=== PATIENT | female | born 1965 | race Caucasian/White ===

== ENCOUNTER → 2016-08-01 | Outpatient (REF) | payer OTHER ==
[~2016-08-01] MED LIST: ACIPHEX; BENT20TA; FLAG500T; FLEXERIL; IBUP800T
[2016-08-01 16:06] LABS: BASO % 0.6 % (0.0-1.0); EOS # 0.1 K/mm3 (0.0-0.50); EOS % 1.3 % (0.0-3.0); LARGE UNSTAINED CELL # 0.1 K/mm3 (0.0-0.4); LARGE UNSTAINED CELL % 1.6 % (0.0-4.0); LYMPH # 1.8 K/mm3 (1.5-4.5); LYMPH % 34.9 % (24.0-44.0); MEAN CORPUSCULAR HEMOGLOBIN 32.5 pg (27.0-33.0); MEAN CORPUSCULAR HGB CONC 35.1 g/dl (32.0-36.5); MEAN CORPUSCULAR VOLUME 92.6 fl (80.0-96.0); MONO # 0.3 K/mm3 (0.0-0.8); MONO % 5.4 % (0.0-5.0); NEUTROPHILS # 2.7 K/mm3 (1.8-7.7); NEUTROPHILS % 56.2 % (36.0-66.0); PLATELET COUNT, AUTOMATED 246 k/mm3 (150-450); RED CELL DISTRIBUTION WIDTH 12.6 % (11.5-14.5); WHITE BLOOD COUNT 4.8 K/mm3 (4.0-10.0)
[2016-08-01 16:24] LABS: LUTEINIZING HORMONE 22.6 mIU/mL
== END ==
LOC: M LAB REF 12:08
PROVIDERS: ATTEND Nurse Practitioner Women's Health
DX: R39.89 Other symptoms and signs involving the genitourinary system (principal); Z11.3 Encounter for screening for infections with a predominantly sexual mode of transmission

== ENCOUNTER → 2016-08-04 | Outpatient (CLI) | payer OTHER ==
--- NOTE | 2016-08-04 10:42 | REP ---
Clinical: Left lower quadrant pain . Technique: Transabdominal pelvic ultrasound followed by transvaginal examination for better evaluation of the endometrium and adnexa with color Doppler evaluation of the ovaries. Findings: Bladder is unremarkable and measures 12.1 x 8.2 x 10.9 cm . Anteverted uterus measures 8.4 x 4.4 x 6.0 cm . The endometrial complex measures 4.0 mm thickness. Partially calcified degenerating fibroid measures 3.2 x 3.5 x 2.9 cm. Bilateral ovaries are normal in appearance and vascularity without evidence for torsion. Right ovary measures 2.6 x 1.9 x 2.7 cm ; R I = venous flow detected . Left ovary measures 2.9 x 1.6 x 4.0 cm ; R I = 0.63 . No pelvic fluid or adnexal mass lesion . Impression: 1. partially calcified degenerating 3.5 cm intramural fibroid. 2. Normal bilateral ovaries without torsion. 3. No pelvic free fluid. Signed by Joe Casas MD 08/04/2016 10:34 A
== END ==
LOC: M RAD 09:47
PROVIDERS: ATTEND Nurse Practitioner Women's Health
DX: R10.9 Unspecified abdominal pain (principal)

== ENCOUNTER → 2016-09-26 | Outpatient (REF) | payer OTHER ==
[~2016-09-26] MED LIST changes: +AUGM12TA11 PO; +LISI10TA4 PO; +MAGN500C PO; +NORCOTAB PO; +OMEP10CASR PO
== END ==
LOC: M LAB REF 12:45
PROVIDERS: ATTEND Surgery
DX: L72.3 Sebaceous cyst (principal)

== ENCOUNTER → 2016-10-10 | Outpatient (REF) | payer OTHER ==
[2016-10-11 12:55] LABS: ALBUMIN 4.1 GM/DL (3.2-5.2); ALBUMIN/GLOBULIN RATIO 1.37 (1.00-1.93); ALKALINE PHOSPHATASE 80 U/L (45-117); ALT/SGPT 29 U/L (12-78); ANION GAP 7 MEQ/L (8-16); AST/SGOT 23 U/L (15-37); BILIRUBIN,TOTAL 0.3 MG/DL (0.2-1.0); BLOOD UREA NITROGEN 11 MG/DL (7-18); CALCIUM LEVEL 9.7 MG/DL (8.5-10.1); CARBON DIOXIDE LEVEL 27 MEQ/L (21-32); CHLORIDE LEVEL 107 MEQ/L (98-107); CHOLESTEROL LEVEL 206 MG/DL (<200); CREATININE FOR GFR 0.74 MG/DL (0.55-1.02); GLOMERULAR FILTRATION RATE > 60.0 (>51); GLUCOSE, FASTING 94 MG/DL (70-105); MAGNESIUM LEVEL 2.3 MG/DL (1.8-2.4); POTASSIUM SERUM 4.2 MEQ/L (3.5-5.1); SODIUM LEVEL 141 MEQ/L (136-145); TOTAL PROTEIN 7.1 GM/DL (6.4-8.2); TRIGLYCERIDES LEVEL 112 MG/DL (<150)
[2016-10-11 13:08] LABS: BASO # 0.2 K/mm3 (0.0-0.2); BASO % 4.3 % (0.0-1.0); EOS # 0.2 K/mm3 (0.0-0.50); EOS % 3.6 % (0.0-3.0); LARGE UNSTAINED CELL # 0.1 K/mm3 (0.0-0.4); LARGE UNSTAINED CELL % 2.1 % (0.0-4.0); LYMPH # 2.2 K/mm3 (1.5-4.5); LYMPH % 35.3 % (24.0-44.0); MEAN CORPUSCULAR HEMOGLOBIN 32.9 pg (27.0-33.0); MEAN CORPUSCULAR HGB CONC 34.2 g/dl (32.0-36.5); MEAN CORPUSCULAR VOLUME 96.1 fl (80.0-96.0); MONO # 0.4 K/mm3 (0.0-0.8); MONO % 6.2 % (0.0-5.0); NEUTROPHILS # 2.8 K/mm3 (1.8-7.7); NEUTROPHILS % 48.4 % (36.0-66.0); PLATELET COUNT, AUTOMATED 264 k/mm3 (150-450); RED CELL DISTRIBUTION WIDTH 12.8 % (11.5-14.5); WHITE BLOOD COUNT 5.8 K/mm3 (4.0-10.0)
== END ==
LOC: M SFHCCLAY 15:50
PROVIDERS: ATTEND Family Medicine
DX: I10 Essential (primary) hypertension (principal); F41.9 Anxiety disorder, unspecified; E78.2 Mixed hyperlipidemia

== ENCOUNTER → 2017-01-03 | Outpatient (REF) | payer OTHER ==
[2017-01-03 19:54] LABS: ALBUMIN/GLOBULIN RATIO 1.38 (1.00-1.93); ALKALINE PHOSPHATASE 66 U/L (45-117); ALT/SGPT 30 U/L (12-78); ANION GAP 6 MEQ/L (8-16); AST/SGOT 17 U/L (15-37); BILIRUBIN,TOTAL 0.4 MG/DL (0.2-1.0); BLOOD UREA NITROGEN 13 MG/DL (7-18); CALCIUM LEVEL 9.6 MG/DL (8.5-10.1); CARBON DIOXIDE LEVEL 29 MEQ/L (21-32); CHLORIDE LEVEL 105 MEQ/L (98-107); CREATININE FOR GFR 0.77 MG/DL (0.55-1.02); GLOMERULAR FILTRATION RATE > 60.0 (>51); GLUCOSE, FASTING 92 MG/DL (70-105); POTASSIUM SERUM 4.4 MEQ/L (3.5-5.1); SODIUM LEVEL 140 MEQ/L (136-145); TOTAL PROTEIN 6.9 GM/DL (6.4-8.2)
== END ==
LOC: M SFHCCLAY 09:55
PROVIDERS: ATTEND Family Medicine
DX: I10 Essential (primary) hypertension (principal)

== ENCOUNTER → 2017-02-22 | Outpatient (CLI) | payer OTHER ==
--- NOTE | 2017-02-22 13:50 | REP ---
PA and lateral chest: Comparison is 05/18/2012. The lung medel are clear. The cardiac size is normal The chasity, mediastinum, and bony thorax are unremarkable. Impression: Negative PA and lateral chest. There is no interval change. Signed by Ezequiel Ho MD 02/22/2017 01:42 P
== END ==
LOC: M CLY 11:29
PROVIDERS: ATTEND Family Medicine
DX: R05 Cough (principal)

== ENCOUNTER → 2017-03-01 | Outpatient (CLI) | payer OTHER ==
--- NOTE | 2017-03-01 21:10 | REP ---
Maxillofacial CT study without contrast: History: Acute recurrent maxillary sinusitis. Comparison head CT study images are from March 21, 2011. CT findings: The frontal, ethmoidal, sphenoidal, and mastoid sinuses are clear bilaterally. There is moderate mucosal thickening affecting the left maxillary sinus. The right maxillary sinus is clear. The ostiomeatal complex is narrowed by mucosal thickening on the left at the level of the ostium and infundibulum. On the right, the OMC is patent. Nasal turbinate soft tissues are symmetric. There is a small leftward septal deviation. No bony destructive lesion is seen. No intraorbital or intracranial abnormality is appreciated. Impression: Left maxillary sinus mucosal thickening, moderate in degree. Signed by Prince Harper MD 03/02/2017 08:08 A
== END ==
LOC: M RAD 13:52
PROVIDERS: ATTEND Family Medicine
DX: J01.01 Acute recurrent maxillary sinusitis (principal)

== ENCOUNTER → 2017-04-27 | Outpatient (REF) | payer OTHER ==
[2017-04-27 16:39] LABS: BASO % 0.5 % (0.0-1.0); EOS # 0.2 10^3/uL (0.0-0.50); EOS % 3.2 % (0.0-3.0); HEMATOCRIT 39.5 % (36.0-47.0); HEMOGLOBIN 13.7 g/dl (12.0-16.0); IMMATURE GRANULOCYTE % 0.2 % (0-3.0); LYMPH # 2.1 10^3/uL (1.5-4.5); LYMPH % 32.4 % (24.0-44.0); MEAN CORPUSCULAR HEMOGLOBIN 32.1 pg (27.0-33.0); MEAN CORPUSCULAR HGB CONC 34.7 g/dl (32.0-36.5); MEAN CORPUSCULAR VOLUME 92.5 fl (80.0-96.0); MONO # 0.5 10^3/uL (0.0-0.8); MONO % 7.4 % (0.0-5.0); NEUTROPHILS # 3.6 10^3/uL (1.8-7.7); NEUTROPHILS % 56.3 % (36.0-66.0); PLATELET COUNT, AUTOMATED 290 10^3/uL (150-450); RED BLOOD COUNT 4.27 10^6/uL (4.00-5.40); RED CELL DISTRIBUTION WIDTH 12.2 % (11.5-14.5); WHITE BLOOD COUNT 6.3 10^3/uL (4.0-10.0)
[2017-04-27 16:58] LABS: TOTAL T3 97.1 NG/DL (60.0-181.0)
[2017-04-27 17:03] LABS: ALBUMIN 4.1 GM/DL (3.2-5.2); ALBUMIN/GLOBULIN RATIO 1.58 (1.00-1.93); ALKALINE PHOSPHATASE 64 U/L (45-117); ALT/SGPT 29 U/L (12-78); ANION GAP 7 MEQ/L (8-16); AST/SGOT 17 U/L (7-37); BILIRUBIN,TOTAL 0.2 MG/DL (0.2-1.0); BLOOD UREA NITROGEN 12 MG/DL (7-18); CARBON DIOXIDE LEVEL 29 MEQ/L (21-32); CHLORIDE LEVEL 107 MEQ/L (98-107); CREATININE FOR GFR 0.64 MG/DL (0.55-1.30); GLOMERULAR FILTRATION RATE > 60.0 (>51); GLUCOSE, FASTING 109 MG/DL (70-100); SODIUM LEVEL 143 MEQ/L (136-145); THYROXINE (T4) 10.1 UG/DL (4.5-12.0); TOTAL PROTEIN 6.7 GM/DL (6.4-8.2)
== END ==
LOC: M SFHCCLAY 13:39
DX: I10 Essential (primary) hypertension (principal); R53.83 Other fatigue

== ENCOUNTER → 2017-05-03 | Outpatient (CLI) | payer OTHER | LOC: M RAD 09:57 | DX: Z12.31 Encounter for screening mammogram for malignant neoplasm of breast (principal) | CPT/HCPCS: 77067 ==

== ENCOUNTER → 2017-09-22 | Outpatient (CLI) | payer OTHER | LOC: M PAIN 09:15 | DX: M79.1 Myalgia (principal); M54.2 Cervicalgia; G89.29 Other chronic pain; I10 Essential (primary) hypertension; M25.511 Pain in right shoulder; F17.210 Nicotine dependence, cigarettes, uncomplicated; K21.9 Gastro-esophageal reflux disease without esophagitis; K58.9 Irritable bowel syndrome, unspecified; Z79.891 Long term (current) use of opiate analgesic; Z79.899 Other long term (current) drug therapy; Z88.8 Allergy status to other drugs, medicaments and biological substances | CPT/HCPCS: G0463 ==

== ENCOUNTER → 2017-10-31 | Outpatient (CLI) | payer OTHER ==
[~2017-10-31] MED LIST changes: -ACIPHEX; -AUGM12TA11 PO; -BENT20TA; +BUPIVACAINE HCL 0.25% 10 ML VIAL As Ordered; +BUPIVACAINE HCL 0.25% 30 ML VIAL As Ordered; -FLAG500T; -FLEXERIL; -IBUP800T; -LISI10TA4 PO; -MAGN500C PO; -NORCOTAB PO; -OMEP10CASR PO; +TRIAMCINOLONE ACETONIDE SUSP 40 MG/ML VIAL (J3301) As Ordered; +diazePAM 5 MG TAB As Ordered; +oxyCODONE 5MG TAB As Ordered
== END ==
LOC: M PAIN 14:30
DX: M79.1 Myalgia (principal); I10 Essential (primary) hypertension; K58.9 Irritable bowel syndrome, unspecified; F41.9 Anxiety disorder, unspecified; K21.9 Gastro-esophageal reflux disease without esophagitis; M48.02 Spinal stenosis, cervical region; F17.210 Nicotine dependence, cigarettes, uncomplicated; M19.90 Unspecified osteoarthritis, unspecified site; Z79.891 Long term (current) use of opiate analgesic; Z79.899 Other long term (current) drug therapy; Z88.2 Allergy status to sulfonamides; Z88.1 Allergy status to other antibiotic agents; Z88.8 Allergy status to other drugs, medicaments and biological substances
CPT/HCPCS: 20552

== ENCOUNTER → 2017-11-21 | Outpatient (REF) | payer OTHER ==
[2017-11-21 11:53] LABS: BASO % 0.4 % (0.0-1.0); EOS # 0.1 10^3/uL (0.0-0.50); EOS % 2.3 % (0.0-3.0); HEMATOCRIT 41.3 % (36.0-47.0); HEMOGLOBIN 14.5 g/dl (12.0-15.5); IMMATURE GRANULOCYTE % 0.4 % (0-3.0); LYMPH % 34.7 % (24.0-44.0); MEAN CORPUSCULAR HEMOGLOBIN 32.4 pg (27.0-33.0); MEAN CORPUSCULAR HGB CONC 35.1 g/dl (32.0-36.5); MEAN CORPUSCULAR VOLUME 92.4 fl (80.0-96.0); MONO # 0.7 10^3/uL (0.0-0.8); MONO % 11.8 % (0.0-5.0); NEUTROPHILS # 2.9 10^3/uL (1.8-7.7); NEUTROPHILS % 50.4 % (36.0-66.0); PLATELET COUNT, AUTOMATED 306 10^3/uL (150-450); RED BLOOD COUNT 4.47 10^6/uL (4.00-5.40); RED CELL DISTRIBUTION WIDTH 12.9 % (11.5-14.5); WHITE BLOOD COUNT 5.7 10^3/uL (4.0-10.0)
[2017-11-21 13:00] LABS: ALBUMIN 3.9 GM/DL (3.2-5.2); ALKALINE PHOSPHATASE 64 U/L (45-117); ALT/SGPT 35 U/L (12-78); ANION GAP 5 MEQ/L (8-16); AST/SGOT 20 U/L (7-37); BILIRUBIN,TOTAL 0.4 MG/DL (0.2-1.0); BLOOD UREA NITROGEN 12 MG/DL (7-18); C REACTIVE PROTEIN QUANTITATIV 0.34 MG/DL (0.00-0.30); CALCIUM LEVEL 9.4 MG/DL (8.5-10.1); CARBON DIOXIDE LEVEL 28 MEQ/L (21-32); CHLORIDE LEVEL 109 MEQ/L (98-107); CHOLESTEROL LEVEL 222 MG/DL (<200); CHOLESTEROL RISK RATIO 4.723 (<5); CREATININE FOR GFR 0.72 MG/DL (0.55-1.30); GLOMERULAR FILTRATION RATE > 60.0 (>51); GLUCOSE, FASTING 74 MG/DL (70-100); HDL CHOLESTEROL 47 MG/DL (>40); LDL CHOLESTEROL 138 MG/DL (<100); NON-HDL-C 175 MG/DL; POTASSIUM SERUM 4.6 MEQ/L (3.5-5.1); SODIUM LEVEL 142 MEQ/L (136-145); TOTAL PROTEIN 6.6 GM/DL (6.4-8.2); TRIGLYCERIDES LEVEL 183 MG/DL (<150)
[2017-11-21 13:16] LABS: ERYTHROCYTE SEDIMENTATION RATE 8 mm/hr (0-30)
[2017-11-21 15:57] LABS: ALBUMIN/GLOBULIN RATIO 1.44 (1.00-1.93)
== END ==
LOC: M SFHCCLAY 09:08
DX: R23.2 Flushing (principal); M54.2 Cervicalgia; I10 Essential (primary) hypertension
CPT/HCPCS: 80053

== ENCOUNTER → 2017-11-28 | Outpatient (CLI) | payer OTHER | LOC: M PAIN 11:45 | DX: M79.1 Myalgia (principal); M50.20 Other cervical disc displacement, unspecified cervical region; I10 Essential (primary) hypertension; F41.9 Anxiety disorder, unspecified; K21.9 Gastro-esophageal reflux disease without esophagitis; M19.90 Unspecified osteoarthritis, unspecified site; F17.210 Nicotine dependence, cigarettes, uncomplicated; Z79.899 Other long term (current) drug therapy; Z88.1 Allergy status to other antibiotic agents; Z88.8 Allergy status to other drugs, medicaments and biological substances | CPT/HCPCS: G0463 ==

== ENCOUNTER → 2017-12-28 | Outpatient (CLI) | payer OTHER | LOC: M CLY 15:37 | DX: J40 Bronchitis, not specified as acute or chronic (principal) | CPT/HCPCS: 71046 ==

== ENCOUNTER → 2018-01-01 | Outpatient (CLI) | payer OTHER | LOC: M PAIN 11:00 | DX: M79.18 Myalgia, other site (principal); M50.20 Other cervical disc displacement, unspecified cervical region; I10 Essential (primary) hypertension; F41.9 Anxiety disorder, unspecified; K21.9 Gastro-esophageal reflux disease without esophagitis; M19.90 Unspecified osteoarthritis, unspecified site; F17.210 Nicotine dependence, cigarettes, uncomplicated; Z79.899 Other long term (current) drug therapy; Z88.1 Allergy status to other antibiotic agents; Z88.8 Allergy status to other drugs, medicaments and biological substances; Z86.79 Personal history of other diseases of the circulatory system | CPT/HCPCS: G0463 ==

== ENCOUNTER → 2018-01-23 | Outpatient (CLI) | payer OTHER | LOC: M CLY 11:24 | DX: R05 Cough (principal) | CPT/HCPCS: 71046 ==

== ENCOUNTER → 2018-01-23 | Outpatient (REF) | payer OTHER ==
[2018-01-23 17:20] LABS: APPEARANCE, URINE CLEAR (CLEAR); BACTERIA, URINE AUTO NEGATIVE (NEGATIVE); BILIRUBIN, URINE AUTO NEGATIVE (NEGATIVE); BLOOD, URINE BLOOD NEGATIVE (NEGATIVE); COLOR, URINE STRAW (YELLOW); GLUCOSE, URINE (UA) AUTO NEGATIVE (NEGATIVE); KETONE, URINE AUTO NEGATIVE (NEGATIVE); LEUKOCYTE ESTERASE, URINE AUTO NEGATIVE (NEGATIVE); NITRITE, URINE AUTO NEGATIVE (NEGATIVE); PROTEIN, URINE AUTO NEGATIVE (NEGATIVE); RBC, URINE AUTO 0 /HPF (0-3); SPECIFIC GRAVITY URINE AUTO 1.002 (1.002-1.035); SQUAMOUS EPITHELIAL CELL UR AU 0 /HPF (0-6); UROBILINOGEN, URINE AUTO 0.2 mg/dL (0.0-2.0); WBC, URINE AUTO 0 /HPF (0-3)
[2018-01-23 17:27] LABS: ALBUMIN 3.9 GM/DL (3.2-5.2); ALBUMIN/GLOBULIN RATIO 1.26 (1.00-1.93); ALKALINE PHOSPHATASE 69 U/L (45-117); ALT/SGPT 44 U/L (12-78); ANION GAP 6 MEQ/L (8-16); AST/SGOT 25 U/L (7-37); BILIRUBIN,TOTAL 0.3 MG/DL (0.2-1.0); BLOOD UREA NITROGEN 10 MG/DL (7-18); CALCIUM LEVEL 9.8 MG/DL (8.5-10.1); CARBON DIOXIDE LEVEL 28 MEQ/L (21-32); CHLORIDE LEVEL 107 MEQ/L (98-107); CREATININE FOR GFR 0.79 MG/DL (0.55-1.30); GLOMERULAR FILTRATION RATE > 60.0 (>51); GLUCOSE, FASTING 100 MG/DL (70-100); POTASSIUM SERUM 4.2 MEQ/L (3.5-5.1); SODIUM LEVEL 141 MEQ/L (136-145); THYROXINE (T4) 7.7 UG/DL (4.5-12.0); TOTAL T3 111.4 NG/DL (60.0-181.0)
[2018-01-23 17:39] LABS: BASO % 0.6 % (0.0-1.0); EOS # 0.1 10^3/uL (0.0-0.50); EOS % 1.3 % (0.0-3.0); HEMATOCRIT 41.3 % (36.0-47.0); HEMOGLOBIN 14.4 g/dl (12.0-15.5); IMMATURE GRANULOCYTE % 0.3 % (0-3.0); LYMPH # 2.1 10^3/uL (1.5-4.5); LYMPH % 34.4 % (24.0-44.0); MEAN CORPUSCULAR HEMOGLOBIN 32.7 pg (27.0-33.0); MEAN CORPUSCULAR HGB CONC 34.9 g/dl (32.0-36.5); MEAN CORPUSCULAR VOLUME 93.9 fl (80.0-96.0); MONO # 0.4 10^3/uL (0.0-0.8); NEUTROPHILS # 3.5 10^3/uL (1.8-7.7); NEUTROPHILS % 56.4 % (36.0-66.0); PLATELET COUNT, AUTOMATED 337 10^3/uL (150-450); RED CELL DISTRIBUTION WIDTH 12.5 % (11.5-14.5); WHITE BLOOD COUNT 6.2 10^3/uL (4.0-10.0)
== END ==
LOC: M SFHCCLAY 11:15
DX: R63.5 Abnormal weight gain (principal); I10 Essential (primary) hypertension

== ENCOUNTER → 2018-02-14 | Outpatient (REF) | payer OTHER ==
[2018-02-17 14:13] LABS: HPV HYBRID CAPTURE II Negative (Negative)
== END ==
LOC: M LAB REF 19:11
DX: Z12.4 Encounter for screening for malignant neoplasm of cervix (principal); R87.610 Atypical squamous cells of undetermined significance on cytologic smear of cervix (ASC-US)
CPT/HCPCS: 88142

== ENCOUNTER → 2018-02-23 | Outpatient (CLI) | payer OTHER ==
[~2018-02-23] MED LIST changes: +ACIPHEX; +ATEN50TA2 PO; +ATIV1TAB7 PO; +AUGM12TA11 PO; +BENT20TA; -BUPIVACAINE HCL 0.25% 10 ML VIAL As Ordered; -BUPIVACAINE HCL 0.25% 30 ML VIAL As Ordered; +BUSP15TA47 PO; +FLAG500T; +FLEXERIL; +GABA-843 PO; +HYDR25OI TOP; +IBUP800T; +LISI10TA4 PO; +MAGN500C PO; +NORCOTAB PO; +OMEP10CASR PO; +SUCR1SS PO; -TRIAMCINOLONE ACETONIDE SUSP 40 MG/ML VIAL (J3301) As Ordered; -diazePAM 5 MG TAB As Ordered; -oxyCODONE 5MG TAB As Ordered
--- NOTE | 2018-03-19 00:22 | ECWPNPC ---
PATIENT NAME: ZANE BARROSO : 1965 GENDER: FEMALE VISIT DATE: 02/23/2018 DISCHARGE DATE: 02/23/18 1207 VISIT LOCKED DATE TIME: PHYSICIAN: IRAIDA VALENTINO RESOURCE: IRAIDA VALENTINO REASON FOR APPOINTMENT 1. W/C MED MGMNT HISTORY OF PRESENT ILLNESS DEPRESSION SCREENING: PHQ-2 IN LAST TWO WEEKS HAVE YOU BEEN BOTHERED BY LITTLE INTEREST OR PLEASURE IN DOING THINGSNO FEELING DOWN, DEPRESSED, OR HOPELESSNO HISTORY OF PRESENT ILLNESS: PAIN THE PATIENT DESCRIBES THE PAIN... 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 [employer] WHEN PER PATIENT AFTER LIFTING TABLE IN [place] SHE EXPERIENCED PAIN IN NECK,MID BACK AND RIGHT ARM.THIS IMPROVED OVER TIME WITH THERAPY.EVENTUALLY HAD SURGERY AT [facility].PAIN BECAME WORSE AFTER SURGERY.PAIN IS AGGREVATED BY BENDING,DRIVING,SITTING OR LIFTING.PAIN RELIEVED SOMEWHAT WITH HEAT AND MEDICATION BUT RELIEF IS SHORT LIVED.DENIES RECENT FEVER,ILLNESS OR WEIGHT LOSS.DENIES SADDLE PARATHESIAS OR BOWEL OR BLADDER INCONTINENCE.HAS TRIALED MULTIPLE MEDICATIONS TO INCLUDE NSAIDS,NON-NARCOTIC AND NARCOTIC MEDICATIONS WITH EITHER SIDE EFFECTS OR INEFFECTIVE PAIN CONTROL.REPORTS ADVERSE REACTION TO CYMBALTA AND CELEBREX.REPORTING SIDE EFFECTS WITH AMITRIPTYLINE,GABAPENTIN AND LYRICA. WHEN DID YOUR PAIN FIRST START? . BRIEFLY DESCRIBE HOW YOUR PAIN STARTED? . HOW DOES YOUR PAIN CHANGE WITH TIME? . DOES YOUR PAIN AWAKEN YOU FROM SLEEP? . HOW MANY HOURS OF SLEEP DO YOU NORMALLY GET? . ANY DIAGNOSTIC TESTING? . FACILITY WHERE TESTS WERE DONE? ____. PAIN TREATMENT TREATMENT YES CANCER HAVE YOU EVER HAD ANY TYPE OF CANCER?NO NO. CURRENT MEDICATIONS TAKING ATENOLOL 50 MG TABLET 1 TABLET ORALLY ONCE A DAY TAKING PANTOPRAZOLE SODIUM 40 MG TABLET DELAYED RELEASE 1 TABLET ORALLY ONCE A DAY TAKING DICYCLOMINE HCL 20 MG TABLET 1 TABLET ORALLY QID PRN TAKING SENOKOT 8.6 MG TABLET 2 TABLETS AT BEDTIME NEEDED ORALLY ONCE A DAY TAKING VITAMIN D 1000 UNIT TABLET 1 TABLET ORALLY ONCE A DAY TAKING IBUPROFEN 800 MG TABLET 1 TABLET WITH FOOD OR MILK NEEDED ORALLY THREE TIMES A DAY NEEDED TAKING NORCO 10-325 MG TABLET 1 TABLET NEEDED ORALLY Q8H MDD3 TAKING CYCLOBENZAPRINE HCL 10 MG TABLET 1 TABLET NEEDED ORALLY THREE TIMES A DAY NEEDED TAKING ALBUTEROL SULFATE HFA 108 (90 BASE) MCG/ACT AEROSOL SOLUTION 2 PUFFS NEEDED INHALATION EVERY 4 HRS NOT-TAKING DOXYCYCLINE MONOHYDRATE 100 MG TABLET 1 TABLET ORALLY EVERY 12 HRS NOT-TAKING BUSPAR 5MG 1 TAB ORALLY BID MEDICATION LIST REVIEWED AND RECONCILED WITH THE PATIENT PAST MEDICAL HISTORY HTN IBS PALPITATIONS ANXIETY RIGHT SHOULDER, NECK, AND UPPER BACK PAIN REFLUX OSTEOARTHRITIS CERVICAL SPINAL STENOSIS ALLERGIES CYMBALTA: PALPITATIONS: SIDE EFFECTS METRONIDAZOLE: PALPITATIONS: SIDE EFFECTS PAXIL: PALPITATIONS: SIDE EFFECTS LEXAPRO: NAUSEA/VOMITING: SIDE EFFECTS BACTRIM: DIARRHEA: SIDE EFFECTS NASONEX: PALPITATIONS: SIDE EFFECTS AMITRIPTYLINE HCL: INCREASED ANXIETY: SIDE EFFECTS METOPROLOL TARTRATE: TINGLING IN MOUTH: SIDE EFFECTS LOSARTAN POTASSIUM: MYALGIA: SIDE EFFECTS PREDNISONE: PALPITATIONS: SIDE EFFECTS CHANTIX: DREAMS: SIDE EFFECTS WELLBUTRIN: FELT TERRIBLE: SIDE EFFECTS LEVAQUIN: UNKNOWN: SIDE EFFECTS NORVASC: HOT FLASHES: SIDE EFFECTS BIAXIN: STOMACH UPSET: SIDE EFFECTS NEXIUM: INEFFECTIVE/NAUSEA: SIDE EFFECTS GABAPENTIN: INCREASED PAIN: SIDE EFFECTS LYRICA: EXTREME FATIGUE: SIDE EFFECTS CEFTIN: INCREASED WHEEZING/COUGHING: ALLERGY CIPROFLAXIN: AGITATION/NERVOUSNESS: SIDE EFFECTS CELEBREX: SLEEPLESSNESS/INTENSE ANXIETY: SIDE EFFECTS SURGICAL HISTORY COLONOSCOPY 2009,2015 UTERINE ABLATION, D&C 2009 ACDF- DR. YEUNG C4-7 WITH TITANIUM CAGES 06/2017 FAMILY HISTORY FATHER: 55 YRS, [place]OKE, [place], DIAGNOSED WITH HYPERTENSION, STROKE MOTHER: 49 YRS, BRAIN CANCER, LUNG CANCER SIBLINGS: ALIVE, BROTHER 48 YR OLD LUNG CANCER; BROTHER 54 LUNG AND SPINE CANCER SON(S): ALIVE, DIAGNOSED WITH HYPERTENSION DAUGHTER(S): ALIVE 6 BROTHER(S) , 3 SISTER(S) - HEALTHY. 2 SON(S) , 1 DAUGHTER(S) - HEALTHY. [id number]- DIABETIC COMPLICATIONS BROTHER LUNG AND SPINE CANCER, BROTHER LUNG CANCER. SOCIAL HISTORY GENERAL: TOBACCO USE ARE YOU A:CURRENT SMOKER ARE YOU INTERESTED IN QUITTING?NOT READY TO QUIT COUNSELED THE PATIENT ON SMOKING EFFECTS, EDUCATION YHTHDEEN08/14/2018 HOW MANY CIGARETTES A DAY DO YOU SMOKE?11-20 HOW SOON AFTER YOU WAKE UP DO YOU SMOKE YOUR FIRST CIGARETTE?6-30 MIN HOW OFTEN DO YOU SMOKE CIGARETTES?EVERY DAY PATIENT COUNSELED ON THE DANGERS OF TOBACCO USE AND URGED TO QUIT:02/23/2018 ADDITIONAL FINDINGS: TOBACCO USERHEAVY CIGARETTE SMOKER (20-39 CIGS/DAY) SMOKING CESSATION INFORMATION GIVEN01/23/2018 VAPORNO E-CIGARETTENO BMI CARE GOAL FOLLOW-UP ABOVE NORMAL BMI FOLLOW-UPDIETARY MANAGEMENT EDUCATION, GUIDANCE, AND COUNSELING ALCOHOL SCREENING DID YOU HAVE A DRINK CONTAINING ALCOHOL IN THE PAST YEAR?YES HOW OFTEN DID YOU HAVE SIX OR MORE DRINKS ON ONE OCCASION IN THE PAST YEAR?NEVER (0 POINTS) HOW MANY DRINKS DID YOU HAVE ON A TYPICAL DAY WHEN YOU WERE DRINKING IN THE PAST YEAR?1 OR 2 (0 POINTS) HOW OFTEN DID YOU HAVE A DRINK CONTAINING ALCOHOL IN THE PAST YEAR?MONTHLY OR LESS (1 POINT) POINTS1 INTERPRETATIONNEGATIVE RECREATIONAL DRUG USE DRUG USE?NO CAFFEINE >5/DAY. SEXUAL HX HAD SEX IN THE LAST 12 MONTHS (VAGINAL, ORAL, OR ANAL)?YES WITHMEN ONLY PREVENTION STRATEGIES DISCUSSED:OTHER USE PROTECTION?NO HAVE YOU EVER HAD AN STD?NO HIV / HEP-C SCREENING HIV TEST OFFERED TO PATIENT:YES DATE OFFERED:12/20/2017 TEST ACCEPTED:NO REASON:PATIENT DECLINED BROCHURE PROVIDED TO PATIENTNO HEP-C TEST OFFERED TO PATIENT:NO MORMONISM [id number] TAOISM LANGUAGE BELARUSIAN. EDUCATION LEVEL OF EDUCATION:NOT FINISHED HIGH SCHOOL LEARNING BARRIERS / SPECIAL NEEDS CHANGE FROM LAST VISIT?NO BARRIERS TO LEARNING?NO HEARING IMPAIRED?NO VISION IMPAIRED?YES :CORRECTIVE LENSES COGNITIVELY IMPAIRED?NO READINESS TO LEARN?YES LEARNING PREFERENCES?NO LEARNING CAPABILITIES PRESENT?YES EMOTIONAL BARRIERS?NO SPECIAL DEVICES?NO TURNER MACHINE NEEDED?NO DOMESTIC VIOLENCE NONE. OCCUPATION: [employer]. DIET: REGULAR. EXERCISE: NO REGULAR EXERCISE, ACTIVE. MARITAL STATUS: . OTHERS AT HOME: SPOUSE. PAIN CLINIC PFS, CLERGY, PUBLIC HEALTH REFERRALS PFS REFERRAL NEEDED?NO CLERGY REFERRAL NEEDED?NO PUBLIC HEALTH REFERRAL NEEDED?NO WAS THE PROVIDER NOTIFIED OF ANY PERTINENT INFO?NO HAS THE PATIENT BEEN EDUCATED REGARDING HIS/HER PLAN OF CARE?YES HAS THE PATIENT BEEN EDUCATED REGARDING PAIN, THE RISK FOR PAIN, THE IMPORTANCE OF EFFECTIVE PAIN MANAGEMENT, AND THE PAIN ASSESSMENT PROCESS?YES ADVANCE DIRECTIVE ADVANCE DIRECTIVE DISCUSSED WITH PATIENT:YES PT. HAS HCP EARLENE BARROSO [phone] REVIEWED WITH PATIENT 02/23/18 1124 JS. HOSPITALIZATION/MAJOR DIAGNOSTIC PROCEDURE [facility]-SEVERE BACK PAIN - ED 01/13/17 SURGERY 06/2017 REVIEW OF SYSTEMS REVIEWED BY: PROVIDER: IRAIDA LOZADA . CONSTITUTIONAL: ANY CHANGE IN YOUR MEDICAL CONDITION? NO . CHILLS NO . FEVER NO . INFECTION: DO YOU HAVE NEW INFECTIONS? NO . DO YOU HAVE HISTORY OF MRSA? NO . MUSCULOSKELETAL: ANY NEW PATTERNS OF PAIN OR NUMBNESS? YES, STATES NUMBNESS TO RIGHT ARM AND FINGERS . GASTROENTEROLOGY: ANY NEW CHANGE IN BOWEL CONTROL? NO . GENITOURINARY: ANY NEW CHANGE IN BLADDER CONTROL? NO . IS THERE A CHANCE YOU COULD BE ? NO . HEMATOLOGY/LYMPH: DO YOU TAKE ANY BLOOD THINNERS? (FOR EXAMPLE- COUMADIN, PLAVIX, AGGRENOX, PLATEL, PRADAXA, OR XARELTO) NO . WHEN WAS YOUR LAST DOSE? DATE: TIME: . NEUROLOGY: HAVE YOU FALLEN IN THE PAST 6 MONTHS? YES, STATES DISCUSSED AT PREVIOUS VISIT . ANY NEW EXTREMITY NUMBNESS OR WEAKNESS? NO . CARDIOLOGY: DO YOU HAVE A PACEMAKER OR DEFIBRILLATOR? NO . RESPIRATORY: HAVE YOU BEEN SICK IN THE PAST WEEK? NO . FEVER NO . FLU LIKE SYMPTOMS? NO . COUGH NO . INTEGUMENTARY: DO YOU HAVE ANY RASHES OR OPEN SORES? NO . ALLERGIC/IMMUNO: ARE YOU ALLERGIC TO SHELLFISH OR IV DYE? NO . ANY NEW ALLERGIES? NO . PSYCHIATRIC: DO YOU HAVE THOUGHTS OF HURTING YOURSELF OR SOMEONE ELSE? NO . ARE YOU ABUSED, NEGLECTED, OR IN AN UNSAFE ENVIRONMENT? NO . ENDOCRINOLOGY: ARE YOU DIABETIC? NO . OTHER: DO YOU NEED ANY PRESCRIPTIONS? NO . IF YES, PLEASE LIST: ____ . ANY NEW PROBLEMS WITH YOUR MEDICATIONS? NO . WHEN DID YOU LAST EAT? ____ . WHEN DID YOU LAST DRINK? ____ . WHAT DID YOU LAST DRINK? ____ . NAME OF PERSON DRIVING YOU HOME? ____ . DO YOU HAVE ANY OTHER QUESTIONS OR CONCERNS NO . VITAL SIGNS WT 218.8 LBS, HT 5'4.5", BMI 36.97 INDEX, BP 150/82 MM HG, HR 59 /MIN, RR 18 /MIN, TEMP 98.4 F, OXYGEN SAT % 100%, SAFE IN ENV? (Y/N) YES, NA INITIALS AL 11:22, REVIEWED BY: BHAVIN. EXAMINATION GENERAL EXAMINATION: GENERAL APPEARANCE:ALERT,NO ACUTE DISTRESS. PSYCHAFFECT NORMAL. LUNGS:LUNG TALAVERA ARE CLEAR TO AUSCULTATION BILATERALLY. GOOD MOVEMENT OF AIR. HEART:S1, S2 IN A REGULAR RATE AND RHYTHM. NO SIGNIFICANT MURMURS, RUBS OR GALLOPS NOTED. MUSCULOSKELETAL:MST-WEAKNESS NOTED OVER RIGHT ARM COMPARED WITH LEFT ROJM LIMITED TO 45DEGREES ABDUCTION RIGHT WITH INCREASE IN NECK AND SHOULDER PAIN NOTED.. CERVICALTRIGGER POINTS WITH RESTRICTION OF ROJM NOTED OVER TRAPEZIUS BILAT. R>L TRIGGER POINTS NOTED OVER RIGHT RHOMBOID AND SHOULDER REGION.. NEUROLOGIC EXAM:NORMAL SENSATION TO LIGHT TOUCH BILAT. UPPER EXTREMITIES. DIAGNOSTIC TESTS REVIEWEDMRI [id number] MRI RIGHT [id number] NCS-UPPER [id number]. ASSESSMENTS MYALGIA - M79.1 (PRIMARY) CERVICAL DISC DISPLACEMENT - M50.20 TREATMENT MYALGIA REFILL IBUPROFEN TABLET, 800 MG, 1 TABLET WITH FOOD OR MILK NEEDED, ORALLY, THREE TIMES A DAY NEEDED, 30 DAY(S), 90, REFILLS 2 REFILL NORCO TABLET, 10-325 MG, 1 TABLET NEEDED, ORALLY, Q8H MDD3, 30 DAY(S), 90, REFILLS 0 REFILL CYCLOBENZAPRINE HCL TABLET, 10 MG, 1 TABLET NEEDED, ORALLY, THREE TIMES A DAY NEEDED, 30 DAY(S), 45, REFILLS 1 NOTES: ISTOP REGISTRY REVIEWED AND DEMONSTRATES COMPLLIANCE. (REF # [id number] ) BRINGS IN MEDICATIONS WHICH IS APPROPRIATE FOR WHAT WAS DISPENSED. RECENT URINE TOXICOLOGY REVIEWED. NO UNAUTHORIZED MEDICATIONS. NO ILLICIT SUBSTANCES AND PRESCRIBED MEDICATIONS WERE PRESENT. , RISKS AND BENEFITS OF NARCOTIC/OPIOD MEDICATIONS WERE REVIEWED WITH PATIENT - THIS INCLUDES BUT IS NOT LIMITED TO RISK OF DEPENDANCE/DEVELOPMENT OF ADDICTION, MOOD DISTURBANCE AND DEPRESSION, OSTEOPOROSIS, HORMONAL AND LABIDAL CHANGES, RESPIRATORY DEPRESSION AND . PATIENT IS ADVISED NOT TO DRIVE OR DRINK ALCOHOL WHILE ON THESE MEDICATIONS. PROCEDURES PN WORKMANS' COMP OPINION IN YOUR OPINION, WAS THE INCIDENT THAT THE PATIENT DESCRIBED THE COMPETENT MEDICAL CAUSE OF THIS INJURY/ILLNESS? YES ARE THE PATIENT'S COMPLAINTS CONSISTENT WITH HIS/HER HISTORY OF THE INJURY/ILLNESS? YES IS THE PATIENT'S HISTORY OF THE INJURY/ILLNESS CONSISTENT WITH YOUR OBJECTIVE FINDING? YES WHAT IS THE PERCENTAGE OF TEMPORARY IMPAIRMENT? MODERATE TO MARKED = 66.7% IS THE PATIENT WORKING? NO DOCTOR ON SITE: DELORES MOORE MD PROCEDURE CODES FA211 ESTABILISHED PATIENT [facility] CHARGE DISPOSITION & COMMUNICATION FOLLOW UP 2 MONTHS ELECTRONICALLY SIGNED BY NEVILLE TOM ON 03/18/2018 AT 05:10 PM EST DISCLAIMER : THIS IS A VISIT SUMMARY EXTRACTED FROM THE [employer] CHART. IT IS NOT A COPY OF THE [employer] PROGRESS NOTE. ANGELICA
== END ==
LOC: M PAIN 11:15
PROVIDERS: ATTEND Nurse Practitioner Family
DX: M79.18 Myalgia, other site (principal); M50.20 Other cervical disc displacement, unspecified cervical region; I10 Essential (primary) hypertension; F41.9 Anxiety disorder, unspecified; K21.9 Gastro-esophageal reflux disease without esophagitis; M19.90 Unspecified osteoarthritis, unspecified site; F17.210 Nicotine dependence, cigarettes, uncomplicated; E66.01 Morbid (severe) obesity due to excess calories; Z68.36 Body mass index [BMI] 36.0-36.9, adult; Z79.899 Other long term (current) drug therapy; Z88.1 Allergy status to other antibiotic agents; Z88.8 Allergy status to other drugs, medicaments and biological substances

== ENCOUNTER → 2018-03-09 | Outpatient (CLI) | payer OTHER ==
--- NOTE | 2018-03-09 10:01 | REP ---
Clinical: Leiomyoma . Comparison: 08/04/2016 Technique: Transabdominal pelvic ultrasound followed by transvaginal examination for better evaluation of the endometrium and adnexa. Findings: Bladder is unremarkable and measures 10.4 x 12.5 x 6.2 cm . Anteverted uterus measures 7.6 x 4.6 x 5.4 cm and includes partially calcified 2.1 x 1.9 x 2.6 cm anterior fibroid with possible submucosal component (previously measuring 3.2 x 3.5 x 2.9 cm). The endometrial complex measures 2.5 mm thickness. Bilateral ovaries are normal in appearance. Right ovary measures 2.0 x 1.8 x 2.8 cm ; Left ovary measures 2.5 x 1.8 x 3.1 cm. No pelvic fluid or adnexal mass lesion . Impression: 1. Heterogeneous partially calcified anterior fibroid measures 2.6 cm maximal diameter and appears to be slightly decreased in size when compared to prior examination dated 2016. Electronically Signed by Joe Casas MD 03/09/2018 09:52 A
== END ==
LOC: M RAD 09:18
PROVIDERS: ATTEND Advanced Practice Midwife
DX: D25.9 Leiomyoma of uterus, unspecified (principal)

== ENCOUNTER → 2018-05-03 | Outpatient (CLI) | payer OTHER ==
--- NOTE | 2018-05-07 16:22 | SLEEPHOME ---
DATE OF PROCEDURE: 05/03/2018 ORDERED BY: Dr. Valdez Diagnostic home sleep testing was performed due to concern for the obstructive sleep apnea syndrome in this patient with a history of excessive somnolence, snoring and morning headaches. For testing, a nocturnal T3 respiratory monitoring device was used. Continuous record was created of pulse, oxygen saturation, airflow, chest, abdominal strain and body position. 10 hours and 59 minutes of data were reviewed. There were 8 hours and 22 minutes identified as time in bed. During the interval marked time in bed, there were 69 respiratory events identified of 10 seconds in duration or greater for a respiratory event index of 8.2. The events were primarily obstructive. Baseline pulse rate 58, pulse rate ranged 48 to 96. Baseline saturation 94% that fell as low as 63%. Testing was performed in both the supine and nonsupine positions. IMPRESSION: Abnormal home sleep testing with repetitive respiratory events and oxygen desaturations to 63% with a respiratory event index of 8.2 is consistent with the obstructive sleep apnea syndrome. RECOMMENDATIONS: The patient should be encouraged to undergo a formal sleep evaluation and in laboratory pressure titration.
== END ==
LOC: M SLEEP HO 09:34
PROVIDERS: ATTEND Internal Medicine Pulmonary Disease
DX: G47.30 Sleep apnea, unspecified (principal)

== ENCOUNTER → 2018-05-21 | Outpatient (CLI) | payer OTHER ==
--- NOTE | 2018-06-06 01:20 | ECWPNPC ---
PATIENT NAME: ZANE BARROSO : 1965 GENDER: FEMALE VISIT DATE: 05/21/2018 DISCHARGE DATE: 05/21/18 1051 VISIT LOCKED DATE TIME: PHYSICIAN: IRAIDA VALENTINO RESOURCE: IRAIDA VALENTINO REASON FOR APPOINTMENT 1. W/C MED MNGMT HISTORY OF PRESENT ILLNESS HISTORY OF PRESENT ILLNESS: HERE FOR F/U OF CHRONIC NECK AND RIGHT SHOULDER PAIN.SHE HAD CERVICAL SURGERY IN 2018 AND THIS MADE PAIN WORSE.RIGHT SHOULDER WILL BE EVALUATED BY DR SAEED IN [place] THIS WEEK.THIS IS A WORK RELATED INJURY WITH DOI-05/09/13.REPORTING INTERMITTENT LEFT ARM NUMBNESS AND PAIN AND CONSTANT RIGHT ARM AND FINGER PAIN AND PARATHESIAS.RATING PAIN VAS 7/10. PAIN THE PATIENT DESCRIBES THE PAIN... FALL RISK SCREENING: SCREENING : NO FALLS IN THE PAST YEAR. CURRENT MEDICATIONS TAKING ATENOLOL 50 MG TABLET 1 TABLET ORALLY ONCE A DAY TAKING SENOKOT 8.6 MG TABLET 2 TABLETS AT BEDTIME NEEDED ORALLY ONCE A DAY TAKING VITAMIN D 1000 UNIT TABLET 1 TABLET ORALLY ONCE A DAY TAKING ALBUTEROL SULFATE HFA 108 (90 BASE) MCG/ACT AEROSOL SOLUTION 2 PUFFS NEEDED INHALATION EVERY 4 HRS TAKING CYCLOBENZAPRINE HCL 10 MG TABLET 1 TABLET NEEDED ORALLY THREE TIMES A DAY NEEDED TAKING DICYCLOMINE HCL 20 MG TABLET 1 TABLET ORALLY QID PRN, NOTES: WHEN NEEDED TAKING IBUPROFEN 800 MG TABLET 1 TABLET WITH FOOD OR MILK NEEDED ORALLY THREE TIMES A DAY NEEDED TAKING NORCO 10-325 MG TABLET 1 TABLET NEEDED ORALLY Q8H MDD3 TAKING OMEPRAZOLE 20 MG CAPSULE DELAYED RELEASE 1 CAPSULE ORALLY ONCE A DAY NOT-TAKING PANTOPRAZOLE SODIUM 40 MG TABLET DELAYED RELEASE 1 TABLET ORALLY ONCE A DAY MEDICATION LIST REVIEWED AND RECONCILED WITH THE PATIENT PAST MEDICAL HISTORY IBS PALPITATIONS ANXIETY HTN RIGHT SHOULDER, NECK, AND UPPER BACK PAIN REFLUX OSTEOARTHRITIS CERVICAL SPINAL STENOSIS ALLERGIES CYMBALTA: PALPITATIONS - SIDE EFFECTS METRONIDAZOLE: PALPITATIONS - SIDE EFFECTS PAXIL: PALPITATIONS - SIDE EFFECTS LEXAPRO: NAUSEA/VOMITING - SIDE EFFECTS BACTRIM: DIARRHEA - SIDE EFFECTS NASONEX: PALPITATIONS - SIDE EFFECTS AMITRIPTYLINE HCL: INCREASED ANXIETY - SIDE EFFECTS METOPROLOL TARTRATE: TINGLING IN MOUTH - SIDE EFFECTS LOSARTAN POTASSIUM: MYALGIA - SIDE EFFECTS PREDNISONE: PALPITATIONS - SIDE EFFECTS CHANTIX: DREAMS - SIDE EFFECTS WELLBUTRIN: FELT TERRIBLE - SIDE EFFECTS LEVAQUIN: UNKNOWN - SIDE EFFECTS NORVASC: HOT FLASHES - SIDE EFFECTS BIAXIN: STOMACH UPSET - SIDE EFFECTS NEXIUM: INEFFECTIVE/NAUSEA - SIDE EFFECTS GABAPENTIN: INCREASED PAIN - SIDE EFFECTS LYRICA: EXTREME FATIGUE - SIDE EFFECTS CEFTIN: INCREASED WHEEZING/COUGHING - ALLERGY CIPROFLAXIN: AGITATION/NERVOUSNESS - SIDE EFFECTS CELEBREX: SLEEPLESSNESS/INTENSE ANXIETY - SIDE EFFECTS SURGICAL HISTORY COLONOSCOPY 2009,2015 UTERINE ABLATION, D&C 2009 ACDF- DR. YEUNG C4-7 WITH TITANIUM CAGES 06/2017 FAMILY HISTORY FATHER: 55 YRS, STROKE, [place], DIAGNOSED WITH STROKE, HYPERTENSION MOTHER: 49 YRS, BRAIN CANCER, LUNG CANCER SIBLINGS: ALIVE, BROTHER 48 YR OLD LUNG CANCER; BROTHER 54 LUNG AND SPINE CANCER SON(S): ALIVE, HYPERTENSION DAUGHTER(S): ALIVE 6 BROTHER(S) , 3 SISTER(S) - HEALTHY. 2 SON(S) , 1 DAUGHTER(S) - HEALTHY. [id number]- DIABETIC COMPLICATIONS BROTHER LUNG AND SPINE CANCER, BROTHER LUNG CANCER. SOCIAL HISTORY GENERAL: TOBACCO USE ARE YOU A:CURRENT SMOKER ARE YOU INTERESTED IN QUITTING?NOT READY TO QUIT COUNSELED THE PATIENT ON SMOKING EFFECTS, EDUCATION [id number]/27/2018 HOW MANY CIGARETTES A DAY DO YOU SMOKE?11-20 HOW SOON AFTER YOU WAKE UP DO YOU SMOKE YOUR FIRST CIGARETTE?6-30 MIN HOW OFTEN DO YOU SMOKE CIGARETTES?EVERY DAY PATIENT COUNSELED ON THE DANGERS OF TOBACCO USE AND URGED TO QUIT:05/21/2018 ADDITIONAL FINDINGS: TOBACCO USERHEAVY CIGARETTE SMOKER (20-39 CIGS/DAY) SMOKING CESSATION INFORMATION GIVEN03/08/2018 VAPORNO E-CIGARETTENO BMI CARE GOAL FOLLOW-UP ABOVE NORMAL BMI FOLLOW-UPDIETARY MANAGEMENT EDUCATION, GUIDANCE, AND COUNSELING ALCOHOL SCREENING DID YOU HAVE A DRINK CONTAINING ALCOHOL IN THE PAST YEAR?YES HOW OFTEN DID YOU HAVE SIX OR MORE DRINKS ON ONE OCCASION IN THE PAST YEAR?NEVER (0 POINTS) HOW MANY DRINKS DID YOU HAVE ON A TYPICAL DAY WHEN YOU WERE DRINKING IN THE PAST YEAR?1 OR 2 (0 POINTS) HOW OFTEN DID YOU HAVE A DRINK CONTAINING ALCOHOL IN THE PAST YEAR?MONTHLY OR LESS (1 POINT) POINTS1 INTERPRETATIONNEGATIVE RECREATIONAL DRUG USE DRUG USE?NO CAFFEINE >5/DAY. SEXUAL HX HAD SEX IN THE LAST 12 MONTHS (VAGINAL, ORAL, OR ANAL)?YES WITHMEN ONLY PREVENTION STRATEGIES DISCUSSED:OTHER USE PROTECTION?NO HAVE YOU EVER HAD AN STD?NO HIV / HEP-C SCREENING HIV TEST OFFERED TO PATIENT:YES DATE OFFERED:03/08/2018 TEST ACCEPTED:NO REASON:PATIENT DECLINED BROCHURE PROVIDED TO PATIENTNO HEP-C TEST OFFERED TO PATIENT:NO MORMON [id number] RELIGIOUS LANGUAGE ERITREAN. EDUCATION LEVEL OF EDUCATION:NOT FINISHED HIGH SCHOOL LEARNING BARRIERS / SPECIAL NEEDS CHANGE FROM LAST VISIT?NO BARRIERS TO LEARNING?NO HEARING IMPAIRED?NO VISION IMPAIRED?YES :CORRECTIVE LENSES COGNITIVELY IMPAIRED?NO READINESS TO LEARN?YES LEARNING PREFERENCES?NO LEARNING CAPABILITIES PRESENT?YES EMOTIONAL BARRIERS?NO SPECIAL DEVICES?NO BOAT PATCHER PLASTIC NEEDED?NO DOMESTIC VIOLENCE NONE. 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 DIET: REGULAR. EXERCISE: NO REGULAR EXERCISE, ACTIVE. MARITAL STATUS: . OTHERS AT HOME: SPOUSE. PAIN CLINIC PFS, CLERGY, PUBLIC HEALTH REFERRALS PFS REFERRAL NEEDED?NO CLERGY REFERRAL NEEDED?NO PUBLIC HEALTH REFERRAL NEEDED?NO WAS THE PROVIDER NOTIFIED OF ANY PERTINENT INFO?NO HAS THE PATIENT BEEN EDUCATED REGARDING HIS/HER PLAN OF CARE?YES HAS THE PATIENT BEEN EDUCATED REGARDING PAIN, THE RISK FOR PAIN, THE IMPORTANCE OF EFFECTIVE PAIN MANAGEMENT, AND THE PAIN ASSESSMENT PROCESS?YES ADVANCE DIRECTIVE ADVANCE DIRECTIVE DISCUSSED WITH PATIENT:YES PT. HAS HCP EARLENE BARROSO [phone] REVIEWED WITH PATIENT 02/23/18 1124 JS. HOSPITALIZATION/MAJOR DIAGNOSTIC PROCEDURE [facility]-SEVERE BACK PAIN - ED 01/13/17 SURGERY 06/2017 REVIEW OF SYSTEMS REVIEWED BY: PROVIDER: IRAIDA LOZADA . CONSTITUTIONAL: ANY CHANGE IN YOUR MEDICAL CONDITION? NO . CHILLS NO . FEVER NO . INFECTION: DO YOU HAVE NEW INFECTIONS? NO . DO YOU HAVE HISTORY OF MRSA? NO . MUSCULOSKELETAL: ANY NEW PATTERNS OF PAIN OR NUMBNESS? NO . GASTROENTEROLOGY: ANY NEW CHANGE IN BOWEL CONTROL? NO . GENITOURINARY: ANY NEW CHANGE IN BLADDER CONTROL? NO . IS THERE A CHANCE YOU COULD BE ? NO . HEMATOLOGY/LYMPH: DO YOU TAKE ANY BLOOD THINNERS? (FOR EXAMPLE- COUMADIN, PLAVIX, AGGRENOX, PLATEL, PRADAXA, OR XARELTO) NO . WHEN WAS YOUR LAST DOSE? DATE: TIME: . NEUROLOGY: HAVE YOU FALLEN IN THE PAST 12 MONTHS? NO . ANY NEW EXTREMITY NUMBNESS OR WEAKNESS? NO . CARDIOLOGY: DO YOU HAVE A PACEMAKER OR DEFIBRILLATOR? NO . RESPIRATORY: HAVE YOU BEEN SICK IN THE PAST WEEK? NO . FEVER NO . FLU LIKE SYMPTOMS? NO . COUGH NO . INTEGUMENTARY: DO YOU HAVE ANY RASHES OR OPEN SORES? RIGHT ARM SOME REDNESS . ALLERGIC/IMMUNO: ARE YOU ALLERGIC TO IV DYE? NO . ANY NEW ALLERGIES? NO . PSYCHIATRIC: DO YOU HAVE THOUGHTS OF HURTING YOURSELF OR SOMEONE ELSE? NO . ARE YOU ABUSED, NEGLECTED, OR IN AN UNSAFE ENVIRONMENT? NO . ENDOCRINOLOGY: ARE YOU DIABETIC? NO . OTHER: DO YOU NEED ANY PRESCRIPTIONS? NO . IF YES, PLEASE LIST: ____ . ANY NEW PROBLEMS WITH YOUR MEDICATIONS? NO . WHEN DID YOU LAST EAT? ____ . WHEN DID YOU LAST DRINK? ____ . WHAT DID YOU LAST DRINK? ____ . NAME OF PERSON DRIVING YOU HOME? ____ . DO YOU HAVE ANY OTHER QUESTIONS OR CONCERNS SEEING [facility] ON MONDAY RIGHT SHOULDER ..PERHAPS SURGERY . VITAL SIGNS WT 216.2 LBS, HT 5'4.5", BMI 36.53 INDEX, BP 142/87 MM HG, HR 55 /MIN, RR 18 /MIN, TEMP 97.6 F, OXYGEN SAT % 99%, NA INITIALS SC 10:03, REVIEWED BY: KG. EXAMINATION GENERAL EXAMINATION: GENERAL APPEARANCE:ALERT,NO ACUTE DISTRESS. PSYCHAFFECT NORMAL. LUNGS:LUNG TALAVERA ARE CLEAR TO AUSCULTATION BILATERALLY. GOOD MOVEMENT OF AIR. HEART:S1, S2 IN A REGULAR RATE AND RHYTHM. NO SIGNIFICANT MURMURS, RUBS OR GALLOPS NOTED. MUSCULOSKELETAL:MST-WEAKNESS NOTED OVER RIGHT ARM COMPARED WITH LEFT ROJM LIMITED TO 45DEGREES ABDUCTION RIGHT WITH INCREASE IN NECK AND SHOULDER PAIN NOTED.. CERVICALTRIGGER POINTS WITH RESTRICTION OF ROJM NOTED OVER TRAPEZIUS BILAT. R>L TRIGGER POINTS NOTED OVER RIGHT RHOMBOID AND SHOULDER REGION.. NEUROLOGIC EXAM:NORMAL SENSATION TO LIGHT TOUCH BILAT. UPPER EXTREMITIES. DIAGNOSTIC TESTS REVIEWEDMRI [id number] MRI RIGHT [id number] NCS-UPPER [id number]. ASSESSMENTS CERVICALGIA - M54.2 (PRIMARY) OTHER CHRONIC PAIN - G89.29 PAIN IN RIGHT SHOULDER - M25.511 TREATMENT CERVICALGIA CONTINUE CYCLOBENZAPRINE HCL TABLET, 10 MG, 1 TABLET NEEDED, ORALLY, THREE TIMES A DAY NEEDED REFILL IBUPROFEN TABLET, 800 MG, 1 TABLET WITH FOOD OR MILK NEEDED, ORALLY, THREE TIMES A DAY NEEDED, 30 DAY(S), 90, REFILLS 2 REFILL NORCO TABLET, 10-325 MG, 1 TABLET NEEDED, ORALLY, Q8H MDD3, 30 DAY(S), 90, REFILLS 0 NOTES: ISTOP REGISTRY REVIEWED AND DEMONSTRATES COMPLLIANCE. BRINGS IN MEDICATIONS WHICH IS APPROPRIATE FOR WHAT WAS DISPENSED. RECENT URINE TOXICOLOGY REVIEWED. NO UNAUTHORIZED MEDICATIONS. NO ILLICIT SUBSTANCES AND PRESCRIBED MEDICATIONS WERE PRESENT. URINE TOX TODAY, [facility] NARCOTIC AGREEMENT WAS UPDATED/ REVIEWED AND SIGNED TODAY BY THE PATIENT. SEE ATTACHED DOCUMENT FOR FULL DETAILS; SPECIFIC ISSUES WERE REVIEWED: 1) KEEP PAIN MEDS IN THEIR ORIGINAL BOTTLES AND ANY WEEKLY PLANNERS ARE TO BE BROUGHT TO THE PAIN CENTER AT EVERY VISIT. 2) THE PATIENT IS NOT TO INCREASE DOSING OR TIMING OF THEIR PAIN MEDICATION WITHOUT SPECIFIC DIRECTION OF THEIR PAIN CENTERPROVIDER (NOT ER OR OTHER PROVIDERS). 3) ALL PAIN MEDS ARE TO BE KEPT SECURED, IN A LOCKED BOX. 4) NO PAIN MEDS ARE TO BE SHARED WITH ANY OTHER PERSON FOR ANY REASON. 5) NO PAIN MEDS MAY BE TAKEN FROM ANY FRIENDS OR RELATIVES FOR ANY REASON 6) NO MEDS OR SUBSTANCES WHICH ARE NOT LEGAL ARE TO BE USED- NO MARIJUANA, NO COCAINE, AMPHETAMINES, HEROIN, OR OTHERS ARE EVER TO BE USED. 7)URINE TESTING IS DONE TO ACCOUNT FOR MEDS AND SUBSTANCES BEING TAKEN AND WILL BE DONE RANDOMLY.. PROCEDURES PN WORKMANS' COMP OPINION IN YOUR OPINION, WAS THE INCIDENT THAT THE PATIENT DESCRIBED THE COMPETENT MEDICAL CAUSE OF THIS INJURY/ILLNESS? YES ARE THE PATIENT'S COMPLAINTS CONSISTENT WITH HIS/HER HISTORY OF THE INJURY/ILLNESS? YES IS THE PATIENT'S HISTORY OF THE INJURY/ILLNESS CONSISTENT WITH YOUR OBJECTIVE FINDING? YES WHAT IS THE PERCENTAGE OF TEMPORARY IMPAIRMENT? MODERATE TO MARKED = 66.7% IS THE PATIENT WORKING? NO DOCTOR ON SITE: DEOLRES MOORE MD PROCEDURE CODES FA211 ESTABILISHED PATIENT [facility] CHARGE DISPOSITION & COMMUNICATION FOLLOW UP 2 MONTHS ELECTRONICALLY SIGNED BY NEVILLE TOM ON 06/04/2018 AT 04:23 PM EDT DISCLAIMER : THIS IS A VISIT SUMMARY EXTRACTED FROM THE [facility] CHART. IT IS NOT A COPY OF THE [employer] PROGRESS NOTE. ANGELICA
== END ==
LOC: M PAIN 09:45
PROVIDERS: ATTEND Nurse Practitioner Family
DX: M54.2 Cervicalgia (principal); M25.511 Pain in right shoulder; G89.29 Other chronic pain; I10 Essential (primary) hypertension; K21.9 Gastro-esophageal reflux disease without esophagitis; F41.9 Anxiety disorder, unspecified; F17.210 Nicotine dependence, cigarettes, uncomplicated; Z79.899 Other long term (current) drug therapy; Z88.1 Allergy status to other antibiotic agents; Z88.8 Allergy status to other drugs, medicaments and biological substances

== ENCOUNTER → 2018-07-19 | Outpatient (CLI) | payer OTHER ==
[~2018-07-19] MED LIST changes: +HYDR-3715 PO; -NORCOTAB PO
--- NOTE | 2018-07-20 04:53 | REP ---
Clinical: Cough. Technique: Axial noncontrast images from the thoracic inlet to the upper abdomen with coronal and sagittal re-formations. Comparison: 01/12/2017. Findings: Bilateral lung medel are well-aerated and essentially clear. No consolidation, significant nodule, or mass lesion. No pleural effusion. No pneumothorax. Tracheobronchial tree is patent. No obvious axillary, hilar, or mediastinal adenopathy. Mediastinum demonstrates relatively normal thoracic aorta, pulmonary vasculature, and heart/pericardium. Surrounding musculoskeletal structures are intact. Upper abdomen demonstrates stable 2 cm left adrenal adenoma. Impression: No acute mediastinal or pleuroparenchymal process appreciated. Electronically Signed by Joe Casas MD 07/20/2018 04:44 A
== END ==
LOC: M RAD 09:33
PROVIDERS: ATTEND Internal Medicine Pulmonary Disease
DX: R05 Cough (principal)

== ENCOUNTER → 2018-08-01 | Outpatient (CLI) | payer OTHER ==
--- NOTE | 2018-08-01 13:48 | REP ---
Clinical: Right lower extremity pain and swelling . Technique: Perrin scale and color Doppler evaluation using linear high frequency transducer. Findings: Ultrasound examination of the right lower extremity deep venous structures from the common femoral vein to the popliteal vein demonstrates normal compressibility flow and wave patterns in response to respiration and augmentation. There is no evidence for deep venous thrombosis. Impression: No evidence for deep venous thrombosis. Electronically Signed by Joe Casas MD 08/01/2018 01:40 P
== END ==
LOC: M RAD 12:47
PROVIDERS: ATTEND Podiatrist Foot & Ankle Surgery
DX: R22.41 Localized swelling, mass and lump, right lower limb (principal)

== ENCOUNTER → 2018-08-16 | Outpatient (CLI) | payer OTHER ==
--- NOTE | 2018-08-21 00:13 | ECWPNPC ---
PATIENT NAME: ZANE BARROSO : 1965 GENDER: FEMALE VISIT DATE: 08/16/2018 DISCHARGE DATE: 08/16/18 1154 VISIT LOCKED DATE TIME: PHYSICIAN: IRAIDA VALENTINO RESOURCE: IRAIDA VALENTINO REASON FOR APPOINTMENT 1. W/C MED MNGMT HISTORY OF PRESENT ILLNESS HISTORY OF PRESENT ILLNESS: HERE FOR F/U OF CHRONIC NECK AND RIGHT SHOULDER PAIN.SHE HAD CERVICAL SURGERY IN 2018 AND THIS MADE PAIN WORSE.RIGHT SHOULDER WILL BE EVALUATED BY DR SAEED IN [place] THIS WEEK.THIS IS A WORK RELATED INJURY WITH DOI-05/09/13.REPORTING INTERMITTENT LEFT ARM NUMBNESS AND PAIN AND CONSTANT RIGHT ARM AND FINGER PAIN AND PARATHESIAS.RATING PAIN VAS 8/10. PAIN THE PATIENT DESCRIBES THE PAIN... THE PATIENT DESCRIBES THE PAIN... FALL RISK SCREENING: SCREENING :NO FALLS REPORTED IN THE LAST YEAR CURRENT MEDICATIONS TAKING SENOKOT 8.6 MG TABLET 2 TABLETS AT BEDTIME NEEDED ORALLY ONCE A DAY TAKING VITAMIN D 1000 UNIT TABLET 1 TABLET ORALLY ONCE A DAY TAKING ALBUTEROL SULFATE HFA 108 (90 BASE) MCG/ACT AEROSOL SOLUTION 2 PUFFS NEEDED INHALATION EVERY 4 HRS TAKING CYCLOBENZAPRINE HCL 10 MG TABLET 1 TABLET NEEDED ORALLY THREE TIMES A DAY NEEDED TAKING DICYCLOMINE HCL 20 MG TABLET 1 TABLET ORALLY QID PRN, NOTES: WHEN NEEDED TAKING OMEPRAZOLE 20 MG CAPSULE DELAYED RELEASE 1 CAPSULE ORALLY ONCE A DAY TAKING ATENOLOL 25 MG TABLET 1 TABLET ORALLY ONCE A DAY TAKING IBUPROFEN 800 MG TABLET 1 TABLET WITH FOOD OR MILK NEEDED ORALLY THREE TIMES A DAY NEEDED TAKING AZITHROMYCIN 250 MG TABLET 2 TABLETS ON THE FIRST DAY, THEN 1 TABLET DAILY FOR 4 DAYS ORALLY ONCE A DAY TAKING NORCO 10-325 MG TABLET 1 TABLET NEEDED ORALLY Q8H MDD3 MEDICATION LIST REVIEWED AND RECONCILED WITH THE PATIENT PAST MEDICAL HISTORY IBS PALPITATIONS ANXIETY HTN RIGHT SHOULDER, NECK, AND UPPER BACK PAIN REFLUX OSTEOARTHRITIS CERVICAL SPINAL STENOSIS ALLERGIES CYMBALTA: PALPITATIONS - SIDE EFFECTS METRONIDAZOLE: PALPITATIONS - SIDE EFFECTS PAXIL: PALPITATIONS - SIDE EFFECTS LEXAPRO: NAUSEA/VOMITING - SIDE EFFECTS BACTRIM: DIARRHEA - SIDE EFFECTS NASONEX: PALPITATIONS - SIDE EFFECTS AMITRIPTYLINE HCL: INCREASED ANXIETY - SIDE EFFECTS METOPROLOL TARTRATE: TINGLING IN MOUTH - SIDE EFFECTS LOSARTAN POTASSIUM: MYALGIA - SIDE EFFECTS PREDNISONE: PALPITATIONS - SIDE EFFECTS CHANTIX: DREAMS - SIDE EFFECTS WELLBUTRIN: FELT TERRIBLE - SIDE EFFECTS LEVAQUIN: UNKNOWN - SIDE EFFECTS NORVASC: HOT FLASHES - SIDE EFFECTS BIAXIN: STOMACH UPSET - SIDE EFFECTS NEXIUM: INEFFECTIVE/NAUSEA - SIDE EFFECTS GABAPENTIN: INCREASED PAIN - SIDE EFFECTS LYRICA: EXTREME FATIGUE - SIDE EFFECTS CEFTIN: INCREASED WHEEZING/COUGHING - ALLERGY CIPROFLAXIN: AGITATION/NERVOUSNESS - SIDE EFFECTS CELEBREX: SLEEPLESSNESS/INTENSE ANXIETY - SIDE EFFECTS SURGICAL HISTORY COLONOSCOPY 2009,2015 UTERINE ABLATION, D&C 2009 ACDF- DR. YEUNG C4-7 WITH TITANIUM CAGES 06/2017 FAMILY HISTORY FATHER: 55 YRS, STROKE, [place], DIAGNOSED WITH HYPERTENSION, STROKE MOTHER: 49 YRS, BRAIN CANCER, LUNG CANCER SIBLINGS: ALIVE, BROTHER 48 YR OLD LUNG CANCER; BROTHER 54 LUNG AND SPINE CANCER SON(S): ALIVE, HYPERTENSION DAUGHTER(S): ALIVE 6 BROTHER(S) , 3 SISTER(S) - HEALTHY. 2 SON(S) , 1 DAUGHTER(S) - HEALTHY. [id number]- DIABETIC COMPLICATIONS BROTHER LUNG AND SPINE CANCER, BROTHER LUNG CANCER\\\\N. SOCIAL HISTORY GENERAL: TOBACCO USE ARE YOU A:CURRENT SMOKER ARE YOU INTERESTED IN QUITTING?NOT READY TO QUIT COUNSELED THE PATIENT ON SMOKING EFFECTS, EDUCATION [id number]/06/2019 HOW MANY CIGARETTES A DAY DO YOU SMOKE?11-20 HOW SOON AFTER YOU WAKE UP DO YOU SMOKE YOUR FIRST CIGARETTE?6-30 MIN HOW OFTEN DO YOU SMOKE CIGARETTES?EVERY DAY PATIENT COUNSELED ON THE DANGERS OF TOBACCO USE AND URGED TO QUIT:07/03/2018 ADDITIONAL FINDINGS: TOBACCO USERHEAVY CIGARETTE SMOKER (20-39 CIGS/DAY) SMOKING CESSATION INFORMATION GIVEN07/03/2018 VAPORNO E-CIGARETTENO HIV / HEP-C SCREENING HIV TEST OFFERED TO PATIENT:YES DATE OFFERED:06/08/2018 TEST ACCEPTED:NO HEP-C TEST OFFERED TO PATIENT:NO REASON:PATIENT DECLINED BROCHURE PROVIDED TO PATIENTNO OTHERS AT HOME: SPOUSE. EDUCATION LEVEL OF EDUCATION:NOT FINISHED HIGH SCHOOL DIET: REGULAR. LANGUAGE CANADIAN. DOMESTIC VIOLENCE NONE. BMI CARE GOAL FOLLOW-UP ABOVE NORMAL BMI FOLLOW-UPDIETARY MANAGEMENT EDUCATION, GUIDANCE, AND COUNSELING RECREATIONAL DRUG USE DRUG USE?NO EXERCISE: NO REGULAR EXERCISE, ACTIVE. LEARNING BARRIERS / SPECIAL NEEDS CHANGE FROM LAST VISIT?NO 07/24/2018 BARRIERS TO LEARNING?NO HEARING IMPAIRED?NO VISION IMPAIRED?YES COGNITIVELY IMPAIRED?NO :CORRECTIVE LENSES READINESS TO LEARN?YES LEARNING PREFERENCES?NO LEARNING CAPABILITIES PRESENT?YES EMOTIONAL BARRIERS?NO SPECIAL DEVICES?NO MONUMENT SETTER NEEDED?NO PAIN CLINIC PFS, CLERGY, PUBLIC HEALTH REFERRALS PFS REFERRAL NEEDED?NO CLERGY REFERRAL NEEDED?NO PUBLIC HEALTH REFERRAL NEEDED?NO WAS THE PROVIDER NOTIFIED OF ANY PERTINENT INFO?NO HAS THE PATIENT BEEN EDUCATED REGARDING HIS/HER PLAN OF CARE?YES HAS THE PATIENT BEEN EDUCATED REGARDING PAIN, THE RISK FOR PAIN, THE IMPORTANCE OF EFFECTIVE PAIN MANAGEMENT, AND THE PAIN ASSESSMENT PROCESS?YES LATEX QUESTIONNAIRE LATEX ALLERGY : HAVE YOU EVER DEVELOPED ANY TYPE OF REACTION AFTER HANDLING LATEX PRODUCTS SUCH RUBBER GLOVES, CONDOMS, DIAPHRAGMS, BALLOONS, SOCKS, OR UNDERWEAR?NO LATEX ALLERGY : HAVE YOU EVER DEVELOPED ANY TYPE OF REACTION DURING OR AFTER DENTAL APPOINTMENT, VAGINAL/RECTAL EXAMINATION, SURGICAL PROCEDURE, OR ANY OTHER EXPOSURE?NO DATE ASKED : 07/03/2018 LATEX RISK : HAVE YOU EVER HAD ANY DIFFICULTY BREATHING OR HIVES AFTER EATING OR HANDLING ANY FRUITS, OR VEGETABLES; SUCH KIWI, BANANAS, STONE FRUITS, OR CHESTNUTSNO LATEX RISK : DO YOU HAVE A PREVIOUS PERSONAL HISTORY OF MORE THAN NINE SURGERIES, SPINA BIFIDA, OR REPEATED CATHERTIZATIONS? NO LATEX RISK : ARE YOU FREQUENTLY EXPOSED TO LATEX PRODUCTS IN YOUR OCCUPATION?NO CAFFEINE >5/DAY. ADVANCE DIRECTIVE ADVANCE DIRECTIVE DISCUSSED WITH PATIENT:YES PT. HAS HCP EARLENE BARROSO [phone] RESTORATIONIST [id number] CONFUCIANISM MARITAL STATUS: . 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 SEXUAL HX HAD SEX IN THE LAST 12 MONTHS (VAGINAL, ORAL, OR ANAL)?YES WITHMEN ONLY PREVENTION STRATEGIES DISCUSSED:OTHER USE PROTECTION?NO HAVE YOU EVER HAD AN STD?NO REVIEWED WITH PATIENT 02/23/18 1124 JS. HOSPITALIZATION/MAJOR DIAGNOSTIC PROCEDURE [facility]-SEVERE BACK PAIN - ED 01/13/17 SURGERY 06/2017 REVIEW OF SYSTEMS REVIEWED BY: PROVIDER: IRAIDA LOZADA . CONSTITUTIONAL: ANY CHANGE IN YOUR MEDICAL CONDITION? YES, RIGHT SHOULDER PAIN AND NECK PAIN . CHILLS NO . FEVER NO . INFECTION: DO YOU HAVE NEW INFECTIONS? YES, SINUSITIS TX'D W ABX, NOT RESOLVED GOING TO PCP AGAIN . DO YOU HAVE HISTORY OF MRSA? NO . MUSCULOSKELETAL: ANY NEW PATTERNS OF PAIN OR NUMBNESS? NO . GASTROENTEROLOGY: ANY NEW CHANGE IN BOWEL CONTROL? NO . GENITOURINARY: ANY NEW CHANGE IN BLADDER CONTROL? NO . IS THERE A CHANCE YOU COULD BE ? NO . HEMATOLOGY/LYMPH: DO YOU TAKE ANY BLOOD THINNERS? (FOR EXAMPLE- COUMADIN, PLAVIX, AGGRENOX, PLATEL, PRADAXA, OR XARELTO) NO . WHEN WAS YOUR LAST DOSE? DATE: TIME: . NEUROLOGY: HAVE YOU FALLEN IN THE PAST 12 MONTHS? NO . ANY NEW EXTREMITY NUMBNESS OR WEAKNESS? NO . CARDIOLOGY: DO YOU HAVE A PACEMAKER OR DEFIBRILLATOR? NO . RESPIRATORY: HAVE YOU BEEN SICK IN THE PAST WEEK? YES, SINUSITIS . FEVER NO . FLU LIKE SYMPTOMS? NO . COUGH NO . INTEGUMENTARY: DO YOU HAVE ANY RASHES OR OPEN SORES? NO . ALLERGIC/IMMUNO: ARE YOU ALLERGIC TO IV DYE? NO . ANY NEW ALLERGIES? NO . PSYCHIATRIC: DO YOU HAVE THOUGHTS OF HURTING YOURSELF OR SOMEONE ELSE? NO . ARE YOU ABUSED, NEGLECTED, OR IN AN UNSAFE ENVIRONMENT? NO . ENDOCRINOLOGY: ARE YOU DIABETIC? NO . OTHER: DO YOU NEED ANY PRESCRIPTIONS? YES, IBUPROFEN . IF YES, PLEASE LIST: ____ . ANY NEW PROBLEMS WITH YOUR MEDICATIONS? NO . WHEN DID YOU LAST EAT? ____ . WHEN DID YOU LAST DRINK? ____ . WHAT DID YOU LAST DRINK? ____ . NAME OF PERSON DRIVING YOU HOME? ____ . DO YOU HAVE ANY OTHER QUESTIONS OR CONCERNS NO . VITAL SIGNS WT 217 LBS, HT 5'4.5", BMI 36.67 INDEX, BP 152/88 MM HG, HR 55 /MIN, RR 16 /MIN, TEMP 98.4 F, OXYGEN SAT % 97, REVIEWED BY: EM. EXAMINATION GENERAL EXAMINATION: LUNGS: LUNG SOUNDS ARE CLEAR . HEART: HEART RATE REGULAR . MUSCULOSKELETAL:*, MUSCLE STRENGTH TESTING 5/5 BILATERAL UPPER EXTREMITIES. EQUAL BURGLARY INVESTIGATOR STRENGTH BILAT. HANDS. CERVICAL+ FOR PAIN WITH PALPATION OF CERVICAL SPINE. + FOR PAIN WITH PALPATION OF CERVICAL PARASPINALS. . DIAGNOSTIC TESTS REVIEWED CERVICAL MRI-11/30/17. ASSESSMENTS CERVICALGIA - M54.2 (PRIMARY) TREATMENT CERVICALGIA CONTINUE CYCLOBENZAPRINE HCL TABLET, 10 MG, 1 TABLET NEEDED, ORALLY, THREE TIMES A DAY NEEDED CONTINUE IBUPROFEN TABLET, 800 MG, 1 TABLET WITH FOOD OR MILK NEEDED, ORALLY, THREE TIMES A DAY NEEDED CONTINUE NORCO TABLET, 10-325 MG, 1 TABLET NEEDED, ORALLY, Q8H MDD3 NOTES: W/C RADHA C6/7 W IV SED. PROCEDURES PN WORKMANS' COMP OPINION IN YOUR OPINION, WAS THE INCIDENT THAT THE PATIENT DESCRIBED THE COMPETENT MEDICAL CAUSE OF THIS INJURY/ILLNESS? YES ARE THE PATIENT'S COMPLAINTS CONSISTENT WITH HIS/HER HISTORY OF THE INJURY/ILLNESS? YES IS THE PATIENT'S HISTORY OF THE INJURY/ILLNESS CONSISTENT WITH YOUR OBJECTIVE FINDING? YES WHAT IS THE PERCENTAGE OF TEMPORARY IMPAIRMENT? MODERATE TO MARKED = 66.7% IS THE PATIENT WORKING? NO DOCTOR ON SITE: DELORES MOORE MD PROCEDURE CODES FA211 ESTABILISHED PATIENT [facility] CHARGE DISPOSITION & COMMUNICATION FOLLOW UP PRE SED APT DR Hawthorne (REASON: W/C RADHA W IV SED) ELECTRONICALLY SIGNED BY NEVILLE TOM ON 08/20/2018 AT 10:03 AM EDT DISCLAIMER : THIS IS A VISIT SUMMARY EXTRACTED FROM THE [employer] CHART. IT IS NOT A COPY OF THE [employer] PROGRESS NOTE. ANGELICA
== END ==
LOC: M PAIN 10:15
PROVIDERS: ATTEND Nurse Practitioner Family
DX: M54.2 Cervicalgia (principal); G89.29 Other chronic pain; Z86.59 Personal history of other mental and behavioral disorders; I10 Essential (primary) hypertension; K21.9 Gastro-esophageal reflux disease without esophagitis; M19.90 Unspecified osteoarthritis, unspecified site; F17.210 Nicotine dependence, cigarettes, uncomplicated; Z88.1 Allergy status to other antibiotic agents; Z88.8 Allergy status to other drugs, medicaments and biological substances; Z79.899 Other long term (current) drug therapy

== ENCOUNTER → 2018-08-23 | Outpatient (CLI) | payer OTHER ==
--- NOTE | 2018-08-23 12:47 | REP ---
RIGHT ANKLE, FOUR VIEWS: HISTORY: Ankle pain. There is no acute fracture or dislocation. The joint space is normal in appearance. Osteophytes are present on the anterior tibia and inferior and posterior calcaneus. IMPRESSION: There is no acute fracture or dislocation.
== END ==
LOC: M CLY 11:47
PROVIDERS: ATTEND Family Medicine
DX: M25.571 Pain in right ankle and joints of right foot (principal)

== ENCOUNTER → 2018-09-26 | Outpatient (CLI) | payer OTHER ==
--- NOTE | 2018-09-29 00:36 | ECWPNPC ---
PATIENT NAME: ZANE BARROSO : 1965 GENDER: FEMALE VISIT DATE: 09/26/2018 DISCHARGE DATE: 09/26/18 1708 VISIT LOCKED DATE TIME: PHYSICIAN: DELORES LACKEY MD RESOURCE: DELORES LACKEY MD REASON FOR APPOINTMENT 1. PRE SEDATE-W/C RADHA W IV SED HISTORY OF PRESENT ILLNESS HISTORY OF PRESENT ILLNESS: PAIN THE PATIENT DESCRIBES THE PAIN... 52 YEAR OLD FEMALE PATIENT WITH A HISTORY OF CHRONIC NECK AND THORACIC PAIN. THE PATIENT DESCRIBES THE PAIN ACHING, BURNING, SHARP, AND CONTINUOUS WITH A PAIN SCORE OF 8-10/10 DEPENDING ON PHYSICAL ACTIVITY. 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 THE PATIENT SAYS HER PAIN STARTS IN HER NECK AREA AND RADIATES TO HER RIGHT SHOULDER, RIGHT ARM, AND UPPER BACK AREAS. THE PATIENT SAYS THAT SHE SOMETIMES HAS PAIN DOWN THE BACK OF HER RIGHT ARM WITH SOME NUMBNESS IN HER FINGERS. THE PATIENT HAD A NECK SURGERY IN JUNE 2017 AND REPORTS THAT IT MADE HER CONDITION WORSE. THE PATIENT SAYS SHE HAS DIFFICULTY DOING DAILY ACTIVITY SUCH COOKING, CLEANING, AND GROCERY SHOPPING DUE TO THE PAIN. THE PATIENT SAYS SHE CAN ONLY SIT FOR 5 MINUTES BEFORE SHE HAS TO GET UP AND MOVE AROUND. THE PATIENT SAYS THAT SHE CAN ONLY WALK FOR 5 MINUTES BEFORE SHE HAS TO TAKE A BREAK. THE PATIENT HAS TRIED PHYSICAL THERAPY IN THE PAST AND SAYS THAT IT MADE HER PAIN WORSE, BUT SHE IS TRYING IT AGAIN TO SEE IF IT HELPS. PATIENT DENIES UNEXPLAINABLE WEIGHT LOSS, FEVER, CHILLS, NEW CHANGES ON HER URINARY OR BOWEL CONTROL. FALL RISK SCREENING: SCREENING :NO FALLS REPORTED IN THE LAST YEAR CURRENT MEDICATIONS TAKING SENOKOT 8.6 MG TABLET 2 TABLETS AT BEDTIME NEEDED ORALLY ONCE A DAY TAKING VITAMIN D 1000 UNIT TABLET 1 TABLET ORALLY ONCE A DAY TAKING ALBUTEROL SULFATE HFA 108 (90 BASE) MCG/ACT AEROSOL SOLUTION 2 PUFFS NEEDED INHALATION EVERY 4 HRS TAKING DICYCLOMINE HCL 20 MG TABLET 1 TABLET ORALLY QID PRN, NOTES: WHEN NEEDED TAKING OMEPRAZOLE 20 MG CAPSULE DELAYED RELEASE 1 CAPSULE ORALLY ONCE A DAY TAKING CYCLOBENZAPRINE HCL 10 MG TABLET 1 TABLET NEEDED ORALLY THREE TIMES A DAY NEEDED TAKING NORCO 10-325 MG TABLET 1 TABLET NEEDED ORALLY Q8H MDD3 TAKING IBUPROFEN 800 MG TABLET 1 TABLET WITH FOOD OR MILK NEEDED ORALLY THREE TIMES A DAY NEEDED TAKING NASACORT ALLERGY 24HR 55 MCG/ACT AEROSOL 1 SPRAY IN EACH NOSTRIL NASALLY ONCE A DAY TAKING DOXYCYCLINE HYCLATE 100 MG TABLET 1 TABLET ORALLY TWICE A DAY TAKING LISINOPRIL 10 MG TABLET 1 TABLET ORALLY ONCE A DAY MEDICATION LIST REVIEWED AND RECONCILED WITH THE PATIENT PAST MEDICAL HISTORY IBS PALPITATIONS ANXIETY HTN RIGHT SHOULDER, NECK, AND UPPER BACK PAIN REFLUX OSTEOARTHRITIS CERVICAL SPINAL STENOSIS ALLERGIES CYMBALTA: PALPITATIONS - SIDE EFFECTS METRONIDAZOLE: PALPITATIONS - SIDE EFFECTS PAXIL: PALPITATIONS - SIDE EFFECTS LEXAPRO: NAUSEA/VOMITING - SIDE EFFECTS BACTRIM: DIARRHEA - SIDE EFFECTS NASONEX: PALPITATIONS - SIDE EFFECTS AMITRIPTYLINE HCL: INCREASED ANXIETY - SIDE EFFECTS METOPROLOL TARTRATE: TINGLING IN MOUTH - SIDE EFFECTS LOSARTAN POTASSIUM: MYALGIA - SIDE EFFECTS PREDNISONE: PALPITATIONS - SIDE EFFECTS CHANTIX: DREAMS - SIDE EFFECTS WELLBUTRIN: FELT TERRIBLE - SIDE EFFECTS LEVAQUIN: UNKNOWN - SIDE EFFECTS NORVASC: HOT FLASHES - SIDE EFFECTS BIAXIN: STOMACH UPSET - SIDE EFFECTS NEXIUM: INEFFECTIVE/NAUSEA - SIDE EFFECTS GABAPENTIN: INCREASED PAIN - SIDE EFFECTS LYRICA: EXTREME FATIGUE - SIDE EFFECTS CEFTIN: INCREASED WHEEZING/COUGHING - ALLERGY CIPROFLAXIN: AGITATION/NERVOUSNESS - SIDE EFFECTS CELEBREX: SLEEPLESSNESS/INTENSE ANXIETY - SIDE EFFECTS ATENOLOL: HOT FLASHES - SIDE EFFECTS FLONASE: PALPITATIONS - SIDE EFFECTS SURGICAL HISTORY COLONOSCOPY 2009,2015 UTERINE ABLATION, D&C 2009 ACDF- DR. YEUNG C4-7 WITH TITANIUM CAGES 06/2017 FAMILY HISTORY FATHER: 55 YRS, [place]OKE, [place], DIAGNOSED WITH HYPERTENSION, STROKE MOTHER: 49 YRS, BRAIN CANCER, LUNG CANCER SIBLINGS: ALIVE, BROTHER 48 YR OLD LUNG CANCER; BROTHER 54 LUNG AND SPINE CANCER SON(S): ALIVE, HYPERTENSION DAUGHTER(S): ALIVE 6 BROTHER(S) , 3 SISTER(S) - HEALTHY. 2 SON(S) , 1 DAUGHTER(S) - HEALTHY. [id number]- DIABETIC COMPLICATIONS BROTHER LUNG AND SPINE CANCER, BROTHER LUNG CANCER\\\\N. SOCIAL HISTORY GENERAL: TOBACCO USE ARE YOU A:CURRENT SMOKER ARE YOU INTERESTED IN QUITTING?NOT READY TO QUIT COUNSELED THE PATIENT ON SMOKING EFFECTS, EDUCATION [id number]/13/2019 HOW MANY CIGARETTES A DAY DO YOU SMOKE?11-20 HOW SOON AFTER YOU WAKE UP DO YOU SMOKE YOUR FIRST CIGARETTE?6-30 MIN HOW OFTEN DO YOU SMOKE CIGARETTES?EVERY DAY PATIENT COUNSELED ON THE DANGERS OF TOBACCO USE AND URGED TO QUIT:09/26/2018 ADDITIONAL FINDINGS: TOBACCO USERHEAVY CIGARETTE SMOKER (20-39 CIGS/DAY) SMOKING CESSATION INFORMATION GIVEN08/23/2018 VAPORNO E-CIGARETTENO HIV / HEP-C SCREENING HIV TEST OFFERED TO PATIENT:YES DATE OFFERED:08/23/2018 TEST ACCEPTED:NO HEP-C TEST OFFERED TO PATIENT:NO REASON:PATIENT DECLINED BROCHURE PROVIDED TO PATIENTNO OTHERS AT HOME: SPOUSE. EDUCATION LEVEL OF EDUCATION:NOT FINISHED HIGH SCHOOL DIET: REGULAR. LANGUAGE CITIZEN OF [place]. DOMESTIC VIOLENCE NONE. BMI CARE GOAL FOLLOW-UP ABOVE NORMAL BMI FOLLOW-UPDIETARY MANAGEMENT EDUCATION, GUIDANCE, AND COUNSELING RECREATIONAL DRUG USE DRUG USE?NO EXERCISE: NO REGULAR EXERCISE, ACTIVE. LEARNING BARRIERS / SPECIAL NEEDS CHANGE FROM LAST VISIT?NO BARRIERS TO LEARNING?NO HEARING IMPAIRED?NO VISION IMPAIRED?YES COGNITIVELY IMPAIRED?NO :CORRECTIVE LENSES READINESS TO LEARN?YES LEARNING PREFERENCES?NO LEARNING CAPABILITIES PRESENT?YES EMOTIONAL BARRIERS?NO SPECIAL DEVICES?NO WILDLIFE CONSERVATIONIST NEEDED?NO PAIN CLINIC PFS, CLERGY, PUBLIC HEALTH REFERRALS PFS REFERRAL NEEDED?NO CLERGY REFERRAL NEEDED?NO PUBLIC HEALTH REFERRAL NEEDED?NO WAS THE PROVIDER NOTIFIED OF ANY PERTINENT INFO?YES HAS THE PATIENT BEEN EDUCATED REGARDING HIS/HER PLAN OF CARE?YES HAS THE PATIENT BEEN EDUCATED REGARDING PAIN, THE RISK FOR PAIN, THE IMPORTANCE OF EFFECTIVE PAIN MANAGEMENT, AND THE PAIN ASSESSMENT PROCESS?YES LATEX QUESTIONNAIRE LATEX ALLERGY : HAVE YOU EVER DEVELOPED ANY TYPE OF REACTION AFTER HANDLING LATEX PRODUCTS SUCH RUBBER GLOVES, CONDOMS, DIAPHRAGMS, BALLOONS, SOCKS, OR UNDERWEAR?NO LATEX ALLERGY : HAVE YOU EVER DEVELOPED ANY TYPE OF REACTION DURING OR AFTER DENTAL APPOINTMENT, VAGINAL/RECTAL EXAMINATION, SURGICAL PROCEDURE, OR ANY OTHER EXPOSURE?NO LATEX RISK : HAVE YOU EVER HAD ANY DIFFICULTY BREATHING OR HIVES AFTER EATING OR HANDLING ANY FRUITS, OR VEGETABLES; SUCH KIWI, BANANAS, STONE FRUITS, OR CHESTNUTSNO LATEX RISK : DO YOU HAVE A PREVIOUS PERSONAL HISTORY OF MORE THAN NINE SURGERIES, SPINA BIFIDA, OR REPEATED CATHERIZATIONS? NO LATEX RISK : ARE YOU FREQUENTLY EXPOSED TO LATEX PRODUCTS IN YOUR OCCUPATION?NO DATE ASKED : 09/26/2018 CAFFEINE >5/DAY. ADVANCE DIRECTIVE ADVANCE DIRECTIVE DISCUSSED WITH PATIENT:YES PT. HAS HCP EARLENE BARROSO [phone] NONDENOMINATIONAL [id number] MOSQUE MARITAL STATUS: . 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 SEXUAL HX HAD SEX IN THE LAST 12 MONTHS (VAGINAL, ORAL, OR ANAL)?YES WITHMEN ONLY PREVENTION STRATEGIES DISCUSSED:OTHER USE PROTECTION?NO HAVE YOU EVER HAD AN STD?NO REVIEWED WITH PATIENT 02/23/18 1124 JS. HOSPITALIZATION/MAJOR DIAGNOSTIC PROCEDURE [facility]-SEVERE BACK PAIN - ED 01/13/17 SURGERY 06/2017 REVIEW OF SYSTEMS REVIEWED BY: PROVIDER: DELORES LACKEY MD . CONSTITUTIONAL: ANY CHANGE IN YOUR MEDICAL CONDITION? YES, NEW INFORMATION ON SHOULDER, SOS DOCTOR STATES THAT HE DISCOURAGES HER FROM ANY EPIDURALS . CHILLS NO . FEVER NO . INFECTION: DO YOU HAVE NEW INFECTIONS? NO . DO YOU HAVE HISTORY OF MRSA? NO . MUSCULOSKELETAL: ANY NEW PATTERNS OF PAIN OR NUMBNESS? YES, WIERD SENSATIONS DOWN LEFT SIDE OF BACK AND NUMBNESS DOWN LEG . GASTROENTEROLOGY: ANY NEW CHANGE IN BOWEL CONTROL? NO . GENITOURINARY: ANY NEW CHANGE IN BLADDER CONTROL? NO . IS THERE A CHANCE YOU COULD BE ? NO . HEMATOLOGY/LYMPH: DO YOU TAKE ANY BLOOD THINNERS? (FOR EXAMPLE- COUMADIN, PLAVIX, AGGRENOX, PLATEL, PRADAXA, OR XARELTO) NO . WHEN WAS YOUR LAST DOSE? DATE: TIME: . NEUROLOGY: HAVE YOU FALLEN IN THE PAST 12 MONTHS? NO . ANY NEW EXTREMITY NUMBNESS OR WEAKNESS? NO . CARDIOLOGY: DO YOU HAVE A PACEMAKER OR DEFIBRILLATOR? NO . RESPIRATORY: HAVE YOU BEEN SICK IN THE PAST WEEK? NO . FEVER NO . FLU LIKE SYMPTOMS? NO . COUGH NO . INTEGUMENTARY: DO YOU HAVE ANY RASHES OR OPEN SORES? NO . ALLERGIC/IMMUNO: ARE YOU ALLERGIC TO IV DYE? NO . ANY NEW ALLERGIES? NO . PSYCHIATRIC: DO YOU HAVE THOUGHTS OF HURTING YOURSELF OR SOMEONE ELSE? NO . ARE YOU ABUSED, NEGLECTED, OR IN AN UNSAFE ENVIRONMENT? NO . ENDOCRINOLOGY: ARE YOU DIABETIC? NO . OTHER: DO YOU NEED ANY PRESCRIPTIONS? NO . IF YES, PLEASE LIST: ____ . ANY NEW PROBLEMS WITH YOUR MEDICATIONS? NO . WHEN DID YOU LAST EAT? ____ . WHEN DID YOU LAST DRINK? ____ . WHAT DID YOU LAST DRINK? ____ . NAME OF PERSON DRIVING YOU HOME? ____ . DO YOU HAVE ANY OTHER QUESTIONS OR CONCERNS NO . VITAL SIGNS WT 215 LBS, HT 5'4.5", BMI 36.33 INDEX, BP 184/79 MM HG, REPEAT BP 182/100 MM HG, HR 61 /MIN, RR 18 /MIN, TEMP 97.3 F, OXYGEN SAT % 96%, SAFE IN ENV? (Y/N) Y, NA INITIALS SC 15:27, REVIEWED BY: ARIC. EXAMINATION GENERAL EXAMINATION: PATIENT IS ALERT O X 3 AND COOPERATIVE. PRESENCE OF TRIGGER POINTS AND BANDS OF TISSUE WITH RESTRICTION OF MOVEMENT OF THE NECK AND UPPER BACK. CT OF THE CERVICAL SPINE DONE ON 08/08/2018 IS SHOWING FACET ARTHROPATHY CHANGES. ASSESSMENTS MYALGIA, OTHER SITE - M79.18 (PRIMARY) THORACIC SPINE PAIN - M54.6 NECK PAIN - M54.2 CERVICAL POST-LAMINECTOMY SYNDROME - M96.1 CERVICAL RADICULOPATHY - M54.12 TREATMENT MYALGIA, OTHER SITE CLINICAL NOTES: WE DISCUSSED SEVERAL ISSUES WITH MRS. BARROSO'S PAIN MANAGEMENT CASE. I HAVE TODAY A LONG CONVERSATION WITH MS. BARROSO. WE DISCUSSED SEVERAL OPTIONS ON HER CASE. I WAS OVER 30 MINUTES WITH THE PATIENT MORE THAN HALF OF THE TIME WAS REVIEWING ALTERNATIVES, CLARIFYING EXPECTATIONS, ESTABLISHING GOALS OF TREATMENT. DUE TO THE TRIGGER POINTS, BANDS OF TISSUE, AND RESTRICTION OF MOVEMENT, I WOULD LIKE TO MOVE FORWARD WITH A TRIGGER POINT INJECTION AT THIS TIME. WE DISCUSSED THE BENEFITS, RISKS, AND ALTERNATIVES OF THE INJECTION AND THE PATIENT WOULD LIKE TO PROCEED. I AM LOOKING TO INCREASE THE PATIENT'S MOBILITY AND FUNCTIONALITY AFTER THIS INJECTION. THE PATIENT WILL FOLLOW UP A FEW WEEKS AFTER THE INJECTION. INSTRUCTIONS WERE GIVEN, QUESTIONS WERE ANSWERED, PATIENT REPORTS UNDERSTANDING AND AGREES WITH THE PLAN. I, AJIT ASKEW, DOCUMENTED THE ABOVE INFORMATION ACTING A SCRIBE FOR DR. LACKEY. I HAVE REVIEWED THE ABOVE DOCUMENT, WRITTEN BY AJIT DÍAZ AND I VERIFY THAT IT IS ACCURATE. . PROCEDURES PN WORKMANS' COMP OPINION IN YOUR OPINION, WAS THE INCIDENT THAT THE PATIENT DESCRIBED THE COMPETENT MEDICAL CAUSE OF THIS INJURY/ILLNESS? YES ARE THE PATIENT'S COMPLAINTS CONSISTENT WITH HIS/HER HISTORY OF THE INJURY/ILLNESS? YES IS THE PATIENT'S HISTORY OF THE INJURY/ILLNESS CONSISTENT WITH YOUR OBJECTIVE FINDING? YES WHAT IS THE PERCENTAGE OF TEMPORARY IMPAIRMENT? MODERATE TO MARKED = 66.7% IS THE PATIENT WORKING? NO DOCTOR ON SITE: DELORES MOORE MD PROCEDURE CODES FA211 ESTABILISHED PATIENT [facility] CHARGE [id number] CURRENT MEDS W/DOSAGES DOCUMENTED G8730 PAIN ASSESS POS TOOL F/U PLAN DOC DISPOSITION & COMMUNICATION FOLLOW UP 3 WEEKS ELECTRONICALLY SIGNED BY DELORES LACKEY MD, MD ON 09/28/2018 AT 11:39 AM EDT DISCLAIMER : THIS IS A VISIT SUMMARY EXTRACTED FROM THE [employer] CHART. IT IS NOT A COPY OF THE [email or web address] PROGRESS NOTE. ANGELICA
== END ==
LOC: M PAIN 15:15
PROVIDERS: ATTEND Anesthesiology
DX: M79.18 Myalgia, other site (principal); M54.6 Pain in thoracic spine; M96.1 Postlaminectomy syndrome, not elsewhere classified; M54.12 Radiculopathy, cervical region; K58.9 Irritable bowel syndrome, unspecified; R00.2 Palpitations; F41.9 Anxiety disorder, unspecified; I10 Essential (primary) hypertension; K21.9 Gastro-esophageal reflux disease without esophagitis; M48.02 Spinal stenosis, cervical region; M19.90 Unspecified osteoarthritis, unspecified site; F17.210 Nicotine dependence, cigarettes, uncomplicated; Z79.891 Long term (current) use of opiate analgesic; Z79.899 Other long term (current) drug therapy; Z88.1 Allergy status to other antibiotic agents; Z88.2 Allergy status to sulfonamides; Z88.8 Allergy status to other drugs, medicaments and biological substances

== ENCOUNTER → 2018-11-23 | Outpatient (CLI) | payer OTHER ==
[~2018-11-23] MED LIST changes: +BUPIVACAINE HCL 0.25% 10 ML VIAL As Ordered ONE; +BUPIVACAINE HCL 0.25% 30 ML VIAL As Ordered ONE; +TRIAMCINOLONE ACETONIDE SUSP 40 MG/ML VIAL (J3301) As Ordered ONE; +diazePAM 5 MG TAB As Ordered ONE; +oxyCODONE 5MG TAB As Ordered ONE
--- NOTE | 2018-12-07 00:22 | ECWPNPC ---
PATIENT NAME: ZANE BARROSO : 1965 GENDER: FEMALE VISIT DATE: 11/23/2018 DISCHARGE DATE: 11/23/18 1132 VISIT LOCKED DATE TIME: PHYSICIAN: DELORES LAKCEY MD RESOURCE: DELORES LACKEY MD REASON FOR APPOINTMENT 1. W/C, TPI BILAT THORACIC HISTORY OF PRESENT ILLNESS HISTORY OF PRESENT ILLNESS: PAIN THE PATIENT DESCRIBES THE PAIN... FALL RISK SCREENING: SCREENING :NO FALLS REPORTED IN THE LAST YEAR CURRENT MEDICATIONS TAKING SENOKOT 8.6 MG TABLET 2 TABLETS AT BEDTIME NEEDED ORALLY ONCE A DAY TAKING VITAMIN D 1000 UNIT TABLET 1 TABLET ORALLY ONCE A DAY TAKING ALBUTEROL SULFATE HFA 108 (90 BASE) MCG/ACT AEROSOL SOLUTION 2 PUFFS NEEDED INHALATION EVERY 4 HRS TAKING DICYCLOMINE HCL 20 MG TABLET 1 TABLET ORALLY QID PRN, NOTES: WHEN NEEDED TAKING OMEPRAZOLE 20 MG CAPSULE DELAYED RELEASE 1 CAPSULE ORALLY ONCE A DAY TAKING CYCLOBENZAPRINE HCL 10 MG TABLET 1 TABLET NEEDED ORALLY THREE TIMES A DAY NEEDED TAKING IBUPROFEN 800 MG TABLET 1 TABLET WITH FOOD OR MILK NEEDED ORALLY THREE TIMES A DAY NEEDED TAKING LISINOPRIL 10 MG TABLET 1 TABLET ORALLY ONCE A DAY TAKING NORCO 10-325 MG TABLET 1 TABLET NEEDED ORALLY Q8H MDD3 NOT-TAKING NASACORT ALLERGY 24HR 55 MCG/ACT AEROSOL 1 SPRAY IN EACH NOSTRIL NASALLY ONCE A DAY NOT-TAKING DOXYCYCLINE HYCLATE 100 MG TABLET 1 TABLET ORALLY TWICE A DAY MEDICATION LIST REVIEWED AND RECONCILED WITH THE PATIENT PAST MEDICAL HISTORY IBS PALPITATIONS ANXIETY HTN RIGHT SHOULDER, NECK, AND UPPER BACK PAIN REFLUX OSTEOARTHRITIS CERVICAL SPINAL STENOSIS ALLERGIES CYMBALTA: PALPITATIONS - SIDE EFFECTS METRONIDAZOLE: PALPITATIONS - SIDE EFFECTS PAXIL: PALPITATIONS - SIDE EFFECTS LEXAPRO: NAUSEA/VOMITING - SIDE EFFECTS BACTRIM: DIARRHEA - SIDE EFFECTS NASONEX: PALPITATIONS - SIDE EFFECTS AMITRIPTYLINE HCL: INCREASED ANXIETY - SIDE EFFECTS METOPROLOL TARTRATE: TINGLING IN MOUTH - SIDE EFFECTS LOSARTAN POTASSIUM: MYALGIA - SIDE EFFECTS PREDNISONE: PALPITATIONS - SIDE EFFECTS CHANTIX: DREAMS - SIDE EFFECTS WELLBUTRIN: FELT TERRIBLE - SIDE EFFECTS LEVAQUIN: UNKNOWN - SIDE EFFECTS NORVASC: HOT FLASHES - SIDE EFFECTS BIAXIN: STOMACH UPSET - SIDE EFFECTS NEXIUM: INEFFECTIVE/NAUSEA - SIDE EFFECTS GABAPENTIN: INCREASED PAIN - SIDE EFFECTS LYRICA: EXTREME FATIGUE - SIDE EFFECTS CEFTIN: INCREASED WHEEZING/COUGHING - ALLERGY CIPROFLAXIN: AGITATION/NERVOUSNESS - SIDE EFFECTS CELEBREX: SLEEPLESSNESS/INTENSE ANXIETY - SIDE EFFECTS ATENOLOL: HOT FLASHES - SIDE EFFECTS FLONASE: PALPITATIONS - SIDE EFFECTS SURGICAL HISTORY COLONOSCOPY 2009,2015 UTERINE ABLATION, D&C 2009 ACDF- DR. YEUNG C4-7 WITH TITANIUM CAGES 06/2017 FAMILY HISTORY FATHER: 55 YRS, [place]OKE, [place], DIAGNOSED WITH HYPERTENSION, UNSPECIFIED CEREBRAL ARTERY OCCLUSION WITH CEREBRAL INFARCTION MOTHER: 49 YRS, BRAIN CANCER, LUNG CANCER SIBLINGS: ALIVE, BROTHER 48 YR OLD LUNG CANCER; BROTHER 54 LUNG AND SPINE CANCER SON(S): ALIVE, HYPERTENSION DAUGHTER(S): ALIVE 6 BROTHER(S) , 3 SISTER(S) - HEALTHY. 2 SON(S) , 1 DAUGHTER(S) - HEALTHY. [id number]- DIABETIC COMPLICATIONS BROTHER LUNG AND SPINE CANCER, BROTHER LUNG CANCER\\\\N. SOCIAL HISTORY GENERAL: TOBACCO USE ARE YOU A:CURRENT SMOKER ARE YOU INTERESTED IN QUITTING?NOT READY TO QUIT COUNSELED THE PATIENT ON SMOKING EFFECTS, EDUCATION [id number]/13/2019 HOW MANY CIGARETTES A DAY DO YOU SMOKE?11-20 HOW SOON AFTER YOU WAKE UP DO YOU SMOKE YOUR FIRST CIGARETTE?6-30 MIN HOW OFTEN DO YOU SMOKE CIGARETTES?EVERY DAY PATIENT COUNSELED ON THE DANGERS OF TOBACCO USE AND URGED TO QUIT:09/26/2018 ADDITIONAL FINDINGS: TOBACCO USERHEAVY CIGARETTE SMOKER (20-39 CIGS/DAY) SMOKING CESSATION INFORMATION GIVEN11/23/2018 VAPORNO E-CIGARETTENO HIV / HEP-C SCREENING HIV TEST OFFERED TO PATIENT:YES DATE OFFERED:08/23/2018 TEST ACCEPTED:NO HEP-C TEST OFFERED TO PATIENT:NO REASON:PATIENT DECLINED BROCHURE PROVIDED TO PATIENTNO OTHERS AT HOME: SPOUSE. EDUCATION LEVEL OF EDUCATION:NOT FINISHED HIGH SCHOOL DIET: REGULAR. LANGUAGE [place]. DOMESTIC VIOLENCE NONE. BMI CARE GOAL FOLLOW-UP ABOVE NORMAL BMI FOLLOW-UPDIETARY MANAGEMENT EDUCATION, GUIDANCE, AND COUNSELING RECREATIONAL DRUG USE DRUG USE?NO EXERCISE: NO REGULAR EXERCISE, ACTIVE. LEARNING BARRIERS / SPECIAL NEEDS CHANGE FROM LAST VISIT?NO BARRIERS TO LEARNING?NO HEARING IMPAIRED?NO VISION IMPAIRED?YES COGNITIVELY IMPAIRED?NO :CORRECTIVE LENSES READINESS TO LEARN?YES LEARNING PREFERENCES?NO LEARNING CAPABILITIES PRESENT?YES EMOTIONAL BARRIERS?NO SPECIAL DEVICES?NO CHEMICAL TANK WORKER NEEDED?NO PAIN CLINIC PFS, CLERGY, PUBLIC HEALTH REFERRALS PFS REFERRAL NEEDED?NO CLERGY REFERRAL NEEDED?NO PUBLIC HEALTH REFERRAL NEEDED?NO WAS THE PROVIDER NOTIFIED OF ANY PERTINENT INFO?YES HAS THE PATIENT BEEN EDUCATED REGARDING HIS/HER PLAN OF CARE?YES HAS THE PATIENT BEEN EDUCATED REGARDING PAIN, THE RISK FOR PAIN, THE IMPORTANCE OF EFFECTIVE PAIN MANAGEMENT, AND THE PAIN ASSESSMENT PROCESS?YES LATEX QUESTIONNAIRE LATEX ALLERGY : HAVE YOU EVER DEVELOPED ANY TYPE OF REACTION AFTER HANDLING LATEX PRODUCTS SUCH RUBBER GLOVES, CONDOMS, DIAPHRAGMS, BALLOONS, SOCKS, OR UNDERWEAR?NO LATEX ALLERGY : HAVE YOU EVER DEVELOPED ANY TYPE OF REACTION DURING OR AFTER DENTAL APPOINTMENT, VAGINAL/RECTAL EXAMINATION, SURGICAL PROCEDURE, OR ANY OTHER EXPOSURE?NO LATEX RISK : HAVE YOU EVER HAD ANY DIFFICULTY BREATHING OR HIVES AFTER EATING OR HANDLING ANY FRUITS, OR VEGETABLES; SUCH KIWI, BANANAS, STONE FRUITS, OR CHESTNUTSNO LATEX RISK : DO YOU HAVE A PREVIOUS PERSONAL HISTORY OF MORE THAN NINE SURGERIES, SPINA BIFIDA, OR REPEATED CATHERIZATIONS? NO LATEX RISK : ARE YOU FREQUENTLY EXPOSED TO LATEX PRODUCTS IN YOUR OCCUPATION?NO DATE ASKED : 09/26/2018 CAFFEINE >5/DAY. ADVANCE DIRECTIVE ADVANCE DIRECTIVE DISCUSSED WITH PATIENT:YES PT. HAS HCP EARLENE BARROSO [phone] PENTECOSTAL [id number] RESTORATIONISM MARITAL STATUS: . 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 SEXUAL HX HAD SEX IN THE LAST 12 MONTHS (VAGINAL, ORAL, OR ANAL)?YES WITHMEN ONLY PREVENTION STRATEGIES DISCUSSED:OTHER USE PROTECTION?NO HAVE YOU EVER HAD AN STD?NO REVIEWED WITH PATIENT 02/23/18 1124 JS. HOSPITALIZATION/MAJOR DIAGNOSTIC PROCEDURE [facility]-SEVERE BACK PAIN - ED 01/13/17 SURGERY 06/2017 REVIEW OF SYSTEMS REVIEWED BY: PROVIDER: . CONSTITUTIONAL: ANY CHANGE IN YOUR MEDICAL CONDITION? NO . CHILLS NO . FEVER NO . INFECTION: DO YOU HAVE NEW INFECTIONS? NO . DO YOU HAVE HISTORY OF MRSA? NO . MUSCULOSKELETAL: ANY NEW PATTERNS OF PAIN OR NUMBNESS? YES INCREASED IN MID BACK . GASTROENTEROLOGY: ANY NEW CHANGE IN BOWEL CONTROL? NO . GENITOURINARY: ANY NEW CHANGE IN BLADDER CONTROL? NO . IS THERE A CHANCE YOU COULD BE ? NO . HEMATOLOGY/LYMPH: DO YOU TAKE ANY BLOOD THINNERS? (FOR EXAMPLE- COUMADIN, PLAVIX, AGGRENOX, PLATEL, PRADAXA, OR XARELTO) NO . WHEN WAS YOUR LAST DOSE? DATE: TIME: . NEUROLOGY: HAVE YOU FALLEN IN THE PAST 12 MONTHS? NO . ANY NEW EXTREMITY NUMBNESS OR WEAKNESS? NO . CARDIOLOGY: DO YOU HAVE A PACEMAKER OR DEFIBRILLATOR? NO . RESPIRATORY: HAVE YOU BEEN SICK IN THE PAST WEEK? NO . FEVER NO . FLU LIKE SYMPTOMS? NO . COUGH NO . INTEGUMENTARY: DO YOU HAVE ANY RASHES OR OPEN SORES? NO . ALLERGIC/IMMUNO: ARE YOU ALLERGIC TO IV DYE? NO . ANY NEW ALLERGIES? NO . PSYCHIATRIC: DO YOU HAVE THOUGHTS OF HURTING YOURSELF OR SOMEONE ELSE? NO . ARE YOU ABUSED, NEGLECTED, OR IN AN UNSAFE ENVIRONMENT? NO . ENDOCRINOLOGY: ARE YOU DIABETIC? NO . OTHER: DO YOU NEED ANY PRESCRIPTIONS? NO . IF YES, PLEASE LIST: ____ . ANY NEW PROBLEMS WITH YOUR MEDICATIONS? NO . WHEN DID YOU LAST EAT? ____LATE LAST NIGHT . WHEN DID YOU LAST DRINK? ____11-23-18 0745 . WHAT DID YOU LAST DRINK? ____WATER . NAME OF PERSON DRIVING YOU HOME? ____MANFRED BARROSO . DO YOU HAVE ANY OTHER QUESTIONS OR CONCERNS NO . VITAL SIGNS WT 213.4 LBS, HT 5'4.5", BMI 36.06 INDEX, BP 175/83 MM HG, HR 79 /MIN, RR 18 /MIN, TEMP 97.6 F, OXYGEN SAT % 99%, NA INITIALS SC 10:05. ASSESSMENTS MYALGIA, OTHER SITE - M79.18 (PRIMARY) PROCEDURES PN WORKMANS' COMP OPINION IN YOUR OPINION, WAS THE INCIDENT THAT THE PATIENT DESCRIBED THE COMPETENT MEDICAL CAUSE OF THIS INJURY/ILLNESS? YES ARE THE PATIENT'S COMPLAINTS CONSISTENT WITH HIS/HER HISTORY OF THE INJURY/ILLNESS? YES IS THE PATIENT'S HISTORY OF THE INJURY/ILLNESS CONSISTENT WITH YOUR OBJECTIVE FINDING? YES WHAT IS THE PERCENTAGE OF TEMPORARY IMPAIRMENT? MODERATE TO MARKED = 66.7% IS THE PATIENT WORKING? NO ANY CHANGES FROM PREVIOUS VISIT NO DOCTOR ON SITE: DELORES MOORE MD PN TRIGGER POINT INJECTION WITH STEROIDS PRE PROCEDURE DIAGNOSIS 1. MYALGIA 2. PAIN AT BILATERAL THORACIC AREA POST PROCEDURE DIAGNOSIS 1. MYALGIA 2. PAIN AT BILATERAL THORACIC AREA PROCEDURE TRIGGER POINT INJECTION AT RIGHT AND LEFT THORACIC AREA SURGEON DR. DELORES LACKEY APPLIANCE SERVICER NONE ANESTHESIA LOCAL PRE PROCEDURE NOTE THE PATIENT HAS A HISTORY OF CHRONIC PAIN AT THE RIGHT AND LEFT THORACIC AREA. I EVALUATED THE PATIENT AND REVIEWED THE CHART. THERE IS EVIDENCE OF BANDS OF TISSUE WITH RESTRICTION OF MOVEMENT AND PRESENCE OF TRIGGER POINT AT THE AFFECTED AREA. I WENT OVER THE RISKS, ALTERNATIVES, AND BENEFITS ASSOCIATED WITH THIS PROCEDURE. THE PATIENT WOULD LIKE TO PROCEED AND GIVES CONSENT TO PERFORM THE PROCEDURE. THE PATIENT DENIES UNEXPLAINABLE WEIGHT LOSS, FEVER, CHILLS, OR NEW CHANGES IN URINARY OR BOWEL CONTROL DESCRIPTION OF PROCEDURE THE PATIENT WAS BROUGHT TO THE PROCEDURE ROOM AND PLACED IN THE SITTING POSITION. THE AREA WAS CLEANED WITH ALCOHOL. THE PROCEDURE WAS DONE USING ASEPTIC STERILE TECHNIQUE. I CHECKED LATERALITY AND THE LEVEL WHERE THE PROCEDURE WAS GOING TO BE PERFORMED WITH THE PATIENT AND THE SUPPORTING STAFF AT THE MOMENT OF THE TIME OUT IN THE PROCEDURE ROOM. USING A 25-GAUGE NEEDLE, TRIGGER POINTS WERE INJECTED AT THE RIGHT AND LEFT THORACIC AREA WITH A TOTAL OF 40 ML OF BUPIVACAINE 0.25% AND KENALOG 40 MG. THERE WAS NO EVIDENCE OF BLOOD, PARESTHESIA OR CEREBROSPINAL FLUID DURING THE PROCEDURE. THE PATIENT WAS SENT TO THE RECOVERY ROOM. THE PATIENT WAS MOVING THE EXTREMITIES AND DOING WELL. THERE WAS NO COMPLICATION DURING THE PROCEDURE POST PROCEDURE NOTE THE PATIENT WILL BE SEEN IN A FOLLOW UP IN THE NEXT FEW WEEKS. INSTRUCTIONS WERE GIVEN, QUESTIONS WERE ANSWERED, AND THE PATIENT EXPRESSED UNDERSTANDING AND AGREES WITH THE PLAN. I, RUDOLPH LAURA, DOCUMENTED THE ABOVE INFORMATION ACTING A SCRIBE FOR DR. LACKEY. I HAVE REVIEWED THE ABOVE DOCUMENT, WRITTEN BY RUDOLPH DÍAZ AND I VERIFY THAT IT IS ACCURATE. PROCEDURE CODES 29724 INJ TRIGGER POINT 03/14 [facility] [place] DISPOSITION & COMMUNICATION FOLLOW UP 3 WEEKS ELECTRONICALLY SIGNED BY DELORES LACKEY MD, MD ON 12/06/2018 AT 05:46 PM EDT DISCLAIMER : THIS IS A VISIT SUMMARY EXTRACTED FROM THE [employer] CHART. IT IS NOT A COPY OF THE [facility] PROGRESS [facility]. MTDD
== END ==
LOC: M PAIN 09:45
PROVIDERS: ATTEND Anesthesiology
DX: M79.18 Myalgia, other site (principal); K58.2 Mixed irritable bowel syndrome; F41.9 Anxiety disorder, unspecified; I10 Essential (primary) hypertension; M48.02 Spinal stenosis, cervical region; K21.9 Gastro-esophageal reflux disease without esophagitis; M19.90 Unspecified osteoarthritis, unspecified site; F17.210 Nicotine dependence, cigarettes, uncomplicated; Z79.891 Long term (current) use of opiate analgesic; Z79.899 Other long term (current) drug therapy; Z88.1 Allergy status to other antibiotic agents; Z88.8 Allergy status to other drugs, medicaments and biological substances
CPT/HCPCS: 20552; J3301

== ENCOUNTER → 2018-12-06 | Outpatient (CLI) | payer OTHER ==
[~2018-12-06] MED LIST changes: -BUPIVACAINE HCL 0.25% 10 ML VIAL As Ordered ONE; -BUPIVACAINE HCL 0.25% 30 ML VIAL As Ordered ONE; -TRIAMCINOLONE ACETONIDE SUSP 40 MG/ML VIAL (J3301) As Ordered ONE; -diazePAM 5 MG TAB As Ordered ONE; -oxyCODONE 5MG TAB As Ordered ONE
--- NOTE | 2018-12-06 09:59 | REP ---
Right elbow for views : There is no fracture or dislocation. Mineralization and joint spaces are normal. There are no calcifications or foreign bodies. Impression: Negative right elbow . Electronically Signed by Ezequiel Ho MD 12/06/2018 09:49 A
== END ==
LOC: M CLY 08:31
PROVIDERS: ATTEND Family Medicine
DX: M25.521 Pain in right elbow (principal); M24 Other specific joint derangements

== ENCOUNTER → 2018-12-12 | Outpatient (CLI) | payer OTHER | LOC: M PAIN 10:30 | PROVIDERS: ATTEND Nurse Practitioner Family | DX: M54.2 Cervicalgia (principal); K58.9 Irritable bowel syndrome, unspecified; R00.2 Palpitations; F41.9 Anxiety disorder, unspecified; I10 Essential (primary) hypertension; M25.511 Pain in right shoulder; K21.9 Gastro-esophageal reflux disease without esophagitis; M19.90 Unspecified osteoarthritis, unspecified site; M48.02 Spinal stenosis, cervical region; J30.9 Allergic rhinitis, unspecified; M79.18 Myalgia, other site; J32.0 Chronic maxillary sinusitis; G89.29 Other chronic pain; F17.210 Nicotine dependence, cigarettes, uncomplicated; Z79.891 Long term (current) use of opiate analgesic; Z79.899 Other long term (current) drug therapy; Z88.2 Allergy status to sulfonamides; Z88.1 Allergy status to other antibiotic agents; Z88.8 Allergy status to other drugs, medicaments and biological substances ==

== ENCOUNTER → 2018-12-19 | Outpatient (CLI) | payer OTHER ==
--- NOTE | 2018-12-19 11:29 | REP ---
MRI RIGHT ELBOW: TECHNIQUE: Multiple sequences in the axial, coronal and sagittal planes. Visualized osseous structures demonstrate normal bone marrow signal. There is no bone marrow edema or occult fracture. The medial and lateral collateral ligaments are intact. There is no abnormal signal in the common flexor or extensor tendons. There is no evidence of humeral epicondylitis. The biceps, triceps, brachialis and brachioradialis demonstrate no abnormal signal. There is a normal amount of joint fluid. No ganglion cyst is seen. There is no definite abnormality of the ulnar nerve. No osteochondral defect is seen. No definite joint bodies are seen. IMPRESSION: No significant abnormality detected. Electronically Signed by Ezequiel Perrin MD 12/19/2018 06:23 P
== END ==
LOC: M RAD 08:57
PROVIDERS: ATTEND Family Medicine
DX: M25.521 Pain in right elbow (principal)

== ENCOUNTER → 2019-02-19 | Outpatient (REF) | payer OTHER | LOC: M WHC 14:07 | PROVIDERS: ATTEND Advanced Practice Midwife | DX: Z01.419 Encounter for gynecological examination (general) (routine) without abnormal findings (principal) ==

== ENCOUNTER → 2019-02-20 | Outpatient (CLI) | payer OTHER ==
--- NOTE | 2019-03-08 04:33 | ECWPNPC ---
PATIENT NAME: ZANE BARROSO : 1965 GENDER: FEMALE VISIT DATE: 02/20/2019 DISCHARGE DATE: 02/20/19 1142 VISIT LOCKED DATE TIME: PHYSICIAN: IRAIDA VALENTINO RESOURCE: IRAIDA VALENTINO REASON FOR APPOINTMENT 1. W/C NECK /SHOULDER HISTORY OF PRESENT ILLNESS HISTORY OF PRESENT ILLNESS: HERE FOR F/U OF CHRONIC NECK AND RIGHT SHOULDER PAIN. HAD TPI BILAT THORACIC BACK WITH IMPROVEMENT IN PAIN IN THIS REGION THAT CONTINUED FOR SEVERAL WEEKS.SHE HAD CERVICAL SURGERY IN 2018 AND THIS MADE PAIN WORSE.RIGHT SHOULDER BEING FOLLOWED BY DR SAEED IN [place] .THIS IS A WORK RELATED INJURY WITH DOI-05/09/13.REPORTING INTERMITTENT LEFT ARM NUMBNESS AND PAIN AND CONSTANT RIGHT ARM AND FINGER PAIN AND PARATHESIAS.RATING PAIN VAS 5-6/10.FINDS CURRENT CHRONIC PAIN MEDICATION EFFECTIVE WITHOUT SIDE EFFECTS. PAIN THE PATIENT DESCRIBES THE PAIN... FALL RISK SCREENING: SCREENING :NO FALLS REPORTED IN THE LAST YEAR CURRENT MEDICATIONS TAKING SENOKOT 8.6 MG TABLET 2 TABLETS AT BEDTIME NEEDED ORALLY ONCE A DAY TAKING ALBUTEROL SULFATE HFA 108 (90 BASE) MCG/ACT AEROSOL SOLUTION 2 PUFFS NEEDED INHALATION EVERY 4 HRS TAKING CYCLOBENZAPRINE HCL 10 MG TABLET 1 TABLET NEEDED ORALLY THREE TIMES A DAY NEEDED TAKING DICYCLOMINE HCL 20 MG TABLET 1 TABLET ORALLY QID PRN TAKING OMEPRAZOLE 20 MG CAPSULE DELAYED RELEASE 1 CAPSULE ORALLY ONCE A DAY TAKING BREO ELLIPTA 100-25 MCG/INH AEROSOL POWDER BREATH ACTIVATED 1 PUFF INHALATION ONCE A DAY TAKING MAGNESIUM 500 MG TABLET 1 TABLET WITH A MEAL ORALLY ONCE A DAY TAKING IBUPROFEN 800 MG TABLET 1 TABLET WITH FOOD OR MILK NEEDED ORALLY THREE TIMES A DAY NEEDED TAKING GLUCOMETER DIRECTED DAILY TAKING BLOOD GLUCOSE TEST - STRIP DIRECTED IN VITRO DAILY NEEDED TAKING LANCETS MISC. - MISCELLANEOUS DIRECTED DAILY NEEDED TAKING NORCO 10-325 MG TABLET 1 TABLET NEEDED ORALLY Q8H MDD3 TAKING CALTRATE 600 1500 (600 CA) MG TABLET DIRECTED ORALLY TAKING PROBIOTIC - CAPSULE DIRECTED ORALLY TWICE A DAY TAKING LISINOPRIL 10 MG TABLET 1 TABLET ORALLY ONCE A DAY NOT-TAKING AMOXICILLIN-POT CLAVULANATE 875-125 MG TABLET 1 TABLET ORALLY EVERY 12 HRS MEDICATION LIST REVIEWED AND RECONCILED WITH THE PATIENT PAST MEDICAL HISTORY IBS PALPITATIONS ANXIETY HTN RIGHT SHOULDER, NECK, AND UPPER BACK PAIN REFLUX OSTEOARTHRITIS CERVICAL SPINAL STENOSIS ALLERGIC SINUSITIS MYALGIA CHRONIC MAXILLARY SINUSITIS OTHER CHRONIC PAIN ALLERGIES CYMBALTA: PALPITATIONS - SIDE EFFECTS METRONIDAZOLE: PALPITATIONS - SIDE EFFECTS PAXIL: PALPITATIONS - SIDE EFFECTS LEXAPRO: NAUSEA/VOMITING - SIDE EFFECTS BACTRIM: DIARRHEA - SIDE EFFECTS NASONEX: PALPITATIONS - SIDE EFFECTS AMITRIPTYLINE HCL: INCREASED ANXIETY - SIDE EFFECTS METOPROLOL TARTRATE: TINGLING IN MOUTH - SIDE EFFECTS LOSARTAN POTASSIUM: MYALGIA - SIDE EFFECTS PREDNISONE: PALPITATIONS - SIDE EFFECTS CHANTIX: DREAMS - SIDE EFFECTS WELLBUTRIN: FELT TERRIBLE - SIDE EFFECTS LEVAQUIN: UNKNOWN - SIDE EFFECTS NORVASC: HOT FLASHES - SIDE EFFECTS BIAXIN: STOMACH UPSET - SIDE EFFECTS NEXIUM: INEFFECTIVE/NAUSEA - SIDE EFFECTS GABAPENTIN: INCREASED PAIN - SIDE EFFECTS LYRICA: EXTREME FATIGUE - SIDE EFFECTS CEFTIN: INCREASED WHEEZING/COUGHING - ALLERGY CIPROFLAXIN: AGITATION/NERVOUSNESS - SIDE EFFECTS CELEBREX: SLEEPLESSNESS/INTENSE ANXIETY - SIDE EFFECTS ATENOLOL: HOT FLASHES - SIDE EFFECTS FLONASE: PALPITATIONS - SIDE EFFECTS SURGICAL HISTORY COLONOSCOPY 2009,2015 UTERINE ABLATION, D&C 2009 ACDF- DR. YEUNG C4-7 WITH TITANIUM CAGES 06/2017 FAMILY HISTORY FATHER: 55 YRS, STROKE, CT, DIAGNOSED WITH HYPERTENSION, UNSPECIFIED CEREBRAL ARTERY OCCLUSION WITH CEREBRAL INFARCTION MOTHER: 49 YRS, BRAIN CANCER, LUNG CANCER SIBLINGS: ALIVE, BROTHER 48 YR OLD LUNG CANCER; BROTHER 54 LUNG AND SPINE CANCER SON(S): ALIVE, HYPERTENSION DAUGHTER(S): ALIVE 6 BROTHER(S) , 3 SISTER(S) - HEALTHY. 2 SON(S) , 1 DAUGHTER(S) - HEALTHY. [id number]- DIABETIC COMPLICATIONS BROTHER LUNG AND SPINE CANCER, BROTHER LUNG CANCER\\\\N. SOCIAL HISTORY GENERAL: TOBACCO USE ARE YOU A:CURRENT SMOKER ARE YOU INTERESTED IN QUITTING?NOT READY TO QUIT COUNSELED THE PATIENT ON SMOKING EFFECTS, EDUCATION [id number]/02/2019 HAS PATCHES FOR WHEN SHE IS READY TO QUIT. HOW MANY CIGARETTES A DAY DO YOU SMOKE?11-20 HOW SOON AFTER YOU WAKE UP DO YOU SMOKE YOUR FIRST CIGARETTE?6-30 MIN HOW OFTEN DO YOU SMOKE CIGARETTES?EVERY DAY PATIENT COUNSELED ON THE DANGERS OF TOBACCO USE AND URGED TO QUIT:02/20/2019 ADDITIONAL FINDINGS: TOBACCO USERHEAVY CIGARETTE SMOKER (20-39 CIGS/DAY) SMOKING CESSATION INFORMATION GIVEN12/06/2018 VAPORNO E-CIGARETTENO HIV / HEP-C SCREENING HIV TEST OFFERED TO PATIENT:YES DATE OFFERED:02/19/2019 TEST ACCEPTED:NO HEP-C TEST OFFERED TO PATIENT:YES DATE OFFERED:02/19/2019 REASON:PATIENT DECLINED TEST ACCEPTED:NO REASON:PATIENT DECLINED BROCHURE PROVIDED TO PATIENTNO OTHERS AT HOME: SPOUSE. EDUCATION LEVEL OF EDUCATION:NOT FINISHED HIGH SCHOOL DIET: REGULAR. LANGUAGE [place]ENLANDIC. DOMESTIC VIOLENCE DO YOU FEEL SAFE IN YOUR ENVIRONMENT?YES BMI CARE GOAL FOLLOW-UP ABOVE NORMAL BMI FOLLOW-UPDIETARY MANAGEMENT EDUCATION, GUIDANCE, AND COUNSELING RECREATIONAL DRUG USE DRUG USE?NO EXERCISE: NO REGULAR EXERCISE, ACTIVE. LEARNING BARRIERS / SPECIAL NEEDS CHANGE FROM LAST VISIT?NO 01/10/2019 BARRIERS TO LEARNING?NO HEARING IMPAIRED?NO VISION IMPAIRED?YES COGNITIVELY IMPAIRED?NO :CORRECTIVE LENSES READINESS TO LEARN?YES LEARNING PREFERENCES?NO LEARNING CAPABILITIES PRESENT?YES EMOTIONAL BARRIERS?NO SPECIAL DEVICES?NO GENERAL MAINTENANCE ENGINEER NEEDED?NO PAIN CLINIC PFS, CLERGY, PUBLIC HEALTH REFERRALS PFS REFERRAL NEEDED?NO CLERGY REFERRAL NEEDED?NO PUBLIC HEALTH REFERRAL NEEDED?NO WAS THE PROVIDER NOTIFIED OF ANY PERTINENT INFO?YES N/A HAS THE PATIENT BEEN EDUCATED REGARDING HIS/HER PLAN OF CARE?YES HAS THE PATIENT BEEN EDUCATED REGARDING PAIN, THE RISK FOR PAIN, THE IMPORTANCE OF EFFECTIVE PAIN MANAGEMENT, AND THE PAIN ASSESSMENT PROCESS?YES LATEX QUESTIONNAIRE LATEX ALLERGY : HAVE YOU EVER DEVELOPED ANY TYPE OF REACTION AFTER HANDLING LATEX PRODUCTS SUCH RUBBER GLOVES, CONDOMS, DIAPHRAGMS, BALLOONS, SOCKS, OR UNDERWEAR?NO LATEX ALLERGY : HAVE YOU EVER DEVELOPED ANY TYPE OF REACTION DURING OR AFTER DENTAL APPOINTMENT, VAGINAL/RECTAL EXAMINATION, SURGICAL PROCEDURE, OR ANY OTHER EXPOSURE?NO LATEX RISK : HAVE YOU EVER HAD ANY DIFFICULTY BREATHING OR HIVES AFTER EATING OR HANDLING ANY FRUITS, OR VEGETABLES; SUCH KIWI, BANANAS, STONE FRUITS, OR CHESTNUTSNO LATEX RISK : DO YOU HAVE A PREVIOUS PERSONAL HISTORY OF MORE THAN NINE SURGERIES, SPINA BIFIDA, OR REPEATED CATHERIZATIONS? NO LATEX RISK : ARE YOU FREQUENTLY EXPOSED TO LATEX PRODUCTS IN YOUR OCCUPATION?NO DATE ASKED : 02/20/2019 CAFFEINE >5/DAY. ADVANCE DIRECTIVE ADVANCE DIRECTIVE DISCUSSED WITH PATIENT:YES PT. HAS HCP EARLENE BARROSO [phone] EVANGELICAL [id number] EVANGELICAL MARITAL STATUS: . 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 SEXUAL HX HAD SEX IN THE LAST 12 MONTHS (VAGINAL, ORAL, OR ANAL)?YES WITHMEN ONLY PREVENTION STRATEGIES DISCUSSED:OTHER USE PROTECTION?NO HAVE YOU EVER HAD AN STD?NO REVIEWED WITH PATIENT 02/23/18 JS12/12/18 1051 REVIEWED WITH PT. MARLIN WITH PATIENT 02-20-19 DS. HOSPITALIZATION/MAJOR DIAGNOSTIC PROCEDURE [facility]-SEVERE BACK PAIN - ED 01/13/17 SURGERY 06/2017 REVIEW OF SYSTEMS REVIEWED BY: PROVIDER: IRAIDA LOZADA . CONSTITUTIONAL: ANY CHANGE IN YOUR MEDICAL CONDITION? NO . CHILLS NO . FEVER NO . INFECTION: DO YOU HAVE NEW INFECTIONS? NO . DO YOU HAVE HISTORY OF MRSA? NO . MUSCULOSKELETAL: ANY NEW PATTERNS OF PAIN OR NUMBNESS? NO . GASTROENTEROLOGY: ANY NEW CHANGE IN BOWEL CONTROL? NO . GENITOURINARY: ANY NEW CHANGE IN BLADDER CONTROL? NO . IS THERE A CHANCE YOU COULD BE ? NO . HEMATOLOGY/LYMPH: DO YOU TAKE ANY BLOOD THINNERS? (FOR EXAMPLE- COUMADIN, PLAVIX, AGGRENOX, PLATEL, PRADAXA, OR XARELTO) NO . WHEN WAS YOUR LAST DOSE? DATE: TIME: . NEUROLOGY: HAVE YOU FALLEN IN THE PAST 12 MONTHS? NO . ANY NEW EXTREMITY NUMBNESS OR WEAKNESS? NO . CARDIOLOGY: DO YOU HAVE A PACEMAKER OR DEFIBRILLATOR? NO . RESPIRATORY: HAVE YOU BEEN SICK IN THE PAST WEEK? YES, COUGH FOR 1 WEEK . FEVER NO . FLU LIKE SYMPTOMS? NO . COUGH NO . INTEGUMENTARY: DO YOU HAVE ANY RASHES OR OPEN SORES? NO . ALLERGIC/IMMUNO: ARE YOU ALLERGIC TO IV DYE? NO . ANY NEW ALLERGIES? NO . PSYCHIATRIC: DO YOU HAVE THOUGHTS OF HURTING YOURSELF OR SOMEONE ELSE? NO . ARE YOU ABUSED, NEGLECTED, OR IN AN UNSAFE ENVIRONMENT? NO . ENDOCRINOLOGY: ARE YOU DIABETIC? NO . OTHER: DO YOU NEED ANY PRESCRIPTIONS? YES IBUPROFEN, HYDROCODONE . IF YES, PLEASE LIST: ____ . ANY NEW PROBLEMS WITH YOUR MEDICATIONS? NO . WHEN DID YOU LAST EAT? ____ . WHEN DID YOU LAST DRINK? ____ . WHAT DID YOU LAST DRINK? ____ . NAME OF PERSON DRIVING YOU HOME? ____ . DO YOU HAVE ANY OTHER QUESTIONS OR CONCERNS NO . VITAL SIGNS WT 217.2 LBS, HT 5'4.5", BMI 36.70 INDEX, BP 179/82 MM HG, HR 74 /MIN, RR 18 /MIN, TEMP 96.9 F, OXYGEN SAT % 99%, SAFE IN ENV? (Y/N) Y, NA INITIALS AW 1057, REVIEWED BY: ARIC. EXAMINATION GENERAL EXAMINATION: GENERALAWAKE,ALERT ,PLEASANT . PSYCHAFFECT NORMAL . LUNGS:LUNG TALAVERA ARE CLEAR TO AUSCULTATION BILATERALLY. GOOD MOVEMENT OF AIR . HEART:S1, S2 IN A REGULAR RATE AND RHYTHM. NO SIGNIFICANT MURMURS, RUBS OR GALLOPS NOTED . ASSESSMENTS CERVICALGIA - M54.2 (PRIMARY) TREATMENT CERVICALGIA CONTINUE IBUPROFEN TABLET, 800 MG, 1 TABLET WITH FOOD OR MILK NEEDED, ORALLY, THREE TIMES A DAY NEEDED REFILL NORCO TABLET, 10-325 MG, 1 TABLET NEEDED, ORALLY, Q8H MDD3, 30 DAYS, 90, REFILLS 0 NOTES: ISTOP REGISTRY REVIEWED AND DEMONSTRATES COMPLLIANCE. BRINGS IN MEDICATIONS WHICH IS APPROPRIATE FOR WHAT WAS DISPENSED. RECENT URINE TOXICOLOGY REVIEWED. NO UNAUTHORIZED MEDICATIONS. NO ILLICIT SUBSTANCES AND PRESCRIBED MEDICATIONS WERE PRESENT. , RISKS OF NARCOTIC/OPIOD MEDICATIONS INCLUDES BUT IS NOT LIMITED TO RISK OF DEPENDANCE/DEVELOPMENT OF ADDICTION, MOOD DISTURBANCE AND DEPRESSION, OSTEOPOROSIS, HORMONAL AND LABIDAL CHANGES, RESPIRATORY DEPRESSION AND . PATIENT IS ADVISED NOT TO DRIVE OR DRINK ALCOHOL WHILE ON THESE MEDICATIONS. PROCEDURES PN WORKMANS' COMP OPINION IN YOUR OPINION, WAS THE INCIDENT THAT THE PATIENT DESCRIBED THE COMPETENT MEDICAL CAUSE OF THIS INJURY/ILLNESS? YES ARE THE PATIENT'S COMPLAINTS CONSISTENT WITH HIS/HER HISTORY OF THE INJURY/ILLNESS? YES IS THE PATIENT'S HISTORY OF THE INJURY/ILLNESS CONSISTENT WITH YOUR OBJECTIVE FINDING? YES WHAT IS THE PERCENTAGE OF TEMPORARY IMPAIRMENT? MODERATE TO MARKED = 66.7% IS THE PATIENT WORKING? YES DOCTOR ON SITE: DELORES MOORE MD PROCEDURE CODES FA211 ESTABILISHED PATIENT [facility] CHARGE DISPOSITION & COMMUNICATION FOLLOW UP 2 MONTHS (REASON: W/C NECK PAIN) ELECTRONICALLY SIGNED BY NEVILLE TOM ON 03/07/2019 AT 09:37 AM EST DISCLAIMER : THIS IS A VISIT SUMMARY EXTRACTED FROM THE [employer] CHART. IT IS NOT A COPY OF THE [employer] PROGRESS NOTE. ANGELICA
== END ==
LOC: M PAIN 10:45
PROVIDERS: ATTEND Nurse Practitioner Family
DX: M54.2 Cervicalgia (principal); G89.29 Other chronic pain; Z86.59 Personal history of other mental and behavioral disorders; I10 Essential (primary) hypertension; K21.9 Gastro-esophageal reflux disease without esophagitis; M79.10 Myalgia, unspecified site; F17.210 Nicotine dependence, cigarettes, uncomplicated; Z88.1 Allergy status to other antibiotic agents; Z88.8 Allergy status to other drugs, medicaments and biological substances; Z79.51 Long term (current) use of inhaled steroids; Z79.899 Other long term (current) drug therapy

== ENCOUNTER → 2019-03-20 | Outpatient (CLI) | payer OTHER ==
--- NOTE | 2019-03-20 12:06 | REPMRS ---
Patient History The patient states she had a clinical breast exam in February 2019. Family history of breast cancer at age 49 in mother. Family history of lung cancer in brother age 50, lung cancer in brother age 52 and lung cancer in brother age 53. Digital Mammo Screening Bilat: March 20, 2019 - Exam #: [id number] Bilateral CC and MLO view(s) were taken. Technologist: Clara Casper, Technologist Prior study comparison: May 03, 2017, bilateral digital mammo screening bilat performed at [facility]. January 01, 2016, bilateral digital mammo screening bilat performed at [facility]. June 27, 2014, bilateral digital mammo screening bilat performed at [facility]. FINDINGS: There are scattered fibroglandular densities. There has been no change in the appearance of the mammogram from the prior studies. There is a mild amount of scattered fibroglandular density which is fairly symmetric. There is no interval development of dominant mass, architectural distortion, or grouped microcalcification suggestive of malignancy. 3-D tomosynthesis shows no additional findings. Assessment: BI-RADS/ACR category 1 mammogram. Negative Mammogram. Recommendation Routine screening mammogram of both breasts in 1 year (for women over age 40). This patient's Lifetime Breast Cancer Risk is estimated at 16.5 %. This mammogram was interpreted with the aid of an FDA-approved computer-aided dectection system. Electronically Signed By: Kevin Harper MD 03/20/19 0832
--- NOTE | 2019-03-21 11:25 | REP ---
Clinical: Pelvic pain. Fibroid uterus. Technique: Transabdominal pelvic ultrasound followed by transvaginal examination for better evaluation of the endometrium and adnexa. Findings: The examination was incomplete due to the patient's low tolerance. The uterus measures 8.1 cm in length and 4.3 cm in AP dimension. Transverse images were not obtainable. The endometrial complex measures 5.6 mm thickness. There is a 2.5 x 2.2 x 2.1 cm left uterine lesion likely representing degenerating fibroid. Bilateral ovaries are normal in appearance. Right ovary measures 2.1 x 1.7 x 2.0 cm. Left ovary measures 2.7 x 1.5 x 2.4 cm. Bladder appears normal and measures 7.1 x 3.8 x 4.4 cm. Impression: Limited examination with findings to suggest 2.5 cm left uterine fibroid. Electronically Signed by Joe Casas MD 03/21/2019 06:40 A
== END ==
LOC: M RAD 08:51
PROVIDERS: ATTEND Advanced Practice Midwife
DX: Z01.419 Encounter for gynecological examination (general) (routine) without abnormal findings (principal)

== ENCOUNTER → 2019-03-26 | Outpatient (REF) | payer OTHER ==
[2019-03-27 12:22] LABS: BASO % 0.6 % (0.0-1.0); EOS # 0.1 10^3/uL (0.0-0.5); HEMATOCRIT 41.9 % (36.0-47.0); HEMOGLOBIN 14.1 g/dl (12.0-15.5); LYMPH # 2.5 10^3/uL (1.5-5.0); LYMPH % 38.9 % (24.0-44.0); MEAN CORPUSCULAR HEMOGLOBIN 31.4 pg (27.0-33.0); MEAN CORPUSCULAR HGB CONC 33.7 g/dl (32.0-36.5); MEAN CORPUSCULAR VOLUME 93.3 fl (80.0-96.0); MONO # 0.6 10^3/uL (0.0-0.8); MONO % 9.7 % (0.0-5.0); NEUTROPHILS # 3.1 10^3/uL (1.5-8.5); NEUTROPHILS % 49.5 % (36.0-66.0); PLATELET COUNT, AUTOMATED 314 10^3/uL (150-450); RED BLOOD COUNT 4.49 10^6/uL (4.00-5.40); WHITE BLOOD COUNT 6.3 10^3/uL (4.0-10.0)
[2019-03-27 12:49] LABS: ALT/SGPT 34 U/L (12-78); BILIRUBIN,TOTAL 0.3 MG/DL (0.2-1.0); BLOOD UREA NITROGEN 12 MG/DL (7-18); CALCIUM LEVEL 9.8 MG/DL (8.5-10.1); CARBON DIOXIDE LEVEL 27 MEQ/L (21-32); CHLORIDE LEVEL 105 MEQ/L (98-107); CHOLESTEROL LEVEL 210 MG/DL (<200); CREATININE FOR GFR 0.96 MG/DL (0.55-1.30); GLOMERULAR FILTRATION RATE > 60.0 (>51); GLUCOSE, FASTING 91 MG/DL (70-100); HDL CHOLESTEROL 40 MG/DL (>40); LDL CHOLESTEROL 138 MG/DL (<100); NON-HDL-C 170 MG/DL; POTASSIUM SERUM 4.1 MEQ/L (3.5-5.1); SODIUM LEVEL 139 MEQ/L (136-145); TOTAL PROTEIN 6.9 GM/DL (6.4-8.2); TRIGLYCERIDES LEVEL 162 MG/DL (<150)
[2019-03-27 14:47] LABS: HEMOGLOBIN A1c 5.9 %
== END ==
LOC: M SFHCCLAY 15:02
PROVIDERS: ATTEND Family Medicine
DX: I10 Essential (primary) hypertension (principal); E78.2 Mixed hyperlipidemia; R73.01 Impaired fasting glucose

== ENCOUNTER → 2019-04-08 | Outpatient (REF) | payer OTHER | LOC: M SFHCWAGY 10:50 | PROVIDERS: ATTEND Obstetrics & Gynecology | DX: N84.1 Polyp of cervix uteri (principal) ==

== ENCOUNTER → 2019-04-18 | Outpatient (CLI) | payer OTHER ==
--- NOTE | 2019-04-18 13:45 | REP ---
THREE-PHASE BONE SCAN OF THE NECK AREA: HISTORY: Neck pain. The patient reports anterior cervical discectomy and fusion in June 2007 with persistent neck pain radiating to the right shoulder. TECHNIQUE: 22.0 mCi technetium 99m MDP is injected and standard three-phase imaging is acquired of the upper torso head and neck region. SCINTIGRAPHIC FINDINGS: Flow study images are unremarkable. Blood pool images show normal blood pool in the head and neck vessels. Delayed scan images demonstrate no focus of intensely increased uptake in the cervical spine to suggest infection or fracture. There is minimal facet uptake in the upper cervical spine on posterior images bilaterally. Mild degenerative pattern uptake is seen in the mid cervical spine on the lateral views. Study is otherwise unremarkable. Imp: No acute scintigraphic abnormality. Mild degenerative uptake pattern in the cervical spine on delayed scan images. Normal flow and blood pool images. Electronically Signed by Prince Harper MD 04/18/2019 02:40 P
== END ==
LOC: M RAD 09:17
PROVIDERS: ATTEND Orthopaedic Surgery
DX: M54.2 Cervicalgia (principal)

== ENCOUNTER → 2019-04-23 | Outpatient (CLI) | payer OTHER ==
--- NOTE | 2019-04-24 04:08 | ECWPNPC ---
PATIENT NAME: ZANE BARROSO : 1965 GENDER: FEMALE VISIT DATE: 04/23/2019 DISCHARGE DATE: 04/23/19 1106 VISIT LOCKED DATE TIME: PHYSICIAN: IRAIDA VALENTINO RESOURCE: IRAIDA VALENTINO REASON FOR APPOINTMENT 1. W/C NECK/SHOULDER HISTORY OF PRESENT ILLNESS HISTORY OF PRESENT ILLNESS: HERE FOR F/U OF CHRONIC NECK AND RIGHT SHOULDER PAIN. HAD TPI BILAT THORACIC BACK WITH IMPROVEMENT IN PAIN IN THIS REGION THAT CONTINUED FOR SEVERAL WEEKS.SHE HAD CERVICAL SURGERY IN 2018 AND THIS MADE PAIN WORSE.RIGHT SHOULDER BEING FOLLOWED BY DR SAEED IN [place] .THIS IS A WORK RELATED INJURY WITH DOI-05/09/13.REPORTING INTERMITTENT LEFT ARM NUMBNESS AND PAIN AND CONSTANT RIGHT ARM AND FINGER PAIN AND PARATHESIAS.RATING PAIN VAS 5-6/10.FINDS CURRENT CHRONIC PAIN MEDICATION EFFECTIVE WITHOUT SIDE EFFECTS.STATES SHE IS UNABLE TO SLEEP AND PAIN VAS ESCALATES TO 10/10 VAS WITHOUT MEDICATION. PAIN THE PATIENT DESCRIBES THE PAIN... FALL RISK SCREENING: SCREENING :NO FALLS REPORTED IN THE LAST YEAR CURRENT MEDICATIONS TAKING SENOKOT 8.6 MG TABLET 2 TABLETS AT BEDTIME NEEDED ORALLY ONCE A DAY TAKING ALBUTEROL SULFATE HFA 108 (90 BASE) MCG/ACT AEROSOL SOLUTION 2 PUFFS NEEDED INHALATION EVERY 4 HRS TAKING CYCLOBENZAPRINE HCL 10 MG TABLET 1 TABLET NEEDED ORALLY THREE TIMES A DAY NEEDED TAKING BREO ELLIPTA 100-25 MCG/INH AEROSOL POWDER BREATH ACTIVATED 1 PUFF INHALATION ONCE A DAY TAKING MAGNESIUM 500 MG TABLET 1 TABLET WITH A MEAL ORALLY ONCE A DAY TAKING GLUCOMETER DIRECTED DAILY TAKING BLOOD GLUCOSE TEST - STRIP DIRECTED IN VITRO DAILY NEEDED TAKING LANCETS MISC. - MISCELLANEOUS DIRECTED DAILY NEEDED TAKING CALTRATE 600 1500 (600 CA) MG TABLET DIRECTED ORALLY TAKING IBUPROFEN 800 MG TABLET 1 TABLET WITH FOOD OR MILK NEEDED ORALLY THREE TIMES A DAY NEEDED TAKING NORCO 10-325 MG TABLET 1 TABLET NEEDED ORALLY Q8H MDD3 TAKING DICYCLOMINE HCL 20 MG TABLET 1 TABLET ORALLY QID PRN TAKING BUSPIRONE HCL 15 MG TABLET 1 TABLET ORALLY TWICE A DAY TAKING CARVEDILOL 6.25 MG TABLET 1 TABLET ORALLY TWICE A DAY TAKING FAMOTIDINE 40 MG TABLET 1 TABLET AT BEDTIME ORALLY ONCE A DAY NOT-TAKING PROBIOTIC - CAPSULE DIRECTED ORALLY TWICE A DAY, NOTES: STOPPED NOT-TAKING FLUCONAZOLE 150 MG TABLET 1 TABLET ORALLY DAILY- REPEAT IN 7 DAYS IF NEEDED, NOTES: DIDNT TAKE MEDICATION LIST REVIEWED AND RECONCILED WITH THE PATIENT PAST MEDICAL HISTORY IBS PALPITATIONS ANXIETY HTN RIGHT SHOULDER, NECK, AND UPPER BACK PAIN REFLUX OSTEOARTHRITIS CERVICAL SPINAL STENOSIS ALLERGIC SINUSITIS MYALGIA CHRONIC MAXILLARY SINUSITIS OTHER CHRONIC PAIN ALLERGIES CYMBALTA: PALPITATIONS - SIDE EFFECTS METRONIDAZOLE: PALPITATIONS - SIDE EFFECTS PAXIL: PALPITATIONS - SIDE EFFECTS LEXAPRO: NAUSEA/VOMITING - SIDE EFFECTS BACTRIM: DIARRHEA - SIDE EFFECTS NASONEX: PALPITATIONS - SIDE EFFECTS AMITRIPTYLINE HCL: INCREASED ANXIETY - SIDE EFFECTS METOPROLOL TARTRATE: TINGLING IN MOUTH - SIDE EFFECTS LOSARTAN POTASSIUM: MYALGIA - SIDE EFFECTS PREDNISONE: PALPITATIONS - SIDE EFFECTS CHANTIX: DREAMS - SIDE EFFECTS WELLBUTRIN: FELT TERRIBLE - SIDE EFFECTS LEVAQUIN: UNKNOWN - SIDE EFFECTS NORVASC: HOT FLASHES - SIDE EFFECTS BIAXIN: STOMACH UPSET - SIDE EFFECTS NEXIUM: INEFFECTIVE/NAUSEA - SIDE EFFECTS GABAPENTIN: INCREASED PAIN - SIDE EFFECTS LYRICA: EXTREME FATIGUE - SIDE EFFECTS CEFTIN: INCREASED WHEEZING/COUGHING - ALLERGY CIPROFLAXIN: AGITATION/NERVOUSNESS - SIDE EFFECTS CELEBREX: SLEEPLESSNESS/INTENSE ANXIETY - SIDE EFFECTS ATENOLOL: HOT FLASHES - SIDE EFFECTS FLONASE: PALPITATIONS - SIDE EFFECTS ZITHROMAX: PALPITATIONS, EYES TWITCHING - SIDE EFFECTS SURGICAL HISTORY COLONOSCOPY 2009,2015 UTERINE ABLATION, D&C 2009 ACDF- DR. YEUNG C4-7 WITH TITANIUM CAGES 06/2017 FAMILY HISTORY FATHER: 55 YRS, STROKE, [place], DIAGNOSED WITH HYPERTENSION, UNSPECIFIED CEREBRAL ARTERY OCCLUSION WITH CEREBRAL INFARCTION MOTHER: 49 YRS, BRAIN CANCER, LUNG CANCER SIBLINGS: ALIVE, BROTHER 48 YR OLD LUNG CANCER; BROTHER 54 LUNG AND SPINE CANCER SON(S): ALIVE, HYPERTENSION DAUGHTER(S): ALIVE 6 BROTHER(S) , 3 SISTER(S) - HEALTHY. 2 SON(S) , 1 DAUGHTER(S) - HEALTHY. [id number]- DIABETIC COMPLICATIONS BROTHER LUNG AND SPINE CANCER, BROTHER LUNG CANCER\\\\N. SOCIAL HISTORY GENERAL: TOBACCO USE ARE YOU A:CURRENT SMOKER ARE YOU INTERESTED IN QUITTING?NOT READY TO QUIT COUNSELED THE PATIENT ON SMOKING EFFECTS, EDUCATION [id number]/11/2020 HAS PATCHES FOR WHEN SHE IS READY TO QUIT. HOW MANY CIGARETTES A DAY DO YOU SMOKE?21-30 HOW SOON AFTER YOU WAKE UP DO YOU SMOKE YOUR FIRST CIGARETTE?6-30 MIN HOW OFTEN DO YOU SMOKE CIGARETTES?EVERY DAY PATIENT COUNSELED ON THE DANGERS OF TOBACCO USE AND URGED TO QUIT:03/26/2019 ADDITIONAL FINDINGS: TOBACCO USERHEAVY CIGARETTE SMOKER (20-39 CIGS/DAY) SMOKING CESSATION INFORMATION GIVEN03/26/2019 VAPORNO E-CIGARETTENO HIV / HEP-C SCREENING HIV TEST OFFERED TO PATIENT:YES DATE OFFERED:02/19/2019 TEST ACCEPTED:NO HEP-C TEST OFFERED TO PATIENT:YES DATE OFFERED:02/19/2019 REASON:PATIENT DECLINED TEST ACCEPTED:NO REASON:PATIENT DECLINED BROCHURE PROVIDED TO PATIENTNO OTHERS AT HOME: SPOUSE. EDUCATION LEVEL OF EDUCATION:NOT FINISHED HIGH SCHOOL DIET: REGULAR. LANGUAGE PERSIAN. DOMESTIC VIOLENCE DO YOU FEEL SAFE IN YOUR ENVIRONMENT?YES BMI CARE GOAL FOLLOW-UP ABOVE NORMAL BMI FOLLOW-UPDIETARY MANAGEMENT EDUCATION, GUIDANCE, AND COUNSELING RECREATIONAL DRUG USE DRUG USE?NO EXERCISE: NO REGULAR EXERCISE, ACTIVE. LEARNING BARRIERS / SPECIAL NEEDS CHANGE FROM LAST VISIT?NO BARRIERS TO LEARNING?NO HEARING IMPAIRED?NO VISION IMPAIRED?YES COGNITIVELY IMPAIRED?NO :CORRECTIVE LENSES READINESS TO LEARN?YES LEARNING PREFERENCES?NO LEARNING CAPABILITIES PRESENT?YES EMOTIONAL BARRIERS?NO SPECIAL DEVICES?NO CHECKER PRODUCT DESIGN NEEDED?NO PAIN CLINIC PFS, CLERGY, PUBLIC HEALTH REFERRALS PFS REFERRAL NEEDED?NO CLERGY REFERRAL NEEDED?NO PUBLIC HEALTH REFERRAL NEEDED?NO WAS THE PROVIDER NOTIFIED OF ANY PERTINENT INFO?YES N/A HAS THE PATIENT BEEN EDUCATED REGARDING HIS/HER PLAN OF CARE?YES HAS THE PATIENT BEEN EDUCATED REGARDING PAIN, THE RISK FOR PAIN, THE IMPORTANCE OF EFFECTIVE PAIN MANAGEMENT, AND THE PAIN ASSESSMENT PROCESS?YES LATEX QUESTIONNAIRE LATEX ALLERGY : HAVE YOU EVER DEVELOPED ANY TYPE OF REACTION AFTER HANDLING LATEX PRODUCTS SUCH RUBBER GLOVES, CONDOMS, DIAPHRAGMS, BALLOONS, SOCKS, OR UNDERWEAR?NO LATEX ALLERGY : HAVE YOU EVER DEVELOPED ANY TYPE OF REACTION DURING OR AFTER DENTAL APPOINTMENT, VAGINAL/RECTAL EXAMINATION, SURGICAL PROCEDURE, OR ANY OTHER EXPOSURE?NO DATE ASKED : 02/20/2019 LATEX RISK : HAVE YOU EVER HAD ANY DIFFICULTY BREATHING OR HIVES AFTER EATING OR HANDLING ANY FRUITS, OR VEGETABLES; SUCH KIWI, BANANAS, STONE FRUITS, OR CHESTNUTSNO LATEX RISK : DO YOU HAVE A PREVIOUS PERSONAL HISTORY OF MORE THAN NINE SURGERIES, SPINA BIFIDA, OR REPEATED CATHERIZATIONS? NO LATEX RISK : ARE YOU FREQUENTLY EXPOSED TO LATEX PRODUCTS IN YOUR OCCUPATION?NO CAFFEINE >5/DAY. ADVANCE DIRECTIVE ADVANCE DIRECTIVE DISCUSSED WITH PATIENT:YES PT. HAS HCP EARLENE BARROSO [phone] PRESYBETERIAN [id number] LATTER-DAY MARITAL STATUS: . 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 SEXUAL HX HAD SEX IN THE LAST 12 MONTHS (VAGINAL, ORAL, OR ANAL)?YES WITHMEN ONLY PREVENTION STRATEGIES DISCUSSED:OTHER USE PROTECTION?NO HAVE YOU EVER HAD AN STD?NO HOSPITALIZATION/MAJOR DIAGNOSTIC PROCEDURE [facility]-SEVERE BACK PAIN - ED 01/13/17 CERVICAL FUSION 06/2017 REVIEW OF SYSTEMS REVIEWED BY: PROVIDER: IRAIDA LOZADA . CONSTITUTIONAL: ANY CHANGE IN YOUR MEDICAL CONDITION? NO . CHILLS NO . FEVER NO . INFECTION: DO YOU HAVE NEW INFECTIONS? NO . DO YOU HAVE HISTORY OF MRSA? NO . MUSCULOSKELETAL: ANY NEW PATTERNS OF PAIN OR NUMBNESS? YES, MORE HEADACHES . GASTROENTEROLOGY: ANY NEW CHANGE IN BOWEL CONTROL? NO . GENITOURINARY: ANY NEW CHANGE IN BLADDER CONTROL? NO . IS THERE A CHANCE YOU COULD BE ? NO . HEMATOLOGY/LYMPH: DO YOU TAKE ANY BLOOD THINNERS? (FOR EXAMPLE- COUMADIN, PLAVIX, AGGRENOX, PLATEL, PRADAXA, OR XARELTO) NO . WHEN WAS YOUR LAST DOSE? DATE: TIME: . NEUROLOGY: HAVE YOU FALLEN IN THE PAST 12 MONTHS? NO . ANY NEW EXTREMITY NUMBNESS OR WEAKNESS? NO . CARDIOLOGY: DO YOU HAVE A PACEMAKER OR DEFIBRILLATOR? NO . RESPIRATORY: HAVE YOU BEEN SICK IN THE PAST WEEK? NO . FEVER NO . FLU LIKE SYMPTOMS? NO . COUGH NO . INTEGUMENTARY: DO YOU HAVE ANY RASHES OR OPEN SORES? NO . ALLERGIC/IMMUNO: ARE YOU ALLERGIC TO IV DYE? NO . ANY NEW ALLERGIES? NO . PSYCHIATRIC: DO YOU HAVE THOUGHTS OF HURTING YOURSELF OR SOMEONE ELSE? NO . ARE YOU ABUSED, NEGLECTED, OR IN AN UNSAFE ENVIRONMENT? NO . ENDOCRINOLOGY: ARE YOU DIABETIC? NO . OTHER: DO YOU NEED ANY PRESCRIPTIONS? NO . IF YES, PLEASE LIST: ____ . ANY NEW PROBLEMS WITH YOUR MEDICATIONS? NO . WHEN DID YOU LAST EAT? ____ . WHEN DID YOU LAST DRINK? ____ . WHAT DID YOU LAST DRINK? ____ . NAME OF PERSON DRIVING YOU HOME? ____ . DO YOU HAVE ANY OTHER QUESTIONS OR CONCERNS NO . VITAL SIGNS WT 216.8 LBS, HT 5'4.5", BMI 36.63 INDEX, BP 185/90 MM HG, HR 77 /MIN, RR 18 /MIN, TEMP 98.0 F, OXYGEN SAT % 97%, NA INITIALS AW 1030, REVIEWED BY: EM. EXAMINATION GENERAL EXAMINATION: GENERALAWAKE,ALERT ,PLEASANT . PSYCHAFFECT NORMAL . LUNGS:LUNG TALAVERA ARE CLEAR TO AUSCULTATION BILATERALLY. GOOD MOVEMENT OF AIR . HEART:S1, S2 IN A REGULAR RATE AND RHYTHM. NO SIGNIFICANT MURMURS, RUBS OR GALLOPS NOTED . ASSESSMENTS CERVICALGIA - M54.2 (PRIMARY) TREATMENT CERVICALGIA CONTINUE IBUPROFEN TABLET, 800 MG, 1 TABLET WITH FOOD OR MILK NEEDED, ORALLY, THREE TIMES A DAY NEEDED REFILL NORCO TABLET, 10-325 MG, 1 TABLET NEEDED, ORALLY, Q8H MDD3, 30 DAYS, 90, REFILLS 0 NOTES: ISTOP REGISTRY REVIEWED AND DEMONSTRATES COMPLLIANCE. BRINGS IN MEDICATIONS WHICH IS APPROPRIATE FOR WHAT WAS DISPENSED. RECENT URINE TOXICOLOGY REVIEWED. NO UNAUTHORIZED MEDICATIONS. NO ILLICIT SUBSTANCES AND PRESCRIBED MEDICATIONS WERE PRESENT. , RISKS OF NARCOTIC/OPIOD MEDICATIONS INCLUDES BUT IS NOT LIMITED TO RISK OF DEPENDANCE/DEVELOPMENT OF ADDICTION, MOOD DISTURBANCE AND DEPRESSION, OSTEOPOROSIS, HORMONAL AND LABIDAL CHANGES, RESPIRATORY DEPRESSION AND . PATIENT IS ADVISED NOT TO DRIVE OR DRINK ALCOHOL WHILE ON THESE MEDICATIONS. PROCEDURES PN WORKMANS' COMP OPINION IN YOUR OPINION, WAS THE INCIDENT THAT THE PATIENT DESCRIBED THE COMPETENT MEDICAL CAUSE OF THIS INJURY/ILLNESS? YES ARE THE PATIENT'S COMPLAINTS CONSISTENT WITH HIS/HER HISTORY OF THE INJURY/ILLNESS? YES IS THE PATIENT'S HISTORY OF THE INJURY/ILLNESS CONSISTENT WITH YOUR OBJECTIVE FINDING? YES WHAT IS THE PERCENTAGE OF TEMPORARY IMPAIRMENT? MODERATE TO MARKED = 66.7% IS THE PATIENT WORKING? NO DOCTOR ON SITE: DELORES MOORE MD PROCEDURE CODES FA211 ESTABILISHED PATIENT [facility] CHARGE DISPOSITION & COMMUNICATION FOLLOW UP 2 MONTHS (REASON: W/C MED MGMNT) ELECTRONICALLY SIGNED BY NEVILLE TOM ON 04/23/2019 AT 11:11 AM EST DISCLAIMER : THIS IS A VISIT SUMMARY EXTRACTED FROM THE [employer] CHART. IT IS NOT A COPY OF THE [employer] PROGRESS NOTE. ANGELICA
== END ==
LOC: M PAIN 10:00
PROVIDERS: ATTEND Nurse Practitioner Family
DX: M54.2 Cervicalgia (principal); G89.29 Other chronic pain; Z86.59 Personal history of other mental and behavioral disorders; I10 Essential (primary) hypertension; M79.10 Myalgia, unspecified site; F17.210 Nicotine dependence, cigarettes, uncomplicated; Z88.1 Allergy status to other antibiotic agents; Z88.8 Allergy status to other drugs, medicaments and biological substances; Z79.51 Long term (current) use of inhaled steroids; Z79.899 Other long term (current) drug therapy

== ENCOUNTER → 2019-06-21 | Outpatient (CLI) | payer OTHER ==
--- NOTE | 2019-06-24 10:31 | ECWPNPC ---
PATIENT NAME: ZANE BARROSO : 1965 GENDER: FEMALE VISIT DATE: 06/21/2019 DISCHARGE DATE: 06/21/19 1239 VISIT LOCKED DATE TIME: PHYSICIAN: IRAIDA VALENTINO RESOURCE: IRAIDA VALENTINO REASON FOR APPOINTMENT 1. W/C NECK/SHOULDER-PT DOES NOT HAVE CAMERA ACCESS, BUT CAN DO TELEPHONE CALL HISTORY OF PRESENT ILLNESS HISTORY OF PRESENT ILLNESS: PHONE CALL TO PATIENT WHO IS AGREEABLE TO PHONE VISIT TODAY FOR CHRONIC NECK AND RIGHT SHOULDER PAIN. SHE HAD CERVICAL SURGERY IN 2018 AND THIS MADE PAIN WORSE.RIGHT SHOULDER BEING FOLLOWED BY ORTHOPEDICS IN [place] .THIS IS A WORK RELATED INJURY WITH DOI-05/09/13.REPORTING INTERMITTENT LEFT ARM NUMBNESS AND PAIN AND CONSTANT RIGHT ARM AND FINGER PAIN AND PARATHESIAS.RATING PAIN VAS 3-8/10. REVIEWED MEDICATION MANDATES FROM JF IN MARCH 2019. TODAY WE WILL BEGIN WEANING DOWN AND OFF OF HYDROCODONE 10/325 AND SHE WILL USE IBUPROFEN [id number]. SHE IS INTERESTED IN INJECTION THERAPY FOR HER NECK, WHICH WE WILL INVESTIGATE AT FOLLOW-UP EXAM. PAIN THE PATIENT DESCRIBES THE PAIN... FALL RISK SCREENING: SCREENING :NO FALLS REPORTED IN THE LAST YEAR CURRENT MEDICATIONS TAKING SENOKOT 8.6 MG TABLET 2 TABLETS AT BEDTIME NEEDED ORALLY ONCE A DAY TAKING ALBUTEROL SULFATE HFA 108 (90 BASE) MCG/ACT AEROSOL SOLUTION 2 PUFFS NEEDED INHALATION EVERY 4 HRS TAKING CYCLOBENZAPRINE HCL 10 MG TABLET 1 TABLET NEEDED ORALLY THREE TIMES A DAY NEEDED TAKING MAGNESIUM 500 MG TABLET 1 TABLET WITH A MEAL ORALLY ONCE A DAY TAKING GLUCOMETER DIRECTED DAILY TAKING BLOOD GLUCOSE TEST - STRIP DIRECTED IN VITRO DAILY NEEDED TAKING LANCETS MISC. - MISCELLANEOUS DIRECTED DAILY NEEDED TAKING CALTRATE 600 1500 (600 CA) MG TABLET DIRECTED ORALLY TAKING BUSPIRONE HCL 15 MG TABLET 1 TABLET ORALLY TWICE A DAY TAKING NORCO 10-325 MG TABLET 1 TABLET NEEDED ORALLY Q8H MDD3 TAKING PRILOSEC OTC 20 MG TABLET DELAYED RELEASE 1 TABLET 30 MINUTES BEFORE MORNING MEAL ORALLY ONCE A DAY TAKING DICYCLOMINE HCL 20 MG TABLET 1 TABLET ORALLY QID PRN TAKING LISINOPRIL 10 MG TABLET 1 TABLET ORALLY ONCE A DAY NOT-TAKING AMOXICILLIN-POT CLAVULANATE 875-125 MG TABLET 1 TABLET ORALLY EVERY 12 HRS NOT-TAKING IBUPROFEN 800 MG TABLET 1 TABLET WITH FOOD OR MILK NEEDED ORALLY THREE TIMES A DAY NEEDED MEDICATION LIST REVIEWED AND RECONCILED WITH THE PATIENT PAST MEDICAL HISTORY IBS PALPITATIONS ANXIETY HTN RIGHT SHOULDER, NECK, AND UPPER BACK PAIN REFLUX OSTEOARTHRITIS CERVICAL SPINAL STENOSIS ALLERGIC SINUSITIS MYALGIA CHRONIC MAXILLARY SINUSITIS OTHER CHRONIC PAIN ALLERGIES CYMBALTA: PALPITATIONS - SIDE EFFECTS METRONIDAZOLE: PALPITATIONS - SIDE EFFECTS PAXIL: PALPITATIONS - SIDE EFFECTS LEXAPRO: NAUSEA/VOMITING - SIDE EFFECTS BACTRIM: DIARRHEA - SIDE EFFECTS NASONEX: PALPITATIONS - SIDE EFFECTS AMITRIPTYLINE HCL: INCREASED ANXIETY - SIDE EFFECTS METOPROLOL TARTRATE: TINGLING IN MOUTH - SIDE EFFECTS LOSARTAN POTASSIUM: MYALGIA - SIDE EFFECTS PREDNISONE: PALPITATIONS - SIDE EFFECTS CHANTIX: DREAMS - SIDE EFFECTS WELLBUTRIN: FELT TERRIBLE - SIDE EFFECTS LEVAQUIN: UNKNOWN - SIDE EFFECTS NORVASC: HOT FLASHES - SIDE EFFECTS BIAXIN: STOMACH UPSET - SIDE EFFECTS NEXIUM: INEFFECTIVE/NAUSEA - SIDE EFFECTS GABAPENTIN: INCREASED PAIN - SIDE EFFECTS LYRICA: EXTREME FATIGUE - SIDE EFFECTS CEFTIN: INCREASED WHEEZING/COUGHING - ALLERGY CIPROFLAXIN: AGITATION/NERVOUSNESS - SIDE EFFECTS CELEBREX: SLEEPLESSNESS/INTENSE ANXIETY - SIDE EFFECTS ATENOLOL: HOT FLASHES - SIDE EFFECTS FLONASE: PALPITATIONS - SIDE EFFECTS ZITHROMAX: PALPITATIONS, EYES TWITCHING - SIDE EFFECTS SURGICAL HISTORY COLONOSCOPY 2009,2015 UTERINE ABLATION, D&C 2009 ACDF- DR. YEUNG C4-7 WITH TITANIUM CAGES 06/2017 FAMILY HISTORY FATHER: 55 YRS, STROKE, [place], DIAGNOSED WITH HYPERTENSION, UNSPECIFIED CEREBRAL ARTERY OCCLUSION WITH CEREBRAL INFARCTION MOTHER: 49 YRS, BRAIN CANCER, LUNG CANCER SIBLINGS: ALIVE, BROTHER 48 YR OLD LUNG CANCER; BROTHER 54 LUNG AND SPINE CANCER SON(S): ALIVE, HYPERTENSION DAUGHTER(S): ALIVE 6 BROTHER(S) , 3 SISTER(S) - HEALTHY. 2 SON(S) , 1 DAUGHTER(S) - HEALTHY. [id number]- DIABETIC COMPLICATIONS BROTHER LUNG AND SPINE CANCER, BROTHER LUNG CANCER\\N. SOCIAL HISTORY GENERAL: TOBACCO USE ARE YOU A:CURRENT SMOKER ARE YOU INTERESTED IN QUITTING?NOT READY TO QUIT COUNSELED THE PATIENT ON SMOKING EFFECTS, EDUCATION [id number]/30/2020 HAS PATCHES FOR WHEN SHE IS READY TO QUIT. HOW MANY CIGARETTES A DAY DO YOU SMOKE?21-30 HOW SOON AFTER YOU WAKE UP DO YOU SMOKE YOUR FIRST CIGARETTE?6-30 MIN HOW OFTEN DO YOU SMOKE CIGARETTES?EVERY DAY PATIENT COUNSELED ON THE DANGERS OF TOBACCO USE AND URGED TO QUIT:06/10/2019 ADDITIONAL FINDINGS: TOBACCO USERHEAVY CIGARETTE SMOKER (20-39 CIGS/DAY) SMOKING CESSATION INFORMATION GIVEN06/10/2019 VAPORNO E-CIGARETTENO HIV / HEP-C SCREENING HIV TEST OFFERED TO PATIENT:YES DATE OFFERED:06/10/2019 TEST ACCEPTED:NO HEP-C TEST OFFERED TO PATIENT:NO REASON:PATIENT DECLINED BROCHURE PROVIDED TO PATIENTNO OTHERS AT HOME: SPOUSE. EDUCATION LEVEL OF EDUCATION:NOT FINISHED HIGH SCHOOL DIET: REGULAR. LANGUAGE SETSWANA. DOMESTIC VIOLENCE DO YOU FEEL SAFE IN YOUR ENVIRONMENT?YES NEW PATIENT PAIN DIARY TODAY'S VISITNOTES 06/21/2019 PATIENT DESCRIBES PAIN :ACHING, HAVE IT ALL THE TIME, SHOOTING FROM 0-10, WHAT LEVEL IS YOUR PAIN TODAY?3 STATES PAIN CURRENTLY A 3/10 BECAUSE SHE TOOK HER PAIN MEDICATION A LITTLE BIT AGO. BMI CARE GOAL FOLLOW-UP ABOVE NORMAL BMI FOLLOW-UPDIETARY MANAGEMENT EDUCATION, GUIDANCE, AND COUNSELING RECREATIONAL DRUG USE DRUG USE?NO EXERCISE: NO REGULAR EXERCISE, ACTIVE. 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 NEEDED?NO PAIN CLINIC PFS, CLERGY, PUBLIC HEALTH REFERRALS PFS REFERRAL NEEDED?NO CLERGY REFERRAL NEEDED?NO PUBLIC HEALTH REFERRAL NEEDED?NO WAS THE PROVIDER NOTIFIED OF ANY PERTINENT INFO?YES N/A HAS THE PATIENT BEEN EDUCATED REGARDING HIS/HER PLAN OF CARE?YES HAS THE PATIENT BEEN EDUCATED REGARDING PAIN, THE RISK FOR PAIN, THE IMPORTANCE OF EFFECTIVE PAIN MANAGEMENT, AND THE PAIN ASSESSMENT PROCESS?YES LATEX QUESTIONNAIRE LATEX ALLERGY : HAVE YOU EVER DEVELOPED ANY TYPE OF REACTION AFTER HANDLING LATEX PRODUCTS SUCH RUBBER GLOVES, CONDOMS, DIAPHRAGMS, BALLOONS, SOCKS, OR UNDERWEAR?NO LATEX ALLERGY : HAVE YOU EVER DEVELOPED ANY TYPE OF REACTION DURING OR AFTER DENTAL APPOINTMENT, VAGINAL/RECTAL EXAMINATION, SURGICAL PROCEDURE, OR ANY OTHER EXPOSURE?NO LATEX RISK : HAVE YOU EVER HAD ANY DIFFICULTY BREATHING OR HIVES AFTER EATING OR HANDLING ANY FRUITS, OR VEGETABLES; SUCH KIWI, BANANAS, STONE FRUITS, OR CHESTNUTSNO LATEX RISK : DO YOU HAVE A PREVIOUS PERSONAL HISTORY OF MORE THAN NINE SURGERIES, SPINA BIFIDA, OR REPEATED CATHERIZATIONS? NO LATEX RISK : ARE YOU FREQUENTLY EXPOSED TO LATEX PRODUCTS IN YOUR OCCUPATION?NO DATE ASKED : 06/21/2019 CAFFEINE >5/DAY. ADVANCE DIRECTIVE ADVANCE DIRECTIVE DISCUSSED WITH PATIENT:YES PT. HAS HCP EARLENE BARROSO [phone] ORIENTAL [employer]OX [id number] ZOROASTRIANISM MARITAL STATUS: . 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 SEXUAL HX HAD SEX IN THE LAST 12 MONTHS (VAGINAL, ORAL, OR ANAL)?YES WITHMEN ONLY PREVENTION STRATEGIES DISCUSSED:OTHER USE PROTECTION?NO HAVE YOU EVER HAD AN STD?NO HOSPITALIZATION/MAJOR DIAGNOSTIC PROCEDURE [facility]-SEVERE BACK PAIN - ED 01/13/17 CERVICAL FUSION 06/2017 REVIEW OF SYSTEMS REVIEWED BY: PROVIDER: IRAIDA LOZADA . CONSTITUTIONAL: ANY CHANGE IN YOUR MEDICAL CONDITION? NO . CHILLS NO . FEVER NO . INFECTION: DO YOU HAVE NEW INFECTIONS? NO . DO YOU HAVE HISTORY OF MRSA? NO . MUSCULOSKELETAL: ANY NEW PATTERNS OF PAIN OR NUMBNESS? NO . GASTROENTEROLOGY: ANY NEW CHANGE IN BOWEL CONTROL? NO . GENITOURINARY: ANY NEW CHANGE IN BLADDER CONTROL? NO . IS THERE A CHANCE YOU COULD BE ? NO . HEMATOLOGY/LYMPH: DO YOU TAKE ANY BLOOD THINNERS? (FOR EXAMPLE- COUMADIN, PLAVIX, AGGRENOX, PLATEL, PRADAXA, OR XARELTO) NO . WHEN WAS YOUR LAST DOSE? DATE: TIME: . NEUROLOGY: HAVE YOU FALLEN IN THE PAST 12 MONTHS? NO . ANY NEW EXTREMITY NUMBNESS OR WEAKNESS? NO . CARDIOLOGY: DO YOU HAVE A PACEMAKER OR DEFIBRILLATOR? NO . RESPIRATORY: HAVE YOU BEEN SICK IN THE PAST WEEK? YES, SINUS INFECTION - FINISHED ANTIBIOTICS . FEVER NO . FLU LIKE SYMPTOMS? NO . COUGH NO . INTEGUMENTARY: DO YOU HAVE ANY RASHES OR OPEN SORES? NO . ALLERGIC/IMMUNO: ARE YOU ALLERGIC TO IV DYE? NO . ANY NEW ALLERGIES? NO . PSYCHIATRIC: DO YOU HAVE THOUGHTS OF HURTING YOURSELF OR SOMEONE ELSE? NO . ARE YOU ABUSED, NEGLECTED, OR IN AN UNSAFE ENVIRONMENT? NO . ENDOCRINOLOGY: ARE YOU DIABETIC? NO . OTHER: DO YOU NEED ANY PRESCRIPTIONS? NO . IF YES, PLEASE LIST: ____ . ANY NEW PROBLEMS WITH YOUR MEDICATIONS? NO . WHEN DID YOU LAST EAT? ____ . WHEN DID YOU LAST DRINK? ____ . WHAT DID YOU LAST DRINK? ____ . NAME OF PERSON DRIVING YOU HOME? ____ . DO YOU HAVE ANY OTHER QUESTIONS OR CONCERNS YES, W/C NOT WANTING TO PAY FOR MEDICATIONS ANYMORE - NOT SURE HOW SHE WILL MANAGE WITHOUT THE HYDROCODONE. WOULD ALSO LIKE TO DISCUSS POSSIBLE INJECTION IN NEAR FUTURE . ASSESSMENTS CERVICALGIA - M54.2 (PRIMARY) TREATMENT CERVICALGIA NOTES: PATIENT WAS ADVISED TO TAKE HALF TABLET OF HYDROCODONE 10/325 3 TIMES A DAY 30 DAYS, THEN 2 TIMES A DAY X30 DAYS, THEN 1 TIME A DAY X30 DAYS THEN DISCONTINUE.. SHE IS ADVISED TO TAKE IBUPROFEN OR ACETAMINOPHEN [id number] NEEDED FOR SEVERE PAIN EPISODES AND MAXIMUM DAILY DOSE OF EACH MEDICATION WAS REVIEWED WITH PATIENT. APPROXIMATELY 11 MINUTES WAS SPENT DURING TELEMED VISIT TODAY. OTHERS NOTES: VITALS NOT OBTAINED DUE TO VIRTUAL VISIT. DISPOSITION & COMMUNICATION FOLLOW UP 2 MONTHS (REASON: W/C NECK) ELECTRONICALLY SIGNED BY NEVILLE TOM ON 06/21/2019 AT 03:28 PM EDT DISCLAIMER : THIS IS A VISIT SUMMARY EXTRACTED FROM THE [employer] CHART. IT IS NOT A COPY OF THE [employer] PROGRESS NOTE. DEAD
== END ==
LOC: M PAIN 10:00
PROVIDERS: ATTEND Nurse Practitioner Family
DX: M54.2 Cervicalgia (principal)

== ENCOUNTER → 2019-08-21 | Outpatient (CLI) | payer MEDICARE, MEDICAID ==
--- NOTE | 2019-08-23 04:13 | ECWPNPC ---
PATIENT NAME: ZANE BARROSO : 1965 GENDER: FEMALE VISIT DATE: 08/21/2019 DISCHARGE DATE: 08/21/19 1401 VISIT LOCKED DATE TIME: PHYSICIAN: IRAIDA VALENTINO RESOURCE: IRAIDA VALENTINO REASON FOR APPOINTMENT 1. W/C NECK; [phone] PAT DONE HISTORY OF PRESENT ILLNESS GENERAL: PATIENT IS AGREEABLE TO TELEPHONE VISIT TODAY. THIS IS A WORKMEN'S COMP FOLLOW-UP. CHIEF AREA OF PAIN IS NECK, SHOULDER AND BACK. FEELS SHE'S HAVING AN INCREASE IN NECK PAIN THAT RADIATES INTO HER RIGHT ARM. HAS HAD RECENT IMAGING AT [facility] OF HER NECK. THEY SUGGESTED INJECTION THERAPY FOR NERVE IMPINGEMENT. PATIENT WOULD LIKE TO HAVE INJECTIONS HERE. SHE HAS WEANED OFF OF HYDROCODONE. USING TYLENOL AND IBUPROFEN 3 TIMES A DAY. PAIN IS RANGING FROM 3-8/10 VAS.-. FALL RISK SCREENING: SCREENING :NO FALLS REPORTED IN THE LAST YEAR PAIN SCREENING: PATIENT HAS A COMPLAINT OF ACUTE OR CHRONIC PAIN :YES 08/20/19 INTENSITY OF PAIN (SCALE OF 1 TO 10):8 WHAT DOES YOUR PAIN FEEL LIKE:ACHING PAIN IS INCREASED BY: SITTING PAIN IS DECREASED BY: HEAT, LAYING DOWN NURSING NOTE: -. PAIN CENTER INTAKE QUESTIONS: DO YOU HAVE A HISTORY OF MRSA? :NO DO YOU TAKE A BLOOD THINNERS? :NO DO YOU HAVE ANY BLEEDING DISORDERS? :NO ANY NEW NUMBNESS OR WEAKNESS IN YOUR LEGS OR ARMS? :YES BILAT ARMS ANY PACEMAKER,DEFIBRILLATOR, OR DORSAL COLUMN STIMULATOR? :NO DO YOU HAVE ANY RASHES OR OPEN SORES? :NO ARE YOU ALLERGIC TO IV DYE? :NO ARE YOU DIABETIC? :NO ANY NEW PROBLEMS WITH YOUR MEDICATIONS? :NO HAVE YOU RECEIVED A VACCINE IN THE PAST 30 DAYS? :NO DO YOU PLAN TO RECEIVE A VACCINE IN THE NEXT 21 DAYS? :NO DO YOU NEED ANY PRESCRIPTION? :NO DO YOU TAKE ANY IMMUNOSUPPRESSIVE MEDICATIONS? :NO IS THERE A CHANCE YOU COULD BE ? :NO ARE YOU BREAST FEEDING? :NO CURRENT MEDICATIONS TAKING SENOKOT 8.6 MG TABLET 2 TABLETS AT BEDTIME NEEDED ORALLY ONCE A DAY TAKING ALBUTEROL SULFATE HFA 108 (90 BASE) MCG/ACT AEROSOL SOLUTION 2 PUFFS NEEDED INHALATION EVERY 4 HRS TAKING CYCLOBENZAPRINE HCL 10 MG TABLET 1 TABLET NEEDED ORALLY THREE TIMES A DAY NEEDED TAKING MAGNESIUM 500 MG TABLET 1 TABLET WITH A MEAL ORALLY ONCE A DAY TAKING GLUCOMETER DIRECTED DAILY TAKING BLOOD GLUCOSE TEST - STRIP DIRECTED IN VITRO DAILY NEEDED TAKING LANCETS MISC. - MISCELLANEOUS DIRECTED DAILY NEEDED TAKING CALTRATE 600 1500 (600 CA) MG TABLET DIRECTED ORALLY TAKING IBUPROFEN 800 MG TABLET 1 TABLET WITH FOOD OR MILK NEEDED ORALLY THREE TIMES A DAY NEEDED TAKING DICYCLOMINE HCL 20 MG TABLET 1 TABLET ORALLY QID PRN TAKING BUSPIRONE HCL 15 MG TABLET 1 TABLET ORALLY TWICE A DAY TAKING PRILOSEC OTC 20 MG TABLET DELAYED RELEASE 1 TABLET 30 MINUTES BEFORE MORNING MEAL ORALLY ONCE A DAY TAKING LISINOPRIL 10 MG TABLET 1 TABLET ORALLY ONCE A DAY TAKING TYLENOL 325 MG TABLET 1 TABLET NEEDED ORALLY EVERY 4 HRS NOT-TAKING NORCO 10-325 MG TABLET 1 TABLET NEEDED ORALLY Q8H MDD3 MEDICATION LIST REVIEWED AND RECONCILED WITH THE PATIENT PAST MEDICAL HISTORY IBS PALPITATIONS ANXIETY HTN RIGHT SHOULDER, NECK, AND UPPER BACK PAIN REFLUX OSTEOARTHRITIS CERVICAL SPINAL STENOSIS ALLERGIC SINUSITIS MYALGIA CHRONIC MAXILLARY SINUSITIS OTHER CHRONIC PAIN ALLERGIES CYMBALTA: PALPITATIONS - SIDE EFFECTS METRONIDAZOLE: PALPITATIONS - SIDE EFFECTS PAXIL: PALPITATIONS - SIDE EFFECTS LEXAPRO: NAUSEA/VOMITING - SIDE EFFECTS BACTRIM: DIARRHEA - SIDE EFFECTS NASONEX: PALPITATIONS - SIDE EFFECTS AMITRIPTYLINE HCL: INCREASED ANXIETY - SIDE EFFECTS METOPROLOL TARTRATE: TINGLING IN MOUTH - SIDE EFFECTS LOSARTAN POTASSIUM: MYALGIA - SIDE EFFECTS PREDNISONE: PALPITATIONS - SIDE EFFECTS CHANTIX: DREAMS - SIDE EFFECTS WELLBUTRIN: FELT TERRIBLE - SIDE EFFECTS LEVAQUIN: UNKNOWN - SIDE EFFECTS NORVASC: HOT FLASHES - SIDE EFFECTS BIAXIN: STOMACH UPSET - SIDE EFFECTS NEXIUM: INEFFECTIVE/NAUSEA - SIDE EFFECTS GABAPENTIN: INCREASED PAIN - SIDE EFFECTS LYRICA: EXTREME FATIGUE - SIDE EFFECTS CEFTIN: INCREASED WHEEZING/COUGHING - ALLERGY CIPROFLAXIN: AGITATION/NERVOUSNESS - SIDE EFFECTS CELEBREX: SLEEPLESSNESS/INTENSE ANXIETY - SIDE EFFECTS ATENOLOL: HOT FLASHES - SIDE EFFECTS FLONASE: PALPITATIONS - SIDE EFFECTS ZITHROMAX: PALPITATIONS, EYES TWITCHING - SIDE EFFECTS SURGICAL HISTORY COLONOSCOPY 2009,2015 UTERINE ABLATION, D&C 2009 ACDF- DR. YEUNG C4-7 WITH TITANIUM CAGES 06/2017 FAMILY HISTORY FATHER: 55 YRS, STROKE, NE, DIAGNOSED WITH HYPERTENSION, UNSPECIFIED CEREBRAL ARTERY OCCLUSION WITH CEREBRAL INFARCTION MOTHER: 49 YRS, BRAIN CANCER, LUNG CANCER SIBLINGS: ALIVE, BROTHERS- 50YEARS OLD 53YEARS OLD- LUNG CANCER SON(S): ALIVE, HYPERTENSION DAUGHTER(S): ALIVE 6 BROTHER(S) , 3 SISTER(S) - HEALTHY. 2 SON(S) , 1 DAUGHTER(S) - HEALTHY. [id number]- DIABETIC COMPLICATIONS. BROTHER- 53- LUNG CANCER, BROTHER- 50- LUNG CANCER. SOCIAL HISTORY GENERAL: TOBACCO USE ARE YOU A:CURRENT SMOKER ARE YOU INTERESTED IN QUITTING?NOT READY TO QUIT COUNSELED THE PATIENT ON SMOKING EFFECTS, EDUCATION [id number]/09/2020 HAS PATCHES FOR WHEN SHE IS READY TO QUIT. HOW MANY CIGARETTES A DAY DO YOU SMOKE?21-30 HOW SOON AFTER YOU WAKE UP DO YOU SMOKE YOUR FIRST CIGARETTE?6-30 MIN HOW OFTEN DO YOU SMOKE CIGARETTES?EVERY DAY PATIENT COUNSELED ON THE DANGERS OF TOBACCO USE AND URGED TO QUIT:07/26/2019 ADDITIONAL FINDINGS: TOBACCO USERHEAVY CIGARETTE SMOKER (20-39 CIGS/DAY) SMOKING CESSATION INFORMATION GIVEN07/26/2019 VAPORNO E-CIGARETTENO LATEX QUESTIONNAIRE LATEX ALLERGY : HAVE YOU EVER DEVELOPED ANY TYPE OF REACTION AFTER HANDLING LATEX PRODUCTS SUCH RUBBER GLOVES, CONDOMS, DIAPHRAGMS, BALLOONS, SOCKS, OR UNDERWEAR?NO LATEX ALLERGY : HAVE YOU EVER DEVELOPED ANY TYPE OF REACTION DURING OR AFTER DENTAL APPOINTMENT, VAGINAL/RECTAL EXAMINATION, SURGICAL PROCEDURE, OR ANY OTHER EXPOSURE?NO DATE ASKED : 06/21/2019 LATEX RISK : HAVE YOU EVER HAD ANY DIFFICULTY BREATHING OR HIVES AFTER EATING OR HANDLING ANY FRUITS, OR VEGETABLES; SUCH KIWI, BANANAS, STONE FRUITS, OR CHESTNUTSNO LATEX RISK : DO YOU HAVE A PREVIOUS PERSONAL HISTORY OF MORE THAN NINE SURGERIES, SPINA BIFIDA, OR REPEATED CATHERIZATIONS? NO LATEX RISK : ARE YOU FREQUENTLY EXPOSED TO LATEX PRODUCTS IN YOUR OCCUPATION?NO BMI CARE GOAL FOLLOW-UP ABOVE NORMAL BMI FOLLOW-UPDIETARY MANAGEMENT EDUCATION, GUIDANCE, AND COUNSELING ALCOHOL SCREENING DID YOU HAVE A DRINK CONTAINING ALCOHOL IN THE PAST YEAR?YES HOW OFTEN DID YOU HAVE SIX OR MORE DRINKS ON ONE OCCASION IN THE PAST YEAR?NEVER (0 POINTS) HOW MANY DRINKS DID YOU HAVE ON A TYPICAL DAY WHEN YOU WERE DRINKING IN THE PAST YEAR?1 OR 2 (0 POINTS) HOW OFTEN DID YOU HAVE A DRINK CONTAINING ALCOHOL IN THE PAST YEAR?MONTHLY OR LESS (1 POINT) POINTS1 INTERPRETATIONNEGATIVE RECREATIONAL DRUG USE DRUG USE?NO CAFFEINE >5/DAY. SEXUAL HX HAD SEX IN THE LAST 12 MONTHS (VAGINAL, ORAL, OR ANAL)?YES WITHMEN ONLY PREVENTION STRATEGIES DISCUSSED:OTHER USE PROTECTION?NO HAVE YOU EVER HAD AN STD?NO HIV / HEP-C SCREENING HIV TEST OFFERED TO PATIENT:YES DATE OFFERED:06/10/2019 TEST ACCEPTED:NO HEP-C TEST OFFERED TO PATIENT:NO REASON:PATIENT DECLINED BROCHURE PROVIDED TO PATIENTNO TEMPLE [id number] JAINISM LANGUAGE CHINESE. 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 DIET: REGULAR. EXERCISE: NO REGULAR EXERCISE, ACTIVE. MARITAL STATUS: . OTHERS AT HOME: SPOUSE. NEW PATIENT PAIN DIARY TODAY'S VISITNOTES 06/21/2019 PATIENT DESCRIBES PAIN :ACHING, HAVE IT ALL THE TIME, SHOOTING FROM 0-10, WHAT LEVEL IS YOUR PAIN TODAY?3 STATES PAIN CURRENTLY A 3/10 BECAUSE SHE TOOK HER PAIN MEDICATION A LITTLE BIT AGO. PAIN CLINIC PFS, CLERGY, PUBLIC HEALTH REFERRALS PFS REFERRAL NEEDED?NO CLERGY REFERRAL NEEDED?NO PUBLIC HEALTH REFERRAL NEEDED?NO WAS THE PROVIDER NOTIFIED OF ANY PERTINENT INFO?YES N/A HAS THE PATIENT BEEN EDUCATED REGARDING HIS/HER PLAN OF CARE?YES HAS THE PATIENT BEEN EDUCATED REGARDING PAIN, THE RISK FOR PAIN, THE IMPORTANCE OF EFFECTIVE PAIN MANAGEMENT, AND THE PAIN ASSESSMENT PROCESS?YES ADVANCE DIRECTIVE ADVANCE DIRECTIVE DISCUSSED WITH PATIENT:YES PT. HAS HCP EARLENE BARROSO [phone] HOSPITALIZATION/MAJOR DIAGNOSTIC PROCEDURE [facility]-SEVERE BACK PAIN - ED 01/13/17 CERVICAL FUSION 06/2017 REVIEW OF SYSTEMS CONSTITUTIONAL: ANY RECENT FEVER OR ILLNESS NO . CHILLS NO . GASTROENTEROLOGY: BOWEL INCONTINENCE NO . ANY NEW CHANGE IN BOWEL CONTROL? NO . ABDOMINAL PAIN NO . CONSTIPATION NO . GENITOURINARY: ANY NEW CHANGE IN BLADDER CONTROL? NO . IS THERE A CHANCE YOU COULD BE ? NO . URINARY INCONTINENCE NO . CARDIOLOGY: CHEST PRESSURE NO . CHEST PAIN NO . RESPIRATORY: COUGH NO . SHORTNESS OF BREATH NO . ASSESSMENTS CERVICALGIA - M54.2 (PRIMARY) TREATMENT CERVICALGIA NOTES: CONTINUE TYLENOL AND IBUPROFEN DIRECTED FOR CHRONIC PAIN CONTROL. FOLLOW-UP IN CLINIC IN 6-8 WEEKS TO REVIEW RECENT IMAGING STUDIES OF HER NECK DONE AT [facility] AND SUGGEST INTERVENTIONAL THERAPY. REQUESTED RECENT CERVICAL AND SHOULDER IMAGING STUDIES FROM [facility] AND ALSO OFFICE NOTES FROM THE PAST YEAR. TOTAL TIME SPENT DURING TELEPHONE VISIT WAS APPROXIMATELY 12 MINUTES. OTHERS CLINICAL NOTES: PRE SCREENING CALL DONE 08/20/19 EM. PROCEDURES PN WORKMANS' COMP OPINION IN YOUR OPINION, WAS THE INCIDENT THAT THE PATIENT DESCRIBED THE COMPETENT MEDICAL CAUSE OF THIS INJURY/ILLNESS? YES ARE THE PATIENT'S COMPLAINTS CONSISTENT WITH HIS/HER HISTORY OF THE INJURY/ILLNESS? YES IS THE PATIENT'S HISTORY OF THE INJURY/ILLNESS CONSISTENT WITH YOUR OBJECTIVE FINDING? YES WHAT IS THE PERCENTAGE OF TEMPORARY IMPAIRMENT? MODERATE TO MARKED = 66.7% IS THE PATIENT WORKING? NO DOCTOR ON SITE: DELORES MOORE MD DISPOSITION & COMMUNICATION FOLLOW UP 2 MONTH FOLLOW-UP IN CLINIC REVIEW MRI (REASON: WORKMEN'S COMPNECK) ELECTRONICALLY SIGNED BY NEVILLE TOM ON 08/22/2019 AT 12:34 PM EDT DISCLAIMER : THIS IS A VISIT SUMMARY EXTRACTED FROM THE Stat CHART. IT IS NOT A COPY OF THE Stat PROGRESS NOTE. ANGELICA
== END ==
LOC: M PAIN 10:15
PROVIDERS: ATTEND Nurse Practitioner Family
DX: M54.2 Cervicalgia (principal)

== ENCOUNTER → 2019-10-21 | Outpatient (POV) | payer MEDICARE, OTHER | LOC: M PAIN 09:00 | PROVIDERS: ATTEND Nurse Practitioner Family | DX: M79.18 Myalgia, other site (principal) ==

== ENCOUNTER → 2019-11-25 | Outpatient (CLI) | payer OTHER, MEDICARE, MEDICAID | LOC: M PAIN 11:08 | PROVIDERS: ATTEND Nurse Practitioner Family | DX: M79.18 Myalgia, other site (principal) ==

== ENCOUNTER → 2019-12-24 | Outpatient (CLI) | payer OTHER ==
--- NOTE | 2019-12-30 15:14 | ECWPNPC ---
PATIENT NAME: ZANE BARRSOO : 1965 GENDER: FEMALE VISIT DATE: 12/24/2019 DISCHARGE DATE: 12/24/19 1230 VISIT LOCKED DATE TIME: PHYSICIAN: IRAIDA VALENTINO PHYSICIAN PAGER NO: ACTIVE RESOURCE: IRAIDA VALENTINO REASON FOR APPOINTMENT 1. DISCUSS JF HISTORY OF PRESENT ILLNESS GENERAL: PATIENT IS BEING SEEN FOR FOLLOW-UP OF PERSISTENT NECK AND RIGHT SHOULDER PAIN. THIS IS A WORK RELATED INJURY. PAIN HAS INCREASED IN THE RIGHT NECK AREA. PAIN IS AGGRAVATED IN THIS AREA WITH RANGE OF JOINT MOTION OF THE NECK.- HAS RESPONDED WELL TO TRIGGER POINT INJECTIONS TO THIS REGION IN THE PAST. COMPLAINING OF SEVERE MUSCLE SPASM TYPE PAIN. DISCUSSED MEDICATION AND TREATMENT PLAN. FALL RISK SCREENING: SCREENING :NO FALLS REPORTED IN THE LAST YEAR PAIN SCREENING: PATIENT HAS A COMPLAINT OF ACUTE OR CHRONIC PAIN :YES LOCATION OF PAIN:NECK, LEFT SHOULDER, RIGHT SHOULDER INTENSITY OF PAIN (SCALE OF 1 TO 10):9 WHAT DOES YOUR PAIN FEEL LIKE:ACHING DURATION:CONTINOUS PAIN IS INCREASED BY:OTHERS SITTING, ON FEET-STANDING PAIN IS DECREASED BY:USE OF PAIN MEDICATIONS, OTHERS LAYING DOWN LEVEL OF RELIEF FROM PAIN TREATMENTS IN THE PAST:25% PAIN HAS INTERFERED WITH THE FOLLOWING:HOUSEWORK, SLEEP, ENJOYMENT OF LIFE NURSING NOTE: -. PAIN CENTER INTAKE QUESTIONS: DO YOU HAVE A HISTORY OF MRSA? :NO DO YOU TAKE A BLOOD THINNERS? :NO DO YOU HAVE ANY BLEEDING DISORDERS? :NO ANY NEW NUMBNESS OR WEAKNESS IN YOUR LEGS OR ARMS? :NO ANY PACEMAKER,DEFIBRILLATOR, OR DORSAL COLUMN STIMULATOR? :NO DO YOU HAVE ANY RASHES OR OPEN SORES? :NO ARE YOU ALLERGIC TO IV DYE? :NO ARE YOU DIABETIC? :NO ANY NEW PROBLEMS WITH YOUR MEDICATIONS? :YES MOTRIN HELPS FOR 3 HOURS THEN PAIN INCREASES HAVE YOU RECEIVED A VACCINE IN THE PAST 30 DAYS? :NO DO YOU PLAN TO RECEIVE A VACCINE IN THE NEXT 21 DAYS? :NO DO YOU NEED ANY PRESCRIPTION? :YES MAYBE MOTRIN DO YOU TAKE ANY IMMUNOSUPPRESSIVE MEDICATIONS? :NO IS THERE A CHANCE YOU COULD BE ? :NO ARE YOU BREAST FEEDING? :NO CURRENT MEDICATIONS TAKING SENOKOT 8.6 MG TABLET 2 TABLETS AT BEDTIME NEEDED ORALLY ONCE A DAY TAKING ALBUTEROL SULFATE HFA 108 (90 BASE) MCG/ACT AEROSOL SOLUTION 2 PUFFS NEEDED INHALATION EVERY 4 HRS TAKING MAGNESIUM 500 MG TABLET 1 TABLET WITH A MEAL ORALLY ONCE A DAY TAKING IBUPROFEN 800 MG TABLET 1 TABLET WITH FOOD OR MILK NEEDED ORALLY THREE TIMES A DAY NEEDED TAKING DICYCLOMINE HCL 20 MG TABLET 1 TABLET ORALLY QID PRN TAKING BUSPIRONE HCL 15 MG TABLET 1 TABLET ORALLY TWICE A DAY TAKING PRILOSEC OTC 20 MG TABLET DELAYED RELEASE 1 TABLET 30 MINUTES BEFORE MORNING MEAL ORALLY ONCE A DAY TAKING LISINOPRIL 10 MG TABLET 1 TABLET ORALLY ONCE A DAY TAKING TYLENOL 325 MG TABLET 1 TABLET NEEDED ORALLY EVERY 4 HRS TAKING FREESTYLE TEST - STRIP DIRECTED IN VITRO DAILY TAKING GLUCOMETER FREESTYLE DAILY TAKING LANCETS - MISCELLANEOUS FREESTYLE DAILY NOT-TAKING CYCLOBENZAPRINE HCL 10 MG TABLET 1 TABLET NEEDED ORALLY THREE TIMES A DAY NEEDED NOT-TAKING CALTRATE 600 1500 (600 CA) MG TABLET DIRECTED ORALLY NOT-TAKING NORCO 10-325 MG TABLET 1 TABLET NEEDED ORALLY Q8H MDD3 MEDICATION LIST REVIEWED AND RECONCILED WITH THE PATIENT PAST MEDICAL HISTORY IBS PALPITATIONS ANXIETY HTN RIGHT SHOULDER, NECK, AND UPPER BACK PAIN REFLUX OSTEOARTHRITIS CERVICAL SPINAL STENOSIS ALLERGIC SINUSITIS MYALGIA CHRONIC MAXILLARY SINUSITIS OTHER CHRONIC PAIN ALLERGIES CYMBALTA: PALPITATIONS - SIDE EFFECTS METRONIDAZOLE: PALPITATIONS - SIDE EFFECTS PAXIL: PALPITATIONS - SIDE EFFECTS LEXAPRO: NAUSEA/VOMITING - SIDE EFFECTS BACTRIM: DIARRHEA - SIDE EFFECTS NASONEX: PALPITATIONS - SIDE EFFECTS AMITRIPTYLINE HCL: INCREASED ANXIETY - SIDE EFFECTS METOPROLOL TARTRATE: TINGLING IN MOUTH - SIDE EFFECTS LOSARTAN POTASSIUM: MYALGIA - SIDE EFFECTS PREDNISONE: PALPITATIONS - SIDE EFFECTS CHANTIX: DREAMS - SIDE EFFECTS WELLBUTRIN: FELT TERRIBLE - SIDE EFFECTS LEVAQUIN: UNKNOWN - SIDE EFFECTS NORVASC: HOT FLASHES - SIDE EFFECTS BIAXIN: STOMACH UPSET - SIDE EFFECTS NEXIUM: INEFFECTIVE/NAUSEA - SIDE EFFECTS GABAPENTIN: INCREASED PAIN - SIDE EFFECTS LYRICA: EXTREME FATIGUE - SIDE EFFECTS CEFTIN: INCREASED WHEEZING/COUGHING - ALLERGY CIPROFLAXIN: AGITATION/NERVOUSNESS - SIDE EFFECTS CELEBREX: SLEEPLESSNESS/INTENSE ANXIETY - SIDE EFFECTS ATENOLOL: HOT FLASHES - SIDE EFFECTS FLONASE: PALPITATIONS - SIDE EFFECTS ZITHROMAX: PALPITATIONS, EYES TWITCHING - SIDE EFFECTS SURGICAL HISTORY COLONOSCOPY 2009,2016 UTERINE ABLATION, D&C 2009 ACDF- DR. YEUNG C4-7 WITH TITANIUM CAGES 06/2017 FAMILY HISTORY FATHER: 55 YRS, STROKE, PR, DIAGNOSED WITH HYPERTENSION, UNSPECIFIED CEREBRAL ARTERY OCCLUSION WITH CEREBRAL INFARCTION MOTHER: 49 YRS, BRAIN CANCER, LUNG CANCER SIBLINGS: ALIVE, BROTHERS- 50YEARS OLD 53YEARS OLD- LUNG CANCER SON(S): ALIVE, HYPERTENSION DAUGHTER(S): ALIVE 6 BROTHER(S) , 3 SISTER(S) - HEALTHY. 2 SON(S) , 1 DAUGHTER(S) - HEALTHY. [id number]- DIABETIC COMPLICATIONS. BROTHER- 53- LUNG CANCER, BROTHER- 50- LUNG CANCER. SOCIAL HISTORY GENERAL: TOBACCO USE ARE YOU A:CURRENT SMOKER ARE YOU INTERESTED IN QUITTING?NOT READY TO QUIT COUNSELED THE PATIENT ON SMOKING EFFECTS, EDUCATION [id number]/13/2020 HAS PATCHES FOR WHEN SHE IS READY TO QUIT. HOW MANY CIGARETTES A DAY DO YOU SMOKE?21-30 HOW SOON AFTER YOU WAKE UP DO YOU SMOKE YOUR FIRST CIGARETTE?6-30 MIN HOW OFTEN DO YOU SMOKE CIGARETTES?EVERY DAY PATIENT COUNSELED ON THE DANGERS OF TOBACCO USE AND URGED TO QUIT:07/26/2019 ADDITIONAL FINDINGS: TOBACCO USERHEAVY CIGARETTE SMOKER (20-39 CIGS/DAY) SMOKING CESSATION INFORMATION GIVEN07/26/2019 VAPORNO E-CIGARETTENO LATEX QUESTIONNAIRE LATEX ALLERGY : HAVE YOU EVER DEVELOPED ANY TYPE OF REACTION AFTER HANDLING LATEX PRODUCTS SUCH RUBBER GLOVES, CONDOMS, DIAPHRAGMS, BALLOONS, SOCKS, OR UNDERWEAR?NO LATEX ALLERGY : HAVE YOU EVER DEVELOPED ANY TYPE OF REACTION DURING OR AFTER DENTAL APPOINTMENT, VAGINAL/RECTAL EXAMINATION, SURGICAL PROCEDURE, OR ANY OTHER EXPOSURE?NO DATE ASKED : 06/21/2019 LATEX RISK : HAVE YOU EVER HAD ANY DIFFICULTY BREATHING OR HIVES AFTER EATING OR HANDLING ANY FRUITS, OR VEGETABLES; SUCH KIWI, BANANAS, STONE FRUITS, OR CHESTNUTSNO LATEX RISK : DO YOU HAVE A PREVIOUS PERSONAL HISTORY OF MORE THAN NINE SURGERIES, SPINA BIFIDA, OR REPEATED CATHERIZATIONS? NO LATEX RISK : ARE YOU FREQUENTLY EXPOSED TO LATEX PRODUCTS IN YOUR OCCUPATION?NO BMI CARE GOAL FOLLOW-UP ABOVE NORMAL BMI FOLLOW-UPDIETARY MANAGEMENT EDUCATION, GUIDANCE, AND COUNSELING ALCOHOL SCREENING DID YOU HAVE A DRINK CONTAINING ALCOHOL IN THE PAST YEAR?YES HOW OFTEN DID YOU HAVE SIX OR MORE DRINKS ON ONE OCCASION IN THE PAST YEAR?NEVER (0 POINTS) HOW MANY DRINKS DID YOU HAVE ON A TYPICAL DAY WHEN YOU WERE DRINKING IN THE PAST YEAR?1 OR 2 (0 POINTS) HOW OFTEN DID YOU HAVE A DRINK CONTAINING ALCOHOL IN THE PAST YEAR?MONTHLY OR LESS (1 POINT) POINTS1 INTERPRETATIONNEGATIVE RECREATIONAL DRUG USE DRUG USE?NO CAFFEINE >5/DAY. SEXUAL HX HAD SEX IN THE LAST 12 MONTHS (VAGINAL, ORAL, OR ANAL)?YES WITHMEN ONLY PREVENTION STRATEGIES DISCUSSED:OTHER USE PROTECTION?NO HAVE YOU EVER HAD AN STD?NO HIV / HEP-C SCREENING HIV TEST OFFERED TO PATIENT:YES DATE OFFERED:06/10/2019 TEST ACCEPTED:NO HEP-C TEST OFFERED TO PATIENT:NO REASON:PATIENT DECLINED BROCHURE PROVIDED TO PATIENTNO UATSDIN [id number] [employer] LANGUAGE MALAY. 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 DIET: REGULAR. EXERCISE: NO REGULAR EXERCISE, ACTIVE. MARITAL STATUS: . OTHERS AT HOME: SPOUSE. NEW PATIENT PAIN DIARY TODAY'S VISITNOTES 06/21/2019 PATIENT DESCRIBES PAIN :ACHING, HAVE IT ALL THE TIME, SHOOTING FROM 0-10, WHAT LEVEL IS YOUR PAIN TODAY?3 STATES PAIN CURRENTLY A 3/10 BECAUSE SHE TOOK HER PAIN MEDICATION A LITTLE BIT AGO. PAIN CLINIC PFS, CLERGY, PUBLIC HEALTH REFERRALS PFS REFERRAL NEEDED?NO CLERGY REFERRAL NEEDED?NO PUBLIC HEALTH REFERRAL NEEDED?NO WAS THE PROVIDER NOTIFIED OF ANY PERTINENT INFO?YES N/A HAS THE PATIENT BEEN EDUCATED REGARDING HIS/HER PLAN OF CARE?YES HAS THE PATIENT BEEN EDUCATED REGARDING PAIN, THE RISK FOR PAIN, THE IMPORTANCE OF EFFECTIVE PAIN MANAGEMENT, AND THE PAIN ASSESSMENT PROCESS?YES ADVANCE DIRECTIVE ADVANCE DIRECTIVE DISCUSSED WITH PATIENT:YES PT. HAS HCP EARLENE BARROSO [phone] HOSPITALIZATION/MAJOR DIAGNOSTIC PROCEDURE [facility]-SEVERE BACK PAIN - ED 01/13/17 CERVICAL FUSION 06/2017 REVIEW OF SYSTEMS CONSTITUTIONAL: ANY RECENT FEVER NO . CHILLS NO . WEIGHT CHANGE OF UNKNOWN REASONS NO . GASTROENTEROLOGY: NEW UNEXPLAINABLE CHANGES IN BOWEL CONTROL NO . CONSTIPATION NO . GENITOURINARY: ANY NEW CHANGE IN BLADDER CONTROL? NO . NEUROLOGY: NEW ONSET DIZZINESS OR NEUROLOGICAL CHANGES NOT MENTIONED NO . NEW NUMBNESS OR PAIN PATTERNS NOT MENTIONED AND PERTINENT TO TODAY'S VISIT NO . CARDIOLOGY: NEW CHEST PRESSURE NO . NEW CHEST PAIN NO . RESPIRATORY: UNEXPLAINABLE COUGH NO . NEW SHORTNESS OF BREATH NO . VITAL SIGNS WT 213.2 LBS, HT 5'4.5", BMI 36.03 INDEX, BP 179/88 MM HG, HR 83 /MIN, RR 18 /MIN, TEMP 97.4 F, OXYGEN SAT % 98%, NA INITIALS AW 1136, REVIEWED BY: EM. EXAMINATION GENERAL EXAMINATION: GENERAL AWAKE,ALERT ,PLEAASANT . PSYCH AFFECT NORMAL . LUNGS: LUNG TALAVERA ARE CLEAR TO AUSCULTATION BILATERALLY. GOOD MOVEMENT OF AIR . HEART: S1, S2 IN A REGULAR RATE AND RHYTHM. NO SIGNIFICANT MURMURS, RUBS OR GALLOPS NOTED . CERVICAL:TRIGGER POINTS: CERVICAL AND TRAPEZIUS -RIGHT..PAIN IS AGGREVATED WITH ROJM NECK. SPECIFIC BANDS OF TISSUE INDICATIVE OF TRIGGER POINTS WITH RESTRICTION OF RANGE OF JOINT MOTION NOTED OVER RIGHT NECK AND UPPER BACK.. ASSESSMENTS MYALGIA OF MUSCLE OF NECK - M79.18 (PRIMARY) TREATMENT MYALGIA OF MUSCLE OF NECK START CYCLOBENZAPRINE HCL TABLET, 10 MG, 1 TABLET NEEDED, ORALLY, THREE TIMES A DAY NEEDED, 30 DAYS, 90, REFILLS 2 NOTES: TRIGGER POINT INJECTIONS RIGHT NECK-W/C-THIS IS MEDICALLY NECESSARY AND IN TREATMENT GUIDELINES FOR PERSISTENT TRIGGER POINTS REFRACTORY TO CURRENT REGIMEN. TRIGGER POINT INJECTION SHOULD ACCOMPANY PHYSICAL THERAPY PER TREATMENT GUIDELINES. WORKMEN'S COMP REQUEST PHYSICAL THERAPY IN CONJUNCTION WITH TRIGGER POINT INJECTIONS FOR MYALGIA OF THE NECK. CYCLOBENZAPRINE WILL BE USED TO TREAT ACUTE FLAREUP OF PERSISTENT RIGHT NECK MUSCLE SPASM PER CLINICAL GUIDELINES. OTHERS NOTES: CYCLOBENZAPRINE MATERIAL WAS PRINTED,TRIGGER POINT INJECTION MATERIAL WAS PRINTED. PROCEDURES PN WORKMANS' COMP OPINION IN YOUR OPINION, WAS THE INCIDENT THAT THE PATIENT DESCRIBED THE COMPETENT MEDICAL CAUSE OF THIS INJURY/ILLNESS? YES ARE THE PATIENT'S COMPLAINTS CONSISTENT WITH HIS/HER HISTORY OF THE INJURY/ILLNESS? YES IS THE PATIENT'S HISTORY OF THE INJURY/ILLNESS CONSISTENT WITH YOUR OBJECTIVE FINDING? YES WHAT IS THE PERCENTAGE OF TEMPORARY IMPAIRMENT? MODERATE TO MARKED = 66.7% IS THE PATIENT WORKING? NO DOCTOR ON SITE: DELORES MOORE MD PROCEDURE CODES FA211 ESTABILISHED PATIENT [facility] CHARGE DISPOSITION & COMMUNICATION FOLLOW UP POST PROCEDURE (REASON: TRIGGER POINT INJECTIONS RIGHT NECK-W/C) ELECTRONICALLY SIGNED BY NEVILLE TOM ON 12/30/2019 AT 03:13 PM EDT DISCLAIMER : THIS IS A VISIT SUMMARY EXTRACTED FROM THE [employer] CHART. IT IS NOT A COPY OF THE [employer] PROGRESS NOTE. ANGELICA
--- NOTE | 2019-12-30 15:16 | ECWPNPC ---
PATIENT NAME: ZANE BARROSO : 1965 GENDER: FEMALE VISIT DATE: 12/24/2019 DISCHARGE DATE: 12/24/19 1230 VISIT LOCKED DATE TIME: PHYSICIAN: IRAIDA VALENTINO PHYSICIAN PAGER NO: ACTIVE RESOURCE: IRAIDA VALENTINO REASON FOR APPOINTMENT 1. DISCUSS JF HISTORY OF PRESENT ILLNESS GENERAL: PATIENT IS BEING SEEN FOR FOLLOW-UP OF PERSISTENT NECK AND RIGHT SHOULDER PAIN. THIS IS A WORK RELATED INJURY. PAIN HAS INCREASED IN THE RIGHT NECK AREA. PAIN IS AGGRAVATED IN THIS AREA WITH RANGE OF JOINT MOTION OF THE NECK.- HAS RESPONDED WELL TO TRIGGER POINT INJECTIONS TO THIS REGION IN THE PAST. COMPLAINING OF SEVERE MUSCLE SPASM TYPE PAIN. DISCUSSED MEDICATION AND TREATMENT PLAN. FALL RISK SCREENING: SCREENING :NO FALLS REPORTED IN THE LAST YEAR PAIN SCREENING: PATIENT HAS A COMPLAINT OF ACUTE OR CHRONIC PAIN :YES LOCATION OF PAIN:NECK, LEFT SHOULDER, RIGHT SHOULDER INTENSITY OF PAIN (SCALE OF 1 TO 10):9 WHAT DOES YOUR PAIN FEEL LIKE:ACHING DURATION:CONTINOUS PAIN IS INCREASED BY:OTHERS SITTING, ON FEET-STANDING PAIN IS DECREASED BY:USE OF PAIN MEDICATIONS, OTHERS LAYING DOWN LEVEL OF RELIEF FROM PAIN TREATMENTS IN THE PAST:25% PAIN HAS INTERFERED WITH THE FOLLOWING:HOUSEWORK, SLEEP, ENJOYMENT OF LIFE NURSING NOTE: -. PAIN CENTER INTAKE QUESTIONS: DO YOU HAVE A HISTORY OF MRSA? :NO DO YOU TAKE A BLOOD THINNERS? :NO DO YOU HAVE ANY BLEEDING DISORDERS? :NO ANY NEW NUMBNESS OR WEAKNESS IN YOUR LEGS OR ARMS? :NO ANY PACEMAKER,DEFIBRILLATOR, OR DORSAL COLUMN STIMULATOR? :NO DO YOU HAVE ANY RASHES OR OPEN SORES? :NO ARE YOU ALLERGIC TO IV DYE? :NO ARE YOU DIABETIC? :NO ANY NEW PROBLEMS WITH YOUR MEDICATIONS? :YES MOTRIN HELPS FOR 3 HOURS THEN PAIN INCREASES HAVE YOU RECEIVED A VACCINE IN THE PAST 30 DAYS? :NO DO YOU PLAN TO RECEIVE A VACCINE IN THE NEXT 21 DAYS? :NO DO YOU NEED ANY PRESCRIPTION? :YES MAYBE MOTRIN DO YOU TAKE ANY IMMUNOSUPPRESSIVE MEDICATIONS? :NO IS THERE A CHANCE YOU COULD BE ? :NO ARE YOU BREAST FEEDING? :NO CURRENT MEDICATIONS TAKING SENOKOT 8.6 MG TABLET 2 TABLETS AT BEDTIME NEEDED ORALLY ONCE A DAY TAKING ALBUTEROL SULFATE HFA 108 (90 BASE) MCG/ACT AEROSOL SOLUTION 2 PUFFS NEEDED INHALATION EVERY 4 HRS TAKING MAGNESIUM 500 MG TABLET 1 TABLET WITH A MEAL ORALLY ONCE A DAY TAKING IBUPROFEN 800 MG TABLET 1 TABLET WITH FOOD OR MILK NEEDED ORALLY THREE TIMES A DAY NEEDED TAKING DICYCLOMINE HCL 20 MG TABLET 1 TABLET ORALLY QID PRN TAKING BUSPIRONE HCL 15 MG TABLET 1 TABLET ORALLY TWICE A DAY TAKING PRILOSEC OTC 20 MG TABLET DELAYED RELEASE 1 TABLET 30 MINUTES BEFORE MORNING MEAL ORALLY ONCE A DAY TAKING LISINOPRIL 10 MG TABLET 1 TABLET ORALLY ONCE A DAY TAKING TYLENOL 325 MG TABLET 1 TABLET NEEDED ORALLY EVERY 4 HRS TAKING FREESTYLE TEST - STRIP DIRECTED IN VITRO DAILY TAKING GLUCOMETER FREESTYLE DAILY TAKING LANCETS - MISCELLANEOUS FREESTYLE DAILY NOT-TAKING CYCLOBENZAPRINE HCL 10 MG TABLET 1 TABLET NEEDED ORALLY THREE TIMES A DAY NEEDED NOT-TAKING CALTRATE 600 1500 (600 CA) MG TABLET DIRECTED ORALLY NOT-TAKING NORCO 10-325 MG TABLET 1 TABLET NEEDED ORALLY Q8H MDD3 MEDICATION LIST REVIEWED AND RECONCILED WITH THE PATIENT PAST MEDICAL HISTORY IBS PALPITATIONS ANXIETY HTN RIGHT SHOULDER, NECK, AND UPPER BACK PAIN REFLUX OSTEOARTHRITIS CERVICAL SPINAL STENOSIS ALLERGIC SINUSITIS MYALGIA CHRONIC MAXILLARY SINUSITIS OTHER CHRONIC PAIN ALLERGIES CYMBALTA: PALPITATIONS - SIDE EFFECTS METRONIDAZOLE: PALPITATIONS - SIDE EFFECTS PAXIL: PALPITATIONS - SIDE EFFECTS LEXAPRO: NAUSEA/VOMITING - SIDE EFFECTS BACTRIM: DIARRHEA - SIDE EFFECTS NASONEX: PALPITATIONS - SIDE EFFECTS AMITRIPTYLINE HCL: INCREASED ANXIETY - SIDE EFFECTS METOPROLOL TARTRATE: TINGLING IN MOUTH - SIDE EFFECTS LOSARTAN POTASSIUM: MYALGIA - SIDE EFFECTS PREDNISONE: PALPITATIONS - SIDE EFFECTS CHANTIX: DREAMS - SIDE EFFECTS WELLBUTRIN: FELT TERRIBLE - SIDE EFFECTS LEVAQUIN: UNKNOWN - SIDE EFFECTS NORVASC: HOT FLASHES - SIDE EFFECTS BIAXIN: STOMACH UPSET - SIDE EFFECTS NEXIUM: INEFFECTIVE/NAUSEA - SIDE EFFECTS GABAPENTIN: INCREASED PAIN - SIDE EFFECTS LYRICA: EXTREME FATIGUE - SIDE EFFECTS CEFTIN: INCREASED WHEEZING/COUGHING - ALLERGY CIPROFLAXIN: AGITATION/NERVOUSNESS - SIDE EFFECTS CELEBREX: SLEEPLESSNESS/INTENSE ANXIETY - SIDE EFFECTS ATENOLOL: HOT FLASHES - SIDE EFFECTS FLONASE: PALPITATIONS - SIDE EFFECTS ZITHROMAX: PALPITATIONS, EYES TWITCHING - SIDE EFFECTS SURGICAL HISTORY COLONOSCOPY 2009,2016 UTERINE ABLATION, D&C 2009 ACDF- DR. YEUNG C4-7 WITH TITANIUM CAGES 06/2017 FAMILY HISTORY FATHER: 55 YRS, STROKE, [place], DIAGNOSED WITH HYPERTENSION, UNSPECIFIED CEREBRAL ARTERY OCCLUSION WITH CEREBRAL INFARCTION MOTHER: 49 YRS, BRAIN CANCER, LUNG CANCER SIBLINGS: ALIVE, BROTHERS- 50YEARS OLD 53YEARS OLD- LUNG CANCER SON(S): ALIVE, HYPERTENSION DAUGHTER(S): ALIVE 6 BROTHER(S) , 3 SISTER(S) - HEALTHY. 2 SON(S) , 1 DAUGHTER(S) - HEALTHY. [id number]- DIABETIC COMPLICATIONS. BROTHER- 53- LUNG CANCER, BROTHER- 50- LUNG CANCER. SOCIAL HISTORY GENERAL: TOBACCO USE ARE YOU A:CURRENT SMOKER ARE YOU INTERESTED IN QUITTING?NOT READY TO QUIT COUNSELED THE PATIENT ON SMOKING EFFECTS, EDUCATION [id number]/2020 HAS PATCHES FOR WHEN SHE IS READY TO QUIT. HOW MANY CIGARETTES A DAY DO YOU SMOKE?21-30 HOW SOON AFTER YOU WAKE UP DO YOU SMOKE YOUR FIRST CIGARETTE?6-30 MIN HOW OFTEN DO YOU SMOKE CIGARETTES?EVERY DAY PATIENT COUNSELED ON THE DANGERS OF TOBACCO USE AND URGED TO QUIT:07/26/2019 ADDITIONAL FINDINGS: TOBACCO USERHEAVY CIGARETTE SMOKER (20-39 CIGS/DAY) SMOKING CESSATION INFORMATION GIVEN07/26/2019 VAPORNO E-CIGARETTENO LATEX QUESTIONNAIRE LATEX ALLERGY : HAVE YOU EVER DEVELOPED ANY TYPE OF REACTION AFTER HANDLING LATEX PRODUCTS SUCH RUBBER GLOVES, CONDOMS, DIAPHRAGMS, BALLOONS, SOCKS, OR UNDERWEAR?NO LATEX ALLERGY : HAVE YOU EVER DEVELOPED ANY TYPE OF REACTION DURING OR AFTER DENTAL APPOINTMENT, VAGINAL/RECTAL EXAMINATION, SURGICAL PROCEDURE, OR ANY OTHER EXPOSURE?NO DATE ASKED : 06/21/2019 LATEX RISK : HAVE YOU EVER HAD ANY DIFFICULTY BREATHING OR HIVES AFTER EATING OR HANDLING ANY FRUITS, OR VEGETABLES; SUCH KIWI, BANANAS, STONE FRUITS, OR CHESTNUTSNO LATEX RISK : DO YOU HAVE A PREVIOUS PERSONAL HISTORY OF MORE THAN NINE SURGERIES, SPINA BIFIDA, OR REPEATED CATHERIZATIONS? NO LATEX RISK : ARE YOU FREQUENTLY EXPOSED TO LATEX PRODUCTS IN YOUR OCCUPATION?NO BMI CARE GOAL FOLLOW-UP ABOVE NORMAL BMI FOLLOW-UPDIETARY MANAGEMENT EDUCATION, GUIDANCE, AND COUNSELING ALCOHOL SCREENING DID YOU HAVE A DRINK CONTAINING ALCOHOL IN THE PAST YEAR?YES HOW OFTEN DID YOU HAVE SIX OR MORE DRINKS ON ONE OCCASION IN THE PAST YEAR?NEVER (0 POINTS) HOW MANY DRINKS DID YOU HAVE ON A TYPICAL DAY WHEN YOU WERE DRINKING IN THE PAST YEAR?1 OR 2 (0 POINTS) HOW OFTEN DID YOU HAVE A DRINK CONTAINING ALCOHOL IN THE PAST YEAR?MONTHLY OR LESS (1 POINT) POINTS1 INTERPRETATIONNEGATIVE RECREATIONAL DRUG USE DRUG USE?NO CAFFEINE >5/DAY. SEXUAL HX HAD SEX IN THE LAST 12 MONTHS (VAGINAL, ORAL, OR ANAL)?YES WITHMEN ONLY PREVENTION STRATEGIES DISCUSSED:OTHER USE PROTECTION?NO HAVE YOU EVER HAD AN STD?NO HIV / HEP-C SCREENING HIV TEST OFFERED TO PATIENT:YES DATE OFFERED:06/10/2019 TEST ACCEPTED:NO HEP-C TEST OFFERED TO PATIENT:NO REASON:PATIENT DECLINED BROCHURE PROVIDED TO PATIENTNO [id number] [id number]. 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 DIET: REGULAR. EXERCISE: NO REGULAR EXERCISE, ACTIVE. MARITAL STATUS: . OTHERS AT HOME: SPOUSE. NEW PATIENT PAIN DIARY TODAY'S VISITNOTES 06/21/2019 PATIENT DESCRIBES PAIN :ACHING, HAVE IT ALL THE TIME, SHOOTING FROM 0-10, WHAT LEVEL IS YOUR PAIN TODAY?3 STATES PAIN CURRENTLY A 3/10 BECAUSE SHE TOOK HER PAIN MEDICATION A LITTLE BIT AGO. PAIN CLINIC PFS, CLERGY, PUBLIC HEALTH REFERRALS PFS REFERRAL NEEDED?NO CLERGY REFERRAL NEEDED?NO PUBLIC HEALTH REFERRAL NEEDED?NO WAS THE PROVIDER NOTIFIED OF ANY PERTINENT INFO?YES N/A HAS THE PATIENT BEEN EDUCATED REGARDING HIS/HER PLAN OF CARE?YES HAS THE PATIENT BEEN EDUCATED REGARDING PAIN, THE RISK FOR PAIN, THE IMPORTANCE OF EFFECTIVE PAIN MANAGEMENT, AND THE PAIN ASSESSMENT PROCESS?YES ADVANCE DIRECTIVE ADVANCE DIRECTIVE DISCUSSED WITH PATIENT:YES PT. HAS HCP EARLENE BARROSO [phone] HOSPITALIZATION/MAJOR DIAGNOSTIC PROCEDURE [facility]-SEVERE BACK PAIN - ED 01/13/17 CERVICAL FUSION 06/2017 REVIEW OF SYSTEMS CONSTITUTIONAL: ANY RECENT FEVER NO . CHILLS NO . WEIGHT CHANGE OF UNKNOWN REASONS NO . GASTROENTEROLOGY: NEW UNEXPLAINABLE CHANGES IN BOWEL CONTROL NO . CONSTIPATION NO . GENITOURINARY: ANY NEW CHANGE IN BLADDER CONTROL? NO . NEUROLOGY: NEW ONSET DIZZINESS OR NEUROLOGICAL CHANGES NOT MENTIONED NO . NEW NUMBNESS OR PAIN PATTERNS NOT MENTIONED AND PERTINENT TO TODAY'S VISIT NO . CARDIOLOGY: NEW CHEST PRESSURE NO . NEW CHEST PAIN NO . RESPIRATORY: UNEXPLAINABLE COUGH NO . NEW SHORTNESS OF BREATH NO . VITAL SIGNS WT 213.2 LBS, HT 5'4.5", BMI 36.03 INDEX, BP 179/88 MM HG, HR 83 /MIN, RR 18 /MIN, TEMP 97.4 F, OXYGEN SAT % 98%, NA INITIALS AW 1136, REVIEWED BY: EM. EXAMINATION GENERAL EXAMINATION: GENERAL AWAKE,ALERT ,PLEAASANT . PSYCH AFFECT NORMAL . LUNGS: LUNG TALAVERA ARE CLEAR TO AUSCULTATION BILATERALLY. GOOD MOVEMENT OF AIR . HEART: S1, S2 IN A REGULAR RATE AND RHYTHM. NO SIGNIFICANT MURMURS, RUBS OR GALLOPS NOTED . CERVICAL:TRIGGER POINTS: CERVICAL AND TRAPEZIUS -RIGHT..PAIN IS AGGREVATED WITH ROJM NECK. SPECIFIC BANDS OF TISSUE INDICATIVE OF TRIGGER POINTS WITH RESTRICTION OF RANGE OF JOINT MOTION NOTED OVER RIGHT NECK AND UPPER BACK.. ASSESSMENTS MYALGIA OF MUSCLE OF NECK - M79.18 (PRIMARY) TREATMENT MYALGIA OF MUSCLE OF NECK START CYCLOBENZAPRINE HCL TABLET, 10 MG, 1 TABLET NEEDED, ORALLY, THREE TIMES A DAY NEEDED, 30 DAYS, 90, REFILLS 2 NOTES: TRIGGER POINT INJECTIONS RIGHT NECK-W/C-THIS IS MEDICALLY NECESSARY AND IN TREATMENT GUIDELINES FOR PERSISTENT TRIGGER POINTS REFRACTORY TO CURRENT REGIMEN. TRIGGER POINT INJECTION SHOULD ACCOMPANY PHYSICAL THERAPY PER TREATMENT GUIDELINES. WORKMEN'S COMP REQUEST PHYSICAL THERAPY IN CONJUNCTION WITH TRIGGER POINT INJECTIONS FOR MYALGIA OF THE NECK. CYCLOBENZAPRINE WILL BE USED TO TREAT ACUTE FLAREUP OF PERSISTENT RIGHT NECK MUSCLE SPASM PER CLINICAL GUIDELINES. OTHERS NOTES: CYCLOBENZAPRINE MATERIAL WAS PRINTED,TRIGGER POINT INJECTION MATERIAL WAS PRINTED. PROCEDURES PN WORKMANS' COMP OPINION IN YOUR OPINION, WAS THE INCIDENT THAT THE PATIENT DESCRIBED THE COMPETENT MEDICAL CAUSE OF THIS INJURY/ILLNESS? YES ARE THE PATIENT'S COMPLAINTS CONSISTENT WITH HIS/HER HISTORY OF THE INJURY/ILLNESS? YES IS THE PATIENT'S HISTORY OF THE INJURY/ILLNESS CONSISTENT WITH YOUR OBJECTIVE FINDING? YES WHAT IS THE PERCENTAGE OF TEMPORARY IMPAIRMENT? MODERATE TO MARKED = 66.7% IS THE PATIENT WORKING? NO DOCTOR ON SITE: DELORES MOORE MD PROCEDURE CODES [id number] ESTABILISHED PATIENT [facility] CHARGE DISPOSITION & COMMUNICATION FOLLOW UP POST PROCEDURE (REASON: TRIGGER POINT INJECTIONS RIGHT NECK-W/C) ELECTRONICALLY SIGNED BY NEVILLE TOM ON 12/30/2019 AT 03:13 PM EDT DISCLAIMER : THIS IS A VISIT SUMMARY EXTRACTED FROM THE [employer] CHART. IT IS NOT A COPY OF THE [employer] PROGRESS NOTE. ANGELICA
== END ==
LOC: M PAIN 11:00
PROVIDERS: ATTEND Nurse Practitioner Family
DX: M79.18 Myalgia, other site (principal); I10 Essential (primary) hypertension; K21.9 Gastro-esophageal reflux disease without esophagitis; F17.210 Nicotine dependence, cigarettes, uncomplicated; Z86.59 Personal history of other mental and behavioral disorders; Z88.1 Allergy status to other antibiotic agents; Z88.8 Allergy status to other drugs, medicaments and biological substances; Z79.899 Other long term (current) drug therapy

== ENCOUNTER → 2020-02-24 | Outpatient (CLI) | payer MEDICARE, OTHER ==
--- NOTE | 2020-02-24 14:57 | REP ---
INDICATION: COPD. COMPARISON: January 23, 2018. TECHNIQUE: Two views.. FINDINGS: The lungs are well inflated and free of infiltrate. The pleural angles are sharp. The heart size is normal. Pulmonary vasculature is not increased. No significant bony abnormality is seen. The patient is status post ventral discectomy and fusion plating in the lower cervical spine. There are mild degenerative changes in the thoracic spine. IMPRESSION: Postsurgical cervical spine fusion changes and thoracic spine degenerative disc disease changes. Otherwise negative chest x-ray. No active disease.. <Electronically signed by Kevin Harper > 02/24/20 [id number]
== END ==
LOC: M RAD 10:58
PROVIDERS: ATTEND Internal Medicine Pulmonary Disease
DX: J44.9 Chronic obstructive pulmonary disease, unspecified (principal); M43.22 Fusion of spine, cervical region

== ENCOUNTER → 2020-03-16 | Outpatient (CLI) | payer OTHER ==
--- NOTE | 2020-03-17 06:46 | ECWPNPC ---
PATIENT NAME: ZANE BARROSO : 1965 GENDER: FEMALE VISIT DATE: 03/16/2020 DISCHARGE DATE: 03/16/20 1110 VISIT LOCKED DATE TIME: PHYSICIAN: IRAIDA VALENTINO PHYSICIAN PAGER NO: ACTIVE RESOURCE: IRAIDA VALENTINO REASON FOR APPOINTMENT 1. W/C NECK HISTORY OF PRESENT ILLNESS DEPRESSION SCREENING: PHQ-9 LITTLE INTEREST OR PLEASURE IN DOING THINGSMORE THAN HALF THE DAYS FEELING DOWN, DEPRESSED, OR HOPELESSSEVERAL DAYS TROUBLE FALLING OR STAYING ASLEEP, OR SLEEPING TOO MUCHNOT AT ALL FEELING TIRED OR HAVING LITTLE ENERGYSEVERAL DAYS POOR APPETITE OR OVEREATING MORE THAN HALF THE DAYS FEELING BAD ABOUT YOURSELF-OR THAT YOU ARE A FAILURE OR HAVE LET YOURSELF OR YOUR FAMILY DOWN NOT AT ALL TROUBLE CONCENTRATING ON THINGS, SUCH READING THE NEWSPAPER OR WATCHING TELEVISION NOT AT ALL MOVING OR SPEAKING SO SLOWLY THAT OTHER PEOPLE COULD HAVE NOTICED. OR THE OPPOSITE- BEING SO FIDGETY OR RESTLESS THAT YOU HAVE BEEN MOVING AROUND A LOT MORE THAN USUALNOT AT ALL THOUGHTS THAT YOU WOULD BE BETTER OFF , OR OF HURTING YOURSELF IN SOME WAY?NOT AT ALL TOTAL SCORE:6 INTERPRETATIONMILD DEPRESSION PHQ-2 (2015 EDITION) LITTLE INTEREST OR PLEASURE IN DOING THINGS?MORE THAN HALF THE DAYS FEELING DOWN, DEPRESSED, OR HOPELESS?SEVERAL DAYS TOTAL SCORE3 GENERAL: HERE FOR FOLLOW-UP OF PERSISTENT NECK AND RIGHT SHOULDER PAIN. THIS IS A WORK RELATED INJURY. CONTINUES WITH INTERMITTENT MUSCLE SPASM TYPE PAIN IN THE NECK AREA. PAIN IS AGGRAVATED IN THIS REGION WITH RANGE OF JOINT MOTION OF THE NECK AND UPPER ARMS. FINDING USE OF MUSCLE RELAXANT PERIODICALLY FOR SEVERE MUSCLE SPASMS HELPFUL AT REDUCING PAIN. ONLY ABLE TO TAKE THIS MEDICATION AT NIGHTTIME DUE TO SIDE EFFECT OF FATIGUE. STATES SHE HAD NERVE CONDUCTION STUDIES OF HER UPPER EXTREMITIES DONE LAST WEEK THROUGH [facility]. HAS FOLLOW-UP APPOINTMENT TO DISCUSS RESULTS WITH [facility] IN THE NEAR FUTURE. CONTINUES TO USE IBUPROFEN 800 MG APPROXIMATELY 3 TABLETS DAILY FOR PAIN WITH SOME IMPROVEMENT. DENIES ADVERSE SIDE EFFECTS. - -. FALL RISK SCREENING: SCREENING :NO FALLS REPORTED IN THE LAST YEAR PAIN SCREENING: PATIENT HAS A COMPLAINT OF ACUTE OR CHRONIC PAIN :YES LOCATION OF PAIN:NECK, UPPER BACK INTENSITY OF PAIN (SCALE OF 1 TO 10):5 WHAT DOES YOUR PAIN FEEL LIKE:ACHING, CONTINOUS, SHARP, SHOOTING DURATION:CONSTANT PAIN IS INCREASED BY:ACTIVITIES, OTHERS LIFTING, PROLONGED SITTING PAIN IS DECREASED BY:USE OF PAIN MEDICATIONS, OTHERS HEATING PAD, LYING DOWN, IBUPRODEN TREATMENT/MEDICATIONS USED TO MANAGE PAIN:OTC PAIN RELIEVERS, NSAIDS, TOPICAL CORTICOSTEROIDS, OPIOIDS, PHYSICAL THERAPY NURSING NOTE: - -. PAIN CENTER INTAKE QUESTIONS: DO YOU HAVE A HISTORY OF MRSA? :NO DO YOU TAKE A BLOOD THINNERS? :NO DO YOU HAVE ANY BLEEDING DISORDERS? :NO ANY NEW NUMBNESS OR WEAKNESS IN YOUR LEGS OR ARMS? :NO ANY PACEMAKER,DEFIBRILLATOR, OR DORSAL COLUMN STIMULATOR? :NO DO YOU HAVE ANY RASHES OR OPEN SORES? :NO ARE YOU ALLERGIC TO IV DYE? :NO ARE YOU DIABETIC? :YES ?PREDIABETIC, PATIENT USES GLUCOMETER TO MONITOR BLOOD SUGAR. ANY NEW PROBLEMS WITH YOUR MEDICATIONS? :NO HAVE YOU RECEIVED A VACCINE IN THE PAST 30 DAYS? :NO DO YOU PLAN TO RECEIVE A VACCINE IN THE NEXT 21 DAYS? :NO DO YOU NEED ANY PRESCRIPTION? :NO DO YOU TAKE ANY IMMUNOSUPPRESSIVE MEDICATIONS? :NO IS THERE A CHANCE YOU COULD BE ? :NO ARE YOU BREAST FEEDING? :NO CURRENT MEDICATIONS TAKING SENOKOT 8.6 MG TABLET 2 TABLETS AT BEDTIME NEEDED ORALLY ONCE A DAY TAKING ALBUTEROL SULFATE HFA 108 (90 BASE) MCG/ACT AEROSOL SOLUTION 2 PUFFS NEEDED INHALATION EVERY 4 HRS TAKING IBUPROFEN 800 MG TABLET 1 TABLET WITH FOOD OR MILK NEEDED ORALLY THREE TIMES A DAY NEEDED TAKING DICYCLOMINE HCL 20 MG TABLET 1 TABLET ORALLY QID PRN TAKING BUSPIRONE HCL 15 MG TABLET 1 TABLET ORALLY TWICE A DAY TAKING PRILOSEC OTC 20 MG TABLET DELAYED RELEASE 1 TABLET 30 MINUTES BEFORE MORNING MEAL ORALLY ONCE A DAY TAKING TYLENOL 325 MG TABLET 1 TABLET NEEDED ORALLY EVERY 4 HRS TAKING FREESTYLE TEST - STRIP DIRECTED IN VITRO DAILY, NOTES: PRN TAKING GLUCOMETER FREESTYLE DAILY, NOTES: PRN TAKING LANCETS - MISCELLANEOUS FREESTYLE DAILY, NOTES: PRN TAKING CYCLOBENZAPRINE HCL 10 MG TABLET 1 TABLET NEEDED ORALLY THREE TIMES A DAY NEEDED TAKING LISINOPRIL 10 MG TABLET 1 TABLET ORALLY ONCE A DAY TAKING CALTRATE 600 1500 (600 CA) MG TABLET DIRECTED ORALLY TAKING MIKE PENDLETONMIBOB OMEGA-3 DHA - TABLET CHEWABLE 1 TABLET ORALLY ONCE A DAY TAKING VITAMIN C 500 MG CAPSULE DIRECTED ORALLY TAKING MAGNESIUM 200 MG TABLET 2 TABLETS WITH A MEAL ORALLY ONCE A DAY, NOTES: NOT RECENTLY NOT-TAKING AUGMENTIN 875-125 MG TABLET 1 TABLET ORALLY EVERY 12 HRS NOT-TAKING NASACORT ALLERGY 24HR 55 MCG/ACT AEROSOL 1 SPRAY IN EACH NOSTRIL NASALLY BID MEDICATION LIST REVIEWED AND RECONCILED WITH THE PATIENT PAST MEDICAL HISTORY IBS PALPITATIONS ANXIETY HTN RIGHT SHOULDER, NECK, AND UPPER BACK PAIN REFLUX OSTEOARTHRITIS CERVICAL SPINAL STENOSIS ALLERGIC SINUSITIS MYALGIA CHRONIC MAXILLARY SINUSITIS OTHER CHRONIC PAIN ALLERGIES CYMBALTA: PALPITATIONS - SIDE EFFECTS METRONIDAZOLE: PALPITATIONS - SIDE EFFECTS PAXIL: PALPITATIONS - SIDE EFFECTS LEXAPRO: NAUSEA/VOMITING - SIDE EFFECTS BACTRIM: DIARRHEA - SIDE EFFECTS NASONEX: PALPITATIONS - SIDE EFFECTS AMITRIPTYLINE HCL: INCREASED ANXIETY - SIDE EFFECTS METOPROLOL TARTRATE: TINGLING IN MOUTH - SIDE EFFECTS LOSARTAN POTASSIUM: MYALGIA - SIDE EFFECTS PREDNISONE: PALPITATIONS - SIDE EFFECTS CHANTIX: DREAMS - SIDE EFFECTS WELLBUTRIN: FELT TERRIBLE - SIDE EFFECTS LEVAQUIN: UNKNOWN - SIDE EFFECTS NORVASC: HOT FLASHES - SIDE EFFECTS BIAXIN: STOMACH UPSET - SIDE EFFECTS NEXIUM: INEFFECTIVE/NAUSEA - SIDE EFFECTS GABAPENTIN: INCREASED PAIN - SIDE EFFECTS LYRICA: EXTREME FATIGUE - SIDE EFFECTS CEFTIN: INCREASED WHEEZING/COUGHING - ALLERGY CIPROFLAXIN: AGITATION/NERVOUSNESS - SIDE EFFECTS CELEBREX: SLEEPLESSNESS/INTENSE ANXIETY - SIDE EFFECTS ATENOLOL: HOT FLASHES - SIDE EFFECTS FLONASE: PALPITATIONS - SIDE EFFECTS ZITHROMAX: PALPITATIONS, EYES TWITCHING - SIDE EFFECTS SURGICAL HISTORY COLONOSCOPY 2009,2015 UTERINE ABLATION, D&C 2009 ACDF- DR. YEUNG C4-7 WITH TITANIUM CAGES 06/2017 FAMILY HISTORY FATHER: 55 YRS, STROKE, NE, DIAGNOSED WITH HYPERTENSION, UNSPECIFIED CEREBRAL ARTERY OCCLUSION WITH CEREBRAL INFARCTION MOTHER: 49 YRS, BRAIN CANCER, LUNG CANCER SIBLINGS: ALIVE, BROTHERS- 50YEARS OLD 53YEARS OLD- LUNG CANCER SON(S): ALIVE, HYPERTENSION DAUGHTER(S): ALIVE 6 BROTHER(S) , 3 SISTER(S) - HEALTHY. 2 SON(S) , 1 DAUGHTER(S) - HEALTHY. [id number]- DIABETIC COMPLICATIONS. BROTHER- 53- LUNG CANCER, BROTHER- 50- LUNG CANCER. DENIES FAMILY HX OF MELANOMA AND PANCREATIC CANCER. SOCIAL HISTORY GENERAL: TOBACCO USE ARE YOU A:CURRENT SMOKER ARE YOU INTERESTED IN QUITTING?NOT READY TO QUIT COUNSELED THE PATIENT ON SMOKING EFFECTS, EDUCATION [id number]/04/2021 HAS PATCHES FOR WHEN SHE IS READY TO QUIT. HOW MANY CIGARETTES A DAY DO YOU SMOKE?21-30 HOW SOON AFTER YOU WAKE UP DO YOU SMOKE YOUR FIRST CIGARETTE?6-30 MIN HOW OFTEN DO YOU SMOKE CIGARETTES?EVERY DAY PATIENT COUNSELED ON THE DANGERS OF TOBACCO USE AND URGED TO QUIT:03/16/2020 ADDITIONAL FINDINGS: TOBACCO USERHEAVY CIGARETTE SMOKER (20-39 CIGS/DAY) SMOKING CESSATION INFORMATION GIVEN02/19/2020 VAPORNO E-CIGARETTENO LATEX QUESTIONNAIRE LATEX ALLERGY : HAVE YOU EVER DEVELOPED ANY TYPE OF REACTION AFTER HANDLING LATEX PRODUCTS SUCH RUBBER GLOVES, CONDOMS, DIAPHRAGMS, BALLOONS, SOCKS, OR UNDERWEAR?NO LATEX ALLERGY : HAVE YOU EVER DEVELOPED ANY TYPE OF REACTION DURING OR AFTER DENTAL APPOINTMENT, VAGINAL/RECTAL EXAMINATION, SURGICAL PROCEDURE, OR ANY OTHER EXPOSURE?NO LATEX RISK : HAVE YOU EVER HAD ANY DIFFICULTY BREATHING OR HIVES AFTER EATING OR HANDLING ANY FRUITS, OR VEGETABLES; SUCH KIWI, BANANAS, STONE FRUITS, OR CHESTNUTSNO LATEX RISK : DO YOU HAVE A PREVIOUS PERSONAL HISTORY OF MORE THAN NINE SURGERIES, SPINA BIFIDA, OR REPEATED CATHERIZATIONS? NO LATEX RISK : ARE YOU FREQUENTLY EXPOSED TO LATEX PRODUCTS IN YOUR OCCUPATION?NO DATE ASKED : 03/16/2020 LUNG CANCER SCREENING SMOKING STATUS:CURRENT SMOKER BMI CARE GOAL FOLLOW-UP ABOVE NORMAL BMI FOLLOW-UPDIETARY MANAGEMENT EDUCATION, GUIDANCE, AND COUNSELING ALCOHOL SCREENING DID YOU HAVE A DRINK CONTAINING ALCOHOL IN THE PAST YEAR?YES HOW OFTEN DID YOU HAVE SIX OR MORE DRINKS ON ONE OCCASION IN THE PAST YEAR?NEVER (0 POINTS) HOW MANY DRINKS DID YOU HAVE ON A TYPICAL DAY WHEN YOU WERE DRINKING IN THE PAST YEAR?1 OR 2 (0 POINTS) HOW OFTEN DID YOU HAVE A DRINK CONTAINING ALCOHOL IN THE PAST YEAR?MONTHLY OR LESS (1 POINT) POINTS1 INTERPRETATIONNEGATIVE RECREATIONAL DRUG USE DRUG USE?NO CAFFEINE >5/DAY. SEXUAL HX HAD SEX IN THE LAST 12 MONTHS (VAGINAL, ORAL, OR ANAL)?YES WITHMEN ONLY PREVENTION STRATEGIES DISCUSSED:OTHER USE PROTECTION?NO HAVE YOU EVER HAD AN STD?NO HIV / HEP-C SCREENING HIV TEST OFFERED TO PATIENT:YES DATE OFFERED:06/10/2019 TEST ACCEPTED:NO HEP-C TEST OFFERED TO PATIENT:NO REASON:PATIENT DECLINED BROCHURE PROVIDED TO PATIENTNO SYNAGOGUE [id number] EVANGELICAL LANGUAGE KOREAN. 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 DIET: REGULAR. EXERCISE: NO REGULAR EXERCISE, ACTIVE. MARITAL STATUS: . OTHERS AT HOME: SPOUSE. TODAY'S VISITNOTES 06/21/2019 PATIENT DESCRIBES PAIN :ACHING, HAVE IT ALL THE TIME, SHOOTING FROM 0-10, WHAT LEVEL IS YOUR PAIN TODAY?3 STATES PAIN CURRENTLY A 3/10 BECAUSE SHE TOOK HER PAIN MEDICATION A LITTLE BIT AGO. PAIN CLINIC PFS, CLERGY, PUBLIC HEALTH REFERRALS PFS REFERRAL NEEDED?NO CLERGY REFERRAL NEEDED?NO PUBLIC HEALTH REFERRAL NEEDED?NO WAS THE PROVIDER NOTIFIED OF ANY PERTINENT INFO?YES N/A HAS THE PATIENT BEEN EDUCATED REGARDING HIS/HER PLAN OF CARE?YES HAS THE PATIENT BEEN EDUCATED REGARDING PAIN, THE RISK FOR PAIN, THE IMPORTANCE OF EFFECTIVE PAIN MANAGEMENT, AND THE PAIN ASSESSMENT PROCESS?YES ADVANCE DIRECTIVE ADVANCE DIRECTIVE DISCUSSED WITH PATIENT:YES PT. HAS HCP EARLENE BARROSO [phone] HOSPITALIZATION/MAJOR DIAGNOSTIC PROCEDURE [facility]-SEVERE BACK PAIN - ED 01/13/17 CERVICAL FUSION 06/2017 REVIEW OF SYSTEMS CONSTITUTIONAL: ANY RECENT FEVER NO . CHILLS NO . WEIGHT CHANGE OF UNKNOWN REASONS NO . GASTROENTEROLOGY: NEW UNEXPLAINABLE CHANGES IN BOWEL CONTROL NO . CONSTIPATION NO . GENITOURINARY: ANY NEW CHANGE IN BLADDER CONTROL? NO . NEUROLOGY: NEW ONSET DIZZINESS OR NEUROLOGICAL CHANGES NOT MENTIONED NO . NEW NUMBNESS OR PAIN PATTERNS NOT MENTIONED AND PERTINENT TO TODAY'S VISIT NO . CARDIOLOGY: NEW CHEST PRESSURE NO . NEW CHEST PAIN NO . RESPIRATORY: UNEXPLAINABLE COUGH NO . NEW SHORTNESS OF BREATH NO . VITAL SIGNS WT 215.8 LBS, HT 5'4.5", BMI 36.47 INDEX, BP 176/81 MM HG, HR 64 /MIN, RR 18 /MIN, TEMP 97.8 F, OXYGEN SAT % 99%, SAFE IN ENV? (Y/N) YES, NA INITIALS AW 1017, REVIEWED BY: FORREST BOLANOS MA. EXAMINATION GENERAL EXAMINATION: GENERAL AWAKE,ALERT ,PLEAASANT . PSYCH AFFECT NORMAL . LUNGS: LUNG TALAVERA ARE CLEAR TO AUSCULTATION BILATERALLY. GOOD MOVEMENT OF AIR . HEART: S1, S2 IN A REGULAR RATE AND RHYTHM. NO SIGNIFICANT MURMURS, RUBS OR GALLOPS NOTED . CERVICAL:TRIGGER POINTS: CERVICAL AND TRAPEZIUS -RIGHT >LEFT..PAIN IS AGGREVATED WITH ROJM NECK.. ASSESSMENTS MYALGIA OF MUSCLE OF NECK - M79.18 (PRIMARY) CERVICALGIA - M54.2 TREATMENT MYALGIA OF MUSCLE OF NECK NOTES: CONTINUE HOME EXERCISE AND STRETCHING. CONTINUE USE OF IBUPROFEN 800 MG 3 TIMES A DAY IF NECESSARY FOR SEVERE PAIN EPISODES. CONTINUE USE OF CYCLOBENZAPRINE 10 MG TABLET NEEDED FOR SEVERE MUSCLE SPASM TYPE PAIN. FOLLOW-UP IS SCHEDULED IN 3 MONTHS. OTHERS CLINICAL NOTES: 03/16/20 1035 PATIENT STATES ONLY USES PCP, PATIENT SCORED PHQ9, SCORE OF 9, PATIENT GIVEN AND ENCOURAGED TO CONTACT [facility] FOR SUPPORT WITH GRIEF AND STRESSORS. JOAO GREGORIO RN BSN. PROCEDURES PN WORKMANS' COMP OPINION IN YOUR OPINION, WAS THE INCIDENT THAT THE PATIENT DESCRIBED THE COMPETENT MEDICAL CAUSE OF THIS INJURY/ILLNESS? YES ARE THE PATIENT'S COMPLAINTS CONSISTENT WITH HIS/HER HISTORY OF THE INJURY/ILLNESS? YES IS THE PATIENT'S HISTORY OF THE INJURY/ILLNESS CONSISTENT WITH YOUR OBJECTIVE FINDING? YES WHAT IS THE PERCENTAGE OF TEMPORARY IMPAIRMENT? MODERATE TO MARKED = 66.7% IS THE PATIENT WORKING? NO DOCTOR ON SITE: DELORES MOORE MD PROCEDURE CODES FA211 ESTABILISHED PATIENT [facility] FACILITY CHARGE DISPOSITION & COMMUNICATION FOLLOW UP 3 MONTHS (REASON: WORKMEN'S COMP/MEDICATION MANAGEMENT/NECK AND UPPER BACK RIGHT SHOULDER) ELECTRONICALLY SIGNED BY NEVILLE TOM ON 03/16/2020 AT 03:59 PM EST DISCLAIMER : THIS IS A VISIT SUMMARY EXTRACTED FROM THE [employer] CHART. IT IS NOT A COPY OF THE [employer] PROGRESS NOTE. ANGELICA
== END ==
LOC: M PAIN 10:15
PROVIDERS: ATTEND Nurse Practitioner Family
DX: M79.18 Myalgia, other site (principal); M54.2 Cervicalgia; R73.03 Prediabetes; K21.9 Gastro-esophageal reflux disease without esophagitis; F17.210 Nicotine dependence, cigarettes, uncomplicated; Z86.59 Personal history of other mental and behavioral disorders; Z88.1 Allergy status to other antibiotic agents; Z88.8 Allergy status to other drugs, medicaments and biological substances; Z79.899 Other long term (current) drug therapy

== ENCOUNTER → 2020-04-20 | Outpatient (REF) | payer MEDICARE, OTHER ==
[~2020-04-20] MED LIST changes: +GABA-282 PO; -GABA-843 PO; +LISI10TA22 PO; -LISI10TA4 PO
[2020-04-20 16:40] LABS: BASO % 0.5 % (0.0-1.0); EOS # 0.2 10^3/uL (0.0-0.5); EOS % 2.5 % (0.0-3.0); HEMATOCRIT 43.7 % (36.0-47.0); LYMPH # 2.3 10^3/uL (1.5-5.0); LYMPH % 29.8 % (24.0-44.0); MEAN CORPUSCULAR HEMOGLOBIN 32.8 pg (27.0-33.0); MEAN CORPUSCULAR HGB CONC 34.3 g/dl (32.0-36.5); MEAN CORPUSCULAR VOLUME 95.4 fl (80.0-96.0); MONO # 0.5 10^3/uL (0.0-0.8); NEUTROPHILS # 4.6 10^3/uL (1.5-8.5); NEUTROPHILS % 59.8 % (36.0-66.0); PLATELET COUNT, AUTOMATED 321 10^3/uL (150-450); RED BLOOD COUNT 4.58 10^6/uL (4.00-5.40); WHITE BLOOD COUNT 7.6 10^3/uL (4.0-10.0)
[2020-04-20 17:21] LABS: ALBUMIN 4.1 GM/DL (3.2-5.2); ALT/SGPT 39 U/L (12-78); BILIRUBIN,TOTAL 0.3 MG/DL (0.2-1.0); BLOOD UREA NITROGEN 10 MG/DL (7-18); CALCIUM LEVEL 10.4 MG/DL (8.5-10.1); CARBON DIOXIDE LEVEL 30 MEQ/L (21-32); CHLORIDE LEVEL 105 MEQ/L (98-107); CHOLESTEROL LEVEL 222 MG/DL (<200); CHOLESTEROL RISK RATIO 5.045 (<5); CREATININE FOR GFR 0.78 MG/DL (0.55-1.30); GLOMERULAR FILTRATION RATE > 60.0 (>51); GLUCOSE, FASTING 113 MG/DL (70-100); HDL CHOLESTEROL 44 MG/DL (>40); LDL CHOLESTEROL 123 MG/DL (<100); NON-HDL-C 178 MG/DL; POTASSIUM SERUM 4.7 MEQ/L (3.5-5.1); SODIUM LEVEL 140 MEQ/L (136-145); THYROID STIMULATING HORMONE 0.897 uIU/ML (0.358-3.740); TRIGLYCERIDES LEVEL 274 MG/DL (<150)
[2020-04-20 20:15] LABS: HEMOGLOBIN A1c 5.3 %
== END ==
LOC: M SFHCCLAY 12:01
PROVIDERS: ATTEND Family Medicine
DX: R73.01 Impaired fasting glucose (principal); I10 Essential (primary) hypertension

== ENCOUNTER → 2020-06-09 | Outpatient (CLI) | payer MEDICARE, OTHER ==
--- NOTE | 2020-06-09 12:03 | REPMRS ---
Patient History The patient states she had a clinical breast exam in 05/2020 Family history of breast cancer at age 49 in mother, unknown cancer at age 50 in brother, unknown cancer at age 52 in brother, unknown cancer at age 53 in brother. Digital Woman Screen Mammo: June 09, 2020 - Exam #: [id number] Bilateral CC and MLO view(s) were taken. Technologist: Azucena Beckett, Technologist Prior study comparison: March 20, 2019, bilateral digital mammo screening bilat, performed at [facility]. May 03, 2017, bilateral digital mammo screening bilat, performed at [facility]. January 01, 2016, bilateral digital mammo screening bilat, performed at [facility]. FINDINGS: There are scattered fibroglandular densities. The Volpara volumetric breast density category is:B. There is a 1.1 cm nodular density projecting in the upper outer quadrant of the left breast which appears to be new. This merits further evaluation. There has been no change in the appearance of the mammogram from the prior studies. There is a mild amount of scattered fibroglandular density which is fairly symmetric. There is no interval development of dominant mass, architectural distortion, or grouped microcalcification suggestive of malignancy. 3-D tomosynthesis shows no additional findings. Assessment: BI-RADS/ACR category 0 mammogram, Incomplete: Need additional imaging evaluation and/or prior mammograms for comparison. Recommendation Ultrasound and special view mammogram of the left breast (for women over age 40). This patient's [facility] Lifetime Breast Cancer Risk is estimated at 16.2 %. This mammogram was interpreted with the aid of an FDA-approved computer-aided dectection system. Electronically Signed By: Kevin Harper MD 06/09/20 [id number]
== END ==
LOC: M WHC 09:11
PROVIDERS: ATTEND Advanced Practice Midwife
DX: Z12.31 Encounter for screening mammogram for malignant neoplasm of breast (principal); Z80.3 Family history of malignant neoplasm of breast; Z80.8 Family history of malignant neoplasm of other organs or systems; N63.21 Unspecified lump in the left breast, upper outer quadrant

== ENCOUNTER → 2020-06-09 | Outpatient (REF) | payer MEDICARE, OTHER | LOC: M SFHCWAGY 13:41 | PROVIDERS: ATTEND Advanced Practice Midwife | DX: Z12.4 Encounter for screening for malignant neoplasm of cervix (principal); R87.610 Atypical squamous cells of undetermined significance on cytologic smear of cervix (ASC-US) | CPT/HCPCS: 87624; G0123 ==

== ENCOUNTER → 2020-06-15 | Outpatient (CLI) | payer OTHER ==
--- NOTE | 2020-06-18 03:31 | ECWPNPC ---
PATIENT NAME: ZANE BARROSO : 1965 GENDER: FEMALE VISIT DATE: 06/15/2020 DISCHARGE DATE: 06/15/20 1102 VISIT LOCKED DATE TIME: PHYSICIAN: IRAIDA VALENTINO PHYSICIAN PAGER NO: ACTIVE RESOURCE: IRAIDA VALENTINO REASON FOR APPOINTMENT 1. MEDICATION MANAGEMENT/NECK AND UPPER BACK RIGHT SHOULDER HISTORY OF PRESENT ILLNESS GENERAL: HERE FOR FOLLOW-UP OF CHRONIC RIGHT NECK, RIGHT SHOULDER AND UPPER BACK PAIN. THIS IS A WORK RELATED INJURY. PATIENT CONTINUES IN SEVERE PAIN. STATING THAT UNCONTROLLED PAIN MAKES IT DIFFICULT TO PARTICIPATE WITH HER FAMILY. REPORTS SIGNIFICANT ANXIETY AND DEPRESSION DUE TO UNCONTROLLED PAIN. RANGE OF JOINT MOTION OF HER RIGHT ARM AGGRAVATES PAIN. CURRENTLY USING IBUPROFEN AND CYCLOBENZAPRINE WITH SOME IMPROVEMENT. HAS BENEFITED FROM TRIGGER POINT INJECTIONS TO THE RIGHT NECK,RIGHT SHOULDER,UPPER BACK IN THE PAST. WE'VE MADE SEVERAL ATTEMPTS TO APPROVE TRIGGER POINT INJECTIONS THROUGH WORKMEN'S COMP IN THE PAST AND BASICALLY JF IS STATING THAT THEY ARE NOT NECESSARY. -. FALL RISK SCREENING: SCREENING : NO FALLS REPORTED IN THE LAST YEAR. PAIN SCREENING: PATIENT HAS A COMPLAINT OF ACUTE OR CHRONIC PAIN :YES LOCATION OF PAIN:NECK, RIGHT SHOULDER, UPPER BACK INTENSITY OF PAIN (SCALE OF 1 TO 10):3 WHAT DOES YOUR PAIN FEEL LIKE:ACHING, STABBING DURATION:CONTINOUS, CONSTANT, ALL DAY PAIN IS INCREASED BY:ACTIVITIES, OTHERS LEFTING THING AND TURNING THE HEAD TOO MUCH PAIN IS DECREASED BY:USE OF PAIN MEDICATIONS NURSING NOTE: -. PAIN CENTER INTAKE QUESTIONS: DO YOU HAVE A HISTORY OF MRSA? :NO DO YOU TAKE A BLOOD THINNERS? :NO DO YOU HAVE ANY BLEEDING DISORDERS? :NO ANY NEW NUMBNESS OR WEAKNESS IN YOUR LEGS OR ARMS? :NO ANY PACEMAKER,DEFIBRILLATOR, OR DORSAL COLUMN STIMULATOR? :NO DO YOU HAVE ANY RASHES OR OPEN SORES? :NO ARE YOU ALLERGIC TO IV DYE? :NO ARE YOU DIABETIC? :YES ?PREDIABETIC, PATIENT USES GLUCOMETER TO MONITOR BLOOD SUGAR. ANY NEW PROBLEMS WITH YOUR MEDICATIONS? :NO HAVE YOU RECEIVED A VACCINE IN THE PAST 30 DAYS? :YES IF SO WHAT VACCINE AND WHEN? 1ST COVID 06/10/2020 DO YOU PLAN TO RECEIVE A VACCINE IN THE NEXT 21 DAYS? :YES 2ND COVID 06/24/2020 DO YOU NEED ANY PRESCRIPTION? :NO DO YOU TAKE ANY IMMUNOSUPPRESSIVE MEDICATIONS? :NO IS THERE A CHANCE YOU COULD BE ? :NO ARE YOU BREAST FEEDING? :NO CURRENT MEDICATIONS TAKING SENOKOT 8.6 MG TABLET 2 TABLETS AT BEDTIME NEEDED ORALLY ONCE A DAY TAKING ALBUTEROL SULFATE HFA 108 (90 BASE) MCG/ACT AEROSOL SOLUTION 2 PUFFS NEEDED INHALATION EVERY 4 HRS TAKING TYLENOL 325 MG TABLET 1 TABLET NEEDED ORALLY EVERY 4 HRS TAKING GLUCOMETER FREESTYLE DAILY, NOTES: PRN TAKING CYCLOBENZAPRINE HCL 10 MG TABLET 1 TABLET NEEDED ORALLY THREE TIMES A DAY NEEDED TAKING CALTRATE 600 1500 (600 CA) MG TABLET DIRECTED ORALLY TAKING FLINSTONES GUMMIES OMEGA-3 DHA - TABLET CHEWABLE 1 TABLET ORALLY ONCE A DAY TAKING VITAMIN C 500 MG CAPSULE DIRECTED ORALLY TAKING MAGNESIUM 200 MG TABLET 2 TABLETS WITH A MEAL ORALLY ONCE A DAY, NOTES: NOT RECENTLY TAKING FREESTYLE TEST - STRIP DIRECTED IN VITRO DAILY TAKING LANCETS - MISCELLANEOUS FREESTYLE DAILY TAKING IBUPROFEN 800 MG TABLET 1 TABLET WITH FOOD OR MILK NEEDED ORALLY THREE TIMES A DAY NEEDED TAKING ROSUVASTATIN CALCIUM 20 MG TABLET 1 TABLET ORALLY ONCE A DAY TAKING OMEPRAZOLE 20 MG CAPSULE DELAYED RELEASE 1 CAPSULE 30 MINUTES BEFORE MORNING MEAL ORALLY ONCE A DAY TAKING DICYCLOMINE HCL 20 MG TABLET 1 TABLET ORALLY QID PRN TAKING BUSPIRONE HCL 15 MG TABLET 1 TABLET ORALLY TWICE A DAY TAKING PRILOSEC OTC 20 MG TABLET DELAYED RELEASE 1 TABLET 30 MINUTES BEFORE MORNING MEAL ORALLY ONCE A DAY TAKING IRBESARTAN 150 MG TABLET 1 TABLET ORALLY ONCE A DAY MEDICATION LIST REVIEWED AND RECONCILED WITH THE PATIENT PAST MEDICAL HISTORY IBS PALPITATIONS ANXIETY HTN RIGHT SHOULDER, NECK, AND UPPER BACK PAIN REFLUX OSTEOARTHRITIS CERVICAL SPINAL STENOSIS ALLERGIC SINUSITIS MYALGIA CHRONIC MAXILLARY SINUSITIS OTHER CHRONIC PAIN ALLERGIES CYMBALTA: PALPITATIONS - SIDE EFFECTS METRONIDAZOLE: PALPITATIONS - SIDE EFFECTS PAXIL: PALPITATIONS - SIDE EFFECTS LEXAPRO: NAUSEA/VOMITING - SIDE EFFECTS BACTRIM: DIARRHEA - SIDE EFFECTS NASONEX: PALPITATIONS - SIDE EFFECTS AMITRIPTYLINE HCL: INCREASED ANXIETY - SIDE EFFECTS METOPROLOL TARTRATE: TINGLING IN MOUTH - SIDE EFFECTS LOSARTAN POTASSIUM: MYALGIA - SIDE EFFECTS PREDNISONE: PALPITATIONS - SIDE EFFECTS CHANTIX: DREAMS - SIDE EFFECTS WELLBUTRIN: FELT TERRIBLE - SIDE EFFECTS LEVAQUIN: UNKNOWN - SIDE EFFECTS NORVASC: HOT FLASHES - SIDE EFFECTS BIAXIN: STOMACH UPSET - SIDE EFFECTS NEXIUM: INEFFECTIVE/NAUSEA - SIDE EFFECTS GABAPENTIN: INCREASED PAIN - SIDE EFFECTS LYRICA: EXTREME FATIGUE - SIDE EFFECTS CEFTIN: INCREASED WHEEZING/COUGHING - ALLERGY CIPROFLAXIN: AGITATION/NERVOUSNESS - SIDE EFFECTS CELEBREX: SLEEPLESSNESS/INTENSE ANXIETY - SIDE EFFECTS ATENOLOL: HOT FLASHES - SIDE EFFECTS FLONASE: PALPITATIONS - SIDE EFFECTS ZITHROMAX: PALPITATIONS, EYES TWITCHING - SIDE EFFECTS LISINOPRIL: NECK PAIN - SIDE EFFECTS SURGICAL HISTORY COLONOSCOPY 2009,2015 UTERINE ABLATION, D&C 2009 ACDF- DR. YEUNG C4-7 WITH TITANIUM CAGES 06/2017 SOCIAL HISTORY GENERAL: TOBACCO USE ARE YOU A:CURRENT SMOKER ARE YOU INTERESTED IN QUITTING?NOT READY TO QUIT COUNSELED THE PATIENT ON SMOKING EFFECTS, EDUCATION [id number]/05/2021 HAS PATCHES FOR WHEN SHE IS READY TO QUIT. HOW MANY CIGARETTES A DAY DO YOU SMOKE?21-30 HOW SOON AFTER YOU WAKE UP DO YOU SMOKE YOUR FIRST CIGARETTE?6-30 MIN HOW OFTEN DO YOU SMOKE CIGARETTES?EVERY DAY PATIENT COUNSELED ON THE DANGERS OF TOBACCO USE AND URGED TO QUIT:06/01/2020 ADDITIONAL FINDINGS: TOBACCO USERHEAVY CIGARETTE SMOKER (20-39 CIGS/DAY) SMOKING CESSATION INFORMATION GIVEN06/01/2020 VAPORNO E-CIGARETTENO LATEX QUESTIONNAIRE LATEX ALLERGY : HAVE YOU EVER DEVELOPED ANY TYPE OF REACTION AFTER HANDLING LATEX PRODUCTS SUCH RUBBER GLOVES, CONDOMS, DIAPHRAGMS, BALLOONS, SOCKS, OR UNDERWEAR?NO LATEX ALLERGY : HAVE YOU EVER DEVELOPED ANY TYPE OF REACTION DURING OR AFTER DENTAL APPOINTMENT, VAGINAL/RECTAL EXAMINATION, SURGICAL PROCEDURE, OR ANY OTHER EXPOSURE?NO LATEX RISK : HAVE YOU EVER HAD ANY DIFFICULTY BREATHING OR HIVES AFTER EATING OR HANDLING ANY FRUITS, OR VEGETABLES; SUCH KIWI, BANANAS, STONE FRUITS, OR CHESTNUTSNO LATEX RISK : DO YOU HAVE A PREVIOUS PERSONAL HISTORY OF MORE THAN NINE SURGERIES, SPINA BIFIDA, OR REPEATED CATHERIZATIONS? NO LATEX RISK : ARE YOU FREQUENTLY EXPOSED TO LATEX PRODUCTS IN YOUR OCCUPATION?NO DATE ASKED : 06/15/2020 ALCOHOL USE: YES, ONCE IN A WHILE A GLASS OF WINE. LUNG CANCER SCREENING SMOKING STATUS:CURRENT SMOKER BMI CARE GOAL FOLLOW-UP ABOVE NORMAL BMI FOLLOW-UPDIETARY MANAGEMENT EDUCATION, GUIDANCE, AND COUNSELING ALCOHOL SCREENING DID YOU HAVE A DRINK CONTAINING ALCOHOL IN THE PAST YEAR?NO POINTS0 INTERPRETATIONNEGATIVE RECREATIONAL DRUG USE DRUG USE?NO CAFFEINE CAFFEINE USE?YES 4-6 CUPS DAILY HIV / HEP-C SCREENING HIV TEST OFFERED TO PATIENT:YES DATE OFFERED:04/20/2020 TEST ACCEPTED:NO HEP-C TEST OFFERED TO PATIENT:NO REASON:PATIENT DECLINED BROCHURE PROVIDED TO PATIENTNO ANABAPTISM [id number] SABIANISM LANGUAGE WOLOF. EDUCATION LEVEL OF EDUCATION:NOT FINISHED HIGH SCHOOL LEARNING BARRIERS / SPECIAL NEEDS CHANGE FROM LAST VISIT?NO BARRIERS TO LEARNING?NO HEARING IMPAIRED?NO VISION IMPAIRED?YES :CORRECTIVE LENSES READING COGNITIVELY IMPAIRED?NO READINESS TO LEARN?YES LEARNING CAPABILITIES PRESENT?YES EMOTIONAL BARRIERS?NO SPECIAL DEVICES?NO ASSIGNMENT MANAGER NEEDED?NO OCCUPATION: UNEMPLOYED D/T DISABILITY. DIET: REGULAR. EXERCISE: NO REGULAR EXERCISE, ACTIVE. MARITAL STATUS: . OTHERS AT HOME: SPOUSE. TODAY'S VISITNOTES 06/21/2019 PATIENT DESCRIBES PAIN :ACHING, HAVE IT ALL THE TIME, SHOOTING FROM 0-10, WHAT LEVEL IS YOUR PAIN TODAY?3 STATES PAIN CURRENTLY A 3/10 BECAUSE SHE TOOK HER PAIN MEDICATION A LITTLE BIT AGO. - PFS REFERRAL NEEDED?NO CLERGY REFERRAL NEEDED?NO PUBLIC HEALTH REFERRAL NEEDED?NO WAS THE PROVIDER NOTIFIED OF ANY PERTINENT INFO?YES N/A HAS THE PATIENT BEEN EDUCATED REGARDING HIS/HER PLAN OF CARE?YES HAS THE PATIENT BEEN EDUCATED REGARDING PAIN, THE RISK FOR PAIN, THE IMPORTANCE OF EFFECTIVE PAIN MANAGEMENT, AND THE PAIN ASSESSMENT PROCESS?YES ADVANCE DIRECTIVE ADVANCE DIRECTIVE DISCUSSED WITH PATIENT:YES PT. HAS HCP EARLENE BARROSO [phone] SOCIAL ALCOHOL USE OCASSIONALLY. HOSPITALIZATION/MAJOR DIAGNOSTIC PROCEDURE [facility]-SEVERE BACK PAIN - ED 01/13/17 CERVICAL FUSION 06/2017 REVIEW OF SYSTEMS CONSTITUTIONAL: ANY RECENT FEVER NO . CHILLS NO . WEIGHT CHANGE OF UNKNOWN REASONS NO . GASTROENTEROLOGY: NEW UNEXPLAINABLE CHANGES IN BOWEL CONTROL NO . CONSTIPATION NO . GENITOURINARY: ANY NEW CHANGE IN BLADDER CONTROL? NO . NEUROLOGY: NEW ONSET DIZZINESS OR NEUROLOGICAL CHANGES NOT MENTIONED NO . NEW NUMBNESS OR PAIN PATTERNS NOT MENTIONED AND PERTINENT TO TODAY'S VISIT NO . CARDIOLOGY: NEW CHEST PRESSURE NO . PATIENT DENIES NO . RESPIRATORY: UNEXPLAINABLE COUGH NO . NEW SHORTNESS OF BREATH NO . VITAL SIGNS WT 216 LBS, HT 5'4.5", BMI 36.50 INDEX, BP 157/80 MM HG, HR 68 /MIN, RR 18 /MIN, TEMP 97.5 F, OXYGEN SAT % 99%, SAFE IN ENV? (Y/N) YEST.CARROLL AVILES. EXAMINATION GENERAL EXAMINATION: GENERAL AWAKE,ALERT ,PLEAASANT . PSYCH AFFECT NORMAL . LUNGS: LUNG TALAVERA ARE CLEAR TO AUSCULTATION BILATERALLY. GOOD MOVEMENT OF AIR . HEART: S1, S2 IN A REGULAR RATE AND RHYTHM. NO SIGNIFICANT MURMURS, RUBS OR GALLOPS NOTED . CERVICAL:TRIGGER POINTS: CERVICAL AND TRAPEZIUS -RIGHT ..PAIN IS AGGREVATED WITH ROJM NECK. PAIN IS AGGRAVATED WITH RANGE OF JOINT MOTION OF THE RIGHT ARM.. ASSESSMENTS MYALGIA OF MUSCLE OF NECK - M79.18 (PRIMARY) CERVICALGIA - M54.2 TREATMENT MYALGIA OF MUSCLE OF NECK CONTINUE CYCLOBENZAPRINE HCL TABLET, 10 MG, 1 TABLET NEEDED, ORALLY, THREE TIMES A DAY NEEDED CERVICALGIA CONTINUE IBUPROFEN TABLET, 800 MG, 1 TABLET WITH FOOD OR MILK NEEDED, ORALLY, THREE TIMES A DAY NEEDED PROCEDURES PN WORKMANS' COMP OPINION IN YOUR OPINION, WAS THE INCIDENT THAT THE PATIENT DESCRIBED THE COMPETENT MEDICAL CAUSE OF THIS INJURY/ILLNESS? YES ARE THE PATIENT'S COMPLAINTS CONSISTENT WITH HIS/HER HISTORY OF THE INJURY/ILLNESS? YES IS THE PATIENT'S HISTORY OF THE INJURY/ILLNESS CONSISTENT WITH YOUR OBJECTIVE FINDING? YES WHAT IS THE PERCENTAGE OF TEMPORARY IMPAIRMENT? MODERATE TO MARKED = 66.7% IS THE PATIENT WORKING? NO DOCTOR ON SITE: DELORES MOORE MD PROCEDURE CODES FA211 ESTABILISHED PATIENT [facility] FACILITY CHARGE DISPOSITION & COMMUNICATION FOLLOW UP 3 MONTHS/W/C MED MGMNT ELECTRONICALLY SIGNED BY NEVILLE TOM ON 06/17/2020 AT 12:52 PM EDT DISCLAIMER : THIS IS A VISIT SUMMARY EXTRACTED FROM THE [employer] CHART. IT IS NOT A COPY OF THE [employer] PROGRESS NOTE. ANGELICA
== END ==
LOC: M PAIN 10:30
PROVIDERS: ATTEND Nurse Practitioner Family
DX: M79.18 Myalgia, other site (principal); M54.2 Cervicalgia; K58.9 Irritable bowel syndrome, unspecified; F41.9 Anxiety disorder, unspecified; I10 Essential (primary) hypertension; K21.9 Gastro-esophageal reflux disease without esophagitis; M47.812 Spondylosis without myelopathy or radiculopathy, cervical region; J32.0 Chronic maxillary sinusitis; G89.29 Other chronic pain; R00.2 Palpitations; F17.210 Nicotine dependence, cigarettes, uncomplicated; Z79.899 Other long term (current) drug therapy; Z88.1 Allergy status to other antibiotic agents; Z88.8 Allergy status to other drugs, medicaments and biological substances; Z88.2 Allergy status to sulfonamides

== ENCOUNTER → 2020-06-16 | Outpatient (CLI) | payer MEDICARE, OTHER ==
--- NOTE | 2020-06-16 16:27 | REP ---
INDICATION: ADDL VIEWS/N63.0 LEFT BREAST NODULE; N63.0 LEFT BREAST NODULE. COMPARISON: 06/09/2020. TECHNIQUE: Additional compression and tomographic images of the left breast are performed. Focused left breast ultrasound performed. FINDINGS: There is a mildly irregular 1 cm nodule is confirmed in the upper outer quadrant of the left breast. Focused left breast ultrasound performed in the upper-outer quadrant approximately 6 cm from the nipple. At the 2 o'clock position there is a hypoechoic nodule with irregular margins measuring 1 cm in diameter. This is suspicious. IMPRESSION: BIRADS/ACR category 4, suspicious. Irregular solid nodule confirmed mammographically and sonographically in the upper-outer quadrant of the left breast. Recommend ultrasound-guided biopsy with postprocedure mammogram. This mammogram was interpreted with the aid of an FDA-approved computer-aided detection system. The patient letter being requested is M4. RECOMMENDATION: Recommend ultrasound-guided biopsy of nodule in the upper outer quadrant left breast, with postprocedure mammogram. <Electronically signed by Ezequiel Perrin > 06/16/20 [id number]
== END ==
LOC: M WHC 14:38
PROVIDERS: ATTEND Advanced Practice Midwife
DX: N63.0 Unspecified lump in unspecified breast (principal); R92.2 Inconclusive mammogram
CPT/HCPCS: 76642; 77065; G0279

== ENCOUNTER → 2020-06-29 | Outpatient (CLI) | payer MEDICARE, OTHER ==
--- NOTE | 2020-06-29 12:21 | REP ---
INDICATION: R10.2 PELVIC PAIN COMPARISON: 03/20/2019 TECHNIQUE: Transabdominal pelvic ultrasound followed by transvaginal examination for better evaluation of the endometrium and adnexa with color Doppler evaluation of the ovaries. FINDINGS: Bladder is unremarkable and measures 10.9 x 4.8 x 8.6 cm. Heterogeneous anteverted uterus measures 9.3 x 3.7 x 4.7 cm. The endometrial complex measures 3.1 mm thickness. Vague heterogeneous/hyperechoic anterior/left lateral myometrial fibroid is again suggested measuring 2.6 x 2.3 x 2.3 cm and unchanged. Bilateral ovaries are normal in appearance. Right ovary measures 2.2 x 2.1 x 2.1 cm; R I = 0.61. Left ovary measures 3.5 x 2.1 x 2.5 cm. IMPRESSION: 1. Heterogeneous partially calcified fibroid again noted. <Electronically signed by Joe Casas > 06/29/20 0485
== END ==
LOC: M WHC 10:49
PROVIDERS: ATTEND Advanced Practice Midwife
DX: R10.2 Pelvic and perineal pain (principal)

== ENCOUNTER → 2020-07-07 | Outpatient (CLI) | payer MEDICARE, OTHER ==
--- NOTE | 2020-07-07 14:21 | REP ---
INDICATION: M25.561;RIGHT KNEE PAIN COMPARISON: None. TECHNIQUE: Five views right knee. FINDINGS: There is no evidence of acute fracture, dislocation, or intrinsic bone disease.Vascular calcifications are seen in the posterior soft tissues. There is mild spurring of the lateral patellar facet. There also appears to be lateral patellar tilting and slight lateral patellar subluxation. IMPRESSION: No fracture or dislocation. Mild spurring of the lateral patellar facet. Lateral patellar tilting with slight lateral subluxation of the patella. <Electronically signed by Ezequiel Perrin > 07/07/20 8513
== END ==
LOC: M CLY 13:31
PROVIDERS: ATTEND Family Medicine
DX: M25.561 Pain in right knee (principal)

== ENCOUNTER → 2020-07-08 | Outpatient (REF) | payer MEDICARE, OTHER | LOC: M SFHCWAGY 17:20 | PROVIDERS: ATTEND Obstetrics & Gynecology | DX: R87.610 Atypical squamous cells of undetermined significance on cytologic smear of cervix (ASC-US) (principal) ==

== ENCOUNTER 2020-07-22 16:51 | Emergency (ER) | payer MEDICARE ==
[~2020-07-22] VITALS: Ht 160 cm; Wt 93.2 kg
[2020-07-22 18:27] LABS: BASO % 0.4 % (0.0-1.0); EOS # 0.1 10^3/uL (0.0-0.5); EOS % 0.7 % (0.0-3.0); HEMATOCRIT 43.9 % (36.0-47.0); HEMOGLOBIN 15.3 g/dl (12.0-15.5); LYMPH # 1.6 10^3/uL (1.5-5.0); LYMPH % 19.6 % (24.0-44.0); MEAN CORPUSCULAR HEMOGLOBIN 32.6 pg (27.0-33.0); MEAN CORPUSCULAR HGB CONC 34.9 g/dl (32.0-36.5); MEAN CORPUSCULAR VOLUME 93.6 fl (80.0-96.0); MONO # 0.5 10^3/uL (0.0-0.8); MONO % 5.8 % (2.0-8.0); NEUTROPHILS # 5.9 10^3/uL (1.5-8.5); NEUTROPHILS % 73.1 % (36.0-66.0); PLATELET COUNT, AUTOMATED 314 10^3/uL (150-450); RED BLOOD COUNT 4.69 10^6/uL (4.00-5.40); WHITE BLOOD COUNT 8.1 10^3/uL (4.0-10.0)
--- NOTE | 2020-07-22 18:27 | REP ---
INDICATION: hypertension/pain post breast biopsy across chest/. COMPARISON: 02/24/2020. TECHNIQUE: Single portable AP view of the chest was performed. FINDINGS: There is no acute infiltrate or pulmonary edema. Lungs are clear. The heart is not significantly enlarged. The mediastinal silhouette is unremarkable. The visualized osseous structures are intact.Metallic fixation is seen in the cervical spine. IMPRESSION: No acute pulmonary disease. <Electronically signed by Ezequiel Perrin > 07/22/20 1826
[2020-07-22] MEDS ORDERED: NORCO, ANEXSIA 5/325MG TABLET (HYDROcodone/ACETAMINOPHEN) PO ONE (18:35)
[2020-07-22 18:55] LABS: ALBUMIN 4.1 GM/DL (3.2-5.2); ALT/SGPT 43 U/L (12-78); BILIRUBIN,DIRECT < 0.1 MG/DL (0.0-0.2); BILIRUBIN,TOTAL 0.2 MG/DL (0.2-1.0); CK-MB VALUE MASS 1.8 NG/ML (<3.6); CPK CREATINE PHOSPHOKINASE 168 U/L (26-192); MB/CK RELATIVE INDEX 1.07 (< OR =4); TOTAL PROTEIN 7.2 GM/DL (6.4-8.2); TROPONIN I < 0.02 NG/ML (< 0.10)
[2020-07-22] MEDS ORDERED: HYDR-3715 PO (20:06)
[2020-07-22 20:26] VITALS: BP 149/70
--- NOTE | 2020-07-23 02:46 | ECGEPIP ---
[facility] - ED Test Date: 2020-07-22 Pat Name: ZANE BARROSO Department: Room: - Gender: Female Ex Assistant/Program Director: : 1965 Requested By: AKBAR Paz Order Number: [id number] Reading MD: Alexis Vega Measurements Intervals [place] Rate: 80 P: 75 NE: 166 QRS: 64 QRSD: 96 T: 18 QT: 388 QTc: 447 Interpretive Statements Normal sinus rhythm NSTTW ABNORMALITY(S) SIMILAR TO 06/18/17 Electronically Signed on 07-23-2020 2:46:14 EDT by Alexis Vega
== END 2020-07-22 20:25 | disposition home or self-care (01) ==
LOC: M ED 16:51
DX: G89.18 Other acute postprocedural pain (principal); I10 Essential (primary) hypertension; K21.9 Gastro-esophageal reflux disease without esophagitis; F17.210 Nicotine dependence, cigarettes, uncomplicated; Z79.899 Other long term (current) drug therapy; Z88.2 Allergy status to sulfonamides; Z88.8 Allergy status to other drugs, medicaments and biological substances; Z88.1 Allergy status to other antibiotic agents; Z98.890 Other specified postprocedural states

== ENCOUNTER → 2020-07-22 | Outpatient (CLI) | payer MEDICARE ==
[~2020-07-22] MED LIST changes: +ACET325C5 PO; +CALTTAB6 PO; +CYCL-707 PO; +DICY20TA11 PO; +IRBE150T7 PO; +ROSU20TA5 PO; +SENO8.6T5 PO; +VENTAER INH; +VITA1WAF PO; +[UNRECOGNIZED DRUG - OTHER] PO
[2020-07-22 16:14] VITALS: BP 166/88
--- NOTE | 2020-07-22 16:49 | REP ---
INDICATION: R92.8 ABN LEFT BREAST MAMMO/US GUIDED BX. COMPARISON: 06/16/2020. TECHNIQUE: Real-time sonographic guidance utilized by Dr. Gardner for biopsy of left breast. FINDINGS: Dr. Gardner utilized ultrasound for biopsy of the left breast. IMPRESSION: Dr. Gardner utilized ultrasound for biopsy of the left breast.I was not present for the procedure. RECOMMENDATION: Clinical follow-up. <Electronically signed by Ezequiel Perrin > 07/22/20 1454
--- NOTE | 2020-07-25 00:47 | ROOPDOC ---
[facility] Report Of Operation Report of Operation DATE OF PROCEDURE: 07/22/20 DIAGNOSIS: left breast suspicious lesion PROCEDURE: ultrasound guided biopsy of the left breast suspicious lesion with clip placement SURGEON: Hao Knapp BLOOD LOSS: minimal COMPLICATIONS: none Lidocaine 1% LOT [id number] Expiration 06/2023 Sodium Bicarbonate 8.4% LOT [id number] Expiration 04/2021 Hydromark clip LOT [id number] Expiration 02/2023 SHAPE: 3 Bx device: BARD [id number] x10 cm LOT [id number] Expiration 04/2023 Informed consent was obtained. The most common risk and possible complications including bleeding, hematoma, bruising, infection, injury to surrounding structures were explained to the patient and the patient expressed understanding. Patient was placed on the bed in the supine position. Appropriate time out was done stating patients name, date of , and the procedure to be performed. The left breast was prepped and draped in the usual fashion. The ultrasound was used to confirm the location of the lesion in the left breast at 2:00 6 centimeters from the nipple. Plain Lidocaine 1% and 8.4% sodium bicarbonate 10:1 mix was used to anesthetize the skin, the biopsy site and tissues along the anticipated biopsy tract. Small skin incision was made with blade number 11. BARD Marquee 14G cannula with introducer ([id number]) was inserted through the incision and advanced under the ultrasound guidance to position immediately adjacent to the lesion. Next, the introducer was removed and BARD Marquee 14G biopsy device was places in the cannula. Pre-biopsy imaging, and post-biopsy imaging were captured. After first biopsy patient was complaining of severe pain at the site. There was also some bleeding which required pause in the procedure and pressure holding. Additional local anesthetic was injected at the biopsy site. Second biopsy was done and again patient experienced severe pain. There was also some bleeding post second biopsy. Pressure was held at the site of biopsy. Patient become very anxious and continuation of the procedure was not possible. Blood pressure was checked at that time. Blood pressure was 210/92. An attempt was done to place clip at the site of biopsy however due to fact that patient reported that she even feels pain with insertion of the clip, this was aborted as well. Specimen was placed in formaldehyde, labeled with appropriate biopsy site and patients name, and sent to pathology for evaluation. Blood pressure was rechecked and came down to systolic of 170s. Due to severe pain reported by patient, I recommended that she go to the ER for evaluation, where I met patient later that evening. Her CXR and EKG was wnl. Her blood pressure on arrival to ER was again elevated at 210 systolic. This went down after pain medications. There was no hematoma in the left breast on my check. Patient was discharged home from ER in stable condition. HAO KNAPP DO July 25, 2020 00:47
== END ==
LOC: M WHCPRO 06:54
PROVIDERS: ATTEND Surgery
DX: C50.212 Malignant neoplasm of upper-inner quadrant of left female breast (principal)

== ENCOUNTER → 2020-07-29 | Outpatient (REF) | payer MEDICARE, OTHER ==
[2020-07-29 13:34] LABS: BLOOD UREA NITROGEN 11 MG/DL (7-18); CALCIUM LEVEL 10.5 MG/DL (8.5-10.1); CARBON DIOXIDE LEVEL 30 MEQ/L (21-32); CHLORIDE LEVEL 104 MEQ/L (98-107); CREATININE FOR GFR 0.74 MG/DL (0.55-1.30); GLOMERULAR FILTRATION RATE > 60.0 (>51); GLUCOSE, FASTING 117 MG/DL (70-100); POTASSIUM SERUM 4.1 MEQ/L (3.5-5.1); SODIUM LEVEL 138 MEQ/L (136-145)
== END ==
LOC: M PLALAB 10:30
PROVIDERS: ATTEND Surgery
DX: C50.912 Malignant neoplasm of unspecified site of left female breast (principal)

== ENCOUNTER → 2020-08-07 | Outpatient (CLI) | payer MEDICARE ==
[~2020-08-07] MED LIST changes: +PROHANCE 279.3MG/ML 15ML VIAL As Ordered ONE; +PROHANCE 279.3MG/ML 5ML VIAL As Ordered ONE
--- NOTE | 2020-08-11 09:06 | REP ---
INDICATION: INVASIVE DUCTAL CARCINOMA LT BREAST. COMPARISON: Mammogram 06/09/2020 as well as other prior exams. TECHNIQUE: Three Joanne MRI imaging was performed with a dedicated breast coil. Axial, coronal, and sagittal T1 and T2 weighted scans were obtained with and without fat saturation in the usual fashion. The study includes dynamically acquired post gadolinium-enhanced imaging with image subtraction. Maximum intensity projection and multi planar reformation imaging is included as well. This study is interpreted with the aid of GeaComD, an FDA approved computer aided detection (CAD) software program, on a dedicated breast MRI workstation. The gadolinium enhancement dose is 19 mL of intravenous ProHance. The patient's IV leaked during contrast injection resulting in a suboptimal bolus of gadolinium. An unknown percentage of the 19 cc ProHance does was actually administered. Also, postcontrast images were delayed approximately 2 minutes and 10 seconds resulting in suboptimal postcontrast imaging. Therefore the post-contrast images are nondiagnostic and should be repeated in order to completely evaluate for occult cancer. FINDINGS: There is mild fibroglandular tissue symmetrically bilaterally. There is no significant axillary adenopathy bilaterally. No significant cystic change is seen. The irregular 1 cm nodule in the upper outer quadrant of the left breast is visualized only with mammographic correlation. IMPRESSION: BI-RADS category 6 known left breast cancer. The irregular 1 cm nodule in the upper outer quadrant of the left breast representing invasive ductal carcinoma is only visualized with mammographic correlation. There is extremely suboptimal postcontrast imaging as discussed in detail above. Therefore the post-contrast images are nondiagnostic and should be repeated in order to completely evaluate for occult cancer. <Electronically signed by Ezequiel Perrin > 08/11/20 0902
== END ==
LOC: M RAD 14:44
PROVIDERS: ATTEND Surgery
DX: C50.912 Malignant neoplasm of unspecified site of left female breast (principal)
CPT/HCPCS: A9576; C8908

== ENCOUNTER → 2020-08-21 | Outpatient (CLI) | payer MEDICARE ==
--- NOTE | 2020-08-21 16:46 | REP ---
INDICATION: INVASIVE DUCTAL CARCINOMA LT BREAST. COMPARISON: Mammogram 06/09/2020 and 06/16/2020. TECHNIQUE: Three Joanne MRI imaging was performed with a dedicated breast coil. Axial, coronal, and sagittal T1 and T2 weighted scans were obtained with and without fat saturation in the usual fashion. The study includes dynamically acquired post gadolinium-enhanced imaging with image subtraction. Maximum intensity projection and multi planar reformation imaging is included as well. This study is interpreted with the aid of PhobiousD, an FDA approved computer aided detection (CAD) software program, on a dedicated breast MRI workstation. The gadolinium enhancement dose is 20 mL of intravenous ProHance. FINDINGS: There is mild fibroglandular tissue bilaterally. There is no significant axillary adenopathy bilaterally. No significant cystic change is seen. There is mild background parenchymal enhancement bilaterally. There is a 1.1 cm spiculated nodule in the upper outer left breast which has been biopsied and represents invasive ductal carcinoma. Approximately 3 cm anteromedial and slightly inferior to the spiculated nodule there is a smoothly marginated 4 mm hyperintense nodule on T2 weighted images which demonstrates type 1 enhancement. This is most consistent with a small fibroadenoma. There is no other evidence of suspicious enhancing mass or morphologic abnormality. IMPRESSION: BI-RADS category 6, known left breast cancer. Spiculated nodule 1.1 cm in diameter in the upper outer quadrant of the left breast corresponds to the recently biopsied mass representing invasive ductal carcinoma. There is no other evidence of suspicious enhancing mass or morphologic abnormality. No significant adenopathy seen. <Electronically signed by Ezequiel Perrin > 08/21/20 8692
== END ==
LOC: M RAD 14:26
PROVIDERS: ATTEND Surgery
DX: C50.912 Malignant neoplasm of unspecified site of left female breast (principal)
CPT/HCPCS: A9576; C8908

== ENCOUNTER → 2020-08-24 | Outpatient (CLI) | payer OTHER ==
[~2020-08-24] MED LIST changes: -PROHANCE 279.3MG/ML 15ML VIAL As Ordered ONE; -PROHANCE 279.3MG/ML 5ML VIAL As Ordered ONE
--- NOTE | 2020-08-27 03:44 | ECWPNPC ---
PATIENT NAME: ZANE BARROSO : 1965 GENDER: FEMALE VISIT DATE: 08/24/2020 DISCHARGE DATE: 08/24/20 1431 VISIT LOCKED DATE TIME: PHYSICIAN: IRAIDA VALENTINO PHYSICIAN PAGER NO: ACTIVE RESOURCE: IRAIDA VALENTINO REASON FOR APPOINTMENT 1. 3 MONTH FOLLOW UP HISTORY OF PRESENT ILLNESS GENERAL: - HERE FOR FOLLOW-UP OF CHRONIC RIGHT NECK, RIGHT SHOULDER AND UPPER BACK PAIN. THIS IS A WORK RELATED INJURY. PATIENT CONTINUES IN SEVERE PAIN. STATING THAT UNCONTROLLED PAIN MAKES IT DIFFICULT TO PARTICIPATE WITH HER FAMILY. REPORTS SIGNIFICANT ANXIETY AND DEPRESSION DUE TO UNCONTROLLED PAIN. RANGE OF JOINT MOTION OF HER RIGHT ARM AGGRAVATES PAIN. PATIENT RECENTLY HAD BREAST BIOPSY AND HAD SEVERE BLEEDING THAT WAS ATTRIBUTED TO IBUPROFEN SHE TAKES FOR PAIN. THEY HAD HER STOP IBUPROFEN DUE TO INCREASED BLEEDING. HAS BENEFITED FROM TRIGGER POINT INJECTIONS TO THE RIGHT NECK,RIGHT SHOULDER,UPPER BACK IN THE PAST. WE'VE MADE SEVERAL ATTEMPTS TO APPROVE TRIGGER POINT INJECTIONS THROUGH WORKMEN'S COMP IN THE PAST AND BASICALLY JF IS STATING THAT THEY ARE NOT NECESSARY. -. FALL RISK SCREENING: SCREENING : NO FALLS REPORTED IN THE LAST YEAR. PAIN SCREENING: PATIENT HAS A COMPLAINT OF ACUTE OR CHRONIC PAIN :YES LOCATION OF PAIN:NECK, RIGHT SHOULDER, UPPER BACK INTENSITY OF PAIN (SCALE OF 1 TO 10):6 WHAT DOES YOUR PAIN FEEL LIKE:ACHING, CONTINOUS, SHARP, STABBING, TENDER, SORE, SHOOTING SHARP, SHOOTING IN SHOULDER DURATION:CONTINOUS, CONSTANT, AWAKENS FROM SLEEP SOMETIMES WAKES HER UP, HAS MORE TROUBLE GETTING TO SLEEP DUE TO THE PAIN PAIN IS INCREASED BY:ACTIVITIES, PROLONGED STANDING, OTHERS PROLONGED SITTING, WALKING TOO MUCH, BEING ON HER FEET A LOT, LIFTING PAIN IS DECREASED BY:OTHERS HEAT, SITTING IN RECLINER WITH FEET ELEVATED, PAIN MEDS PAIN HAS INTERFERED WITH THE FOLLOWING: EVERYTHING NURSING NOTE: -. PAIN CENTER INTAKE QUESTIONS: DO YOU HAVE A HISTORY OF MRSA? :NO DO YOU TAKE A BLOOD THINNERS? :NO DO YOU HAVE ANY BLEEDING DISORDERS? :NO ANY NEW NUMBNESS OR WEAKNESS IN YOUR LEGS OR ARMS? :NO STILL HAS THE NUMBNESS IN RIGHT INDEX AND MIDDLE FINGERS ANY PACEMAKER,DEFIBRILLATOR, OR DORSAL COLUMN STIMULATOR? :NO DO YOU HAVE ANY RASHES OR OPEN SORES? :NO ARE YOU ALLERGIC TO IV DYE? :NO ARE YOU DIABETIC? :NO ANY NEW PROBLEMS WITH YOUR MEDICATIONS? :YES BLEEDING AFTER BREAST BIOPSY FROM IBUPROFEN-PCP STOPPED THE IBUPROFEN AND STARTED HER ON HYDROCODONE/ACETAMIN HAVE YOU RECEIVED A VACCINE IN THE PAST 30 DAYS? :NO DO YOU PLAN TO RECEIVE A VACCINE IN THE NEXT 21 DAYS? :NO DO YOU NEED ANY PRESCRIPTION? :YES WOULD LIKE TO DISCUSS PAIN MED SINCE SHE HAS BEEN TAKEN OFF IBUPROFEN DO YOU TAKE ANY IMMUNOSUPPRESSIVE MEDICATIONS? :NO DO YOU HAVE ANY KIDNEY OR LIVER DISEASE? :NO IS THERE A CHANCE YOU COULD BE ? :NO ARE YOU BREAST FEEDING? :NO CURRENT MEDICATIONS TAKING DICYCLOMINE HCL 20 MG TABLET 1 TABLET ORALLY QID PRN TAKING IRBESARTAN 150 MG TABLET 1 TABLET ORALLY ONCE A DAY TAKING SENOKOT 8.6 MG TABLET 2 TABLETS AT BEDTIME NEEDED ORALLY ONCE A DAY, NOTES: NEEDED TAKING ALBUTEROL SULFATE HFA 108 (90 BASE) MCG/ACT AEROSOL SOLUTION 2 PUFFS NEEDED INHALATION EVERY 4 HRS TAKING TYLENOL 325 MG TABLET 1 TABLET NEEDED ORALLY EVERY 4 HRS, NOTES: NOT TAKING AT THE MOMENT TAKING GLUCOMETER FREESTYLE DAILY, NOTES: PRN TAKING CALTRATE 600 1500 (600 CA) MG TABLET 1 TAB ORALLY DAILY TAKING VITAMIN C 500 MG CAPSULE 1 CAP ORALLY DAILY TAKING MAGNESIUM 200 MG TABLET 2 TABLETS WITH A MEAL ORALLY ONCE A DAY TAKING FREESTYLE TEST - STRIP DIRECTED IN VITRO DAILY TAKING LANCETS - MISCELLANEOUS FREESTYLE DAILY, NOTES: NEEDED TAKING ROSUVASTATIN CALCIUM 20 MG TABLET 1 TABLET ORALLY ONCE A DAY TAKING OMEPRAZOLE 20 MG CAPSULE DELAYED RELEASE 1 CAPSULE 30 MINUTES BEFORE MORNING MEAL ORALLY ONCE A DAY TAKING CYCLOBENZAPRINE HCL 10 MG TABLET 1 TABLET NEEDED ORALLY THREE TIMES A DAY NEEDED TAKING HYDROCODONE-ACETAMINOPHEN 10-325 MG TABLET 1 TABLET NEEDED ORALLY EVERY 8 HRS MDD#3 TAKING BUSPIRONE HCL 15 MG TABLET 1 TABLET ORALLY UP TO 3 TIMES A DAY TAKING BUDESONIDE-FORMOTEROL FUMARATE 160-4.5 MCG/ACT AEROSOL 2 PUFFS INHALATION TWICE A DAY, NOTES: (SYMBICORT) TAKING ANTIVERT 25 MG TABLET 1 TABLET NEEDED ORALLY FOUR TIMES DAILY NEEDED TAKING HAIR SKIN NAILS - CAPSULE 1 CAP ORALLY DAILY NOT-TAKING PRILOSEC OTC 20 MG TABLET DELAYED RELEASE 1 TABLET 30 MINUTES BEFORE MORNING MEAL ORALLY ONCE A DAY NOT-TAKING FLINSTONES GUMMIES OMEGA-3 DHA - TABLET CHEWABLE 1 TABLET ORALLY ONCE A DAY NOT-TAKING TYLENOL EXTRA STRENGTH 500 MG TABLET 1 TABLET NEEDED ORALLY EVERY 6 HRS NOT-TAKING IBUPROFEN 800 MG TABLET 1 TABLET WITH FOOD OR MILK NEEDED ORALLY THREE TIMES A DAY NEEDED, NOTES: NOT TAKING AT THE MOMENT BUT WILL START AGAIN MEDICATION LIST REVIEWED AND RECONCILED WITH THE PATIENT PAST MEDICAL HISTORY IBS PALPITATIONS ANXIETY HTN RIGHT SHOULDER, NECK, AND UPPER BACK PAIN REFLUX OSTEOARTHRITIS CERVICAL SPINAL STENOSIS ALLERGIC SINUSITIS MYALGIA CHRONIC MAXILLARY SINUSITIS OTHER CHRONIC PAIN RIGHT SHOULDER PAIN FLUID UNDER RIGHT KNEE LUMP LEFT BREAST ALLERGIES CYMBALTA: PALPITATIONS - SIDE EFFECTS METRONIDAZOLE: PALPITATIONS - SIDE EFFECTS PAXIL: PALPITATIONS - SIDE EFFECTS LEXAPRO: NAUSEA/VOMITING - SIDE EFFECTS BACTRIM: DIARRHEA - SIDE EFFECTS NASONEX: PALPITATIONS - SIDE EFFECTS AMITRIPTYLINE HCL: INCREASED ANXIETY - SIDE EFFECTS METOPROLOL TARTRATE: TINGLING IN MOUTH - SIDE EFFECTS LOSARTAN POTASSIUM: MYALGIA - SIDE EFFECTS PREDNISONE: PALPITATIONS - SIDE EFFECTS CHANTIX: DREAMS - SIDE EFFECTS WELLBUTRIN: FELT TERRIBLE - SIDE EFFECTS LEVAQUIN: UNKNOWN - SIDE EFFECTS NORVASC: HOT FLASHES - SIDE EFFECTS BIAXIN: STOMACH UPSET - SIDE EFFECTS NEXIUM: INEFFECTIVE/NAUSEA - SIDE EFFECTS GABAPENTIN: INCREASED PAIN - SIDE EFFECTS LYRICA: EXTREME FATIGUE - SIDE EFFECTS CEFTIN: INCREASED WHEEZING/COUGHING - ALLERGY CIPROFLAXIN: AGITATION/NERVOUSNESS - SIDE EFFECTS CELEBREX: SLEEPLESSNESS/INTENSE ANXIETY - SIDE EFFECTS ATENOLOL: HOT FLASHES - SIDE EFFECTS FLONASE: PALPITATIONS - SIDE EFFECTS ZITHROMAX: PALPITATIONS, EYES TWITCHING - SIDE EFFECTS LISINOPRIL: NECK PAIN - SIDE EFFECTS SURGICAL HISTORY COLONOSCOPY 2009,2015 UTERINE ABLATION, D&C 2009 ACDF- DR. YEUNG C4-7 WITH TITANIUM CAGES 06/2017 LEFT BREAST BX 07/22/20 FAMILY HISTORY FATHER: 55 YRS, [place], [place], DIAGNOSED WITH HYPERTENSION, UNSPECIFIED CEREBRAL ARTERY OCCLUSION WITH CEREBRAL INFARCTION MOTHER: 49 YRS, BRAIN CANCER, LUNG CANCER SIBLINGS: ALIVE, BROTHERS- 50YEARS OLD 53YEARS OLD- LUNG CANCER SON(S): ALIVE, HYPERTENSION DAUGHTER(S): ALIVE 6 BROTHER(S) , 3 SISTER(S) - HEALTHY. 2 SON(S) , 1 DAUGHTER(S) - HEALTHY. [id number]- DIABETIC COMPLICATIONS. BROTHER- 53- LUNG CANCER, BROTHER- 50- LUNG CANCER. DENIES FAMILY HX OF MELANOMA AND PANCREATIC CANCER. 4TH BROTHER-LUNG CANCER. SOCIAL HISTORY GENERAL: TOBACCO USE ARE YOU A:CURRENT SMOKER ARE YOU INTERESTED IN QUITTING?NOT READY TO QUIT HAS PATCHES AT THE HOUSE COUNSELED THE PATIENT ON SMOKING EFFECTS, EDUCATION [id number]/20/2021 HAS PATCHES FOR WHEN SHE IS READY TO QUIT. HOW MANY CIGARETTES A DAY DO YOU SMOKE?21-30 HOW SOON AFTER YOU WAKE UP DO YOU SMOKE YOUR FIRST CIGARETTE?6-30 MIN HOW OFTEN DO YOU SMOKE CIGARETTES?EVERY DAY PATIENT COUNSELED ON THE DANGERS OF TOBACCO USE AND URGED TO QUIT:08/24/2020 ADDITIONAL FINDINGS: TOBACCO USERHEAVY CIGARETTE SMOKER (20-39 CIGS/DAY) SMOKING CESSATION INFORMATION GIVEN07/30/2020 VAPORNO E-CIGARETTENO LATEX QUESTIONNAIRE LATEX ALLERGY : HAVE YOU EVER DEVELOPED ANY TYPE OF REACTION AFTER HANDLING LATEX PRODUCTS SUCH RUBBER GLOVES, CONDOMS, DIAPHRAGMS, BALLOONS, SOCKS, OR UNDERWEAR?NO LATEX ALLERGY : HAVE YOU EVER DEVELOPED ANY TYPE OF REACTION DURING OR AFTER DENTAL APPOINTMENT, VAGINAL/RECTAL EXAMINATION, SURGICAL PROCEDURE, OR ANY OTHER EXPOSURE?NO LATEX RISK : HAVE YOU EVER HAD ANY DIFFICULTY BREATHING OR HIVES AFTER EATING OR HANDLING ANY FRUITS, OR VEGETABLES; SUCH KIWI, BANANAS, STONE FRUITS, OR CHESTNUTSNO LATEX RISK : DO YOU HAVE A PREVIOUS PERSONAL HISTORY OF MORE THAN NINE SURGERIES, SPINA BIFIDA, OR REPEATED CATHERIZATIONS? NO LATEX RISK : ARE YOU FREQUENTLY EXPOSED TO LATEX PRODUCTS IN YOUR OCCUPATION?NO DATE ASKED : 08/24/2020 ALCOHOL USE: YES, ONCE IN A WHILE A GLASS OF WINE. LUNG CANCER SCREENING SMOKING STATUS:CURRENT SMOKER RECREATIONAL DRUG USE DRUG USE?NO CAFFEINE CAFFEINE USE?YES 4-6 CUPS DAILY HIV / HEP-C SCREENING HIV TEST OFFERED TO PATIENT:YES DATE OFFERED:07/30/2020 TEST ACCEPTED:NO HEP-C TEST OFFERED TO PATIENT:NO REASON:PATIENT DECLINED BROCHURE PROVIDED TO PATIENTNO EDUCATION LEVEL OF EDUCATION:NOT FINISHED HIGH SCHOOL LEARNING BARRIERS / SPECIAL NEEDS CHANGE FROM LAST VISIT?NO BARRIERS TO LEARNING?NO HEARING IMPAIRED?NO VISION IMPAIRED?YES :CORRECTIVE LENSES READING COGNITIVELY IMPAIRED?NO READINESS TO LEARN?YES LEARNING PREFERENCES?NO LEARNING CAPABILITIES PRESENT?YES EMOTIONAL BARRIERS?NO SPECIAL DEVICES?NO FOREST SUPERVISOR NEEDED?NO DOMESTIC VIOLENCE STATUS: DO YOU FEEL SAFE IN YOUR ENVIRONMENT?YES DIET: REGULAR. MARITAL STATUS: . OTHERS AT HOME: SPOUSE. - HAS THE PATIENT BEEN EDUCATED REGARDING HIS/HER PLAN OF CARE?YES HAS THE PATIENT BEEN EDUCATED REGARDING PAIN, THE RISK FOR PAIN, THE IMPORTANCE OF EFFECTIVE PAIN MANAGEMENT, AND THE PAIN ASSESSMENT PROCESS?YES ADVANCE DIRECTIVE ADVANCE DIRECTIVE DISCUSSED WITH PATIENT:YES STATES SHE HAS [id number] [phone] SOCIAL ALCOHOL USE OCASSIONALLY. HOSPITALIZATION/MAJOR DIAGNOSTIC PROCEDURE [facility]-SEV[facility] BACK PAIN - ED 01/13/17 CERVICAL FUSION 06/2017 HIGH BLOOD PRESSURE, PAIN AFTER BX 07/22/20 REVIEW OF SYSTEMS CONSTITUTIONAL: ANY RECENT FEVER NO . CHILLS NO . WEIGHT CHANGE OF UNKNOWN REASONS NO . GASTROENTEROLOGY: NEW UNEXPLAINABLE CHANGES IN BOWEL CONTROL NO . CONSTIPATION NO . GENITOURINARY: ANY NEW CHANGE IN BLADDER CONTROL? NO . NEUROLOGY: NEW ONSET DIZZINESS OR NEUROLOGICAL CHANGES NOT MENTIONED NO . NEW NUMBNESS OR PAIN PATTERNS NOT MENTIONED AND PERTINENT TO TODAY'S VISIT NO . CARDIOLOGY: NEW CHEST PRESSURE NO . PATIENT DENIES NO . RESPIRATORY: UNEXPLAINABLE COUGH NO . NEW SHORTNESS OF BREATH NO . VITAL SIGNS WT 207.4 LBS, HT 64.5 IN, BMI 35.05 INDEX, BP 160/71 MM HG, HR 71 /MIN, RR 18 /MIN, TEMP 98.3 F, OXYGEN SAT % 96%, SAFE IN ENV? (Y/N) Y, NA INITIALS AW 1318, REVIEWED BY: Diane CURTIS RN08/24/20 PATIENT STATES SHE HAS BEEN MONITORING B/P AT HOME AND IT WAS 117/79 YEST. STATES IT IS HIGH WHEN SHE GOES TO THE DOC. EXAMINATION GENERAL EXAMINATION: GENERALAWAKE,ALERT ,PLEASANT . PSYCHAFFECT NORMAL . LUNGS:LUNG TALAVERA ARE CLEAR TO AUSCULTATION BILATERALLY. GOOD MOVEMENT OF AIR . HEART:S1, S2 IN A REGULAR RATE AND RHYTHM. NO SIGNIFICANT MURMURS, RUBS OR GALLOPS NOTED . ASSESSMENTS MYALGIA OF MUSCLE OF NECK - M79.18 (PRIMARY) CERVICALGIA - M54.2 TREATMENT MYALGIA OF MUSCLE OF NECK CONTINUE TYLENOL TABLET, 325 MG, 1 TABLET NEEDED, ORALLY, EVERY 4 HRS, NOTES: NOT TAKING AT THE MOMENT CONTINUE CYCLOBENZAPRINE HCL TABLET, 10 MG, 1 TABLET NEEDED, ORALLY, THREE TIMES A DAY NEEDED PROCEDURES PN WORKMANS' COMP OPINION IN YOUR OPINION, WAS THE INCIDENT THAT THE PATIENT DESCRIBED THE COMPETENT MEDICAL CAUSE OF THIS INJURY/ILLNESS? YES ARE THE PATIENT'S COMPLAINTS CONSISTENT WITH HIS/HER HISTORY OF THE INJURY/ILLNESS? YES IS THE PATIENT'S HISTORY OF THE INJURY/ILLNESS CONSISTENT WITH YOUR OBJECTIVE FINDING? YES WHAT IS THE PERCENTAGE OF TEMPORARY IMPAIRMENT? MODERATE TO MARKED = 66.7% IS THE PATIENT WORKING? NO DOCTOR ON SITE: DELORES MOORE MD PROCEDURE CODES [id number] ESTABILISHED PATIENT [facility] CHARGE DISPOSITION & COMMUNICATION FOLLOW UP 3 MONTHS (REASON: MED MGMNT/NECK PAIN) ELECTRONICALLY SIGNED BY NEVILLE TOM ON 08/26/2020 AT 01:07 PM EDT DISCLAIMER : THIS IS A VISIT SUMMARY EXTRACTED FROM THE [employer] CHART. IT IS NOT A COPY OF THE [employer] PROGRESS NOTE. ANGELICA
== END ==
LOC: M PAIN 13:30
PROVIDERS: ATTEND Nurse Practitioner Family
DX: M79.18 Myalgia, other site (principal); M54.2 Cervicalgia; K58.2 Mixed irritable bowel syndrome; F41.9 Anxiety disorder, unspecified; I10 Essential (primary) hypertension; K21.9 Gastro-esophageal reflux disease without esophagitis; M48.02 Spinal stenosis, cervical region; F17.210 Nicotine dependence, cigarettes, uncomplicated; Z79.891 Long term (current) use of opiate analgesic; Z88.1 Allergy status to other antibiotic agents; Z88.8 Allergy status to other drugs, medicaments and biological substances

== ENCOUNTER → 2020-08-26 | Outpatient (CLI) | payer MEDICARE, OTHER ==
--- NOTE | 2020-08-27 09:39 | REP ---
INDICATION: PAIN IN RIGHT KNEE. COMPARISON: Radiographs 07/07/2020. TECHNIQUE: Multiple sequences obtained in the axial, coronal and sagittal planes. FINDINGS: Menisci: There is a complex tear of the anterior horn of the lateral meniscus, extending somewhat into the posterior horn as well. The medial meniscus is intact. Cruciate ligaments: Intact. Collateral ligaments: Intact. Extensor mechanism/patellar retinacula: Intact. Cartilage: There is lateral patellar tilting with mild diffuse chondromalacia of the lateral patellar facet. There is mild bilateral to fuse chondromalacia of the lateral femoral condyle and tibial plateau. There is mild diffuse chondromalacia of the medial femoral condyle and tibial plateau. Bone marrow: There are subchondral cystic changes and marrow edema centrally in the tibial plateau. Joint fluid: There is a moderate joint effusion. Popliteal region: No cyst. IMPRESSION: Complex tear anterior horn lateral meniscus extending somewhat into the posterior horn. Cruciate and collateral ligaments are intact. Lateral patellar tilting. Global chondromalacia as discussed in detail above. Subchondral cystic changes and marrow edema centrally in the tibial plateau. Moderate joint effusion. <Electronically signed by Ezequiel Perrin > 08/27/20 0908
== END ==
LOC: M RAD 18:16
PROVIDERS: ATTEND Family Medicine
DX: S83.281A Other tear of lateral meniscus, current injury, right knee, initial encounter (principal); M22.41 Chondromalacia patellae, right knee; M25.461 Effusion, right knee; X58.XXXA Exposure to other specified factors, initial encounter; Y92.89 Other specified places as the place of occurrence of the external cause

== ENCOUNTER → 2020-08-29 | Outpatient (CLI) | payer MEDICARE ==
[~2020-08-29] MED LIST changes: +AUGM875T28 PO; +BUSP10TA PO; +FLINCHW14 PO; +HYDR-4517 PO; +MAGN200T PO; +MAGN250T7 PO; +MECL1TAB31 PO; +OMEP-218 PO; +PRIL20TA2 PO; +SM HTAB3 PO; +SYMB16INH INH; +VITA500C19 PO
== END ==
LOC: M LABSMTC 09:31
PROVIDERS: ATTEND Anesthesiology
DX: Z01.818 Encounter for other preprocedural examination (principal); Z11.52 Encounter for screening for COVID-19

== ENCOUNTER → 2020-09-02 | Outpatient (CLI) | payer MEDICARE ==
--- NOTE | 2020-09-02 09:06 | REP ---
INDICATION: BREAST CA ? METS. COMPARISON: Comparison CT study of the chest is from July 19, 2018.. TECHNIQUE: Helical scanning is acquired. 3 mm axial images are generated. Coronal and sagittal MPR and coronal MIP images are generated. FINDINGS: Digital preliminary entry level business analyst radiograph is unremarkable. The bottom of a cervical spine fusion plate is visible at the top of the field of view. On axial CT images, there is no evidence of pleural effusion. There is some linear fibrosis versus platelike atelectasis in the left lower lobe. There is a stable 5 mm noncalcified pulmonary nodule in the left lower lobe visible on page 72 of 116 in series 201 of today's study. This is unchanged from the July 2018 study and is considered benign. There is a granulomatous calcification in the left lower lobe as well also unchanged. No new pulmonary nodule is seen. No mass or infiltrate is observed in the lung medel. There is no evidence of pericardial effusion. No hilar or mediastinal mass or adenopathy is observed. Minimal vascular calcification is seen. No axillary or supraclavicular adenopathy is appreciated. In the upper abdomen there is a low-density benign adrenal adenoma in the left adrenal gland unchanged from the comparison study of July 19, 2018. Mean Hounsfield unit density -4.3 Hounsfield units. 1.9 cm in greatest diameter. There is an intrarenal calculus in the upper pole of the right kidney which is 2-3 mm in size. There is no evidence hydronephrosis. The visualized upper abdominal structures are otherwise unremarkable. No bony destructive lesion is seen. IMPRESSION: Mild linear fibrosis versus platelike atelectasis left lower lobe. No evidence of mass, pleural effusion, or adenopathy. Intrarenal nephrolithiasis upper pole right kidney without hydronephrosis. Stable benign left adrenal adenoma 1.9 cm in diameter. Stable 5 mm left lower lobe pulmonary nodule. <Electronically signed by Kevin Harper > 09/02/20 0902
== END ==
LOC: M RAD 07:11
PROVIDERS: ATTEND Internal Medicine Pulmonary Disease
DX: R91.1 Solitary pulmonary nodule (principal); N20.0 Calculus of kidney

== ENCOUNTER 2020-09-03 06:43 | Day surgery (SDC) | payer MEDICARE, OTHER ==
[~2020-09-03] VITALS: Ht 160 cm; Wt 94.3 kg
[~2020-09-03 06:43] MED LIST changes: -DICY20TA11 PO; +DICY20TA20 PO; +HEPARIN SOD (PORCINE) 5000UNITS/ML 1ML VIAL/SYRINGE SQ ONE; +LIDOCAINE 1% MDV 20ML VIAL SQ PRN; +LR 1,000 ML IV ONE; +OMEP-173 PO; -OMEP-218 PO
[2020-09-03] MEDS ORDERED: BUPIVACAINE HCL 0.25% 30ML VIAL As Ordered ONE (07:13)
[2020-09-03] MEDS ORDERED: METHYLENE BLUE 0.5% (5MG/ML) 10 ML AMP (PROVAYBLUE) As Ordered ONE (07:13)
[2020-09-03] MEDS ORDERED: LIDOCAINE 1% SDV 30ML VIAL As Ordered ONE (07:13)
[2020-09-03] MEDS ORDERED: dexameTHASONE 4 MG/ML 1ML VIAL (J1100 PER 1MG) As Ordered ONE (07:37)
[2020-09-03] MEDS ORDERED: LIDOCAINE 2% 100MG/5ML SDV (FOR ANES.) As Ordered ONE (07:37)
[2020-09-03] MEDS ORDERED: ONDANSETRON 4MG/2ML VIAL As Ordered ONE (07:37)
[2020-09-03] MEDS ORDERED: propofoL 200 MG/20 ML VIAL As Ordered ONE ×2 (07:37→11:27)
[2020-09-03] MEDS ORDERED: ROCURONIUM BROMIDE 50 MG/5 ML VIAL As Ordered ONE (07:37)
[2020-09-03] MEDS ORDERED: fentaNYL 250 MCG/5 ML INJECTION As Ordered ONE (07:38)
[2020-09-03] MEDS ORDERED: MIDAZOLAM INJ 2MG/2ML VIAL (J2250 PER 1MG) As Ordered ONE (07:38)
[2020-09-03] MEDS ORDERED: CLINDAMYCIN 900 MG in IV 1 EA IV ONE (09:50)
[2020-09-03] MEDS ORDERED: ACETAMINOPHEN 1000MG 100ML IV BTL (OFIRMEV) (J0131 PER 10MG) As Ordered ONE (10:43)
[2020-09-03] MEDS ORDERED: ePHEDrine SULFATE 25 MG/5 ML(5MG/ML) SYRINGE As Ordered ONE ×2 (10:48→11:45)
[2020-09-03] MEDS ORDERED: METOCLOPRAMIDE INJ 10MG/2ML VIAL (J2765 PER 1) As Ordered ONE (10:51)
[2020-09-03] MEDS ORDERED: HYDR-4517 PO (13:16)
[2020-09-03] MEDS ORDERED: LR 1,000 ML IV SCH (13:35)
[2020-09-03] MEDS ORDERED: ONDANSETRON 4MG/2ML VIAL IV PRN (13:35)
[2020-09-03] MEDS ORDERED: fentaNYL 100 MCG/2 ML INJECTION IV PRN (13:35)
[2020-09-03] MEDS ORDERED: oxyCODONE 5MG TAB PO PRN (13:35)
[2020-09-03 14:50] VITALS: BP 120/57
[2020-10-09] MEDS ORDERED: DICY20TA20 PO (09:45)
[2021-01-12] MEDS ORDERED: [UNRECOGNIZED DRUG - REMARK] TOP (10:37)
[2021-01-22] MEDS ORDERED: [UNRECOGNIZED DRUG - OTHER] AD (14:36)
[2021-01-26] MEDS ORDERED: [UNRECOGNIZED DRUG - OTHER] (10:25)
[2021-05-05] MEDS ORDERED: VENL75TA2 PO (14:37)
== END 2020-09-03 14:50 | disposition home or self-care (01) ==
LOC: M SDC 06:43
PROVIDERS: ATTEND Surgery
DX: D05.12 Intraductal carcinoma in situ of left breast (principal); Z13.79 Encounter for other screening for genetic and chromosomal anomalies; I10 Essential (primary) hypertension; K58.9 Irritable bowel syndrome, unspecified; K21.9 Gastro-esophageal reflux disease without esophagitis; M19.90 Unspecified osteoarthritis, unspecified site; F41.9 Anxiety disorder, unspecified; M54.9 Dorsalgia, unspecified; J44.9 Chronic obstructive pulmonary disease, unspecified; R06.83 Snoring; R91.8 Other nonspecific abnormal finding of lung field; G47.30 Sleep apnea, unspecified; F17.210 Nicotine dependence, cigarettes, uncomplicated; Z98.1 Arthrodesis status; Z79.899 Other long term (current) drug therapy; Z79.2 Long term (current) use of antibiotics; Z79.891 Long term (current) use of opiate analgesic; Z88.8 Allergy status to other drugs, medicaments and biological substances; Z88.2 Allergy status to sulfonamides; Z88.1 Allergy status to other antibiotic agents
CPT/HCPCS: 19125; 36415; 38525; 76942; 78195; 81025; 86850; 86900; 86901; 88305; 88307; A9541; J0131; J1100; J1644; J2250; J2405; J2765; J3010; Q9968

== ENCOUNTER → 2020-09-18 | Outpatient (REF) | payer MEDICARE, OTHER ==
[~2020-09-18] MED LIST changes: +DICY20TA11 PO; -DICY20TA20 PO; -HEPARIN SOD (PORCINE) 5000UNITS/ML 1ML VIAL/SYRINGE SQ ONE; -LIDOCAINE 1% MDV 20ML VIAL SQ PRN; -LR 1,000 ML IV ONE; -OMEP-173 PO; +OMEP-218 PO
== END ==
LOC: M LAB REF 21:20
PROVIDERS: ATTEND Nurse Practitioner Family
DX: R30.0 Dysuria (principal)

== ENCOUNTER → 2020-10-01 | Outpatient (CLI) | payer MEDICARE, OTHER ==
--- NOTE | 2020-10-01 13:18 | RADONC.CN ---
Radiation Oncology Hx/Consult Radiation Oncology Consult Date of Service: Oct 01, 2020 Pt Identifier Carlie Peralta is a 54 year old female current smoker with a history of screening mammogram detected left breast cancer pT1cN0(sn)M0 ER/IA+ HER2- Grade 2. She is s/p lumpectomy and SLNB with Dr. Knapp on 09/03/20 and is seen today for consideration of adjuvant RT. Diagnosis/Treatment History Oncologic History 06/09/20 Screening mammogram with left upper outer abnormality 1.1 cm nodular density. 06/16/20 Diagnostic mammogram with US showed 2:00 lesion 07/22/20 Biopsy showing IDC Er/IA+ HER2- Grade 2 08/21/20 MRI showed no suspicious regional disease 09/02/20 CT chest with stable 0.5 cm LLL nodule 09/03/20 Lumpectomy (Jj) pT1cN0(sn) margins negative Breast history Menses @ 12 Menopause perimenopausal No OCP No HRT No IVF Interval History Here with her . Lives in [facility]. Some mild left breast and axillary pain remains post-operatively. Has some impaired ROM in the UE BL, due to cervical spinal fusion. She smokes, is not willing to quit at this time. Appetite good and weight stable. Past Medical History: Anxiety HTN IBS Heart palpitations Past Surgical History: Colonoscopy 2016 Uterine ablation Family History: Mother lung cancer @ 49 Social History: Current 1-1.5 ppd smoker 40+ pack year Does drink 1-2 alcoholic beverages per week Allergies / Meds Allergies: Coded Allergies: cefuroxime (Verified Allergy, Severe, WHEEZING/COUGH, 07/22/20) Sulfa (Sulfonamide Antibiotics) (Verified Allergy, Intermediate, HIVES, 07/22/20) duloxetine (Verified Allergy, Intermediate, HIVES, 07/22/20) metronidazole (Verified Allergy, Intermediate, HIVES, 07/22/20) paroxetine (Verified Allergy, Intermediate, HIVES, 07/22/20) amitriptyline (Verified Allergy, Unknown, INCREASED ANXIETY, 07/22/20) ciprofloxacin (Verified Allergy, Unknown, AGITATION/NERVOUSNESS, 07/22/20) escitalopram (Verified Allergy, Unknown, NAUSEA/VOMITING, 07/22/20) lisinopril (Verified Allergy, Unknown, NECK PAIN, 07/22/20) losartan (Verified Allergy, Unknown, MYALGIA, 07/22/20) metoprolol (Verified Allergy, Unknown, TINGLING IN THE MOUTH, 07/22/20) mometasone furoate (Verified Allergy, Unknown, PALPITATIONS, 07/22/20) azithromycin (Verified Adverse Reaction, Severe, PALPITATIONS, EYES TWITCHING, 07/22/20) atenolol (Verified Adverse Reaction, Unknown, HOT FLASHES, 07/22/20) celecoxib (Verified Adverse Reaction, Unknown, SLEEPLESSNESS/INTENSE ANXIETY, 07/22/20) clarithromycin (Verified Adverse Reaction, Unknown, UPSET STOMACH, 07/22/20) esomeprazole (Verified Adverse Reaction, Unknown, NAUSEA, 07/22/20) fluticasone (Verified Adverse Reaction, Unknown, PALPITATIONS, 07/22/20) gabapentin (Verified Adverse Reaction, Unknown, INCREASED PAIN, 07/22/20) prednisone (Verified Adverse Reaction, Unknown, PALPITATIONS, 07/22/20) pregabalin (Verified Adverse Reaction, Unknown, EXTREME FATIGUE, 07/22/20) varenicline (Verified Adverse Reaction, Unknown, DREAMS, 07/22/20) Home Meds Reported Medications Buspirone HCl (Buspirone HCl) 10 Mg Tablet, 10 MG PO BID, TAB 09/01/20 Magnesium Oxide (Magnesium) 250 Mg Tablet, 250 MG PO DAILY, TAB 09/01/20 Budesonide/Formoterol (Symbicort 160-4.5 Mcg Inhaler) 6 Gm Hfa.aer.ad, 1 PUFF INH BID, INHALER 09/01/20 Hydrocodone/Acetaminophen (Hydrocodone-Acetamin 10-325 mg) 1 Each Tablet, 1 TAB PO Q8HP PRN for pain, TAB 09/01/20 Meclizine HCl (Meclizine HCl) 25 Mg Tablet, 25 MG PO Q8H, #30 TAB 09/01/20 Multivitamin with Minerals (Hair, Skin and Nails) 1 Each Tablet, 1 TAB PO DAILY, TAB 09/01/20 Omeprazole Magnesium (Prilosec Otc) 20 Mg Tablet.dr, 20 MG PO ACB, TAB 09/01/20 Ascorbic Acid (Vitamin C) 500 Mg Capsule.er, 500 MG PO DAILY 09/01/20 Pediatric Multivitamin No.42 (Flintstones) 1 Each Tab.chew, 1 EACH PO DAILY 09/01/20 Cyclobenzaprine HCl (Cyclobenzaprine HCl) 10 Mg Tablet, 10 MG PO TIDP PRN for MUSCLE SPASMS for 30 Days, #30 TAB 07/22/20 Irbesartan (Irbesartan) 150 Mg Tablet, 1 TAB PO DAILY for 30 Days, #30 TAB 07/22/20 Rosuvastatin Calcium (Rosuvastatin Calcium) 20 Mg Tablet, 20 MG PO DAILY, TAB 07/22/20 Kem/D3/Mag11/Zinc/Educational Administration Teacher/Allen/Bor (Caltrate 600+D Plus Tablet) 1 Each Tablet, 1 TAB PO DAILY for 30 Days, #30 TAB 07/22/20 Acetaminophen (Tylenol) 325 Mg Capsule, 325 MG PO DAILY, CAP 07/22/20 Albuterol Sulfate (Ventolin Hfa) 18 Gm Hfa.aer.ad, 2 PUFF INH Q4-6HP PRN for wheezing for 30 Days, #1 INHALER 07/22/20 Sennosides (Senokot) 8.6 Mg Tablet, 1 TAB PO BID for constipation for 20 Days, #40 TAB 07/22/20 Discontinued Reported Medications Amoxicillin/Potassium Clav (Augmentin 875-125 Tablet) 1 Each Tablet, 875 MG PO BID, TAB 09/01/20 Discontinued Scripts Hydrocodone/Acetaminophen (Hydrocodone-Acetamin 10-325 mg) 1 Each Tablet, 1 TAB PO Q6HP PRN for pain MDD 4 Tablet(s) for 5 Days, #20 TAB Prov:HAO KNAPP DO 09/03/20 Review of Systems Constitutional: Denies: Chills, Fever, Fatigue Eyes: Denies: Pain HEENT: Denies: Head Aches Skin: Denies: Rash Pulmonary: Denies: Dyspnea, Cough Cardiovascular: Denies: Chest Pain Breast: Denies: New Breast Lumps / Masses, Nipple Discharge, Breast Skin Changes, Breast Pain or Tenderness, Other Breast Complaints Gastrointestinal: Denies: Abdominal Pain Hematologic: Denies: Bruising, Bleeding Excessively Musculoskeletal: Reports: Neck pain; Denies: Arm pain, Back pain Neurological: Denies: Weakness, Numbness Psych: Reports: Mood Normal Vital Signs Wt 153 lbs T 96.2 P 90 RR 18 BP 104/72 O2 98% Pain 1 Fatigue 1 General Exam: Positive: Alert, Cooperative, No Acute Distress Eye Exam: Positive: PERRLA, EOMI ENT EXAM: Positive: Atraumatic Neck Exam: Positive: Supple; Negative: Lymphadenopathy Chest Exam: Positive: Clear to auscultation, Normal air movement Heart Exam: Positive: Rate Normal, Regular Rhythm Breast Exam: Positive: Symmetric Bilaterally; Negative: Lumps or Masses (Palpable seroma upper outer left breast. Healing incisions, glue still inplace ), Skin Changes, Other Breast Findings Extremity Exam: Negative: Edema Skin Exam: Positive: Nl turgor and temperature Neuro Exam: Positive: Normal Gait, Normal Speech, Cranial Nerves 3-12 NL Psych Exam: Positive: Mental status NL Diagnostic and Laboratory Diagnostic Review Radiologic images, relevant labs and pathology reports were personally reviewed and discussed with Ms. Peralta. Assessment and Plan Impression Ms. Peralta is a 54 year old female current smoker with a history of screening mammogram detected left breast cancer pT1cN0(sn)M0 ER/IA+ HER2- Grade 2. She is s/p lumpectomy and SLNB with Dr. Knapp on 09/03/20 and is seen today for consideration of adjuvant RT. Stage Left upper outer breast cancer pT1cN0(sn)M0 ER/IA+ HER2- Grade 2 stage IA Performance Status ECOG 0 Plan We had an extensive discussion with Ms. Peralta regarding the diagnosis at hand and available therapeutic options. She is healing well from her operation. She has some mild ROM impairment in the UE, due to her history of cervical spinal fixation/instrumentation. I offered her the option of prone treatment as an alternative to the standard supine position, first because she expressed to me that it was more comfortable for her (@ MRI), and second because this being a left-sided process would aid in sparing heart and lung dose. For adjuvant RT, we discussed whole breast radiation + tumor bed boost, 20 treatments over 4 weeks as the standard. Based on her age, stage and final pathological findings she is also appropriate for partial breast RT, for this I presented two options; 40 Gy in 15 fractions per IMPORT LOW, and 26 Gy in 5 fractions per FAST FORWARD. The ease of the 5 fraction regimen is couched in shorter follow-up compared to both the whole br east and the 15 fraction partial breast regimen, and also that I would hesitate to pursue the 5 fraction regimen with prone positioning, due to the higher dose per day and the best application of this and other extremely hypofractionated regimens is to use VMAT (as was the case in the latter [place] [facility] study) which is incompatible with prone technique. She prefers the 40 Gy in 15 fraction partial breast regimen as an intermediate between the other options presented. We discussed the logistics of receiving radiation therapy in detail including the need for a 1-time planning session. This can occur non-urgently in the coming weeks. We reviewed the side effects of treatment including fatigue, skin reaction and late fibrosis. After discussing the risks, benefits and alternatives to radiation therapy, Ms. Peralta was amenable to pursuing radiotherapy. All questions were answered to t he patient's satisfaction. We instructed the patient that if there were any questions,concerns or changes in clinical status in the interim to contact us. Recommendations PBI 40 Gy in 15 fractions Prone technique with daily CBCT for localization Simulation in the next week Billing Statement Total time of [49] minutes was spent preparing for the visit [2], obtaining HPI [6], examining the patient [3], reviewing diagnostic tests [4], discussing management options [22], coordinating care [3], and writing this note [8]. ELIUD OWUSU MD Oct 01, 2020 13:18
== END ==
LOC: M ONCR 08:51
PROVIDERS: ATTEND General Practice
DX: C50.412 Malignant neoplasm of upper-outer quadrant of left female breast (principal); F17.210 Nicotine dependence, cigarettes, uncomplicated; F41.9 Anxiety disorder, unspecified; I10 Essential (primary) hypertension; K58.9 Irritable bowel syndrome, unspecified; Z79.899 Other long term (current) drug therapy; Z80.1 Family history of malignant neoplasm of trachea, bronchus and lung; Z88.1 Allergy status to other antibiotic agents; Z88.2 Allergy status to sulfonamides; Z88.8 Allergy status to other drugs, medicaments and biological substances

== ENCOUNTER 2020-10-08 10:24 | Outpatient (RCR) | payer MEDICARE, OTHER ==
[2020-10-09] MEDS ORDERED: [UNRECOGNIZED DRUG - OTHER] TOP (09:45)
[2020-10-09] MEDS ORDERED: DICY20TA11 PO (09:45)
[2020-10-09] MEDS ORDERED: TAMO20TA8 PO (16:38)
== END 2020-10-10 ==
LOC: M ONCR 10:24
PROVIDERS: ATTEND General Practice
DX: C50.412 Malignant neoplasm of upper-outer quadrant of left female breast (principal)

== ENCOUNTER → 2020-10-13 | Outpatient (CLI) | payer MEDICARE, OTHER ==
[~2020-10-13] MED LIST changes: +TAMO20TA8 PO; +[UNRECOGNIZED DRUG - OTHER] TOP
--- NOTE | 2020-10-15 05:06 | ECWPNPC ---
PATIENT NAME: ZANE BARROSO : 1965 GENDER: FEMALE VISIT DATE: 10/13/2020 DISCHARGE DATE: 10/13/20 1449 VISIT LOCKED DATE TIME: PHYSICIAN: IRAIDA VALENTINO PHYSICIAN PAGER NO: ACTIVE RESOURCE: IRAIDA VALENTINO REASON FOR APPOINTMENT 1. MED MGMNT/NECK PAIN HISTORY OF PRESENT ILLNESS GENERAL: - - HERE FOR FOLLOW-UP OF CHRONIC RIGHT NECK, RIGHT SHOULDER AND UPPER BACK PAIN. THIS IS A WORK RELATED INJURY. PATIENT CONTINUES IN SEVERE PAIN. STATING THAT UNCONTROLLED PAIN MAKES IT DIFFICULT TO PARTICIPATE WITH HER FAMILY. REPORTS SIGNIFICANT ANXIETY AND DEPRESSION DUE TO UNCONTROLLED PAIN. RANGE OF JOINT MOTION OF HER RIGHT ARM AGGRAVATES PAIN. HAS BENEFITED FROM TRIGGER POINT INJECTIONS TO THE RIGHT NECK,RIGHT SHOULDER,UPPER BACK IN THE PAST. WE'VE MADE SEVERAL ATTEMPTS TO APPROVE TRIGGER POINT INJECTIONS THROUGH WORKMEN'S COMP IN THE PAST AND BASICALLY JF IS STATING THAT THEY ARE NOT NECESSARY. -. FALL RISK SCREENING: SCREENING : NO FALLS REPORTED IN THE LAST YEAR. PAIN SCREENING: PATIENT HAS A COMPLAINT OF ACUTE OR CHRONIC PAIN :YES LOCATION OF PAIN:NECK INTENSITY OF PAIN (SCALE OF 1 TO 10):5 WHAT DOES YOUR PAIN FEEL LIKE:ACHING, CONTINOUS DURATION:CONTINOUS, CONSTANT, ALL DAY PAIN IS INCREASED BY:ACTIVITIES PAIN IS DECREASED BY:USE OF PAIN MEDICATIONS NURSING NOTE: -. PAIN CENTER INTAKE QUESTIONS: DO YOU HAVE A HISTORY OF MRSA? :NO DO YOU TAKE A BLOOD THINNERS? :NO DO YOU HAVE ANY BLEEDING DISORDERS? :NO ANY NEW NUMBNESS OR WEAKNESS IN YOUR LEGS OR ARMS? :NO ANY PACEMAKER,DEFIBRILLATOR, OR DORSAL COLUMN STIMULATOR? :NO DO YOU HAVE ANY RASHES OR OPEN SORES? :NO ARE YOU ALLERGIC TO IV DYE? :NO ARE YOU DIABETIC? :NO ANY NEW PROBLEMS WITH YOUR MEDICATIONS? :NO HAVE YOU RECEIVED A VACCINE IN THE PAST 30 DAYS? :NO DO YOU PLAN TO RECEIVE A VACCINE IN THE NEXT 21 DAYS? :NO DO YOU NEED ANY PRESCRIPTION? :NO DO YOU TAKE ANY IMMUNOSUPPRESSIVE MEDICATIONS? :NO DO YOU HAVE ANY KIDNEY OR LIVER DISEASE? :NO IS THERE A CHANCE YOU COULD BE ? :NO ARE YOU BREAST FEEDING? :NO CURRENT MEDICATIONS TAKING DICYCLOMINE HCL 20 MG TABLET 1 TABLET ORALLY QID PRN TAKING IRBESARTAN 150 MG TABLET 1 TABLET ORALLY ONCE A DAY TAKING SENOKOT 8.6 MG TABLET 2 TABLETS AT BEDTIME NEEDED ORALLY ONCE A DAY, NOTES: NEEDED TAKING ALBUTEROL SULFATE HFA 108 (90 BASE) MCG/ACT AEROSOL SOLUTION 2 PUFFS NEEDED INHALATION EVERY 4 HRS TAKING GLUCOMETER FREESTYLE DAILY, NOTES: PRN TAKING CALTRATE 600 1500 (600 CA) MG TABLET 1 TAB ORALLY DAILY TAKING VITAMIN C 500 MG CAPSULE 1 CAP ORALLY DAILY TAKING MAGNESIUM 200 MG TABLET 2 TABLETS WITH A MEAL ORALLY ONCE A DAY TAKING FREESTYLE TEST - STRIP DIRECTED IN VITRO DAILY TAKING LANCETS - MISCELLANEOUS FREESTYLE DAILY, NOTES: NEEDED TAKING OMEPRAZOLE 20 MG CAPSULE DELAYED RELEASE 1 CAPSULE 30 MINUTES BEFORE MORNING MEAL ORALLY ONCE A DAY TAKING BUSPIRONE HCL 15 MG TABLET 1 TABLET ORALLY UP TO 3 TIMES A DAY TAKING BUDESONIDE-FORMOTEROL FUMARATE 160-4.5 MCG/ACT AEROSOL 2 PUFFS INHALATION TWICE A DAY, NOTES: (SYMBICORT) TAKING ANTIVERT 25 MG TABLET 1 TABLET NEEDED ORALLY FOUR TIMES DAILY NEEDED TAKING HAIR SKIN NAILS - CAPSULE 1 CAP ORALLY DAILY TAKING TYLENOL 325 MG TABLET 1 TABLET NEEDED ORALLY EVERY 4 HRS, NOTES: NOT TAKING AT THE MOMENT TAKING CYCLOBENZAPRINE HCL 10 MG TABLET 1 TABLET NEEDED ORALLY THREE TIMES A DAY NEEDED TAKING ROSUVASTATIN CALCIUM 20 MG TABLET 1 TABLET ORALLY ONCE A DAY TAKING TRIAMCINOLONE ACETONIDE 0.1 % CREAM 1 APPLICATION TO CHEST/ABDOMEN EXTERNALLY TWICE A DAY TAKING FLUCONAZOLE 150 MG TABLET 1 TABLET ORALLY ONCE, REPEAT IN 7 DAYS IF NEEDED TAKING MONISTAT 3 4 % CREAM 1 APPLICATORFUL AT BEDTIME VAGINAL ONCE A DAY TAKING HYDROCODONE-ACETAMINOPHEN 10-325 MG TABLET 1 TABLET NEEDED ORALLY EVERY 8 HRS MDD#3 NOT-TAKING CEPHALEXIN 500 MG CAPSULE 1 CAPSULE ORALLY 2X/ DAY MEDICATION LIST REVIEWED AND RECONCILED WITH THE PATIENT PAST MEDICAL HISTORY IBS PALPITATIONS ANXIETY HTN RIGHT SHOULDER, NECK, AND UPPER BACK PAIN REFLUX OSTEOARTHRITIS CERVICAL SPINAL STENOSIS ALLERGIC SINUSITIS MYALGIA CHRONIC MAXILLARY SINUSITIS OTHER CHRONIC PAIN RIGHT SHOULDER PAIN FLUID UNDER RIGHT KNEE LUMP LEFT BREAST ALLERGIES CYMBALTA: PALPITATIONS - SIDE EFFECTS METRONIDAZOLE: PALPITATIONS - SIDE EFFECTS PAXIL: PALPITATIONS - SIDE EFFECTS LEXAPRO: NAUSEA/VOMITING - SIDE EFFECTS BACTRIM: DIARRHEA - SIDE EFFECTS NASONEX: PALPITATIONS - SIDE EFFECTS AMITRIPTYLINE HCL: INCREASED ANXIETY - SIDE EFFECTS METOPROLOL TARTRATE: TINGLING IN MOUTH - SIDE EFFECTS LOSARTAN POTASSIUM: MYALGIA - SIDE EFFECTS PREDNISONE: PALPITATIONS - SIDE EFFECTS CHANTIX: DREAMS - SIDE EFFECTS WELLBUTRIN: FELT TERRIBLE - SIDE EFFECTS LEVAQUIN: UNKNOWN - SIDE EFFECTS NORVASC: HOT FLASHES - SIDE EFFECTS BIAXIN: STOMACH UPSET - SIDE EFFECTS NEXIUM: INEFFECTIVE/NAUSEA - SIDE EFFECTS GABAPENTIN: INCREASED PAIN - SIDE EFFECTS LYRICA: EXTREME FATIGUE - SIDE EFFECTS CEFTIN: INCREASED WHEEZING/COUGHING - ALLERGY CIPROFLAXIN: AGITATION/NERVOUSNESS - SIDE EFFECTS CELEBREX: SLEEPLESSNESS/INTENSE ANXIETY - SIDE EFFECTS ATENOLOL: HOT FLASHES - SIDE EFFECTS FLONASE: PALPITATIONS - SIDE EFFECTS ZITHROMAX: PALPITATIONS, EYES TWITCHING - SIDE EFFECTS LISINOPRIL: NECK PAIN - SIDE EFFECTS SURGICAL HISTORY COLONOSCOPY 2009,2015 UTERINE ABLATION, D&C 2009 ACDF- DR. YEUNG C4-7 WITH TITANIUM CAGES 06/2017 LEFT BREAST BX 07/22/20 LEFT BREAST LUMPECTOMY- DR. KNAPP 09/03/20 SOCIAL HISTORY GENERAL: TOBACCO USE ARE YOU A:CURRENT SMOKER ARE YOU INTERESTED IN QUITTING?NOT READY TO QUIT HAS PATCHES AT THE HOUSE COUNSELED THE PATIENT ON SMOKING EFFECTS, EDUCATION [id number]/03/2021 HAS PATCHES FOR WHEN SHE IS READY TO QUIT. HOW MANY CIGARETTES A DAY DO YOU SMOKE?21-30 HOW SOON AFTER YOU WAKE UP DO YOU SMOKE YOUR FIRST CIGARETTE?6-30 MIN HOW OFTEN DO YOU SMOKE CIGARETTES?EVERY DAY PATIENT COUNSELED ON THE DANGERS OF TOBACCO USE AND URGED TO QUIT:10/13/2020 ADDITIONAL FINDINGS: TOBACCO USERHEAVY CIGARETTE SMOKER (20-39 CIGS/DAY) SMOKING CESSATION INFORMATION GIVEN09/07/2020 VAPORNO E-CIGARETTENO LATEX QUESTIONNAIRE LATEX ALLERGY : HAVE YOU EVER DEVELOPED ANY TYPE OF REACTION AFTER HANDLING LATEX PRODUCTS SUCH RUBBER GLOVES, CONDOMS, DIAPHRAGMS, BALLOONS, SOCKS, OR UNDERWEAR?NO SURGICAL TAPE LATEX ALLERGY : HAVE YOU EVER DEVELOPED ANY TYPE OF REACTION DURING OR AFTER DENTAL APPOINTMENT, VAGINAL/RECTAL EXAMINATION, SURGICAL PROCEDURE, OR ANY OTHER EXPOSURE?NO LATEX RISK : HAVE YOU EVER HAD ANY DIFFICULTY BREATHING OR HIVES AFTER EATING OR HANDLING ANY FRUITS, OR VEGETABLES; SUCH KIWI, BANANAS, STONE FRUITS, OR CHESTNUTSNO LATEX RISK : DO YOU HAVE A PREVIOUS PERSONAL HISTORY OF MORE THAN NINE SURGERIES, SPINA BIFIDA, OR REPEATED CATHERIZATIONS? NO LATEX RISK : ARE YOU FREQUENTLY EXPOSED TO LATEX PRODUCTS IN YOUR OCCUPATION?NO DATE ASKED : 10/13/2020 ALCOHOL USE: YES, ONCE IN A WHILE A GLASS OF WINE. LUNG CANCER SCREENING SMOKING STATUS:CURRENT SMOKER RECREATIONAL DRUG USE DRUG USE?NO CAFFEINE CAFFEINE USE?YES 4-6 CUPS DAILY HIV / HEP-C SCREENING HIV TEST OFFERED TO PATIENT:YES DATE OFFERED:07/30/2020 TEST ACCEPTED:NO REASON:PATIENT DECLINED BROCHURE PROVIDED TO PATIENTNO HEP-C TEST OFFERED TO PATIENT:NO EDUCATION LEVEL OF EDUCATION:NOT FINISHED HIGH SCHOOL LEARNING BARRIERS / SPECIAL NEEDS CHANGE FROM LAST VISIT?NO BARRIERS TO LEARNING?NO HEARING IMPAIRED?NO VISION IMPAIRED?YES :CORRECTIVE LENSES READING COGNITIVELY IMPAIRED?NO READINESS TO LEARN?YES LEARNING PREFERENCES?NO LEARNING CAPABILITIES PRESENT?YES EMOTIONAL BARRIERS?NO SPECIAL DEVICES?NO BUILD TECHNICIAN NEEDED?NO DOMESTIC VIOLENCE STATUS: DO YOU FEEL SAFE IN YOUR ENVIRONMENT?YES DIET: REGULAR. MARITAL STATUS: . OTHERS AT HOME: SPOUSE. - HAS THE PATIENT BEEN EDUCATED REGARDING HIS/HER PLAN OF CARE?YES HAS THE PATIENT BEEN EDUCATED REGARDING PAIN, THE RISK FOR PAIN, THE IMPORTANCE OF EFFECTIVE PAIN MANAGEMENT, AND THE PAIN ASSESSMENT PROCESS?YES ADVANCE DIRECTIVE ADVANCE DIRECTIVE DISCUSSED WITH PATIENT:YES STATES SHE HAS [phone] SOCIAL ALCOHOL USE OCASSIONALLY. HOSPITALIZATION/MAJOR DIAGNOSTIC PROCEDURE [facility]-SEVERE BACK PAIN - ED 01/13/17 CERVICAL FUSION 06/2017 HIGH BLOOD PRESSURE, PAIN AFTER BX 07/22/20 URGENT CARE FOR BACTERIA INFECTION IN URINE 09/25/20 REVIEW OF SYSTEMS CONSTITUTIONAL: ANY RECENT FEVER NO . CHILLS NO . WEIGHT CHANGE OF UNKNOWN REASONS NO . GASTROENTEROLOGY: NEW UNEXPLAINABLE CHANGES IN BOWEL CONTROL NO . CONSTIPATION NO . GENITOURINARY: ANY NEW CHANGE IN BLADDER CONTROL? NO . NEUROLOGY: NEW ONSET DIZZINESS OR NEUROLOGICAL CHANGES NOT MENTIONED NO . NEW NUMBNESS OR PAIN PATTERNS NOT MENTIONED AND PERTINENT TO TODAY'S VISIT NO . CARDIOLOGY: NEW CHEST PRESSURE NO . PATIENT DENIES NO . RESPIRATORY: UNEXPLAINABLE COUGH NO . NEW SHORTNESS OF BREATH NO . VITAL SIGNS WT 213.4 LBS, WT-KG 96.8 KG, HT 64.5 IN, BMI 36.06 INDEX, BP 160/72 MM HG, HR 85 /MIN, RR 18 /MIN, TEMP 98.4 F, OXYGEN SAT % 100%, SAFE IN ENV? (Y/N) YES, NA INITIALS AW 1354T.CARROLL AVILES. EXAMINATION GENERAL EXAMINATION: GENERALAWAKE,ALERT ,PLEASANT . PSYCHAFFECT NORMAL . LUNGS:LUNG TALAVERA ARE CLEAR TO AUSCULTATION BILATERALLY. GOOD MOVEMENT OF AIR . HEART:S1, S2 IN A REGULAR RATE AND RHYTHM. NO SIGNIFICANT MURMURS, RUBS OR GALLOPS NOTED . ASSESSMENTS MYALGIA OF MUSCLE OF NECK - M79.18 (PRIMARY) CERVICALGIA - M54.2 TREATMENT MYALGIA OF MUSCLE OF NECK CONTINUE CYCLOBENZAPRINE HCL TABLET, 10 MG, 1 TABLET NEEDED, ORALLY, THREE TIMES A DAY NEEDED PROCEDURES PN WORKMANS' COMP OPINION IN YOUR OPINION, WAS THE INCIDENT THAT THE PATIENT DESCRIBED THE COMPETENT MEDICAL CAUSE OF THIS INJURY/ILLNESS? YES ARE THE PATIENT'S COMPLAINTS CONSISTENT WITH HIS/HER HISTORY OF THE INJURY/ILLNESS? YES IS THE PATIENT'S HISTORY OF THE INJURY/ILLNESS CONSISTENT WITH YOUR OBJECTIVE FINDING? YES WHAT IS THE PERCENTAGE OF TEMPORARY IMPAIRMENT? MODERATE TO MARKED = 66.7% IS THE PATIENT WORKING? NO DOCTOR ON SITE: DELORES MOORE MD PROCEDURE CODES FA211 ESTABILISHED PATIENT [facility] CHARGE DISPOSITION & COMMUNICATION FOLLOW UP 3 MONTHS (REASON: W/C RIGHT NECK) ELECTRONICALLY SIGNED BY NEVILLE TOM ON 10/14/2020 AT 03:45 PM EDT DISCLAIMER : THIS IS A VISIT SUMMARY EXTRACTED FROM THE [employer] CHART. IT IS NOT A COPY OF THE [employer] PROGRESS NOTE. ANGELICA
== END ==
LOC: M PAIN 14:15
PROVIDERS: ATTEND Nurse Practitioner Family
DX: M79.18 Myalgia, other site (principal); M54.2 Cervicalgia; K21.9 Gastro-esophageal reflux disease without esophagitis; F17.210 Nicotine dependence, cigarettes, uncomplicated; Z86.59 Personal history of other mental and behavioral disorders; Z88.1 Allergy status to other antibiotic agents; Z88.8 Allergy status to other drugs, medicaments and biological substances; Z79.899 Other long term (current) drug therapy

== ENCOUNTER → 2020-10-30 | Outpatient (CLI) | payer MEDICARE, OTHER ==
--- NOTE | 2020-10-30 09:47 | REP ---
INDICATION: UNSPECIFIED DIARRHEA, IBS. COMPARISON: None TECHNIQUE: Real-time sonographic evaluation of the right upper quadrant FINDINGS: Multiple ultrasonographic images of the liver show diffuse increased echoes throughout the hepatic parenchyma without evidence of a mass or ductal dilatation. The maximal hepatic dimension is 21 cm. The common bile duct measures approximately 8 mm in its greatest transverse dimension. Multiple ultrasonographic images of the gallbladder show no focal or diffuse gallbladder wall thickening. There are no echogenic foci within the gallbladder lumen, which casts acoustic shadows. There is no pericholecystic edema. Images of the pancreatic region show no gross abnormality. The imaged portion of the right kidney is unremarkable. IMPRESSION: Hepatomegaly with fatty infiltration. CBD upper limits of normal consider follow-up. Accredited by the [employer] in General Ultrasound. <Electronically signed by Alistair Clark > 10/30/20 [id number]
== END ==
LOC: M RAD 08:36
PROVIDERS: ATTEND Family Medicine
DX: R19.7 Diarrhea, unspecified (principal); R16.0 Hepatomegaly, not elsewhere classified; K76.0 Fatty (change of) liver, not elsewhere classified

== ENCOUNTER → 2020-11-10 | Outpatient (RCR) | payer MEDICARE, OTHER ==
[~2020-11-10] MED LIST changes: -DICY20TA11 PO; +DICY20TA20 PO; +[UNRECOGNIZED DRUG - OTHER]; +[UNRECOGNIZED DRUG - OTHER] AD; +[UNRECOGNIZED DRUG - REMARK] TOP
== END ==
LOC: M ONCR 10-15 08:51
PROVIDERS: ATTEND General Practice
DX: C50.412 Malignant neoplasm of upper-outer quadrant of left female breast (principal)

== ENCOUNTER → 2020-12-04 | Outpatient (CLI) | payer MEDICARE, OTHER ==
[~2020-12-04] MED LIST changes: +DICY20TA11 PO; -DICY20TA20 PO; -[UNRECOGNIZED DRUG - OTHER]; -[UNRECOGNIZED DRUG - OTHER] AD; -[UNRECOGNIZED DRUG - REMARK] TOP
--- NOTE | 2020-12-04 14:35 | RADENCPD ---
Date/Time of Encounter Date of Encounter: Dec 04, 2020 Time of Encounter: 14:32 Encounter Carlie came in for a skin check today. She has noted increased pigmentation and peeling of the nipple skin. She also has some tenderness in the left lateral breast overlying the axillary incision, this has come on the last few days as she has worked with PT on her leg. On exam there is hyperpigmentation and peeling of the left nipple skin, new pink skin underneath, there is also scattered hyperpigmented macules in the treatment field suggestive of evolving CTCAE grade 1 hyperpigmentation post-RT I encouraged her to back off on the PT if it is precipitating left breast pain. Also continue emollients to the nipple and surrounding skin until desquamation ceases. She may follow up as needed until her next scheduled visit. ELIUD OWUSU MD Dec 04, 2020 14:35
== END ==
LOC: M ONCR 09:34
PROVIDERS: ATTEND General Practice
DX: C50.412 Malignant neoplasm of upper-outer quadrant of left female breast (principal); L57.9 Skin changes due to chronic exposure to nonionizing radiation, unspecified; Z92.3 Personal history of irradiation

== ENCOUNTER → 2020-12-22 | Outpatient (REF) | payer MEDICARE, OTHER ==
[2020-12-22 13:56] LABS: APPEARANCE, URINE CLEAR (CLEAR); BACTERIA, URINE AUTO NEGATIVE (NEGATIVE); BILIRUBIN, URINE AUTO NEGATIVE (NEGATIVE); BLOOD, URINE BLOOD NEGATIVE (NEGATIVE); COLOR, URINE YELLOW (YELLOW); GLUCOSE, URINE (UA) AUTO NEGATIVE (NEGATIVE); KETONE, URINE AUTO NEGATIVE (NEGATIVE); LEUKOCYTE ESTERASE, URINE AUTO NEGATIVE (NEGATIVE); NITRITE, URINE AUTO NEGATIVE (NEGATIVE); PROTEIN, URINE AUTO NEGATIVE (NEGATIVE); RBC, URINE AUTO 0 /HPF (0-3); SPECIFIC GRAVITY URINE AUTO 1.011 (1.002-1.035); SQUAMOUS EPITHELIAL CELL UR AU 1 /HPF (0-6); UROBILINOGEN, URINE AUTO 0.2 mg/dL (0.0-2.0); WBC, URINE AUTO 0 /HPF (0-3)
== END ==
LOC: M SFHCWAGY 13:20
PROVIDERS: ATTEND Advanced Practice Midwife
DX: R35.0 Frequency of micturition (principal)

== ENCOUNTER → 2021-02-09 | Outpatient (RCR) | payer MEDICARE, OTHER ==
[~2021-02-09] MED LIST changes: -DICY20TA11 PO; +DICY20TA20 PO; +OMEP-173 PO; -OMEP-218 PO; +VENL75TA2 PO; +[UNRECOGNIZED DRUG - OTHER]; +[UNRECOGNIZED DRUG - OTHER] AD; +[UNRECOGNIZED DRUG - REMARK] TOP
== END ==
LOC: M PT 01-22 09:44
PROVIDERS: ATTEND Internal Medicine Medical Oncology
DX: I89.0 Lymphedema, not elsewhere classified (principal)

== ENCOUNTER → 2021-02-09 | Outpatient (CLI) | payer MEDICARE, OTHER | LOC: M RAD 07:04 | PROVIDERS: ATTEND Family Medicine | DX: R93.7 Abnormal findings on diagnostic imaging of other parts of musculoskeletal system (principal); M54.6 Pain in thoracic spine; M54.50 Low back pain, unspecified; R39.15 Urgency of urination ==

== ENCOUNTER → 2021-02-17 | Outpatient (CLI) | payer OTHER | LOC: M PAIN 10:15 | PROVIDERS: ATTEND Anesthesiology | DX: M96.1 Postlaminectomy syndrome, not elsewhere classified (principal); F17.210 Nicotine dependence, cigarettes, uncomplicated; Z79.891 Long term (current) use of opiate analgesic; Z79.899 Other long term (current) drug therapy ==

== ENCOUNTER 2021-02-25 10:33 | Outpatient (RCR) | payer MEDICARE, OTHER ==
[~2021-02-25 10:33] MED LIST changes: +DICY20TA11 PO; -DICY20TA20 PO; -OMEP-173 PO; +OMEP-218 PO; -VENL75TA2 PO
== END 2021-03-12 ==
LOC: M PT 10:33
PROVIDERS: ATTEND Internal Medicine Medical Oncology
DX: I89.0 Lymphedema, not elsewhere classified (principal)

== ENCOUNTER → 2021-05-05 | Outpatient (CLI) | payer MEDICARE, OTHER ==
[~2021-05-05] MED LIST changes: -DICY20TA11 PO; +DICY20TA20 PO; +OMEP-173 PO; -OMEP-218 PO; +VENL75TA2 PO
== END ==
LOC: M ONCR 13:19
PROVIDERS: ATTEND General Practice
DX: C50.412 Malignant neoplasm of upper-outer quadrant of left female breast (principal); N60.82 Other benign mammary dysplasias of left breast; F17.210 Nicotine dependence, cigarettes, uncomplicated; R23.2 Flushing; Z79.899 Other long term (current) drug therapy; Z88.1 Allergy status to other antibiotic agents; Z88.2 Allergy status to sulfonamides; Z88.8 Allergy status to other drugs, medicaments and biological substances; Z92.3 Personal history of irradiation

== ENCOUNTER → 2021-05-11 | Outpatient (REF) | payer MEDICARE, OTHER ==
[2021-05-11 17:11] LABS: BASO % 0.6 % (0.0-1.0); EOS # 0.1 10^3/uL (0.0-0.5); EOS % 1.9 % (0.0-3.0); HEMATOCRIT 44.5 % (36.0-47.0); HEMOGLOBIN 15.2 g/dl (12.0-15.5); LYMPH # 2.1 10^3/uL (1.5-5.0); LYMPH % 32.7 % (24.0-44.0); MEAN CORPUSCULAR HEMOGLOBIN 32.7 pg (27.0-33.0); MEAN CORPUSCULAR HGB CONC 34.2 g/dl (32.0-36.5); MEAN CORPUSCULAR VOLUME 95.7 fl (80.0-96.0); MONO # 0.6 10^3/uL (0.0-0.8); NEUTROPHILS # 3.6 10^3/uL (1.5-8.5); NEUTROPHILS % 55.3 % (36.0-66.0); PLATELET COUNT, AUTOMATED 323 10^3/uL (150-450); RED BLOOD COUNT 4.65 10^6/uL (4.00-5.40); WHITE BLOOD COUNT 6.5 10^3/uL (4.0-10.0)
[2021-05-11 17:15] LABS: CHOLESTEROL RISK RATIO 5.044 (<5); FREE T4 0.87 NG/DL (0.76-1.46); THYROID STIMULATING HORMONE 1.95 uIU/ML (0.358-3.740)
[2021-05-11 17:22] LABS: HEMOGLOBIN A1c 5.6 %
== END ==
LOC: M SFHCCLAY 10:24
PROVIDERS: ATTEND Family Medicine
DX: R73.01 Impaired fasting glucose (principal); I10 Essential (primary) hypertension; E78.2 Mixed hyperlipidemia; E55.9 Vitamin D deficiency, unspecified; K58.2 Mixed irritable bowel syndrome

== ENCOUNTER → 2021-06-11 | Outpatient (CLI) | payer MEDICARE, OTHER ==
[~2021-06-11] MED LIST changes: +TUME1CAP PO
== END ==
LOC: M WHC 09:46
PROVIDERS: ATTEND Surgery
DX: Z85.3 Personal history of malignant neoplasm of breast (principal); Z80.3 Family history of malignant neoplasm of breast; Z92.3 Personal history of irradiation
CPT/HCPCS: 77066; G0279

== ENCOUNTER 2021-08-16 09:50 | Outpatient (RCR) | payer MEDICARE, OTHER | END 2021-09-09 | LOC: M PT 09:50 | PROVIDERS: ATTEND Internal Medicine Medical Oncology | DX: I89.0 Lymphedema, not elsewhere classified (principal) ==

== ENCOUNTER → 2021-08-20 | Outpatient (REF) | payer MEDICARE, OTHER ==
[2021-08-23 23:06] LABS: CREATININE, URINE 26.2 mg/dL (20.0-300.0)
== END ==
LOC: M SFHCPLAZ 13:29
PROVIDERS: ATTEND Physician Assistant
DX: Z79.891 Long term (current) use of opiate analgesic (principal)

== ENCOUNTER → 2021-09-15 | Outpatient (CLI) | payer MEDICARE, OTHER | LOC: M RAD 12:41 | PROVIDERS: ATTEND Internal Medicine Pulmonary Disease | DX: R19.8 Other specified symptoms and signs involving the digestive system and abdomen (principal); F17.218 Nicotine dependence, cigarettes, with other nicotine-induced disorders ==

== ENCOUNTER → 2021-10-15 | Outpatient (CLI) | payer MEDICARE, OTHER ==
[~2021-10-15] MED LIST changes: +LETR2.5T2 PO
== END ==
LOC: M WHC 13:03
PROVIDERS: ATTEND Internal Medicine Medical Oncology
DX: Z85.3 Personal history of malignant neoplasm of breast (principal); Z79.811 Long term (current) use of aromatase inhibitors

== ENCOUNTER → 2021-11-23 | Outpatient (CLI) | payer MEDICARE, OTHER | LOC: M ONCR 09:16 | PROVIDERS: ATTEND General Practice | DX: Z08 Encounter for follow-up examination after completed treatment for malignant neoplasm (principal); Z85.3 Personal history of malignant neoplasm of breast; F17.210 Nicotine dependence, cigarettes, uncomplicated; I89.0 Lymphedema, not elsewhere classified; Z79.51 Long term (current) use of inhaled steroids; Z79.811 Long term (current) use of aromatase inhibitors; Z79.899 Other long term (current) drug therapy; Z79.891 Long term (current) use of opiate analgesic; Z88.1 Allergy status to other antibiotic agents; Z88.2 Allergy status to sulfonamides; Z88.8 Allergy status to other drugs, medicaments and biological substances; Z92.3 Personal history of irradiation ==

== ENCOUNTER → 2021-11-25 | Outpatient (CLI) | payer MEDICARE, OTHER | LOC: M CLY 10:00 | PROVIDERS: ATTEND Nurse Practitioner Family | DX: J20.9 Acute bronchitis, unspecified (principal) ==

== ENCOUNTER → 2021-12-08 | Outpatient (REF) | payer MEDICARE, OTHER ==
[~2021-12-08] MED LIST changes: +ACET32TAB PO; +IBUP80TA PO; +METH-1164 PO; +MOME50SP2 NARES
== END ==
LOC: M PLALAB 10:44
PROVIDERS: ATTEND Advanced Practice Midwife
DX: Z01.419 Encounter for gynecological examination (general) (routine) without abnormal findings (principal); Z12.4 Encounter for screening for malignant neoplasm of cervix
CPT/HCPCS: 87624; G0123

== ENCOUNTER → 2021-12-20 | Outpatient (CLI) | payer MEDICARE, OTHER ==
[~2021-12-20] MED LIST changes: +CEPH500C
== END ==
LOC: M LABSMTC 11:29
PROVIDERS: ATTEND Anesthesiology
DX: Z01.812 Encounter for preprocedural laboratory examination (principal); Z20.822 Contact with and (suspected) exposure to COVID-19

== ENCOUNTER 2021-12-23 10:40 | Day surgery (SDC) | payer MEDICARE, OTHER ==
[~2021-12-23] VITALS: Ht 172.7 cm; Wt 91.1 kg
[~2021-12-23 10:40] MED LIST changes: +NS 1,000 ML IV ONE
[2021-12-23] MEDS ORDERED: LIDOCAINE 2% 100MG/5ML SDV (FOR ANES.) As Ordered ONE (11:27)
[2021-12-23] MEDS ORDERED: fentaNYL 100 MCG/2 ML INJECTION As Ordered ONE (11:27)
[2021-12-23] MEDS ORDERED: propofoL 200 MG/20 ML VIAL As Ordered ONE (11:27)
[2021-12-23] MEDS ORDERED: ePHEDrine SULFATE 25 MG/5 ML(5MG/ML) SYRINGE As Ordered ONE (12:12)
[2021-12-23 12:35] VITALS: BP 121/69
== END 2021-12-23 12:49 | disposition home or self-care (01) ==
LOC: M OPP 10:40
PROVIDERS: ATTEND Surgery
DX: K57.30 Diverticulosis of large intestine without perforation or abscess without bleeding (principal); R15.9 Full incontinence of feces; K29.70 Gastritis, unspecified, without bleeding; Z79.1 Long term (current) use of non-steroidal anti-inflammatories (NSAID); Z79.51 Long term (current) use of inhaled steroids; Z79.891 Long term (current) use of opiate analgesic; Z79.899 Other long term (current) drug therapy; Z88.1 Allergy status to other antibiotic agents; Z88.2 Allergy status to sulfonamides; Z88.8 Allergy status to other drugs, medicaments and biological substances; F17.200 Nicotine dependence, unspecified, uncomplicated; J45.909 Unspecified asthma, uncomplicated; I10 Essential (primary) hypertension; G47.30 Sleep apnea, unspecified; Z99.89 Dependence on other enabling machines and devices; K21.9 Gastro-esophageal reflux disease without esophagitis; F41.9 Anxiety disorder, unspecified; Z85.3 Personal history of malignant neoplasm of breast; Z80.1 Family history of malignant neoplasm of trachea, bronchus and lung
CPT/HCPCS: 43239; 45378; 88305; J3010

== ENCOUNTER → 2021-12-30 | Outpatient (CLI) | payer MEDICARE, OTHER ==
[~2021-12-30] MED LIST changes: -NS 1,000 ML IV ONE
== END ==
LOC: M WHC 10:59
PROVIDERS: ATTEND Advanced Practice Midwife
DX: D21.9 Benign neoplasm of connective and other soft tissue, unspecified (principal)

== ENCOUNTER 2022-02-14 09:50 | Outpatient (RCR) | payer MEDICARE, OTHER | END 2022-03-12 | LOC: M PT 09:50 | PROVIDERS: ATTEND Internal Medicine Medical Oncology | DX: I89.0 Lymphedema, not elsewhere classified (principal) ==

== ENCOUNTER → 2022-03-30 | Outpatient (CLI) | payer MEDICARE, OTHER ==
[~2022-03-30] MED LIST changes: +HAIR1CHW2 PO
== END ==
LOC: M EKG 15:32
PROVIDERS: ATTEND Nurse Practitioner
DX: C50.919 Malignant neoplasm of unspecified site of unspecified female breast (principal)

== ENCOUNTER → 2022-06-03 | Outpatient (REF) | payer MEDICARE, OTHER ==
[2022-06-03 19:04] LABS: BASO % 0.6 % (0.0-1.0); EOS # 0.1 10^3/uL (0.0-0.5); EOS % 0.9 % (0.0-3.0); HEMATOCRIT 42.5 % (36.0-47.0); HEMOGLOBIN 14.3 g/dl (12.0-15.5); MEAN CORPUSCULAR HEMOGLOBIN 32.4 pg (27.0-33.0); MEAN CORPUSCULAR HGB CONC 33.6 g/dl (32.0-36.5); MEAN CORPUSCULAR VOLUME 96.2 fl (80.0-96.0); MONO # 0.4 10^3/uL (0.0-0.8); MONO % 6.7 % (2.0-8.0); NEUTROPHILS # 4.1 10^3/uL (1.5-8.5); NEUTROPHILS % 61.5 % (36.0-66.0); PLATELET COUNT, AUTOMATED 306 10^3/uL (150-450); RED BLOOD COUNT 4.42 10^6/uL (4.00-5.40); WHITE BLOOD COUNT 6.6 10^3/uL (4.0-10.0)
[2022-06-03 19:08] LABS: IRON (FE) 116 UG/DL (50-170)
[2022-06-03 19:13] LABS: ALBUMIN 4.4 G/DL (3.2-5.2); ALKALINE PHOSPHATASE 69 U/L (46-116); ALT/SGPT 22 U/L (7.0-40); AST/SGOT 19 U/L (<34); BILIRUBIN,TOTAL 0.4 MG/DL (0.3-1.2); BLOOD UREA NITROGEN 10 MG/DL (9-23); CARBON DIOXIDE LEVEL 28 MMOL/L (20-31); CHLORIDE LEVEL 105 MMOL/L (98-107); CHOLESTEROL LEVEL 204 MG/DL (<200); CHOLESTEROL RISK RATIO 3.93 (<5); CREATININE FOR GFR 0.64 MG/DL (0.55-1.30); GLOMERULAR FILTRATION RATE > 60.0 (>51); GLUCOSE, FASTING 93 MG/DL (60-100); HDL CHOLESTEROL 51.8 MG/DL (>40); LDL CHOLESTEROL 124.6 MG/DL (<100); NON-HDL-C 152.2 MG/DL; POTASSIUM SERUM 4.3 MMOL/L (3.5-5.1); SODIUM LEVEL 139 MMOL/L (136-145); THYROID STIMULATING HORMONE 1.431 uIU/ML (0.55-4.78); TOTAL PROTEIN 6.8 G/DL (5.7-8.2); TRIGLYCERIDES LEVEL 138 MG/DL (<150); VITAMIN B12 LEVEL 533 PG/ML (211-911)
[2022-06-03 19:15] LABS: HEMOGLOBIN A1c 5.3 % (4.0-6.0)
[2022-06-03 19:22] LABS: FOLATE 15.86 NG/ML (>5.4)
== END ==
LOC: M SFHCCLAY 11:19
PROVIDERS: ATTEND Family Medicine
DX: R00.2 Palpitations (principal); I10 Essential (primary) hypertension; R73.01 Impaired fasting glucose; R19.7 Diarrhea, unspecified; E78.2 Mixed hyperlipidemia; R39.15 Urgency of urination

== ENCOUNTER → 2022-06-15 | Outpatient (REF) | payer MEDICARE, MEDICAID | LOC: M SFHCCAPE 11:37 | PROVIDERS: ATTEND Physician Assistant | DX: R30.0 Dysuria (principal) ==

== ENCOUNTER → 2022-06-17 | Outpatient (REF) | payer MEDICARE, MEDICAID | LOC: M SFHCCAPE 09:46 | PROVIDERS: ATTEND Physician Assistant | DX: R19.7 Diarrhea, unspecified (principal) ==

== ENCOUNTER → 2022-07-01 | Outpatient (REF) | payer MEDICARE, MEDICAID | LOC: M PLALAB 14:01 | PROVIDERS: ATTEND Obstetrics & Gynecology | DX: N94.9 Unspecified condition associated with female genital organs and menstrual cycle (principal) ==

== ENCOUNTER → 2022-07-05 | Outpatient (REF) | payer MEDICARE, MEDICAID | LOC: M SFHCCLAY 10:53 | PROVIDERS: ATTEND Family Medicine | DX: R39.15 Urgency of urination (principal) ==

== ENCOUNTER → 2022-07-07 | Outpatient (REF) | payer MEDICARE, MEDICAID ==
[2022-07-07 18:14] LABS: BASO % 0.6 % (0.0-1.0); EOS # 0.1 10^3/uL (0.0-0.5); EOS % 1.4 % (0.0-3.0); HEMATOCRIT 46.6 % (36.0-47.0); HEMOGLOBIN 15.8 g/dl (12.0-15.5); LYMPH # 2.1 10^3/uL (1.5-5.0); LYMPH % 29.1 % (24.0-44.0); MEAN CORPUSCULAR HEMOGLOBIN 32.4 pg (27.0-33.0); MEAN CORPUSCULAR HGB CONC 33.9 g/dl (32.0-36.5); MEAN CORPUSCULAR VOLUME 95.7 fl (80.0-96.0); MONO # 0.5 10^3/uL (0.0-0.8); MONO % 7.1 % (2.0-8.0); NEUTROPHILS # 4.4 10^3/uL (1.5-8.5); NEUTROPHILS % 61.4 % (36.0-66.0); PLATELET COUNT, AUTOMATED 331 10^3/uL (150-450); RED BLOOD COUNT 4.87 10^6/uL (4.00-5.40); WHITE BLOOD COUNT 7.2 10^3/uL (4.0-10.0)
[2022-07-07 18:29] LABS: ALBUMIN 4.4 G/DL (3.2-5.2); ALKALINE PHOSPHATASE 73 U/L (46-116); ALT/SGPT 24 U/L (7.0-40); AST/SGOT 25 U/L (<34); BILIRUBIN,TOTAL 0.5 MG/DL (0.3-1.2); BLOOD UREA NITROGEN 9 MG/DL (9-23); CALCIUM LEVEL 10.3 MG/DL (8.5-10.1); CARBON DIOXIDE LEVEL 27 MMOL/L (20-31); CHLORIDE LEVEL 104 MMOL/L (98-107); CREATININE FOR GFR 0.71 MG/DL (0.55-1.30); GLOMERULAR FILTRATION RATE > 60.0 (>51); GLUCOSE, FASTING 85 MG/DL (60-100); POTASSIUM SERUM 4.7 MMOL/L (3.5-5.1); SODIUM LEVEL 140 MMOL/L (136-145); TOTAL PROTEIN 7.3 G/DL (5.7-8.2)
== END ==
LOC: M SFHCCAPE 10:13
PROVIDERS: ATTEND Physician Assistant
DX: R30.0 Dysuria (principal); R21 Rash and other nonspecific skin eruption

== ENCOUNTER 2022-07-15 20:32 | Emergency (ER) | payer MEDICARE, OTHER ==
[~2022-07-15] VITALS: Ht 160 cm; Wt 90.9 kg
[2022-07-15 21:56] LABS: BASO % 0.5 % (0.0-1.0); EOS # 0.1 10^3/uL (0.0-0.5); EOS % 1.3 % (0.0-3.0); HEMATOCRIT 41.4 % (36.0-47.0); HEMOGLOBIN 14.7 g/dl (12.0-15.5); LYMPH # 2.4 10^3/uL (1.5-5.0); LYMPH % 31.4 % (24.0-44.0); MEAN CORPUSCULAR HEMOGLOBIN 32.5 pg (27.0-33.0); MEAN CORPUSCULAR HGB CONC 35.5 g/dl (32.0-36.5); MEAN CORPUSCULAR VOLUME 91.4 fl (80.0-96.0); MONO # 0.7 10^3/uL (0.0-0.8); NEUTROPHILS # 4.5 10^3/uL (1.5-8.5); NEUTROPHILS % 57.7 % (36.0-66.0); PLATELET COUNT, AUTOMATED 280 10^3/uL (150-450); RED BLOOD COUNT 4.53 10^6/uL (4.00-5.40); WHITE BLOOD COUNT 7.8 10^3/uL (4.0-10.0)
[2022-07-15] MEDS ORDERED: NORCO, ANEXSIA 5/325MG TABLET (HYDROcodone/ACETAMINOPHEN) PO ONE (22:15)
[2022-07-15] MEDS ORDERED: LORazepam 2 MG/ML 1ML VIAL IV STA (22:15)
[2022-07-15 22:31] LABS: LIPASE 38 U/L (12-53)
[2022-07-15 22:34] LABS: ALBUMIN 4.4 G/DL (3.2-5.2); ALKALINE PHOSPHATASE 68 U/L (46-116); ALT/SGPT 18 U/L (7.0-40); AST/SGOT 17 U/L (<34); BILIRUBIN,DIRECT 0.1 MG/DL (<0.4); BILIRUBIN,TOTAL 0.4 MG/DL (0.3-1.2); BLOOD UREA NITROGEN 7 MG/DL (9-23); CALCIUM LEVEL 9.6 MG/DL (8.5-10.1); CARBON DIOXIDE LEVEL 25 MMOL/L (20-31); CHLORIDE LEVEL 105 MMOL/L (98-107); CREATININE FOR GFR 0.61 MG/DL (0.55-1.30); GLOMERULAR FILTRATION RATE > 60.0 (>51); GLUCOSE, FASTING 97 MG/DL (60-100); POTASSIUM SERUM 3.8 MMOL/L (3.5-5.1); SODIUM LEVEL 137 MMOL/L (136-145); TOTAL PROTEIN 6.8 G/DL (5.7-8.2)
[2022-07-15 22:36] LABS: FREE T4 1.32 NG/DL (0.89-1.76); THYROID STIMULATING HORMONE 2.441 uIU/ML (0.55-4.78)
[2022-07-16 00:38] LABS: APPEARANCE, URINE CLEAR (CLEAR); BACTERIA, URINE AUTO NEGATIVE (NEGATIVE); BILIRUBIN, URINE AUTO NEGATIVE (NEGATIVE); BLOOD, URINE BLOOD 1+ (NEGATIVE); COLOR, URINE STRAW (YELLOW); GLUCOSE, URINE (UA) AUTO NEGATIVE (NEGATIVE); KETONE, URINE AUTO NEGATIVE (NEGATIVE); LEUKOCYTE ESTERASE, URINE AUTO NEGATIVE (NEGATIVE); NITRITE, URINE AUTO NEGATIVE (NEGATIVE); PROTEIN, URINE AUTO NEGATIVE (NEGATIVE); RBC, URINE AUTO 0 /HPF (0-3); SPECIFIC GRAVITY URINE AUTO 1.004 (1.002-1.035); SQUAMOUS EPITHELIAL CELL UR AU 1 /HPF (0-6); UROBILINOGEN, URINE AUTO 0.2 mg/dL (0.0-2.0); WBC, URINE AUTO 0 /HPF (0-3)
[2022-07-16 00:45] VITALS: BP 207/102
[2022-07-16] MEDS ORDERED: clonazePAM 0.5 MG TAB PO ONE (01:10)
[2022-07-16] MEDS ORDERED: KLON0.5T PO (01:15)
== END 2022-07-16 01:38 | disposition home or self-care (01) ==
LOC: M ED 20:32
DX: I10 Essential (primary) hypertension (principal); F41.1 Generalized anxiety disorder; K58.9 Irritable bowel syndrome, unspecified; D05.10 Intraductal carcinoma in situ of unspecified breast; Z88.2 Allergy status to sulfonamides; Z88.8 Allergy status to other drugs, medicaments and biological substances; Z79.51 Long term (current) use of inhaled steroids; Z79.899 Other long term (current) drug therapy
CPT/HCPCS: 71045; 80048; 80076; 81001; 83690; 83880; 84439; 84443; 85025; 93005; 93041; 94760; 96374; 99285; J2060

== ENCOUNTER → 2022-07-19 | Outpatient (REF) | payer MEDICARE, MEDICAID ==
[~2022-07-19] MED LIST changes: +KLON0.5T PO
== END ==
LOC: M SFHCCLAY 10:48
PROVIDERS: ATTEND Physician Assistant
DX: R35.0 Frequency of micturition (principal)

== ENCOUNTER → 2022-07-25 | Outpatient (CLI) | payer MEDICARE, MEDICAID | LOC: M CLY 11:26 | PROVIDERS: ATTEND Family Medicine | DX: K58.2 Mixed irritable bowel syndrome (principal) ==

== ENCOUNTER → 2022-07-25 | Outpatient (REF) | payer MEDICARE, MEDICAID ==
[~2022-07-25] MED LIST changes: +CLON0.1D3; +MYLA1SUS PO; +PERC5TAB12 PO
== END ==
LOC: M SFHCCLAY 11:32
PROVIDERS: ATTEND Family Medicine
DX: R39.15 Urgency of urination (principal)

== ENCOUNTER 2022-07-28 19:51 | Emergency (ER) | payer OTHER, MEDICARE ==
[~2022-07-28] VITALS: Ht 160 cm; Wt 87.8 kg
[~2022-07-28 19:51] MED LIST changes: -CLON0.1D3; -MYLA1SUS PO; -PERC5TAB12 PO
[2022-07-28] MEDS ORDERED: MYLA1SUS PO (20:01)
[2022-07-28] MEDS ORDERED: CLON0.1D3 (20:01)
[2022-07-29] MEDS ORDERED: PERCOCET 5MG/325MG TAB PO ONE
[2022-07-29] MEDS ORDERED: cloNIDine 0.1MG TABLET PO ONE
[2022-07-29] MEDS ORDERED: hydrALAZINE 20MG/ML 1ML VIAL IV ONE
[2022-07-29] MEDS ORDERED: NS 500 ML IV ONE
[2022-07-29] MEDS ORDERED: diazePAM 10MG/2ML SYRINGE IM ONE
[2022-07-29 00:13] VITALS: BP 222/102
[2022-07-29 02:00] VITALS: BP 173/81
[2022-07-29] MEDS ORDERED: PERC5TAB12 PO (02:14)
== END 2022-07-29 02:38 | disposition home or self-care (01) ==
LOC: M ED 19:51
DX: M54.12 Radiculopathy, cervical region (principal); M62.830 Muscle spasm of back; I10 Essential (primary) hypertension; K21.9 Gastro-esophageal reflux disease without esophagitis; F32.A Depression, unspecified; M54.50 Low back pain, unspecified; F17.200 Nicotine dependence, unspecified, uncomplicated; Z88.1 Allergy status to other antibiotic agents; Z88.2 Allergy status to sulfonamides; Z88.8 Allergy status to other drugs, medicaments and biological substances; Z79.52 Long term (current) use of systemic steroids; Z79.83 Long term (current) use of bisphosphonates; Z79.899 Other long term (current) drug therapy
CPT/HCPCS: 72125; 96361; 96372; 96374; 99284; J0360; J3360

== ENCOUNTER → 2022-08-04 | Outpatient (REF) | payer MEDICARE, MEDICAID ==
[~2022-08-04] MED LIST changes: +CLON0.1D3; +MYLA1SUS PO; +PERC5TAB12 PO
[2022-08-04 17:28] LABS: BASO % 0.7 % (0.0-1.0); EOS % 0.5 % (0.0-3.0); HEMATOCRIT 45.6 % (36.0-47.0); HEMOGLOBIN 15.6 g/dl (12.0-15.5); LYMPH # 1.8 10^3/uL (1.5-5.0); LYMPH % 31.3 % (24.0-44.0); MEAN CORPUSCULAR HEMOGLOBIN 32.1 pg (27.0-33.0); MEAN CORPUSCULAR HGB CONC 34.2 g/dl (32.0-36.5); MEAN CORPUSCULAR VOLUME 93.8 fl (80.0-96.0); MONO # 0.5 10^3/uL (0.0-0.8); MONO % 7.9 % (2.0-8.0); NEUTROPHILS # 3.5 10^3/uL (1.5-8.5); NEUTROPHILS % 59.4 % (36.0-66.0); PLATELET COUNT, AUTOMATED 298 10^3/uL (150-450); RED BLOOD COUNT 4.86 10^6/uL (4.00-5.40); WHITE BLOOD COUNT 5.8 10^3/uL (4.0-10.0)
[2022-08-04 17:44] LABS: LIPASE 37 U/L (12-53)
[2022-08-04 17:50] LABS: ALBUMIN 4.5 G/DL (3.2-5.2); ALKALINE PHOSPHATASE 70 U/L (46-116); ALT/SGPT 27 U/L (7.0-40); AST/SGOT 20 U/L (<34); BILIRUBIN,TOTAL 0.4 MG/DL (0.3-1.2); BLOOD UREA NITROGEN 7 MG/DL (9-23); CALCIUM LEVEL 10.1 MG/DL (8.5-10.1); CARBON DIOXIDE LEVEL 27 MMOL/L (20-31); CHLORIDE LEVEL 103 MMOL/L (98-107); CREATININE FOR GFR 0.68 MG/DL (0.55-1.30); GLOMERULAR FILTRATION RATE > 60.0 (>51); GLUCOSE, FASTING 95 MG/DL (60-100); POTASSIUM SERUM 3.8 MMOL/L (3.5-5.1); SODIUM LEVEL 139 MMOL/L (136-145); TOTAL PROTEIN 6.9 G/DL (5.7-8.2)
== END ==
LOC: M SFHCCLAY 15:09
PROVIDERS: ATTEND Physician Assistant Medical
DX: R10.13 Epigastric pain (principal)

== ENCOUNTER → 2022-08-06 | Outpatient (REF) | payer MEDICARE, MEDICAID | LOC: M LAB REF 12:29 | PROVIDERS: ATTEND Physician Assistant Medical | DX: R10.13 Epigastric pain (principal) ==

== ENCOUNTER → 2022-09-01 | Outpatient (CLI) | payer OTHER ==
[~2022-09-01] MED LIST changes: -ROSU20TA5 PO; +ROSU20TA61 PO
== END ==
LOC: M PLAIMG 06:52
PROVIDERS: ATTEND Physician Assistant Medical
DX: M54.2 Cervicalgia (principal)

== ENCOUNTER → 2022-09-05 | Outpatient (REF) | payer MEDICARE, MEDICAID ==
[2022-09-05 13:30] LABS: APPEARANCE, URINE CLEAR (CLEAR); BACTERIA, URINE AUTO NEGATIVE (NEGATIVE); BILIRUBIN, URINE AUTO NEGATIVE (NEGATIVE); BLOOD, URINE BLOOD NEGATIVE (NEGATIVE); COLOR, URINE YELLOW (YELLOW); GLUCOSE, URINE (UA) AUTO NEGATIVE (NEGATIVE); KETONE, URINE AUTO NEGATIVE (NEGATIVE); LEUKOCYTE ESTERASE, URINE AUTO NEGATIVE (NEGATIVE); NITRITE, URINE AUTO NEGATIVE (NEGATIVE); PROTEIN, URINE AUTO NEGATIVE (NEGATIVE); RBC, URINE AUTO 0 /HPF (0-3); SPECIFIC GRAVITY URINE AUTO 1.004 (1.002-1.035); SQUAMOUS EPITHELIAL CELL UR AU 2 /HPF (0-6); UROBILINOGEN, URINE AUTO 0.2 mg/dL (0.0-2.0); WBC, URINE AUTO 0 /HPF (0-3)
== END ==
LOC: M SMT 12:46
PROVIDERS: ATTEND Physician Assistant
DX: R39.9 Unspecified symptoms and signs involving the genitourinary system (principal)

== ENCOUNTER → 2022-09-12 | Outpatient (REF) | payer MEDICARE, MEDICAID | LOC: M SFHCWAGY 10:06 | PROVIDERS: ATTEND Nurse Practitioner Family | DX: N73.9 Female pelvic inflammatory disease, unspecified (principal) ==

== ENCOUNTER → 2022-09-17 | Outpatient (REF) | payer MEDICARE, OTHER | LOC: M LAB REF 11:55 | PROVIDERS: ATTEND Family Medicine | DX: K58.2 Mixed irritable bowel syndrome (principal) ==

== ENCOUNTER → 2022-09-20 | Outpatient (CLI) | payer MEDICARE, OTHER | LOC: M RAD 09:31 | PROVIDERS: ATTEND Nurse Practitioner Family | DX: R10.2 Pelvic and perineal pain (principal) ==

== ENCOUNTER → 2022-09-20 | Outpatient (CLI) | payer MEDICARE, OTHER | LOC: M RAD 09:29 | PROVIDERS: ATTEND Internal Medicine Pulmonary Disease | DX: Z12.2 Encounter for screening for malignant neoplasm of respiratory organs (principal); F17.218 Nicotine dependence, cigarettes, with other nicotine-induced disorders ==

== ENCOUNTER → 2022-09-26 | Outpatient (REF) | payer MEDICARE, MEDICAID ==
[2022-09-26 18:05] LABS: HEMATOCRIT 45.8 % (36.0-47.0); HEMOGLOBIN 15.5 g/dl (12.0-15.5); MEAN CORPUSCULAR HEMOGLOBIN 31.1 pg (27.0-33.0); MEAN CORPUSCULAR HGB CONC 33.8 g/dl (32.0-36.5); PLATELET COUNT, AUTOMATED 249 10^3/uL (150-450); RED BLOOD COUNT 4.98 10^6/uL (4.00-5.40); WHITE BLOOD COUNT 5.4 10^3/uL (4.0-10.0)
[2022-09-26 18:32] LABS: C REACTIVE PROTEIN QUANTITATIV < 0.40 MG/DL (<1.0)
[2022-09-26 18:35] LABS: ALBUMIN 4.1 G/DL (3.2-5.2); ALKALINE PHOSPHATASE 83 U/L (46-116); ALT/SGPT 21 U/L (7.0-40); AST/SGOT 16 U/L (<34); BILIRUBIN,TOTAL 0.6 MG/DL (0.3-1.2); BLOOD UREA NITROGEN 11 MG/DL (9-23); CALCIUM LEVEL 9.7 MG/DL (8.5-10.1); CARBON DIOXIDE LEVEL 26 MMOL/L (20-31); CHLORIDE LEVEL 106 MMOL/L (98-107); GLOMERULAR FILTRATION RATE > 60.0 (>51); GLUCOSE, FASTING 93 MG/DL (60-100); MAGNESIUM LEVEL 1.9 MG/DL (1.8-2.4); POTASSIUM SERUM 4.4 MMOL/L (3.5-5.1); SODIUM LEVEL 140 MMOL/L (136-145); TOTAL PROTEIN 6.6 G/DL (5.7-8.2)
[2022-09-26 19:01] LABS: ERYTHROCYTE SEDIMENTATION RATE 15 mm/hr (0-30)
== END ==
LOC: M SFHCCLAY 09:40
PROVIDERS: ATTEND Family Medicine
DX: R63.4 Abnormal weight loss (principal); K21.9 Gastro-esophageal reflux disease without esophagitis; I10 Essential (primary) hypertension; R19.5 Other fecal abnormalities

== ENCOUNTER 2022-10-02 19:51 | Emergency (ER) | payer MEDICARE, OTHER ==
[~2022-10-02] VITALS: Ht 160 cm; Wt 76.7 kg
[~2022-10-02 19:51] MED LIST changes: +OMEP40CA5
[2022-10-02] MEDS ORDERED: MILKSUS3 PO (20:10)
[2022-10-02 20:35] LABS: BASO % 0.4 % (0.0-1.0); EOS % 0.3 % (0.0-3.0); HEMATOCRIT 42.9 % (36.0-47.0); HEMOGLOBIN 15.3 g/dl (12.0-15.5); LYMPH # 1.7 10^3/uL (1.5-5.0); LYMPH % 24.6 % (24.0-44.0); MEAN CORPUSCULAR HGB CONC 35.7 g/dl (32.0-36.5); MEAN CORPUSCULAR VOLUME 89.7 fl (80.0-96.0); MONO # 0.5 10^3/uL (0.0-0.8); MONO % 6.6 % (2.0-8.0); NEUTROPHILS # 4.6 10^3/uL (1.5-8.5); NEUTROPHILS % 67.8 % (36.0-66.0); PLATELET COUNT, AUTOMATED 255 10^3/uL (150-450); RED BLOOD COUNT 4.78 10^6/uL (4.00-5.40); WHITE BLOOD COUNT 6.8 10^3/uL (4.0-10.0)
[2022-10-02 21:08] LABS: LIPASE 36 U/L (12-53)
[2022-10-02 21:11] LABS: ALBUMIN 4.3 G/DL (3.2-5.2); ALKALINE PHOSPHATASE 86 U/L (46-116); ALT/SGPT 18 U/L (7.0-40); AST/SGOT 16 U/L (<34); BILIRUBIN,DIRECT 0.1 MG/DL (<0.4); BILIRUBIN,TOTAL 0.5 MG/DL (0.3-1.2); BLOOD UREA NITROGEN 9 MG/DL (9-23); CALCIUM LEVEL 9.7 MG/DL (8.5-10.1); CARBON DIOXIDE LEVEL 22 MMOL/L (20-31); CHLORIDE LEVEL 100 MMOL/L (98-107); CREATININE FOR GFR 0.53 MG/DL (0.55-1.30); GLOMERULAR FILTRATION RATE > 60.0 (>51); GLUCOSE, FASTING 111 MG/DL (60-100); POTASSIUM SERUM 3.5 MMOL/L (3.5-5.1); SODIUM LEVEL 133 MMOL/L (136-145); TOTAL PROTEIN 6.9 G/DL (5.7-8.2)
[2022-10-02 22:55] VITALS: BP 160/90; TEMP 97.7; O2SAT 98
== END 2022-10-03 03:25 | disposition left against medical advice (07) ==
LOC: M ED 19:51
DX: R19.7 Diarrhea, unspecified (principal); Z53.21 Procedure and treatment not carried out due to patient leaving prior to being seen by health care provider

== ENCOUNTER → 2022-10-10 | Outpatient (RCR) | payer MEDICARE, OTHER ==
[~2022-10-10] MED LIST changes: +MILKSUS3 PO
== END | disposition still patient (30) ==
LOC: M PT 09:52
PROVIDERS: ATTEND Internal Medicine Medical Oncology
DX: I89.0 Lymphedema, not elsewhere classified (principal)

== ENCOUNTER → 2022-10-13 | Outpatient (CLI) | payer MEDICARE, OTHER ==
[2022-10-13 09:00] LABS: BLOOD UREA NITROGEN 8 MG/DL (9-23); CREATININE FOR GFR 0.63 MG/DL (0.55-1.30); GLOMERULAR FILTRATION RATE > 60.0 (>51)
== END ==
LOC: M LAB 08:01
PROVIDERS: ATTEND Internal Medicine Gastroenterology
DX: R19.4 Change in bowel habit (principal)

== ENCOUNTER → 2022-10-17 | Outpatient (CLI) | payer MEDICARE, OTHER ==
[~2022-10-17] MED LIST changes: +GLUCAGON INJ 1MG VIAL As Ordered ONE; +ISOVUE-370 76% 100ML VIAL As Ordered ONE; +NEULUMEX 0.1% SUSPENSION 450ML BOTTLE (FORMERLY VOLUMEN) As Ordered ONE
== END ==
LOC: M RAD 06:58
PROVIDERS: ATTEND Internal Medicine Gastroenterology
DX: K50.919 Crohn's disease, unspecified, with unspecified complications (principal); R16.0 Hepatomegaly, not elsewhere classified; D35.01 Benign neoplasm of right adrenal gland; D35.02 Benign neoplasm of left adrenal gland
CPT/HCPCS: 74177; J1610; Q9967

== ENCOUNTER → 2022-10-18 | Outpatient (REF) | payer MEDICARE, OTHER, MEDICAID ==
[~2022-10-18] MED LIST changes: -GLUCAGON INJ 1MG VIAL As Ordered ONE; -ISOVUE-370 76% 100ML VIAL As Ordered ONE; -NEULUMEX 0.1% SUSPENSION 450ML BOTTLE (FORMERLY VOLUMEN) As Ordered ONE
== END ==
LOC: M SFHCWAGY 10:20
PROVIDERS: ATTEND Nurse Practitioner Family
DX: N73.9 Female pelvic inflammatory disease, unspecified (principal); R39.89 Other symptoms and signs involving the genitourinary system

== ENCOUNTER → 2022-10-22 | Outpatient (REF) | payer MEDICARE, OTHER, MEDICAID | LOC: M SFHCCLAY 13:29 | PROVIDERS: ATTEND Family Medicine | DX: K58.2 Mixed irritable bowel syndrome (principal); R19.7 Diarrhea, unspecified ==

== ENCOUNTER 2022-11-10 11:30 | Day surgery (SDC) | payer MEDICARE, OTHER ==
[~2022-11-10] VITALS: Ht 160 cm; Wt 72.0 kg
[~2022-11-10 11:30] MED LIST changes: +LIDO1PAD TOP; +NS 1,000 ML IV ONE; -OMEP40CA5; +OMEP40CA5 PO
[2022-11-10] MEDS ORDERED: fentaNYL 100 MCG/2 ML INJECTION As Ordered ONE (13:13)
[2022-11-10] MEDS ORDERED: propofoL 200 MG/20 ML VIAL As Ordered ONE ×3 (13:16→13:36)
[2022-11-10] MEDS ORDERED: GLYCOPYRROLATE INJ 0.2 MG/ML 2 ML VIAL As Ordered ONE (13:24)
[2022-11-10 14:00] VITALS: TEMP 97.2
[2022-11-10 14:18] VITALS: BP 136/68; O2SAT 96
== END 2022-11-10 14:18 | disposition home or self-care (01) ==
LOC: M OPP 11:30
PROVIDERS: ATTEND Internal Medicine Gastroenterology
DX: K57.30 Diverticulosis of large intestine without perforation or abscess without bleeding (principal); K64.8 Other hemorrhoids; D12.2 Benign neoplasm of ascending colon; D12.4 Benign neoplasm of descending colon; K63.5 Polyp of colon; K29.80 Duodenitis without bleeding; K29.50 Unspecified chronic gastritis without bleeding; K63.9 Disease of intestine, unspecified; Z79.52 Long term (current) use of systemic steroids; Z79.899 Other long term (current) drug therapy; Z88.1 Allergy status to other antibiotic agents; Z88.2 Allergy status to sulfonamides; Z88.5 Allergy status to narcotic agent; Z88.8 Allergy status to other drugs, medicaments and biological substances
CPT/HCPCS: 43239; 45380; 45385; 88305; J3010

== ENCOUNTER → 2022-11-25 | Outpatient (CLI) | payer MEDICARE, OTHER ==
[~2022-11-25] MED LIST changes: +MECL-209 PO; -MECL1TAB31 PO; -NS 1,000 ML IV ONE
== END ==
LOC: M ONCR 09:52
PROVIDERS: ATTEND General Practice
DX: C50.412 Malignant neoplasm of upper-outer quadrant of left female breast (principal); R63.4 Abnormal weight loss; F17.210 Nicotine dependence, cigarettes, uncomplicated; Z71.2 Person consulting for explanation of examination or test findings; Z88.1 Allergy status to other antibiotic agents; Z88.2 Allergy status to sulfonamides; Z88.8 Allergy status to other drugs, medicaments and biological substances; Z92.3 Personal history of irradiation; Z98.890 Other specified postprocedural states

== ENCOUNTER → 2022-11-28 | Outpatient (REF) | payer MEDICARE, MEDICAID ==
[2022-11-28 20:34] LABS: HEMATOCRIT 44.5 % (36.0-47.0); HEMOGLOBIN 15.2 g/dl (12.0-15.5); MEAN CORPUSCULAR HEMOGLOBIN 31.7 pg (27.0-33.0); MEAN CORPUSCULAR HGB CONC 34.2 g/dl (32.0-36.5); MEAN CORPUSCULAR VOLUME 92.9 fl (80.0-96.0); PLATELET COUNT, AUTOMATED 276 10^3/uL (150-450); RED BLOOD COUNT 4.79 10^6/uL (4.00-5.40); WHITE BLOOD COUNT 5.6 10^3/uL (4.0-10.0)
[2022-11-28 20:48] LABS: ERYTHROCYTE SEDIMENTATION RATE 23 mm/hr (0-30)
[2022-11-28 21:08] LABS: ALBUMIN 4.2 G/DL (3.2-5.2); ALKALINE PHOSPHATASE 105 U/L (46-116); ALT/SGPT 22 U/L (7.0-40); AST/SGOT 20 U/L (<34); BILIRUBIN,TOTAL 0.3 MG/DL (0.3-1.2); BLOOD UREA NITROGEN 9 MG/DL (9-23); CALCIUM LEVEL 9.6 MG/DL (8.5-10.1); CARBON DIOXIDE LEVEL 29 MMOL/L (20-31); CHLORIDE LEVEL 106 MMOL/L (98-107); CREATININE FOR GFR 0.61 MG/DL (0.55-1.30); GLOMERULAR FILTRATION RATE > 60.0 (>51); GLUCOSE, FASTING 94 MG/DL (60-100); POTASSIUM SERUM 3.8 MMOL/L (3.5-5.1); SODIUM LEVEL 141 MMOL/L (136-145); TOTAL PROTEIN 6.9 G/DL (5.7-8.2)
[2022-11-28 21:55] LABS: RHEUMATOID FACTOR QUANT < 3.5 IU/ML (<14)
== END ==
LOC: M SFHCCLAY 14:13
PROVIDERS: ATTEND Family Medicine
DX: R63.4 Abnormal weight loss (principal); M54.12 Radiculopathy, cervical region; M54.6 Pain in thoracic spine

== ENCOUNTER → 2022-11-30 | Outpatient (CLI) | payer MEDICARE, MEDICAID | LOC: M CLY 10:41 | PROVIDERS: ATTEND Family Medicine | DX: M53.3 Sacrococcygeal disorders, not elsewhere classified (principal) ==

== ENCOUNTER → 2022-12-16 | Outpatient (CLI) | payer MEDICARE, OTHER | LOC: M ONCR 09:46 | PROVIDERS: ATTEND General Practice | DX: C50.412 Malignant neoplasm of upper-outer quadrant of left female breast (principal); F17.210 Nicotine dependence, cigarettes, uncomplicated; Z92.3 Personal history of irradiation; Z88.1 Allergy status to other antibiotic agents; Z88.2 Allergy status to sulfonamides; Z88.8 Allergy status to other drugs, medicaments and biological substances ==

== ENCOUNTER → 2023-02-28 | Outpatient (REF) | payer OTHER, MEDICAID ==
[~2023-02-28] MED LIST changes: +DICY-61 PO
[2023-02-28 13:21] LABS: APPEARANCE, URINE CLEAR (CLEAR); BACTERIA, URINE AUTO NEGATIVE (NEGATIVE); BILIRUBIN, URINE AUTO NEGATIVE (NEGATIVE); BLOOD, URINE BLOOD NEGATIVE (NEGATIVE); COLOR, URINE YELLOW (YELLOW); GLUCOSE, URINE (UA) AUTO NEGATIVE (NEGATIVE); KETONE, URINE AUTO NEGATIVE (NEGATIVE); LEUKOCYTE ESTERASE, URINE AUTO NEGATIVE (NEGATIVE); NITRITE, URINE AUTO NEGATIVE (NEGATIVE); PROTEIN, URINE AUTO NEGATIVE (NEGATIVE); RBC, URINE AUTO 0 /HPF (0-3); SPECIFIC GRAVITY URINE AUTO 1.019 (1.002-1.035); SQUAMOUS EPITHELIAL CELL UR AU 1 /HPF (0-6); WBC, URINE AUTO 0 /HPF (0-3)
== END ==
LOC: M SMT 12:56
PROVIDERS: ATTEND Physician Assistant
DX: N89.8 Other specified noninflammatory disorders of vagina (principal)

== ENCOUNTER → 2023-03-03 | Outpatient (REF) | payer MEDICARE, OTHER, MEDICAID | LOC: M PLALAB 13:32 | PROVIDERS: ATTEND Advanced Practice Midwife | DX: N95.0 Postmenopausal bleeding (principal) ==

== ENCOUNTER 2023-03-22 08:56 | Outpatient (RCR) | payer MEDICARE, OTHER ==
[~2023-03-22 08:56] MED LIST changes: +IRBE150T27 PO; -IRBE150T7 PO
== END 2023-04-12 ==
LOC: M PT 08:56
PROVIDERS: ATTEND Internal Medicine Medical Oncology
DX: I89.0 Lymphedema, not elsewhere classified (principal)

== ENCOUNTER → 2023-03-23 | Outpatient (CLI) | payer MEDICARE ==
[~2023-03-23] MED LIST changes: -IRBE150T27 PO; +IRBE150T7 PO
== END ==
LOC: M WHC 10:14
PROVIDERS: ATTEND Advanced Practice Midwife
DX: D25.9 Leiomyoma of uterus, unspecified (principal)

== ENCOUNTER → 2023-04-12 | Outpatient (REF) | payer MEDICARE, OTHER, MEDICAID ==
[~2023-04-12] MED LIST changes: +IRBE150T27 PO; -IRBE150T7 PO
== END ==
LOC: M SFHCWAGY 17:52
PROVIDERS: ATTEND Advanced Practice Midwife
DX: N95.0 Postmenopausal bleeding (principal)

== ENCOUNTER → 2023-04-20 | Outpatient (REF) | payer MEDICARE, OTHER, MEDICAID ==
[2023-04-20 12:28] LABS: BASO % 0.6 % (0.0-1.0); EOS # 0.1 10^3/uL (0.0-0.5); EOS % 1.5 % (0.0-3.0); HEMATOCRIT 44.9 % (36.0-47.0); HEMOGLOBIN 15.5 g/dl (12.0-15.5); LYMPH # 2.2 10^3/uL (1.5-5.0); MEAN CORPUSCULAR HEMOGLOBIN 31.8 pg (27.0-33.0); MEAN CORPUSCULAR HGB CONC 34.5 g/dl (32.0-36.5); MEAN CORPUSCULAR VOLUME 92.2 fl (80.0-96.0); MONO # 0.5 10^3/uL (0.0-0.8); NEUTROPHILS # 2.5 10^3/uL (1.5-8.5); NEUTROPHILS % 46.5 % (36.0-66.0); PLATELET COUNT, AUTOMATED 273 10^3/uL (150-450); RED BLOOD COUNT 4.87 10^6/uL (4.00-5.40); WHITE BLOOD COUNT 5.4 10^3/uL (4.0-10.0)
[2023-04-20 12:47] LABS: HEMOGLOBIN A1c 5.3 % (4.0-6.0)
[2023-04-20 13:00] LABS: ALBUMIN 3.6 G/DL (3.2-5.2); ALKALINE PHOSPHATASE 85 U/L (46-116); ALT/SGPT 20 U/L (7.0-40); AST/SGOT 15 U/L (<34); BILIRUBIN,TOTAL 0.5 MG/DL (0.3-1.2); BLOOD UREA NITROGEN 11 MG/DL (9-23); CALCIUM LEVEL 9.4 MG/DL (8.5-10.1); CARBON DIOXIDE LEVEL 29 MMOL/L (20-31); CHLORIDE LEVEL 107 MMOL/L (98-107); CHOLESTEROL LEVEL 194 MG/DL (<200); CHOLESTEROL RISK RATIO 3.35 (<5); GLOMERULAR FILTRATION RATE > 60.0 (>51); GLUCOSE, FASTING 94 MG/DL (60-100); HDL CHOLESTEROL 57.9 MG/DL (>40); LDL CHOLESTEROL 109.3 MG/DL (<100); MAGNESIUM LEVEL 1.9 MG/DL (1.8-2.4); NON-HDL-C 136.1 MG/DL; POTASSIUM SERUM 4.3 MMOL/L (3.5-5.1); SODIUM LEVEL 140 MMOL/L (136-145); TOTAL PROTEIN 6.4 G/DL (5.7-8.2); TRIGLYCERIDES LEVEL 134 MG/DL (<150)
== END ==
LOC: M SFHCCLAY 08:24
PROVIDERS: ATTEND Family Medicine
DX: I10 Essential (primary) hypertension (principal); K21.9 Gastro-esophageal reflux disease without esophagitis; R73.01 Impaired fasting glucose; D35.00 Benign neoplasm of unspecified adrenal gland

== ENCOUNTER → 2023-05-01 | Outpatient (CLI) | payer MEDICARE, OTHER ==
[~2023-05-01] MED LIST changes: -KLON0.5T PO; +KLON0.5T8 PO
== END ==
LOC: M RAD 11:26
PROVIDERS: ATTEND Internal Medicine Rheumatology
DX: M46.1 Sacroiliitis, not elsewhere classified (principal); M19.041 Primary osteoarthritis, right hand; M19.042 Primary osteoarthritis, left hand; M19.071 Primary osteoarthritis, right ankle and foot; M19.072 Primary osteoarthritis, left ankle and foot; R76.8 Other specified abnormal immunological findings in serum; M25.50 Pain in unspecified joint; L65.9 Nonscarring hair loss, unspecified; Z72.0 Tobacco use; R63.4 Abnormal weight loss

== ENCOUNTER → 2023-05-03 | Outpatient (CLI) | payer MEDICARE, OTHER | LOC: M WHC 07:26 | PROVIDERS: ATTEND Nurse Practitioner Women's Health | DX: N63.23 Unspecified lump in the left breast, lower outer quadrant (principal); C50.912 Malignant neoplasm of unspecified site of left female breast | CPT/HCPCS: 76642; 77065; G0279 ==

== ENCOUNTER → 2023-05-19 | Outpatient (REF) | payer MEDICARE, OTHER, MEDICAID ==
[2023-05-19 11:39] LABS: BASO % 0.5 % (0.0-1.0); EOS # 0.1 10^3/uL (0.0-0.5); EOS % 1.2 % (0.0-3.0); HEMATOCRIT 44.4 % (36.0-47.0); HEMOGLOBIN 15.3 g/dl (12.0-15.5); LYMPH # 2.8 10^3/uL (1.5-5.0); LYMPH % 37.5 % (24.0-44.0); MEAN CORPUSCULAR HEMOGLOBIN 31.9 pg (27.0-33.0); MEAN CORPUSCULAR HGB CONC 34.5 g/dl (32.0-36.5); MEAN CORPUSCULAR VOLUME 92.7 fl (80.0-96.0); MONO # 0.5 10^3/uL (0.0-0.8); MONO % 6.9 % (2.0-8.0); NEUTROPHILS % 53.8 % (36.0-66.0); PLATELET COUNT, AUTOMATED 287 10^3/uL (150-450); RED BLOOD COUNT 4.79 10^6/uL (4.00-5.40); WHITE BLOOD COUNT 7.4 10^3/uL (4.0-10.0)
[2023-05-19 11:44] LABS: AMORPHOUS SEDIMENT SMALL (NEGATIVE); APPEARANCE, URINE HAZY (CLEAR); BACTERIA, URINE AUTO NEGATIVE (NEGATIVE); BILIRUBIN, URINE AUTO NEGATIVE (NEGATIVE); BLOOD, URINE BLOOD NEGATIVE (NEGATIVE); COLOR, URINE YELLOW (YELLOW); GLUCOSE, URINE (UA) AUTO NEGATIVE (NEGATIVE); KETONE, URINE AUTO NEGATIVE (NEGATIVE); LEUKOCYTE ESTERASE, URINE AUTO NEGATIVE (NEGATIVE); NITRITE, URINE AUTO NEGATIVE (NEGATIVE); PROTEIN, URINE AUTO NEGATIVE (NEGATIVE); RBC, URINE AUTO 0 /HPF (0-3); SQUAMOUS EPITHELIAL CELL UR AU 0 /HPF (0-6); UROBILINOGEN, URINE AUTO 0.2 mg/dL (0.0-2.0); WBC, URINE AUTO 1 /HPF (0-3)
[2023-05-19 11:45] LABS: ERYTHROCYTE SEDIMENTATION RATE 23 mm/hr (0-30)
[2023-05-19 12:09] LABS: C REACTIVE PROTEIN QUANTITATIV < 0.40 MG/DL (<1.0)
[2023-05-19 12:10] LABS: COMPLEMENT C3 123.2 MG/DL (90.0-170.0); COMPLEMENT C4 26.7 MG/DL (12-36); CREATININE,RANDOM URINE 36.8 MG/DL
[2023-05-19 12:11] LABS: ALBUMIN 4.1 G/DL (3.2-5.2); ALKALINE PHOSPHATASE 83 U/L (46-116); ALT/SGPT 18 U/L (7.0-40); AST/SGOT 10 U/L (<34); BILIRUBIN,TOTAL 0.3 MG/DL (0.3-1.2); BLOOD UREA NITROGEN 11 MG/DL (9-23); CALCIUM LEVEL 9.3 MG/DL (8.5-10.1); CARBON DIOXIDE LEVEL 29 MMOL/L (20-31); CHLORIDE LEVEL 104 MMOL/L (98-107); CREATININE FOR GFR 0.62 MG/DL (0.55-1.30); GLOMERULAR FILTRATION RATE > 60.0 (>51); GLUCOSE, FASTING 79 MG/DL (60-100); SODIUM LEVEL 135 MMOL/L (136-145)
[2023-05-19 12:34] LABS: TOTAL PROTEIN,RANDOM URINE < 6.0 MG/DL (0.0-14.0)
== END ==
LOC: M SFHCRHEU 10:29
PROVIDERS: ATTEND Internal Medicine Rheumatology
DX: R76.8 Other specified abnormal immunological findings in serum (principal); M25.50 Pain in unspecified joint; L65.9 Nonscarring hair loss, unspecified; R63.4 Abnormal weight loss; Z72.0 Tobacco use

== ENCOUNTER → 2023-08-03 | Outpatient (CLI) | payer MEDICARE ==
[~2023-08-03] MED LIST changes: +MIRA3350
[2023-08-03 14:43] LABS: HEMATOCRIT 46.3 % (36.0-47.0); HEMOGLOBIN 15.9 g/dl (12.0-15.5); MEAN CORPUSCULAR HEMOGLOBIN 31.7 pg (27.0-33.0); MEAN CORPUSCULAR HGB CONC 34.3 g/dl (32.0-36.5); MEAN CORPUSCULAR VOLUME 92.2 fl (80.0-96.0); PLATELET COUNT, AUTOMATED 289 10^3/uL (150-450); RED BLOOD COUNT 5.02 10^6/uL (4.00-5.40); WHITE BLOOD COUNT 5.6 10^3/uL (4.0-10.0)
[2023-08-03 14:52] LABS: ERYTHROCYTE SEDIMENTATION RATE 15 mm/hr (0-30)
[2023-08-03 15:06] LABS: C REACTIVE PROTEIN QUANTITATIV < 0.40 MG/DL (<1.0); IMMUNOGLOBULIN A 172.7 MG/DL (40-350)
[2023-08-03 15:13] LABS: ALBUMIN 4.4 G/DL (3.2-5.2); ALKALINE PHOSPHATASE 91 U/L (46-116); ALT/SGPT 20 U/L (7.0-40); AST/SGOT 14 U/L (<34); BILIRUBIN,TOTAL 0.4 MG/DL (0.3-1.2); BLOOD UREA NITROGEN 9 MG/DL (9-23); CALCIUM LEVEL 10.1 MG/DL (8.5-10.1); CARBON DIOXIDE LEVEL 28 MMOL/L (20-31); CHLORIDE LEVEL 107 MMOL/L (98-107); CREATININE FOR GFR 0.74 MG/DL (0.55-1.30); GLOMERULAR FILTRATION RATE > 60.0 (>51); GLUCOSE, FASTING 88 MG/DL (60-100); POTASSIUM SERUM 4.5 MMOL/L (3.5-5.1); SODIUM LEVEL 139 MMOL/L (136-145)
[2023-08-04 21:07] LABS: ENDOMYSIAL ABY IgA Negative (Negative); TISSUE TRANSGLUTAMINASE IgA <2 U/mL (0-3); TISSUE TRANSGLUTAMINASE IgG <2 U/mL (0-5)
== END ==
LOC: M PLALAB 09:23
PROVIDERS: ATTEND Student in an Organized Health Care Education/Training Program
DX: K59.00 Constipation, unspecified (principal); R14.0 Abdominal distension (gaseous); R19.5 Other fecal abnormalities

== ENCOUNTER → 2023-08-03 | Outpatient (CLI) | payer MEDICARE | LOC: M PLARAD 14:17 | PROVIDERS: ATTEND Family Medicine | DX: M51.36 Other intervertebral disc degeneration, lumbar region (principal); M51.34 Other intervertebral disc degeneration, thoracic region; M48.061 Spinal stenosis, lumbar region without neurogenic claudication ==

== ENCOUNTER → 2023-08-03 | Outpatient (REF) | payer MEDICARE ==
[2023-08-03 13:32] LABS: APPEARANCE, URINE CLEAR (CLEAR); BACTERIA, URINE AUTO NEGATIVE (NEGATIVE); BILIRUBIN, URINE AUTO NEGATIVE (NEGATIVE); BLOOD, URINE BLOOD NEGATIVE (NEGATIVE); COLOR, URINE STRAW (YELLOW); GLUCOSE, URINE (UA) AUTO NEGATIVE (NEGATIVE); KETONE, URINE AUTO NEGATIVE (NEGATIVE); LEUKOCYTE ESTERASE, URINE AUTO NEGATIVE (NEGATIVE); NITRITE, URINE AUTO NEGATIVE (NEGATIVE); PROTEIN, URINE AUTO NEGATIVE (NEGATIVE); RBC, URINE AUTO 0 /HPF (0-3); SPECIFIC GRAVITY URINE AUTO 1.002 (1.002-1.035); SQUAMOUS EPITHELIAL CELL UR AU 0 /HPF (0-6); UROBILINOGEN, URINE AUTO 0.2 mg/dL (0.0-2.0); WBC, URINE AUTO 0 /HPF (0-3)
== END ==
LOC: M SMT 12:06
PROVIDERS: ATTEND Physician Assistant
DX: R30.0 Dysuria (principal)

== ENCOUNTER → 2023-08-09 | Outpatient (CLI) | payer MEDICARE | LOC: M RAD 10:13 | PROVIDERS: ATTEND Student in an Organized Health Care Education/Training Program | DX: K59.00 Constipation, unspecified (principal); R14.0 Abdominal distension (gaseous); R19.5 Other fecal abnormalities ==

== ENCOUNTER → 2023-09-05 | Outpatient (CLI) | payer MEDICARE | LOC: M EKG 15:22 | PROVIDERS: ATTEND Internal Medicine Cardiovascular Disease | DX: I49.3 Ventricular premature depolarization (principal) ==

== ENCOUNTER 2023-09-21 09:47 | Outpatient (RCR) | payer MEDICARE, OTHER | END 2023-10-11 | LOC: M PT 09:47 | PROVIDERS: ATTEND Internal Medicine Medical Oncology | DX: I89.0 Lymphedema, not elsewhere classified (principal) ==

== ENCOUNTER → 2023-10-09 | Outpatient (CLI) | payer MEDICARE | LOC: M WHC 12:58 | PROVIDERS: ATTEND Nurse Practitioner Women's Health | DX: C50.912 Malignant neoplasm of unspecified site of left female breast (principal) | CPT/HCPCS: 77066; G0279 ==

== ENCOUNTER → 2023-11-22 | Outpatient (REF) | payer MEDICARE | LOC: M LAB REF 10:46 | PROVIDERS: ATTEND Student in an Organized Health Care Education/Training Program | DX: R19.5 Other fecal abnormalities (principal) ==

== ENCOUNTER → 2023-11-29 | Outpatient (REF) | payer MEDICARE | LOC: M SFHCCLAY 09:53 | PROVIDERS: ATTEND Physician Assistant | DX: R35.0 Frequency of micturition (principal) ==

== ENCOUNTER → 2023-12-12 | Outpatient (REF) | payer MEDICARE ==
[2023-12-12 17:47] LABS: ALBUMIN 3.9 G/DL (3.2-5.2); ALKALINE PHOSPHATASE 94 U/L (46-116); ALT/SGPT 19 U/L (7.0-40); AST/SGOT 12 U/L (<34); BILIRUBIN,TOTAL 0.2 MG/DL (0.3-1.2); BLOOD UREA NITROGEN 8 MG/DL (9-23); CALCIUM LEVEL 9.8 MG/DL (8.5-10.1); CARBON DIOXIDE LEVEL 26 MMOL/L (20-31); CHLORIDE LEVEL 108 MMOL/L (98-107); CREATININE FOR GFR 0.67 MG/DL (0.55-1.30); FREE T4 1.37 NG/DL (0.89-1.76); GLOMERULAR FILTRATION RATE > 60.0 (>51); GLUCOSE, FASTING 113 MG/DL (60-100); SODIUM LEVEL 137 MMOL/L (136-145); TOTAL PROTEIN 6.7 G/DL (5.7-8.2)
== END ==
LOC: M SFHCCLAY 14:52
PROVIDERS: ATTEND Family Medicine
DX: I10 Essential (primary) hypertension (principal)

== ENCOUNTER → 2023-12-25 | Outpatient (CLI) | payer MEDICARE ==
[~2023-12-25] MED LIST changes: +GABA-1172 PO; -GABA-282 PO; -ROSU20TA61 PO; +ROSU20TA86 PO; -VITA500C19 PO; +VITA500C22 PO
== END ==
LOC: M ONCR 09:44
PROVIDERS: ATTEND General Practice
DX: Z08 Encounter for follow-up examination after completed treatment for malignant neoplasm (principal); Z85.3 Personal history of malignant neoplasm of breast; F17.210 Nicotine dependence, cigarettes, uncomplicated; Z79.811 Long term (current) use of aromatase inhibitors; Z79.899 Other long term (current) drug therapy; Z88.1 Allergy status to other antibiotic agents; Z88.2 Allergy status to sulfonamides; Z88.8 Allergy status to other drugs, medicaments and biological substances; Z92.3 Personal history of irradiation; Z98.890 Other specified postprocedural states

== ENCOUNTER → 2024-01-02 | Outpatient (CLI) | payer MEDICARE | LOC: M RAD 09:09 | PROVIDERS: ATTEND Internal Medicine Pulmonary Disease | DX: F17.218 Nicotine dependence, cigarettes, with other nicotine-induced disorders (principal) ==

== ENCOUNTER → 2024-04-03 | Outpatient (REF) | payer MEDICARE | LOC: M SFHCCLAY 14:12 | PROVIDERS: ATTEND Physician Assistant | DX: R05.1 Acute cough (principal) ==

== ENCOUNTER → 2024-04-03 | Outpatient (REF) | payer MEDICARE ==
[2024-04-03 18:31] LABS: RSV AMPLIFICATION NEGATIVE (NEGATIVE)
== END ==
LOC: M SFHCCLAY 16:35
PROVIDERS: ATTEND Physician Assistant
DX: R05.1 Acute cough (principal)

== ENCOUNTER → 2024-04-03 | Outpatient (CLI) | payer MEDICARE | LOC: M CLY 14:17 | PROVIDERS: ATTEND Physician Assistant | DX: R05.1 Acute cough (principal) ==

== ENCOUNTER → 2024-04-16 | Outpatient (REF) | payer MEDICARE ==
[2024-04-16 17:31] LABS: HEMATOCRIT 45.1 % (36.0-47.0); HEMOGLOBIN 15.3 g/dl (12.0-15.5); MEAN CORPUSCULAR HEMOGLOBIN 30.8 pg (27.0-33.0); MEAN CORPUSCULAR HGB CONC 33.9 g/dl (32.0-36.5); MEAN CORPUSCULAR VOLUME 90.9 fl (80.0-96.0); PLATELET COUNT, AUTOMATED 314 10^3/uL (150-450); RED BLOOD COUNT 4.96 10^6/uL (4.00-5.40); WHITE BLOOD COUNT 7.4 10^3/uL (4.0-10.0)
[2024-04-16 17:32] LABS: ALBUMIN 3.9 G/DL (3.2-5.2); ALKALINE PHOSPHATASE 100 U/L (35-104); ALT/SGPT 21 U/L (7.0-40); AST/SGOT 17 U/L (<34); BILIRUBIN,TOTAL 0.4 MG/DL (0.3-1.2); BLOOD UREA NITROGEN 11 MG/DL (9-23); CALCIUM LEVEL 9.7 MG/DL (8.5-10.1); CARBON DIOXIDE LEVEL 29 MMOL/L (20-31); CHLORIDE LEVEL 106 MMOL/L (98-107); CHOLESTEROL LEVEL 213 MG/DL (<200); CHOLESTEROL RISK RATIO 4.23 (<5); CREATININE FOR GFR 0.68 MG/DL (0.55-1.30); GLOMERULAR FILTRATION RATE > 60.0 (>51); GLUCOSE, FASTING 92 MG/DL (60-100); HDL CHOLESTEROL 50.3 MG/DL (>40); LDL CHOLESTEROL 112.7 MG/DL (<100); NON-HDL-C 162.7 MG/DL; POTASSIUM SERUM 4.7 MMOL/L (3.5-5.1); SODIUM LEVEL 141 MMOL/L (136-145); TOTAL PROTEIN 7.1 G/DL (5.7-8.2); TRIGLYCERIDES LEVEL 250 MG/DL (<150)
[2024-04-16 17:34] LABS: FREE T4 1.11 NG/DL (0.89-1.76); THYROID STIMULATING HORMONE 1.311 uIU/ML (0.55-4.78)
[2024-04-16 17:44] LABS: HEMOGLOBIN A1c 5.6 % (4.0-6.0)
== END ==
LOC: M SFHCCLAY 10:38
PROVIDERS: ATTEND Family Medicine
DX: I10 Essential (primary) hypertension (principal); R73.01 Impaired fasting glucose; E78.2 Mixed hyperlipidemia; R76.8 Other specified abnormal immunological findings in serum

== ENCOUNTER → 2024-11-06 | Outpatient (CLI) | payer MEDICARE ==
[~2024-11-06] MED LIST changes: +SENN-225 PO; -SENO8.6T5 PO
== END ==
LOC: M WHC 12:55
PROVIDERS: ATTEND Advanced Practice Midwife
DX: Z12.31 Encounter for screening mammogram for malignant neoplasm of breast (principal); Z13.820 Encounter for screening for osteoporosis; R92.8 Other abnormal and inconclusive findings on diagnostic imaging of breast

== ENCOUNTER → 2024-12-17 | Outpatient (CLI) | payer MEDICARE ==
[2024-12-17 12:39] VITALS: TEMP 98.6
[2024-12-17 14:22] VITALS: BP 146/86; O2SAT 99
== END ==
LOC: M WHCPRO 12:35
PROVIDERS: ATTEND Advanced Practice Midwife
DX: C50.412 Malignant neoplasm of upper-outer quadrant of left female breast (principal); N63.21 Unspecified lump in the left breast, upper outer quadrant

== ENCOUNTER → 2024-12-23 | Outpatient (REF) | payer MEDICARE | LOC: M SFHCCLAY 17:04 | PROVIDERS: ATTEND Family Medicine | DX: R39.15 Urgency of urination (principal) ==

== ENCOUNTER → 2024-12-24 | Outpatient (CLI) | payer MEDICARE | LOC: M ONCR 09:47 | PROVIDERS: ATTEND General Practice | DX: C50.412 Malignant neoplasm of upper-outer quadrant of left female breast (principal); F17.210 Nicotine dependence, cigarettes, uncomplicated; Z79.899 Other long term (current) drug therapy; Z80.3 Family history of malignant neoplasm of breast; Z88.1 Allergy status to other antibiotic agents; Z88.2 Allergy status to sulfonamides; Z88.8 Allergy status to other drugs, medicaments and biological substances; Z92.3 Personal history of irradiation; Z98.890 Other specified postprocedural states ==

== ENCOUNTER → 2025-01-02 | Outpatient (CLI) | payer MEDICARE | LOC: M RAD 13:28 | PROVIDERS: ATTEND Nurse Practitioner Women's Health | DX: Z12.2 Encounter for screening for malignant neoplasm of respiratory organs (principal); F17.210 Nicotine dependence, cigarettes, uncomplicated; R91.1 Solitary pulmonary nodule ==

== ENCOUNTER → 2025-01-07 | Outpatient (REF) | payer MEDICARE ==
[~2025-01-07] MED LIST changes: +CEFD1CAP9
[2025-01-07 18:20] LABS: BASO # 0.0 10^3/uL (0.0-0.2); BASO % 0.6 % (0.0-1.0); EOS # 0.1 10^3/uL (0.0-0.5); EOS % 0.8 % (0.0-3.0); LYMPH # 1.9 10^3/uL (1.5-5.0); LYMPH % 26.2 % (24.0-44.0); MONO # 0.6 10^3/uL (0.0-0.8); MONO % 8.7 % (2.0-8.0); NEUTROPHILS # 4.5 10^3/uL (1.5-8.5); NEUTROPHILS % 63.4 % (36.0-66.0); PLATELET COUNT, AUTOMATED 295 10^3/uL (150-450)
[2025-01-07 18:23] LABS: ALT/SGPT 23 U/L (7.0-40); AST/SGOT 21 U/L (<34); C REACTIVE PROTEIN QUANTITATIV 3.59 MG/DL (<1.0); CALCIUM LEVEL 9.4 MG/DL (8.5-10.1); CARBON DIOXIDE LEVEL 29 MMOL/L (20-31); CHLORIDE LEVEL 105 MMOL/L (98-107); CREATININE FOR GFR 0.66 MG/DL (0.55-1.30); GLOMERULAR FILTRATION RATE > 90.0 (>51); POTASSIUM SERUM 3.9 MMOL/L (3.5-5.1); SODIUM LEVEL 139 MMOL/L (136-145)
== END ==
LOC: M SFHCCLAY 12:59
PROVIDERS: ATTEND Family Medicine
DX: M25.50 Pain in unspecified joint (principal)

== ENCOUNTER → 2025-01-07 | Outpatient (CLI) | payer MEDICARE ==
[~2025-01-07] MED LIST changes: -CEFD1CAP9; +CEFD1CAP9 PO; +IBUP200C29 PO
== END ==
LOC: M CLY 13:09
PROVIDERS: ATTEND Family Medicine
DX: Z53.9 Procedure and treatment not carried out, unspecified reason (principal); M25.50 Pain in unspecified joint

== ENCOUNTER → 2025-01-07 | Outpatient (CLI) | payer MEDICARE ==
[~2025-01-07] MED LIST changes: +CEFD1CAP9; -CEFD1CAP9 PO; -IBUP200C29 PO
== END ==
LOC: M CLY 13:13
PROVIDERS: ATTEND Family Medicine
DX: M18.11 Unilateral primary osteoarthritis of first carpometacarpal joint, right hand (principal); M19.079 Primary osteoarthritis, unspecified ankle and foot

== ENCOUNTER → 2025-01-14 | Outpatient (CLI) | payer MEDICARE ==
[~2025-01-14] MED LIST changes: -CEFD1CAP9; +CEFD1CAP9 PO; +IBUP200C29 PO
== END ==
LOC: M PLARAD 14:12
PROVIDERS: ATTEND Surgery
DX: C50.412 Malignant neoplasm of upper-outer quadrant of left female breast (principal)
CPT/HCPCS: 78815; A9552

== ENCOUNTER 2025-01-27 07:54 | Day surgery (SDC) | payer MEDICARE ==
[~2025-01-27] VITALS: Ht 160 cm; Wt 87.1 kg
[~2025-01-27 07:54] MED LIST changes: +DOXY100T PO; +LIDOCAINE 2% 100 MG/5 ML SDV (FOR ANES.) As Ordered ONE; +LORA1TAB23 PO; +MENT1ADH18 TOP
[2025-01-27 09:39] VITALS: TEMP 97.3
[2025-01-27 10:04] VITALS: BP 156/67; O2SAT 98
== END 2025-01-27 10:12 | disposition home or self-care (01) ==
LOC: M OPP 07:54
PROVIDERS: ATTEND Internal Medicine Gastroenterology
DX: D12.2 Benign neoplasm of ascending colon (principal); K57.30 Diverticulosis of large intestine without perforation or abscess without bleeding; K64.8 Other hemorrhoids; R10.32 Left lower quadrant pain; R93.3 Abnormal findings on diagnostic imaging of other parts of digestive tract; Z88.1 Allergy status to other antibiotic agents; Z88.2 Allergy status to sulfonamides; Z88.8 Allergy status to other drugs, medicaments and biological substances; Z79.899 Other long term (current) drug therapy; F17.210 Nicotine dependence, cigarettes, uncomplicated

== ENCOUNTER → 2025-01-31 | Outpatient (REF) | payer MEDICARE ==
[~2025-01-31] MED LIST changes: -LIDOCAINE 2% 100 MG/5 ML SDV (FOR ANES.) As Ordered ONE
== END ==
LOC: M SFHCCLAY 09:24
PROVIDERS: ATTEND Internal Medicine Rheumatology
DX: M25.50 Pain in unspecified joint (principal)

== ENCOUNTER → 2025-02-14 | Outpatient (REF) | payer MEDICARE | LOC: M LAB REF 18:06 | PROVIDERS: ATTEND Internal Medicine Gastroenterology | DX: A09 Infectious gastroenteritis and colitis, unspecified (principal); K57.32 Diverticulitis of large intestine without perforation or abscess without bleeding ==

== ENCOUNTER → 2025-02-20 | Outpatient (REF) | payer MEDICARE | LOC: M SFHCCLAY 14:03 | PROVIDERS: ATTEND Family Medicine | DX: Z53.9 Procedure and treatment not carried out, unspecified reason (principal) ==

== ENCOUNTER → 2025-02-20 | Outpatient (CLI) | payer MEDICARE | LOC: M CLY 14:13 | PROVIDERS: ATTEND Family Medicine | DX: Z53.9 Procedure and treatment not carried out, unspecified reason (principal) ==

== ENCOUNTER → 2025-02-21 | Outpatient (CLI) | payer MEDICARE | LOC: M CLY 08:25 | PROVIDERS: ATTEND Family Medicine | DX: R07.89 Other chest pain (principal); R10.9 Unspecified abdominal pain ==

== ENCOUNTER → 2025-02-21 | Outpatient (REF) | payer MEDICARE ==
[2025-02-21 13:31] LABS: BASO # 0.0 10^3/uL (0.0-0.2); BASO % 0.7 % (0.0-1.0); EOS # 0.0 10^3/uL (0.0-0.5); EOS % 0.9 % (0.0-3.0); LYMPH # 1.7 10^3/uL (1.5-5.0); LYMPH % 38.2 % (24.0-44.0); MONO # 0.4 10^3/uL (0.0-0.8); MONO % 8.4 % (2.0-8.0); NEUTROPHILS # 2.4 10^3/uL (1.5-8.5); NEUTROPHILS % 51.6 % (36.0-66.0); PLATELET COUNT, AUTOMATED 290 10^3/uL (150-450)
[2025-02-21 13:53] LABS: ALT/SGPT 24 U/L (7.0-40); AST/SGOT 23 U/L (<34); CALCIUM LEVEL 9.2 MG/DL (8.5-10.1); CARBON DIOXIDE LEVEL 28 MMOL/L (20-31); CHLORIDE LEVEL 109 MMOL/L (98-107); CREATININE FOR GFR 0.73 MG/DL (0.55-1.30); GLOMERULAR FILTRATION RATE > 90.0 (>51); POTASSIUM SERUM 4.6 MMOL/L (3.5-5.1); SODIUM LEVEL 141 MMOL/L (136-145)
== END ==
LOC: M SFHCCLAY 08:21
PROVIDERS: ATTEND Family Medicine
DX: R10.9 Unspecified abdominal pain (principal)

== ENCOUNTER → 2025-02-26 | Outpatient (CLI) | payer MEDICARE | LOC: M ONCR 13:22 | PROVIDERS: ATTEND General Practice | DX: C50.412 Malignant neoplasm of upper-outer quadrant of left female breast (principal); K57.32 Diverticulitis of large intestine without perforation or abscess without bleeding; F17.210 Nicotine dependence, cigarettes, uncomplicated; Z98.890 Other specified postprocedural states; Z92.3 Personal history of irradiation; Z17.0 Estrogen receptor positive status [ER+]; Z17.21 Progesterone receptor positive status; Z17.32 Human epidermal growth factor receptor 2 negative status; Z88.1 Allergy status to other antibiotic agents; Z88.2 Allergy status to sulfonamides; Z88.8 Allergy status to other drugs, medicaments and biological substances; Z88.6 Allergy status to analgesic agent; Z79.2 Long term (current) use of antibiotics; Z79.899 Other long term (current) drug therapy ==

== ENCOUNTER → 2025-03-03 | Outpatient (CLI) | payer MEDICARE ==
[~2025-03-03] MED LIST changes: +ISOVUE-370 76% 100 ML VIAL As Ordered ONE
== END ==
LOC: M RAD 13:59
PROVIDERS: ATTEND Family Medicine
DX: R07.89 Other chest pain (principal); R10.9 Unspecified abdominal pain; K57.30 Diverticulosis of large intestine without perforation or abscess without bleeding; K76.89 Other specified diseases of liver; D35.01 Benign neoplasm of right adrenal gland; D35.02 Benign neoplasm of left adrenal gland
CPT/HCPCS: 74177; Q9967